=== PATIENT | female | born 1945 | race African-American/Black ===

== ENCOUNTER 2016-12-31 15:22 | Emergency (ER) | payer OTHER, MEDICAID ==
[~2016-12-31 15:22] MED LIST: 1-ME1LIQ PO; ACET325 PO; ASPI81 PO; CITRTAB7 PO; LISI-366 PO; SIMV20 PO; TOPR100T15 PO
[2016-12-31 15:24] VITALS: BP 155/72; PULSE 101; RESP 17; TEMP 98.2; O2SAT 99
--- NOTE | 2016-12-31 15:47 | PD ---
Physical Exam Date Seen by Provider: Dec 31, 2016 Time Seen by Provider: 15:45 Narrative Pt is a 71 year old female presenting to the ED for evaluation left flank and abdominal pain. Symptoms started . Pt states it hurts when she coughs. Pt reports dysuria. Pt states pain is a 10/10. Pain is worse with movement. No fevers, chills. VSS, awaiting bed placement. Data Data Last Documented VS Vital Signs Date Time Temp Pulse Resp B/P (MAP) Pulse Ox O2 Delivery O2 Flow Rate FiO2 12/31/16 15:24 98.2 101 17 155/72 (99) 99 MDM Supervised Visit with TRACEE: Mariann Harmon Dec 31, 2016 15:47
[2016-12-31 16:21] LABS: AUTOMATED NEUTROPHIL # 5.4 TH/MM3 (1.8-7.7); BASOPHIL # 0.1 TH/MM3 (0-0.2); EOSINOPHIL # 0.2 TH/MM3 (0-0.4); EOSINOPHIL % 2.2 % (0.0-4.0); HEMATOCRIT 32.1 % (35.0-46.0); HEMO FLAGS DIFF FINAL; LYMPH % 28.2 % (9.0-44.0); LYMPHOCYTE # 2.6 TH/MM3 (1.0-4.8); MEAN CELL VOLUME 91.5 FL (80.0-100.0); MEAN CORPUSCULAR HEMOGLOBIN 29.2 PG (27.0-34.0); MEAN CORPUSCULAR HGB CONC 31.9 % (32.0-36.0); MONO % 9.1 % (0.0-8.0); NEUT % 59.5 % (16.0-70.0); PLATELET COUNT 428 TH/MM3 (150-450); RED BLOOD COUNT 3.51 MIL/MM3 (4.00-5.30); RED CELL DISTRIBUTION WIDTH 18.7 % (11.6-17.2); WHITE BLOOD COUNT 9.1 TH/MM3 (4.0-11.0)
[2016-12-31 16:23] LABS: BACTERIA, URINE MANY /hpf; BLOOD, URINE NEG (NEG); COMMENT (UR) CULTURE INDICATED; CULTURE IF INDICATED CULTURE INDICATED; GLUCOSE,URINE NEG (NEG); HYALINE CAST, URINE 3 /lpf (RARE); KETONE, URINE NEG (NEG); MUCUS URINE FEW /lpf (OCC); NITRITE,URINE NEG (NEG); PH, URINE 5.5 (5.0-8.5); SQUAMOUS EPITHELIAL CELL URINE 15 /hpf (0-5); URINE COLOR YELLOW (YELLW/STRAW)
[2016-12-31 16:34] LABS: ANION GAP 8 MEQ/L (5-15); AST (GOT) 19 U/L (15-37); BICARBONATE 23.3 MEQ/L (21.0-32.0); BLOOD UREA NITROGEN 22 MG/DL (7-18); CHLORIDE 107 MEQ/L (98-107); GLOMERULAR FILTRATION RATE 30 ML/MIN (>89); POTASSIUM 3.8 MEQ/L (3.5-5.1); SODIUM (NA) 138 MEQ/L (136-145)
[2016-12-31 16:38] LABS: ALKALINE PHOSPHATASE 118 U/L (45-117); ALT (GPT) 26 U/L (10-53); TOTAL BILIRUBIN ADULT 0.4 MG/DL (0.2-1.0)
[2016-12-31] MEDS ORDERED: MORPHINE SULFATE 4 MG/ML INJ IV PUSH ONE (17:30)
[2016-12-31] MEDS ORDERED: cefTRIAXone INJ 1,000 MG in SODIUM CHLORIDE 0.9% INJ 100 ML IV ONE (17:30)
[2016-12-31] MEDS ORDERED: ONDANSETRON HCL 4 MG/2 ML VIAL IV PUSH ONE (17:30)
[2016-12-31] MEDS ORDERED: SODIUM CHLOR 0.9% 1000 ML INJ 1,000 ML IV ONE (17:30)
[2016-12-31] MEDS ORDERED: LISI40TA PO (17:39)
[2016-12-31] MEDS ORDERED: HYDR-3799 PO (17:39)
[2016-12-31] MEDS ORDERED: TRAZ50TA12 PO (17:39)
[2016-12-31] MEDS ORDERED: TOPR100T PO (17:39)
[2016-12-31] MEDS ORDERED: ATOR10TA15 PO (17:39)
[2016-12-31] MEDS ORDERED: CLOP75TA PO (17:39)
[2016-12-31] MEDS ORDERED: TOLT60TA PO (17:39)
[2016-12-31] MEDS ORDERED: ASPI1TAB91 PO (17:39)
[2016-12-31] MEDS ORDERED: ESCI10TA PO (17:39)
[2016-12-31] MEDS ORDERED: OMEP20TA PO (17:39)
[2016-12-31] MEDS ORDERED: MECL-62 PO (17:39)
[2016-12-31] MEDS ORDERED: CHLO25TA2 PO (17:39)
--- NOTE | 2016-12-31 17:39 | PD ---
HPI Chief Complaint: Flank/Kidney Pain Time Seen by Provider: 17:10 Travel History International Travel<30 days: No Contact w/Intl Traveler<30days: No Traveled to known affect area: No History of Present Illness HPI Patient is a 71-year-old female who comes in complaining of lower abdominal pain that radiates into her back. She says she has had the pain since . She says she has burning when she urinates. She denies nausea or vomiting, but says she has had no appetite. She says she is having regular bowel movements. She denies fever or chills. PFSH Past Medical History Arthritis: Yes Asthma: No Autoimmune Disease: No Blood Disorders: No Anxiety: No Depression: No Heart Rhythm Problems: No Cancer: No Cardiac Catheterization: Yes Cardiovascular Problems: Yes High Cholesterol: Yes Chemotherapy: No Chest Pain: No Congestive Heart Failure: No COPD: Yes Cerebrovascular Accident: No Coronary Artery Disease: Yes Diabetes: Yes (DIET CONTROLLED- MD TOOK HER OFF MEDS) Patient Takes Glucophage: No Diminished Hearing: Yes (MOSTLY DEAF) Endocrine: No GERD: No Glaucoma: No Genitourinary: No Headaches: Yes Hepatitis: No Hiatal Hernia: No Hypertension: Yes Immune Disorder: No Kidney Stones: No Medical other: Yes (HARD OF HEARING USED A HEARING AID,ARTHRITIS) Musculoskeletal: Yes Neurologic: Yes Psychiatric: No Reproductive: No Respiratory: Yes (SLEEP APNEA WITH C PAP) Immunizations Current: Yes Migraines: No Myocardial Infarction: No Radiation Therapy: No Renal Failure: No Seizures: No Sickle Cell Disease: No Sleep Apnea: No Thyroid Disease: No Ulcer: No PNEUMOCCOCAL Vaccine (Year): 2 Menopausal: Yes : 3 Para: 3 Past Surgical History Abdominal Surgery: Yes AICD: No Appendectomy: No Arteriovenous Shunt: No Cardiac Surgery: Yes (HEART CATH 2007) Section: Yes Cholecystectomy: No Ear Surgery: No Endocrine Surgery: No Eye Surgery: Yes (RIGHT CATARACT EXTRACTION WITH LENS) Genitourinary Surgery: No Gynecologic Surgery: Yes (C SECTION X 3) Insulin Pump: No Joint Replacement: No Oral Surgery: No Pacemaker: No Thoracic Surgery: No Other Surgery: Yes Social History Alcohol Use: Yes (3 BEERS/DAY WEEKENDS) Tobacco Use: Yes (MOSTLY WHEN DRINKING) Substance Use: No Allergies-Medications (Allergen,Severity, Reaction): Coded Allergies: No Known Allergies (Verified , 12/31/16) Reported Meds & Prescriptions Reported Meds & Active Scripts Active Reported Trazodone (Trazodone HCl) 50 Mg Tab 100 Mg PO HS PRN Lisinopril 40 Mg Tab 40 Mg PO DAILY Escitalopram (Escitalopram Oxalate) 10 Mg Tab 10 Mg PO DAILY Clopidogrel (Clopidogrel Bisulfate) 75 Mg Tab 75 Mg PO DAILY Chlorthalidone 25 Mg Tab 25 Mg PO DAILY Atorvastatin (Atorvastatin Calcium) 10 Mg Tab 10 Mg PO HS Tolterodine (Tolterodine Tartrate) 1 Mg Tab 1 Mg PO BID Hydralazine HCl 25 Mg Tablet 25 Mg PO BID Toprol XL (Metoprolol Succinate) 100 Mg Tab 100 Mg PO DAILY Omeprazole 20 Mg Tab 40 Mg PO DAILY Meclizine (Meclizine HCl) 25 Mg Tab 25 Mg PO TID PRN Aspirin Adult Low Strength (Aspirin) 81 Mg Tabdr 81 Mg PO DAILY Review of Systems Except as stated in HPI: all other systems reviewed are Neg General / Constitutional: No: Fever, Chills Eyes: No: Blurred Vision HENT: No: Headaches, Lightheadedness Cardiovascular: No: Chest Pain or Discomfort Respiratory: No: Shortness of Breath Gastrointestinal: Positive: Abdominal Pain, No: Nausea, Vomiting Genitourinary: Positive: Dysuria, Flank Pain Skin: No Rash, No Change in Pigmentation Neurologic: No: Weakness, Dizziness Physical Exam Narrative GENERAL: Awake and alert, in mild distress due to pain. SKIN: Focused skin assessment warm/dry. HEAD: Atraumatic. Normocephalic. EYES: Pupils equal and round. No scleral icterus. ENT: Mucous membranes pink and moist. NECK: Trachea midline. No JVD. CARDIOVASCULAR: Regular rate and rhythm. No murmur appreciated. RESPIRATORY: No accessory muscle use. Clear to auscultation. Breath sounds equal bilaterally. GASTROINTESTINAL: Abdomen soft, mildly distended. Tender to palpation of the suprapubic area, no rebound or guarding. MUSCULOSKELETAL: No obvious deformities. No clubbing. No cyanosis. No edema. NEUROLOGICAL: Awake and alert. No obvious cranial nerve deficits. Motor grossly within normal limits. Normal speech. PSYCHIATRIC: Appropriate mood and affect; insight and judgment normal. Data Data Last Documented VS Vital Signs Date Time Temp Pulse Resp B/P (MAP) Pulse Ox O2 Delivery O2 Flow Rate FiO2 12/31/16 18:19 86 18 199/84 (122) 95 Room Air 12/31/16 15:24 98.2 Orders Orders Urinalysis - C+S If Indicated (12/31/16 15:47) Complete Blood Count With Diff (12/31/16 15:47) Comprehensive Metabolic Panel (12/31/16 15:47) Urine Culture (12/31/16 15:57) Ct Abd/Pel W/O Iv Contrast (12/31/16 ) Ceftriaxone Inj (Rocephin Inj) (12/31/16 17:30) Morphine Inj (Morphine Inj) (12/31/16 17:30) Ondansetron Inj (Zofran Inj) (12/31/16 17:30) Sodium Chlor 0.9% 1000 Ml Inj (Ns 1000 M (12/31/16 17:30) Hydromorphone Pf Inj (Dilaudid Pf Inj) (12/31/16 19:00) Labs Laboratory Tests Test 12/31/16 15:57 12/31/16 16:04 Urine Color YELLOW Urine Turbidity CLOUDY Urine pH 5.5 Urine Specific [place] 1.021 Urine Protein 30 mg/dL Urine Glucose (UA) NEG mg/dL Urine Ketones NEG mg/dL Urine Occult Blood NEG Urine Nitrite NEG Urine Bilirubin NEG Urine Urobilinogen LESS THAN 2.0 MG/DL Urine Leukocyte Esterase LARGE Urine RBC 25 /hpf Urine WBC 58 /hpf Urine Squamous Epithelial Cells 15 /hpf Urine Amorphous Sediment RARE Urine Bacteria MANY /hpf Urine Hyaline Casts 3 /lpf Urine Mucus FEW /lpf Microscopic Urinalysis Comment CULTURE INDICATED White Blood Count 9.1 TH/MM3 Red Blood Count 3.51 MIL/MM3 Hemoglobin 10.3 GM/DL Hematocrit 32.1 % Mean Corpuscular Volume 91.5 FL Mean Corpuscular Hemoglobin 29.2 PG Mean Corpuscular Hemoglobin Concent 31.9 % Red Cell Distribution Width 18.7 % Platelet Count 428 TH/MM3 Mean Platelet Volume 7.4 FL Neutrophils (%) (Auto) 59.5 % Lymphocytes (%) (Auto) 28.2 % Monocytes (%) (Auto) 9.1 % Eosinophils (%) (Auto) 2.2 % Basophils (%) (Auto) 1.0 % Neutrophils # (Auto) 5.4 TH/MM3 Lymphocytes # (Auto) 2.6 TH/MM3 Monocytes # (Auto) 0.8 TH/MM3 Eosinophils # (Auto) 0.2 TH/MM3 Basophils # (Auto) 0.1 TH/MM3 CBC Comment DIFF FINAL Differential Comment Blood Urea Nitrogen 22 MG/DL Creatinine 1.99 MG/DL Random Glucose 107 MG/DL Total Protein 8.2 GM/DL Albumin 3.4 GM/DL Calcium Level 9.3 MG/DL Alkaline Phosphatase 118 U/L Aspartate Amino Transf (AST/SGOT) 19 U/L Alanine Aminotransferase (ALT/SGPT) 26 U/L Total Bilirubin 0.4 MG/DL Sodium Level 138 MEQ/L Potassium Level 3.8 MEQ/L Chloride Level 107 MEQ/L Carbon Dioxide Level 23.3 MEQ/L Anion Gap 8 MEQ/L Estimat Glomerular Filtration Rate 30 ML/MIN MDM Medical Decision Making Medical Screen Exam Complete: Yes Emergency Medical Condition: Yes Medical Record Reviewed: Yes Differential Diagnosis UTI versus pyelonephritis versus renal stone Narrative Course Patient is a 71-year-old female comes in complaining of pain that goes from her back into her lower abdomen. Exam shows some suprapubic tenderness. IV established, labs sent. Patient given morphine, Zofran, fluids. Labs show evidence of UTI in the urinalysis. Creatinine is elevated to 1.99, with nothing for comparison. CT of the abdomen and pelvis shows no acute abnormalities or causes for the pain. Believe the patient is having pain due to pyelonephritis. She is given a dose of Rocephin. She will be discharged with prescriptions for Lortab and Cipro. She is advised to follow-up with her doctor regarding her elevated creatinine. She is advised to return to the ED as needed for any worsening symptoms. Diagnosis Primary Impression: Pyelonephritis Patient Instructions: General Instructions, Kidney Infection (ED) Additional Instructions: Your creatinine was 1.99 today, suggesting your kidneys are not functioning as well as they should be. He need follow-up with your doctor regarding this. X- rays take all of your antibiotic. Drink plenty of fluids. Return to the ED as needed for any worsening symptoms. Scripts Hydrocodone-Acetaminophen (Lortab) 5-325 Mg Tab 1 TAB PO Q6H Y for PAIN, #10 TAB 0 Refills Prov: Adriana Krishna MD 12/31/16 Phenazopyridine (Pyridium) 100 Mg Tab 100 MG PO Q8H Y for DYSURIA for 2 Days, TAB 0 Refills Prov: Adriana Krishna MD 12/31/16 Ciprofloxacin (Cipro) 500 Mg Tab 500 MG PO BID for Infection for 7 Days, TAB 0 Refills Prov: Adriana Krishna MD 12/31/16 Disposition: 01 DISCHARGE HOME Condition: Stable Adriana Krishna MD Dec 31, 2016 17:39
[2016-12-31 18:19] VITALS: BP 199/84; PULSE 86; RESP 18; O2SAT 95
--- NOTE | 2016-12-31 18:53 | RADRPT ---
EXAM DATE/TIME: 12/31/2016 17:52 [facility] COMPARISON: No previous studies available for comparison. INDICATIONS : Patient complains of low back pain radiating to abdomen. ORAL CONTRAST: No oral contrast ingested. RADIATION DOSE: 8.53 CTDIvol (mGy) MEDICAL HISTORY : Cardiovascular disease. Hypertension. SURGICAL HISTORY : None. ENCOUNTER: Initial ACUITY: 1 day PAIN SCALE: 10/10 LOCATION: Bilateral abdomen TECHNIQUE: Volumetric scanning of the abdomen and pelvis was performed. Using automated exposure control and adjustment of the mA and/or kV according to patient size, radiation dose was kept as low as reasonably achievable to obtain optimal diagnostic quality images. DICOM format image data is av ailable electronically for review and comparison. FINDINGS: The liver, spleen, pancreas and adrenal glands are normal. There is a 4.2 cm mass seen at the medial mid inferior left kidney. It is nonspecific on this noncontrast CT examination. It d oes measure water density and statistically likely represents a cyst. There are atherosclerotic calc ifications seen throughout. There are calcifications in the renal hilar regions likely related to va scular structures. Hydronephrosis is not seen. An aneurysm is not seen. The gallbladder is unremarkable. There are scattered colonic diverticula seen throughout the colon. Significant inflammatory change is not clearly identified. What appears to be the appendix is ident ified and appears grossly normal. The pelvic structures appear grossly intact. There are numerous calcifications in the pelvis likely related to a combination of arterial calcifications and phleboliths. The abdominal wall is grossly i ntact. There is minimal atelectasis seen at the lung bases. There is degenerative change with osteo phyte formation and disc bulging in the lumbar spine. There is fusion seen at the left sacroiliac ivelisse int. The right sacroiliac joint is intact. CONCLUSION: 1. No definite acute abnormality is seen. 2. Colonic diverticula are seen throughout the colon. 3. Atherosclerotic calcifications seen throughout the arterial system. 4. Degenerative change in the lumbar spine and fusion at the left sacroiliac joint. Mando Forrest MD on December 31, 2016 at 18:37 Board Certified Radiologist. This report was verified electronically.
[2016-12-31] MEDS ORDERED: HYDROmorphone HCL PF 1 MG/ML VIAL IV PUSH ONE (19:00)
[2016-12-31] MEDS ORDERED: PHEN0.4T PO (19:33)
[2016-12-31] MEDS ORDERED: HYDR-3533 PO (19:33)
[2016-12-31] MEDS ORDERED: CIPR-9 PO (19:33)
[2016-12-31 19:45] VITALS: BP 178/81; PULSE 81; RESP 16; O2SAT 98
== END 2016-12-31 20:03 | disposition home or self-care (01) ==
LOC: NEPD 15:22
DX: N12 Tubulo-interstitial nephritis, not specified as acute or chronic (principal); B96.89 Other specified bacterial agents as the cause of diseases classified elsewhere; I10 Essential (primary) hypertension; Z72.0 Tobacco use
CPT/HCPCS: 74176; 80053; 81001; 85025; 87086; 96361; 96365; 96375; 99285; J0696; J1170; J2270; J2405; J7030

== ENCOUNTER 2017-04-03 11:46 | Observation (INO) | payer OTHER, MEDICAID ==
[2017-04-03] VITALS (8 sets, daily range): BP systolic 99–168; BP diastolic 55–88; PULSE 63–80; RESP 16–21; TEMP 97.8–98.5; O2SAT 99–100
[~2017-04-03] VITALS: Ht 152.4 cm; Wt 79.5 kg
[~2017-04-03 11:46] MED LIST changes: -1-ME1LIQ PO; -ACET325 PO; -ASPI81 PO; +ASPI81TA16 PO; +ATOR10TA15 PO; +CHLO25TA2 PO; +CIPR-9 PO; -CITRTAB7 PO; +CLOP75TA PO; +ESCI10TA PO; +HYDR-3533 PO; +HYDR-3799 PO; -LISI-366 PO; +LISI40TA PO; +MECL-62 PO; +OMEP20TA93 PO; +PHEN0.4T PO; -SIMV20 PO; +TOLT60TA PO; +TOPR100T PO; -TOPR100T15 PO; +TRAZ50TA12 PO
[2017-04-03] MEDS ORDERED: SODIUM CHLOR 0.9% 1000 ML INJ 1,000 ML IV SCH (12:18)
--- NOTE | 2017-04-03 12:24 | PD ---
HPI Chief Complaint: Altered Mental Status Time Seen by Provider: 12:10 Travel History International Travel<30 days: No Contact w/Intl Traveler<30days: No Traveled to known affect area: No History of Present Illness HPI This Is a 71-year-old female who presents with her friend for evaluation of abdominal pain and rectal bleeding. She's been expressing lower abdominal pain for 2 days. She also notes 2 episodes this morning of rectal bleeding. Denies nausea, vomiting, chest pain, shortness of breath, fevers or chills, flank pain. She was recently prescribed Macrobid for urinary tract infection. She is on Plavix. She has no other complaints at this time. PFSH Past Medical History Hx Anticoagulant Therapy: Yes Arthritis: Yes Asthma: No Autoimmune Disease: No Blood Disorders: No Anxiety: No Depression: No Heart Rhythm Problems: No Cancer: No Cardiac Catheterization: Yes Cardiovascular Problems: Yes High Cholesterol: Yes Chemotherapy: No Chest Pain: No Congestive Heart Failure: No COPD: Yes Cerebrovascular Accident: No Coronary Artery Disease: Yes Diabetes: Yes Patient Takes Glucophage: No Diminished Hearing: Yes (MOSTLY DEAF) Endocrine: No GERD: No Glaucoma: No Genitourinary: No Headaches: Yes Hepatitis: No Hiatal Hernia: No Hypertension: Yes Immune Disorder: No Kidney Stones: No Medical other: Yes (HARD OF HEARING USED A HEARING AID,ARTHRITIS) Musculoskeletal: Yes Neurologic: Yes Psychiatric: No Reproductive: No Respiratory: Yes Immunizations Current: Yes Migraines: No Myocardial Infarction: No Radiation Therapy: No Renal Failure: Yes (stage 4) Seizures: No Sickle Cell Disease: No Sleep Apnea: No Thyroid Disease: No Ulcer: No PNEUMOCCOCAL Vaccine (Year): 2 Menopausal: Yes : 3 Para: 3 Past Surgical History Abdominal Surgery: Yes AICD: No Appendectomy: No Arteriovenous Shunt: No Cardiac Surgery: Yes (HEART CATH 2007) Section: Yes Cholecystectomy: No Ear Surgery: No Endocrine Surgery: No Eye Surgery: Yes (RIGHT CATARACT EXTRACTION WITH LENS) Genitourinary Surgery: No Gynecologic Surgery: Yes (C SECTION X 3) Insulin Pump: No Joint Replacement: No Oral Surgery: No Pacemaker: No Thoracic Surgery: No Other Surgery: Yes Social History Alcohol Use: Yes (3 BEERS/DAY WEEKENDS) Tobacco Use: Yes (MOSTLY WHEN DRINKING) Substance Use: No Allergies-Medications (Allergen,Severity, Reaction): Coded Allergies: No Known Allergies (Verified Allergy, Unknown, 04/03/17) Reported Meds & Prescriptions Reported Meds & Active Scripts Active Reported Naproxen 500 Mg Tab 500 Mg PO BID 7 Days Macrodantin (Nitrofurantoin Macrocrystal) 100 Mg Cap 100 Mg PO BID 7 Days Percocet (Oxycodone-Acetaminophen) 5-325 mg Tab 1 Tab PO Q4H PRN 3 Days Tizanidine (Tizanidine HCl) 2 Mg Tab 2 Mg PO TID PRN Trazodone (Trazodone HCl) 50 Mg Tab 100 Mg PO HS PRN Lisinopril 40 Mg Tab 40 Mg PO DAILY Escitalopram (Escitalopram Oxalate) 10 Mg Tab 10 Mg PO DAILY Clopidogrel (Clopidogrel Bisulfate) 75 Mg Tab 75 Mg PO DAILY Chlorthalidone 25 Mg Tab 25 Mg PO DAILY Atorvastatin (Atorvastatin Calcium) 10 Mg Tab 10 Mg PO HS Tolterodine (Tolterodine Tartrate) 1 Mg Tab 1 Mg PO BID Hydralazine HCl 25 Mg Tablet 25 Mg PO BID Toprol XL (Metoprolol Succinate) 100 Mg Tab 100 Mg PO DAILY Omeprazole 20 Mg Tab 40 Mg PO DAILY Meclizine (Meclizine HCl) 25 Mg Tab 25 Mg PO TID PRN Aspirin Adult Low Strength (Aspirin) 81 Mg Tabdr 81 Mg PO DAILY Review of Systems Except as stated in HPI: all other systems reviewed are Neg Physical Exam Narrative GENERAL: Well-developed well-nourished female in no acute distress. SKIN: Warm and dry. HEAD: Atraumatic. Normocephalic. EYES: Pupils equal and round. No scleral icterus. No injection or drainage. ENT: No nasal bleeding or discharge. Mucous membranes pink and moist. NECK: Trachea midline. No JVD. CARDIOVASCULAR: Regular rate and rhythm. No murmur appreciated. RESPIRATORY: No accessory muscle use. Clear to auscultation. Breath sounds equal bilaterally. GASTROINTESTINAL: Abdomen soft, tender to palpation in the lower abdomen without guarding. No obvious CVA tenderness. MUSCULOSKELETAL: No obvious deformities. No clubbing. No cyanosis. No edema. NEUROLOGICAL: Awake and alert. No obvious cranial nerve deficits. Motor grossly within normal limits. Normal speech. PSYCHIATRIC: Appropriate mood and affect; insight and judgment normal. Data Data Last Documented VS Vital Signs Date Time Temp Pulse Resp B/P (MAP) Pulse Ox O2 Delivery O2 Flow Rate FiO2 04/03/17 14:07 63 18 163/70 (101) 100 Nasal Cannula 2.00 04/03/17 11:48 97.8 Orders Orders Complete Blood Count With Diff (04/03/17 12:18) Comprehensive Metabolic Panel (04/03/17 12:18) Lipase (04/03/17 12:18) Lactic Acid (04/03/17 12:18) Prothrombin Time / Inr (Pt) (04/03/17 12:18) Act Partial Throm Time (Ptt) (04/03/17 12:18) Urinalysis - C+S If Indicated (04/03/17 12:18) Iv Access Insert/Monitor (04/03/17 12:18) Ecg Monitoring (04/03/17 12:18) Oximetry (04/03/17 12:18) Morphine Inj (Morphine Inj) (04/03/17 12:30) Ondansetron Inj (Zofran Inj) (04/03/17 12:30) Sodium Chloride 0.9% Flush (Ns Flush) (04/03/17 12:30) Electrocardiogram (04/03/17 12:18) Type And Screen (04/03/17 12:18) Sodium Chlor 0.9% 1000 Ml Inj (Ns 1000 M (04/03/17 12:18) Pantoprazole Inj (Protonix Inj) (04/03/17 13:15) Ct Abd/Pel W/O Iv Contrast (04/03/17 13:14) Urine Culture (04/03/17 14:15) Ceftriaxone Inj (Rocephin Inj) (04/03/17 15:00) Admit Order (Ed Use Only) (04/03/17 14:54) Labs Laboratory Tests Test 04/03/17 12:30 04/03/17 12:35 04/03/17 14:15 White Blood Count 11.8 TH/MM3 Red Blood Count 3.00 MIL/MM3 Hemoglobin 8.6 GM/DL Hematocrit 27.1 % Mean Corpuscular Volume 90.1 FL Mean Corpuscular Hemoglobin 28.5 PG Mean Corpuscular Hemoglobin Concent 31.6 % Red Cell Distribution Width 20.2 % Platelet Count 513 TH/MM3 Mean Platelet Volume 8.1 FL Neutrophils (%) (Auto) 53.5 % Lymphocytes (%) (Auto) 36.8 % Monocytes (%) (Auto) 6.7 % Eosinophils (%) (Auto) 2.4 % Basophils (%) (Auto) 0.6 % Neutrophils # (Auto) 6.3 TH/MM3 Lymphocytes # (Auto) 4.3 TH/MM3 Monocytes # (Auto) 0.8 TH/MM3 Eosinophils # (Auto) 0.3 TH/MM3 Basophils # (Auto) 0.1 TH/MM3 CBC Comment DIFF FINAL Differential Comment Prothrombin Time 10.5 SEC Prothromb Time International Ratio 1.0 RATIO Activated Partial Thromboplast Time 25.2 SEC Blood Urea Nitrogen 39 MG/DL Creatinine 1.86 MG/DL Random Glucose 138 MG/DL Total Protein 7.8 GM/DL Albumin 3.5 GM/DL Calcium Level 9.1 MG/DL Alkaline Phosphatase 88 U/L Aspartate Amino Transf (AST/SGOT) 15 U/L Alanine Aminotransferase (ALT/SGPT) 15 U/L Total Bilirubin 0.3 MG/DL Sodium Level 140 MEQ/L Potassium Level 3.6 MEQ/L Chloride Level 109 MEQ/L Carbon Dioxide Level 21.9 MEQ/L Anion Gap 9 MEQ/L Estimat Glomerular Filtration Rate 33 ML/MIN Lipase 376 U/L Lactic Acid Level 2.2 mmol/L Urine Color YELLOW Urine Turbidity CLOUDY Urine pH 5.5 Urine Specific [place] 1.018 Urine Protein 30 mg/dL Urine Glucose (UA) NEG mg/dL Urine Ketones NEG mg/dL Urine Occult Blood MOD Urine Nitrite NEG Urine Bilirubin NEG Urine Urobilinogen LESS THAN 2.0 MG/DL Urine Leukocyte Esterase LARGE Urine RBC 10 /hpf Urine WBC 15 /hpf Urine Squamous Epithelial Cells 30 /hpf Urine Amorphous Sediment RARE Urine Bacteria FEW /hpf Urine Mucus FEW /lpf Microscopic Urinalysis Comment CULTURE INDICATED MDM Medical Decision Making Medical Screen Exam Complete: Yes Emergency Medical Condition: Yes Medical Record Reviewed: Yes Interpretation(s) CT abdomen and pelvis CONCLUSION: 1. Diverticular disease throughout the colon without diverticulitis. The appendix is normal. 2. Otherwise, no acute intraperitoneal or pelvic process to explain current clinical symptoms. 3. Stable 4 cm low-density lesion in the medial midpole of the left kidney is likely a cyst. 4. Stent in the right common iliac artery. Bony fusion of the left SI joint. Lactic acid 2.2 Hemoglobin 8.6 Differential Diagnosis GI bleed, UTI, diverticulitis, diverticular bleed, hemorrhoid, appendicitis Narrative Course Plan is for basic lab work, CT abdomen and pelvis. Hemoccult was performed which does reveal red Hemoccult-positive stool. The patient's hemoglobin is lower than her baseline. Lactic acid is 2.2. CT abdomen and pelvis reveals no acute abnormalities. Urinalysis reveals continued specimen but there are increased the PVCs and therefore the patient was given Rocephin. At this time the plan is to admit the patient. Diagnosis Primary Impression: GI bleed Qualified Codes: K92.2 - Gastrointestinal hemorrhage, unspecified Additional Impression: Abdominal pain Qualified Codes: R10.9 - Unspecified abdominal pain Admitting Information Admitting Physician Requests: Wilner Rowell Apr 03, 2017 12:24
[2017-04-03] MEDS ORDERED: MORPHINE SULFATE 4 MG/ML INJ IV PUSH ONE (12:30)
[2017-04-03] MEDS ORDERED: SODIUM CHLORIDE 0.9% FLUSH 10 ML FLUSH IV FLUSH PRN ×2 (12:30→15:00)
[2017-04-03] MEDS ORDERED: ONDANSETRON HCL 4 MG/2 ML VIAL IVP ONE (12:30)
[2017-04-03] MEDS ORDERED: MACR100C3 PO (12:40)
[2017-04-03] MEDS ORDERED: NAPR500T2 PO (12:40)
[2017-04-03] MEDS ORDERED: TIZA2TAB PO ×2 (12:40)
[2017-04-03] MEDS ORDERED: PERC5TAB12 PO ×2 (12:40)
[2017-04-03 12:44] LABS: AUTOMATED NEUTROPHIL # 6.3 TH/MM3 (1.8-7.7); BASOPHIL # 0.1 TH/MM3 (0-0.2); BASOPHIL % 0.6 % (0.0-2.0); EOSINOPHIL # 0.3 TH/MM3 (0-0.4); EOSINOPHIL % 2.4 % (0.0-4.0); HEMATOCRIT 27.1 % (35.0-46.0); HEMO FLAGS DIFF FINAL; LYMPH % 36.8 % (9.0-44.0); LYMPHOCYTE # 4.3 TH/MM3 (1.0-4.8); MEAN CELL VOLUME 90.1 FL (80.0-100.0); MEAN CORPUSCULAR HEMOGLOBIN 28.5 PG (27.0-34.0); MEAN CORPUSCULAR HGB CONC 31.6 % (32.0-36.0); MONO % 6.7 % (0.0-8.0); NEUT % 53.5 % (16.0-70.0); PLATELET COUNT 513 TH/MM3 (150-450); RED CELL DISTRIBUTION WIDTH 20.2 % (11.6-17.2); WHITE BLOOD COUNT 11.8 TH/MM3 (4.0-11.0)
[2017-04-03 12:54] LABS: APTT (PATIENT) 25.2 SEC (24.3-30.1); PROTHROMBIN TIME - PATIENT 10.5 SEC (9.8-11.6)
[2017-04-03 13:03] LABS: ANION GAP 9 MEQ/L (5-15); AST (GOT) 15 U/L (15-37); BICARBONATE 21.9 MEQ/L (21.0-32.0); BLOOD UREA NITROGEN 39 MG/DL (7-18); CHLORIDE 109 MEQ/L (98-107); GLOMERULAR FILTRATION RATE 33 ML/MIN (>89); POTASSIUM 3.6 MEQ/L (3.5-5.1); SODIUM (NA) 140 MEQ/L (136-145)
[2017-04-03 13:04] LABS: ALT (GPT) 15 U/L (10-53)
[2017-04-03 13:06] LABS: ALKALINE PHOSPHATASE 88 U/L (45-117); TOTAL BILIRUBIN ADULT 0.3 MG/DL (0.2-1.0)
[2017-04-03] MEDS ORDERED: PANTOPRAZOLE SODIUM 40 MG VIAL IVP ONE (13:15)
--- NOTE | 2017-04-03 14:09 | RADRPT ---
EXAM DATE/TIME: 04/03/2017 13:37 [facility] COMPARISON: CT ABDOMEN & PELVIS W/O CONTRAST, December 31, 2016, 17:52. INDICATIONS : Lower abdomen pain for three days. ORAL CONTRAST: No oral contrast ingested. RADIATION DOSE: 7.7 CTDIvol (mGy) MEDICAL HISTORY : Cardiovascular disease. Hypertension. Chronic obstructive pulmonary disease.Diabetes, Stage 4 renal f ailure. SURGICAL HISTORY : section. ENCOUNTER: Initial ACUITY: 3 days PAIN SCALE: 10/10 LOCATION: Bilateral lower quadrant TECHNIQUE: Volumetric scanning of the abdomen and pelvis was performed. Using automated exposure control and ad justment of the mA and/or kV according to patient size, radiation dose was kept as low as reasonably achievable to obtain optimal diagnostic quality images. DICOM format image data is available electro nically for review and comparison. FINDINGS: LOWER LUNGS: The visualized lower lungs are clear. There is some opacification of the mitral valve annulus. LIVER: Homogeneous density without lesion. There is no dilation of the biliary tree. No calcified gallston es. SPLEEN: Normal size without lesion. PANCREAS: Within normal limits. KIDNEYS: Right kidney is slightly smaller than the left which could represent some vascular compromise. Stable 4.0 x 3.3 cm low-density lesion in the posteromedial midpole of the left kidney. Hounsfield measurem ents are around one and this is most characteristic of a benign cyst. ADRENAL GLANDS: Within normal limits. VASCULAR: There is no aortic aneurysm. Stent is seen in the proximal right iliac system. BOWEL/MESENTERY: The stomach, small bowel, and colon demonstrate no acute abnormality. There is no free intraperitone al air or fluid. Diverticula is seen throughout the colon without diverticulitis. The appendix is gretchen ntified and is radiographically normal. ABDOMINAL WALL: Within normal limits. RETROPERITONEUM: There is no lymphadenopathy. BLADDER: No wall thickening or mass. REPRODUCTIVE: Within normal limits. INGUINAL: There is no lymphadenopathy or hernia. MUSCULOSKELETAL: Bony fusion of the left SI joint. Otherwise intact. CONCLUSION: 1. Diverticular disease throughout the colon without diverticulitis. The appendix is normal. 2. Otherwise, no acute intraperitoneal or pelvic process to explain current clinical symptoms. 3. Stable 4 cm low-density lesion in the medial midpole of the left kidney is likely a cyst. 4. Stent in the right common iliac artery. Bony fusion of the left SI joint. Altaf Crabtree MD on April 03, 2017 at 13:59 Board Certified Radiologist. This report was verified electronically.
[2017-04-03 14:46] LABS: BACTERIA, URINE FEW /hpf; BLOOD, URINE MOD (NEG); COMMENT (UR) CULTURE INDICATED; CULTURE IF INDICATED CULTURE INDICATED; GLUCOSE,URINE NEG (NEG); KETONE, URINE NEG (NEG); MUCUS URINE FEW /lpf (OCC); NITRITE,URINE NEG (NEG); PH, URINE 5.5 (5.0-8.5); SQUAMOUS EPITHELIAL CELL URINE 30 /hpf (0-5); URINE COLOR YELLOW (YELLW/STRAW)
[2017-04-03] MEDS ORDERED: BISACODYL 10 MG SUPP RECTAL PRN (15:00)
[2017-04-03] MEDS ORDERED: SENNOSIDES 8.6 MG TAB PO PRN (15:00)
[2017-04-03] MEDS ORDERED: cefTRIAXone INJ 1,000 MG in SODIUM CHLORIDE 0.9% INJ 100 ML IV ONE (15:00)
[2017-04-03] MEDS ORDERED: NALOXONE HCL 0.4 MG/ML AMP IV PUSH PRN ×2 (15:00→18:15)
[2017-04-03] MEDS ORDERED: LACTULOSE SYRUP 20 GM/30 ML CUP PO PRN (15:00)
[2017-04-03] MEDS ORDERED: ONDANSETRON HCL 4 MG/2 ML VIAL IVP PRN (15:00)
[2017-04-03] MEDS ORDERED: MAGNESIUM HYDROXIDE SUSP 30 ML CUP PO PRN (15:00)
[2017-04-03] MEDS: SODIUM CHLOR 0.45% 1000 ML INJ 1,000 ML IV SCH (15:08)
--- NOTE | 2017-04-03 16:42 | PD.CONS ---
HPI History of Present Illness This is a 71 year old female extremely [place] with hx diverticulosis who presented with abd pain and rectal bleeding. Communicated with pt via written questions. She started having lower abd pain yesterday and then this morning had rectal bleeding, filling toilet bowl. SHe has never had a colonoscopy. Denies diarrhea, n/v. Had plavix yesterday. CT showed diverticulosis. SHe was found to have hgb 8.6 on admission and heme pos stool. Limited historian (Jessie Cardenas) PFSH Past Medical History HTN ?DVT [place] CKD Past Surgical History iliac stent placement (Jessie Cardenas) Coded Allergies: No Known Allergies (Verified Allergy, Unknown, 04/03/17) Family History noncontributory Social History "I don't smoke or drink as much as I used to." occasional beer and cigarettes (Jessie Cardenas) Review of Systems Constitutional: DENIES: Fever Endocrine: DENIES: Polydipsia Eyes: DENIES: Blurred vision Ears, nose, mouth, throat: COMPLAINS OF: Hearing loss Respiratory: DENIES: Cough Cardiovascular: DENIES: Chest pain Gastrointestinal: COMPLAINS OF: Abdominal pain, Bloody stools, DENIES: Black stools, Constipation, Diarrhea, Nausea, Vomiting Musculoskeletal: DENIES: Joint Swelling Integumentary: DENIES: Abnormal pigmentation Hematologic/lymphatic: DENIES: Bruising Neurologic: DENIES: Abnormal gait Psychiatric: DENIES: Confusion (Jessie Cardenas) GI Exam Vitals I&O Vital Signs Date Time Temp Pulse Resp B/P (MAP) Pulse Ox O2 Delivery O2 Flow Rate FiO2 04/03/17 16:10 98.2 73 16 141/67 (91) 99 04/03/17 15:55 04/03/17 15:00 66 17 168/72 (104) 100 Nasal Cannula 2.00 04/03/17 14:07 63 18 163/70 (101) 100 Nasal Cannula 2.00 04/03/17 12:48 16 04/03/17 12:40 65 21 108/58 (75) 100 Nasal Cannula 2.00 04/03/17 12:22 75 20 143/88 (106) 100 Room Air 04/03/17 12:05 20 Room Air 04/03/17 11:48 97.8 80 20 99/55 (70) 100 Room Air I/O 04/02/17 04/02/17 04/02/17 04/03/17 04/03/17 04/03/17 07:00 15:00 23:00 07:00 15:00 23:00 Intake Total 1000 ml 100 ml Balance 1000 ml 100 ml Intake IV Total 1000 ml 100 ml Imaging Last Impressions Abdomen/Pelvis CT 04/03/17 1314 Signed Impressions: Service Date/Time: Monday, April 03, 2017 13:37 - CONCLUSION: 1. Diverticular disease throughout the colon without diverticulitis. The appendix is normal. 2. Otherwise, no acute intraperitoneal or pelvic process to explain current clinical symptoms. 3. Stable 4 cm low-density lesion in the medial midpole of the left kidney is likely a cyst. 4. Stent in the right common iliac artery. Bony fusion of the left SI joint. Altaf Crabtree MD Laboratory Test 04/03/17 12:30 04/03/17 12:35 04/03/17 14:15 White Blood Count 11.8 TH/MM3 Red Blood Count 3.00 MIL/MM3 Hemoglobin 8.6 GM/DL Hematocrit 27.1 % Mean Corpuscular Volume 90.1 FL Mean Corpuscular Hemoglobin 28.5 PG Mean Corpuscular Hemoglobin Concent 31.6 % Red Cell Distribution Width 20.2 % Platelet Count 513 TH/MM3 Mean Platelet Volume 8.1 FL Neutrophils (%) (Auto) 53.5 % Lymphocytes (%) (Auto) 36.8 % Monocytes (%) (Auto) 6.7 % Eosinophils (%) (Auto) 2.4 % Basophils (%) (Auto) 0.6 % Neutrophils # (Auto) 6.3 TH/MM3 Lymphocytes # (Auto) 4.3 TH/MM3 Monocytes # (Auto) 0.8 TH/MM3 Eosinophils # (Auto) 0.3 TH/MM3 Basophils # (Auto) 0.1 TH/MM3 CBC Comment DIFF FINAL Differential Comment Prothrombin Time 10.5 SEC Prothromb Time International Ratio 1.0 RATIO Activated Partial Thromboplast Time 25.2 SEC Blood Urea Nitrogen 39 MG/DL Creatinine 1.86 MG/DL Random Glucose 138 MG/DL Total Protein 7.8 GM/DL Albumin 3.5 GM/DL Calcium Level 9.1 MG/DL Alkaline Phosphatase 88 U/L Aspartate Amino Transf (AST/SGOT) 15 U/L Alanine Aminotransferase (ALT/SGPT) 15 U/L Total Bilirubin 0.3 MG/DL Sodium Level 140 MEQ/L Potassium Level 3.6 MEQ/L Chloride Level 109 MEQ/L Carbon Dioxide Level 21.9 MEQ/L Anion Gap 9 MEQ/L Estimat Glomerular Filtration Rate 33 ML/MIN Lipase 376 U/L Lactic Acid Level 2.2 mmol/L Urine Color YELLOW Urine Turbidity CLOUDY Urine pH 5.5 Urine Specific [place] 1.018 Urine Protein 30 mg/dL Urine Glucose (UA) NEG mg/dL Urine Ketones NEG mg/dL Urine Occult Blood MOD Urine Nitrite NEG Urine Bilirubin NEG Urine Urobilinogen LESS THAN 2.0 MG/DL Urine Leukocyte Esterase LARGE Urine RBC 10 /hpf Urine WBC 15 /hpf Urine Squamous Epithelial Cells 30 /hpf Urine Amorphous Sediment RARE Urine Bacteria FEW /hpf Urine Mucus FEW /lpf Microscopic Urinalysis Comment CULTURE INDICATED Date/Time Source Procedure Growth Status 04/03/17 14:15 Urine Random Urine Urine Culture Pending Received Physical Examination HEENT: PERRL; normocephalic; atraumatic; no jaundice. extremely [place] CHEST: coarse, wheezes CARDIAC: RRR ABDOMEN: Soft, nondistended, diffusely TTP; no hepatosplenomegaly; bowel sounds are present in all four quadrants. EXTREMITIES: No clubbing, cyanosis, or edema. SKIN: Normal; no rash; no jaundice. APRON MAN: No focal deficits; alert and oriented times three. (Jessie Cardenas) Assessment and Plan Plan ASSESSMENT - abd pain, rectal bleeding - onset pain yesterday lower quadrants, rectal bleeding filling bowl this morning. Never had before. never had colonoscopy or EGD. diverticulosis and iliac stent seen on CT. ischemic colitis vs diverticular bleed. on plavix, had yesterday. Has prescription for Aleve. - anemia - hgb 8.6 on admission, prob multifactorial - CKD, elevated lactic acid per attending PLAN - colonoscopy when off plavix for 5 days - hold plavix - cont PPI - ok to feed - monitor HH - transfuse if needed - further recs to follow This pt seen by myself and Dr Enamorado and this note is written on her behalf (Jessie Cardenas) Physician Comments seen, examined agree with above in view of recent bleed, drop in hb - we will schedule egd/colon in am may need CTA abdomen if pain worse transfuse 2 units of prbc clear liquid diet monitor hb/ht (Ana Paula Enamorado MD) Jessie Cardenas Apr 03, 2017 16:42 Ana Paula Enamorado MD Apr 03, 2017 21:18
[2017-04-03] MEDS ORDERED: DEXTROSE 50% IN WATER 50 ML VIAL(D50) IV PUSH PRN (17:30)
[2017-04-03] MEDS ORDERED: GLUCAGON 1 MG/ML VIAL OTHER PRN (17:30)
[2017-04-03] MEDS ORDERED: ACETAMINOPHEN/HYDROcodone 325 MG/5 MG TAB PO PRN (18:15)
[2017-04-03] MEDS ORDERED: MORPHINE SULFATE 4 MG/ML INJ IV PUSH PRN (18:15)
[2017-04-03] MEDS ORDERED: MORPHINE SULFATE 2 MG/ML INJ IV PUSH PRN (18:15)
--- NOTE | 2017-04-03 18:47 | HHI.HP ---
[facility] Service [place] [facility] Primary Care Physician Unknown Admission Diagnosis GI bleed, abdominal pain Diagnoses: Travel History International Travel<30 Days: No Contact w/Intl Traveler <30 Da: No Traveled to Known Affected Are: No History of Present Illness 71-year-old female who is extremely hard of hearing with history of hypertension , CAD, diabetes, who presents with a one-day history of crampy, nonradiating lower abdominal pain, with onset of right red blood per rectum this morning. She does report generalized weakness over the past day, with lightheadedness, no syncope. Denies any chest pain or shortness of breath. Review of Systems Except as stated in HPI: all other systems reviewed are Neg Past Family Social History Past Medical History CK D CAD Hypertension Diabetes mellitus. Extremely hard of hearing Arthritis Past Surgical History History of cardiac catheterization Iliac stent placement Allergies: Coded Allergies: No Known Allergies (Verified Allergy, Unknown, 04/03/17) Family History History reviewed with the patient and currently noncontributory Social History Patient reports quitting smoking and drinking 1 month ago. Denies any illicit drugs. She does have history of cocaine, as well as alcohol use in the past Physical Exam Vital Signs Vital Signs Date Time Temp Pulse Resp B/P (MAP) Pulse Ox O2 Delivery O2 Flow Rate FiO2 04/03/17 16:10 98.2 73 16 141/67 (91) 99 04/03/17 15:55 04/03/17 15:00 66 17 168/72 (104) 100 Nasal Cannula 2.00 04/03/17 14:07 63 18 163/70 (101) 100 Nasal Cannula 2.00 04/03/17 12:48 16 04/03/17 12:40 65 21 108/58 (75) 100 Nasal Cannula 2.00 04/03/17 12:22 75 20 143/88 (106) 100 Room Air 04/03/17 12:05 20 Room Air 04/03/17 11:48 97.8 80 20 99/55 (70) 100 Room Air Physical Exam GENERAL: This is a well-nourished, well-developed patient, in no apparent distress. hard of hearing. SKIN: No rashes, ecchymoses or lesions. Cool and dry. HEAD: Atraumatic. Normocephalic. No temporal or scalp tenderness. EYES: Pupils equal round and reactive. Extraocular motions intact. No scleral icterus. No injection or drainage. ENT: Nose without bleeding, purulent drainage or septal hematoma. Throat without erythema, tonsillar hypertrophy or exudate. Uvula midline. Airway patent. NECK: Trachea midline. No JVD or lymphadenopathy. Supple, nontender, no meningeal signs. CARDIOVASCULAR: Regular rate and rhythm without murmurs, gallops, or rubs. RESPIRATORY: Clear to auscultation. Breath sounds equal bilaterally. No wheezes , rales, or rhonchi. GASTROINTESTINAL: Abdomen soft, nondistended. Tenderness to palpation suprapubic region, low abdomen. No hepato-splenomegaly, or palpable masses. No guarding. MUSCULOSKELETAL: Extremities without clubbing, cyanosis, or edema. No joint tenderness, effusion, or edema noted. No calf tenderness. Negative Homans sign bilaterally. NEUROLOGICAL: Awake and alert. Cranial nerves II through XII intact. Motor and sensory grossly within normal limits. Five out of 5 muscle strength in all muscle groups. Normal speech. Laboratory Laboratory Tests Test 04/03/17 12:30 04/03/17 12:35 04/03/17 14:15 White Blood Count 11.8 Red Blood Count 3.00 Hemoglobin 8.6 Hematocrit 27.1 Mean Corpuscular Volume 90.1 Mean Corpuscular Hemoglobin 28.5 Mean Corpuscular Hemoglobin Concent 31.6 Red Cell Distribution Width 20.2 Platelet Count 513 Mean Platelet Volume 8.1 Neutrophils (%) (Auto) 53.5 Lymphocytes (%) (Auto) 36.8 Monocytes (%) (Auto) 6.7 Eosinophils (%) (Auto) 2.4 Basophils (%) (Auto) 0.6 Neutrophils # (Auto) 6.3 Lymphocytes # (Auto) 4.3 Monocytes # (Auto) 0.8 Eosinophils # (Auto) 0.3 Basophils # (Auto) 0.1 CBC Comment DIFF FINAL Differential Comment Prothrombin Time 10.5 Prothromb Time International Ratio 1.0 Activated Partial Thromboplast Time 25.2 Blood Urea Nitrogen 39 Creatinine 1.86 Random Glucose 138 Total Protein 7.8 Albumin 3.5 Calcium Level 9.1 Alkaline Phosphatase 88 Aspartate Amino Transf (AST/SGOT) 15 Alanine Aminotransferase (ALT/SGPT) 15 Total Bilirubin 0.3 Sodium Level 140 Potassium Level 3.6 Chloride Level 109 Carbon Dioxide Level 21.9 Anion Gap 9 Estimat Glomerular Filtration Rate 33 Lipase 376 Lactic Acid Level 2.2 Urine Color YELLOW Urine Turbidity CLOUDY Urine pH 5.5 Urine Specific [place] 1.018 Urine Protein 30 Urine Glucose (UA) NEG Urine Ketones NEG Urine Occult Blood MOD Urine Nitrite NEG Urine Bilirubin NEG Urine Urobilinogen LESS THAN 2.0 Urine Leukocyte Esterase LARGE Urine RBC 10 Urine WBC 15 Urine Squamous Epithelial Cells 30 Urine Amorphous Sediment RARE Urine Bacteria FEW Urine Mucus FEW Microscopic Urinalysis Comment CULTURE INDICATED Date/Time Source Procedure Growth Status 04/03/17 14:15 Urine Random Urine Urine Culture Pending Received Result Diagram: 04/03/17 1230 04/03/17 1230 Caprini VTE Risk Assessment Caprini VTE Risk Assessment: Mod/High Risk (score >= 2) VTE Pharm Contraindication: Active bleeding Caprini Risk Assessment Model Point Value = 1 Point Value = 2 Point Value = 3 Point Value = 5 Age 41-60 Minor surgery BMI > 25 kg/m2 Swollen legs Varicose veins or History of unexplained or recurrent spontaneous Oral contraceptives or hormone replacement Sepsis (< 1 month) Serious lung disease, including pneumonia (< 1 month) Abnormal pulmonary function Acute myocardial infarction Congestive heart failure (< 1 month) History of inflammatory bowel disease Medical patient at bed rest Age 61-74 Arthroscopic surgery Major open surgery (> 45 min) Laparoscopic surgery (> 45 min) Malignancy Confined to bed (> 72 hours) Immobilizing plaster cast Central venous access Age >= 75 History of VTE Family history of VTE Factor V Leiden Prothrombin [id number] Lupus anticoagulant Anticardiolipin antibodies Elevated serum homocysteine Heparin-induced thrombocytopenia Other congenital or acquired thrombophilia Stroke (< 1 month) Elective arthroplasty Hip, pelvis, or leg fracture Acute spinal cord injury (< 1 month) Prophylaxis Regimen Total Risk Factor Score Risk Level Prophylaxis Regimen 0-1 Low Early ambulation 2 Moderate Order ONE of the following: *Sequential Compression Device (SCD) *Heparin 5000 units SQ BID 3-4 Higher Order ONE of the following medications: *Heparin 5000 units SQ TID *Enoxaparin/Lovenox 40 mg SQ daily (WT < 150 kg, CrCl > 30 mL/min) *Enoxaparin/Lovenox 30 mg SQ daily (WT < 150 kg, CrCl > 10-29 mL/min) *Enoxaparin/Lovenox 30 mg SQ BID (WT < 150 kg, CrCl > 30 mL/min) AND/OR *Sequential Compression Device (SCD) 5 or more Highest Order ONE of the following medications: *Heparin 5000 units SQ TID (Preferred with Epidurals) *Enoxaparin/Lovenox 40 mg SQ daily (WT < 150 kg, CrCl > 30 mL/min) *Enoxaparin/Lovenox 30 mg SQ daily (WT < 150 kg, CrCl > 10-29 mL/min) *Enoxaparin/Lovenox 30 mg SQ BID (WT < 150 kg, CrCl > 30 mL/min) AND *Sequential Compression Device (SCD) Assessment and Plan Assessment and Plan //Abdominal pain. //Acute lower GI bleed. -CT abdomen with no acute findings. Patient does have a history of diverticulosis. Continue to hold anticoagulation as per GI. Appreciate GI assistance. Patient was on Aleve at home. We'll start on IV PPI. Continue to monitor hemoglobin every 8 hours. //Acute on chronic anemia. -Hemoglobin 8.6 on admission from 10.3 in December. //Hypertension -Systolic blood pressure does not appear to extreme. I suspect poor compliance at home leading to increased doses of her home medications. //Diabetes mellitus -Diabetic diet and insulin sliding scale. //CKD stage IV -Creatinine at recent baseline. 1.86 -Avoid nephrotoxins. Monitor fluid status. //CAD //Urinary frequency -Hold tolterodine due to risk for retention. Discussed Condition With Patient, nurse, ED physician, gastroenterology Demetri Andersen MD Apr 03, 2017 18:47
[2017-04-03] MEDS ORDERED: PILL SPLITTER OTHER PRN (19:15)
[2017-04-03] MEDS: SODIUM CHLORIDE 0.9% FLUSH 10 ML FLUSH IV FLUSH SCH (21:00)
[2017-04-03] MEDS: INSULIN ASPART SUPPLEMENTAL SCALE SQ SCH (21:00)
[2017-04-03] MEDS ORDERED: MAGNESIUM CITRATE SOLN 300 ML BTL PO ONE (21:30)
[2017-04-03] MEDS: ACETAMINOPHEN/HYDROcodone 325 MG/7.5 MG TAB PO PRN (22:07)
[2017-04-03] MEDS: ATORVASTATIN 10 MG TAB PO SCH (22:07)
[2017-04-03] MEDS: hydrALAZINE HCL 25 MG TAB PO SCH (22:07)
[2017-04-03] MEDS ORDERED: METOPROLOL TARTRATE 25 MG TAB PO PRN (22:45)
[2017-04-03] MEDS ORDERED: SODIUM CHLORID 0.9% 500 ML IV PRN (22:45)
[2017-04-03] MEDS ORDERED: CHLORHEXIDINE GLUCONATE 2 % 1 PACK (2 CLOTHS) TOPICAL PRN (22:45)
[2017-04-03] MEDS ORDERED: LACTATED RINGER'S 1000 ML IV PRN (22:45)
[2017-04-03] MEDS ORDERED: POVIDONE IODINE 5% (ANTISEPSIS KIT) 4 APPLICATIONS EACH NARE PRN (22:45)
[2017-04-04] VITALS (7 sets, daily range): BP systolic 140–168; BP diastolic 65–74; PULSE 70–84; RESP 17–20; TEMP 98.1–98.7; O2SAT 95–100
[2017-04-04] MEDS: PANTOPRAZOLE SODIUM 40 MG VIAL IV PUSH SCH ×2 (02:11→14:26)
[2017-04-04] MEDS: ACETAMINOPHEN/HYDROcodone 325 MG/7.5 MG TAB PO PRN (02:11)
[2017-04-04] MEDS: SODIUM CHLOR 0.45% 1000 ML INJ 1,000 ML IV SCH ×2 (04:15→17:48)
[2017-04-04] MEDS ORDERED: MAGNESIUM CITRATE SOLN 300 ML BTL PO ONE (06:00)
[2017-04-04] MEDS: INSULIN ASPART SUPPLEMENTAL SCALE SQ SCH ×4 (08:00→21:00)
[2017-04-04] MEDS: SODIUM CHLORIDE 0.9% FLUSH 10 ML FLUSH IV FLUSH SCH ×2 (08:17→21:00)
[2017-04-04] MEDS: ESCITALOPRAM OXALATE 10 MG TAB PO SCH (08:17)
[2017-04-04] MEDS: hydrALAZINE HCL 25 MG TAB PO SCH ×2 (08:17→21:35)
[2017-04-04] MEDS: METOPROLOL SUCCINATE 50 MG EXTENDED RELEASE TAB PO SCH (08:17)
--- NOTE | 2017-04-04 10:13 | GIPROC ---
[facility] [address] [facility]. [facility], [address] EGD PROCEDURE REPORT EXAM DATE: 04/04/2017 PATIENT NAME: Sergio York MR #: [id number] BIRTHDATE: 1945 ATTENDING: Ana Paula Enamorado MD ORDER #: [id number] [employer]: Shawn Monson and Marina Clement STATUS: inpatient INDICATIONS: The patient is a 71 yr old female here for an EGD due to abdominal pain, anemia PROCEDURE PERFORMED: EGD w/ biopsy MEDICATIONS: None and Per Anesthesia. TOPICAL ANESTHETIC: none CONSENT: The patient understands the risks and benefits of the procedure and understands that these risks include, but are not limited to: sedation, allergic reaction, infection, perforation and/or bleeding. Alternative means of evaluation and treatment include, among others: physical exam, x-rays, and/or surgical intervention. The patient elects to proceed with this endoscopic procedure. medical equipment was checked for proper function. Hand hygiene and appropriate measures for infection prevention was taken. After the risks, benefits and alternatives of the procedure were thoroughly explained, Informed consent was verified, confirmed and timeout was successfully executed by the treatment team. The patient was anesthetized with topical anesthesia and the EC-[id number] (Pedi C) endoscope was introduced through the mouth and advanced to the second portion of the duodenum. Retroflexed views revealed a hiatal hernia The gastroscope was then slowly withdrawn and removed. Gastritis antrum-biopsy hiatal hernia. ADVERSE EVENTS: There were no complications. IMPRESSIONS: 1. Gastritis antrum-biopsy hiatal hernia 2. Retroflexed views revealed a hiatal hernia RECOMMENDATIONS: 1. Await biopsy results. Biopsy results will not be ready for 7-10 days. If you don't hear from us in two weeks, call our office for biopsy results. 2. Continue PPI 3. Avoid NSAIDS PATIENT CONDITION: stable DISPOSITION: Inpatient REPEAT EXAM: Return 3 years EGD Ana Paula Enamorado MD eSigned: Ana Paula Enamorado MD 04/04/2017 10:13 AM cc: PATIENT NAME: Sergio York MR#: [id number]
--- NOTE | 2017-04-04 10:16 | GIPROC ---
[facility] [address] [facility]. [facility], [address] COLONOSCOPY PROCEDURE REPORT EXAM DATE: 04/04/2017 PATIENT NAME: Sergio York MR #: [id number] BIRTHDATE: 1945 ENDOSCOPIST: Ana Paula Enamorado MD ORDER #: [id number] [employer]YROLL AUDITOR: Shawn Monson and Marina Clement STATUS: inpatient INDICATIONS: The patient is a 71 yr old female here for a colonoscopy due to abdominal pain, gi bleeding PROCEDURE PERFORMED: Colonoscopy, diagnostic MEDICATIONS: None and Per Anesthesia. PREP QUALITY: fair PREP TYPE:Other: ESTIMATED BLOOD LOSS: None CONSENT: The patient understands the risks and benefits of the procedure and understands that these risks include, but are not limited to: sedation, allergic reaction, infection, perforation and/or bleeding. Alternative means of evaluation and treatment include, among others: physical exam, x-rays, and/or surgical intervention. The patient elects to proceed with this endoscopic procedure. medical equipment was checked for proper function. Hand hygiene and appropriate measures for infection prevention was taken. After the risks, benefits and alternatives of the procedure were thoroughly explained, Informed consent was verified, confirmed and timeout was successfully executed by the treatment team. A digital exam revealed external hemorrhoids The Pentax EC-[id number] endoscope was introduced through the anus and advanced to the cecum, which was identified by both the appendix and ileocecal valve. The instrument was then slowly withdrawn as the colon was fully examined. COLON FINDINGS: Diverticulosis sigmoid,descending internal hemorrhoids. Retroflexed views revealed internal hemorrhoids and Retroflexed views revealed medium internal hemorrhoids The scope was then completely withdrawn from the patient and the procedure terminated. PROCEDURE WITHDRAWAL TIME:6minutes ADVERSE EVENTS: There were no complications. IMPRESSIONS: 1. Diverticulosis sigmoid,descending internal hemorrhoids 2. Retroflexed views revealed internal hemorrhoids 3. Retroflexed views revealed medium internal hemorrhoids 4. Revealed external hemorrhoids RECOMMENDATIONS: 1. Await biopsy results. Biopsy results will not be ready for 7-10 days. If you don't hear from us in two weeks, call our office for results. 2. Avoid NSAIDS and Aspirin 3. Capsule endoscopy op-if negative hematology eval abd us- mesenteric vessels evalution full liquid diet trial of Bentyl 10 mg po tid RECALL: Return 5 years Colonoscopy Ana Paula Enamorado MD eSigned: Ana Paula Enamorado MD 04/04/2017 10:16 AM cc:
[2017-04-04] MEDS ORDERED: LIDOCAINE HCL 1% PF 5 ML SYRINGE OTHER ONE (12:00)
[2017-04-04] MEDS ORDERED: PROPOFOL 200 MG/20 ML AMP IV ONE (12:00)
--- NOTE | 2017-04-04 13:45 | HHI.PR ---
Subjective Remarks Follow-up on patient with abdominal pain. Patient seen and examined. Patient continues to have complaints of diffuse abdominal pain worse over the lower abdomen. She also reports dysuria. She denies any fever or chills. She denies any chest pain or shortness of breath. She is requesting to eat. Objective Vitals Vital Signs Date Time Temp Pulse Resp B/P (MAP) Pulse Ox O2 Delivery O2 Flow Rate FiO2 04/04/17 10:56 98.1 70 18 140/65 (90) 95 04/04/17 10:08 97.7 73 18 134/62 (86) 97 04/04/17 07:52 98.6 70 20 168/74 (105) 100 04/04/17 03:40 98.4 70 17 148/67 95 04/04/17 03:18 98.5 72 17 144/66 97 04/04/17 00:05 98.4 75 18 153/72 98 04/03/17 23:37 98.5 76 17 148/67 100 04/03/17 21:20 98.1 79 19 126/60 (82) 99 04/03/17 16:10 98.2 73 16 141/67 (91) 99 04/03/17 15:55 04/03/17 15:00 66 17 168/72 (104) 100 Nasal Cannula 2.00 04/03/17 14:07 63 18 163/70 (101) 100 Nasal Cannula 2.00 I/O 04/03/17 04/03/17 04/03/17 04/04/17 04/04/17 04/04/17 07:00 15:00 23:00 07:00 15:00 23:00 Intake Total 1000 ml 100 ml 800 ml 250 ml Balance 1000 ml 100 ml 800 ml 250 ml Intake IV Total 1000 ml 100 ml Packed Cells 800 ml Other 250 ml # Voids 4 # Bowel Movements 2 Result Diagram: 04/03/17 2235 04/03/17 1230 Imaging Last Impressions Abdomen/Pelvis CT 04/03/17 1314 Signed Impressions: Service Date/Time: Monday, April 03, 2017 13:37 - CONCLUSION: 1. Diverticular disease throughout the colon without diverticulitis. The appendix is normal. 2. Otherwise, no acute intraperitoneal or pelvic process to explain current clinical symptoms. 3. Stable 4 cm low-density lesion in the medial midpole of the left kidney is likely a cyst. 4. Stent in the right common iliac artery. Bony fusion of the left SI joint. Altaf Crabtree MD Objective Remarks GENERAL: This is a well-nourished, well-developed patient, in no apparent distress. Hard of hearing. Awake and alert. SKIN: Cool and dry. HEAD: Atraumatic. Normocephalic. EYES: Extraocular motions intact. No scleral icterus. No injection or drainage. ENT: Nose without bleeding or purulent drainage. Airway patent. NECK: Trachea midline. CARDIOVASCULAR: Regular rate and rhythm without murmurs, gallops, or rubs. RESPIRATORY: Clear to auscultation. Breath sounds equal bilaterally. No wheezes , rales, or rhonchi. GASTROINTESTINAL: Abdomen soft, nondistended. Tenderness to palpation suprapubic region, lower abdomen. No hepato-splenomegaly, or palpable masses. No guarding. MUSCULOSKELETAL: Extremities without clubbing, cyanosis, or edema. No joint tenderness, effusion, or edema noted. No calf tenderness. NEUROLOGICAL: Awake and alert. Able to move all extremities spontaneously. Motor and sensory grossly within normal limits. Five out of 5 muscle strength in all muscle groups. Nonfocal. Normal speech. Medications and IVs Current Medications Medications (Trade) Dose Ordered Sig/Peg Route Start Time Stop Time Status Last Admin Sodium Chloride 1,000 ml @ 75 mls/hr [id number] IV 04/03/17 15:00 04/04/17 04:15 (NS Flush) 2 ml UNSCH PRN IV FLUSH 04/03/17 15:00 (NS Flush) 2 ml BID IV FLUSH 04/03/17 21:00 04/04/17 08:17 (Zofran Inj) 4 mg Q6H PRN IVP 04/03/17 15:00 (Milk Of Magnesia Liq) 30 ml Q12H PRN PO 04/03/17 15:00 (Senokot) 17.2 mg Q12H PRN PO 04/03/17 15:00 (Dulcolax Supp) 10 mg DAILY PRN RECTAL 04/03/17 15:00 (Lactulose Liq) 30 ml DAILY PRN PO 04/03/17 15:00 (NovoLOG SUPPLEMENTAL SCALE) 1 ACHS SLIDING SCALE SQ 04/03/17 21:00 (D50w (Vial) Inj) 50 ml UNSCH PRN IV PUSH 04/03/17 17:30 (Glucagon Inj) 1 mg UNSCH PRN OTHER 04/03/17 17:30 ([place] 5-325 Mg) 1 tab Q4H PRN PO 04/03/17 18:15 ([place] 7.5-325 Mg) 1 tab Q4H PRN PO 04/03/17 18:15 04/04/17 02:11 (Morphine Inj) 2 mg Q3H PRN IV PUSH 04/03/17 18:15 (Morphine Inj) 4 mg Q3H PRN IV PUSH 04/03/17 18:15 (Narcan Inj) 0.4 mg UNSCH PRN IV PUSH 04/03/17 18:15 (Protonix Inj) 40 mg Q12H IV PUSH 04/04/17 02:00 04/04/17 02:11 (Lipitor) 10 mg HS PO 04/03/17 21:00 04/03/17 22:07 (Lexapro) 10 mg DAILY PO 04/04/17 09:00 04/04/17 08:17 (Apresoline) 25 mg BID PO 04/03/17 21:00 04/04/17 08:17 (Toprol Xl) 100 mg DAILY PO 04/04/17 09:00 04/04/17 08:17 (Zanaflex) 2 mg TID PRN PO 04/03/17 18:45 (Pill Splitter) 1 ea UNSCH PRN OTHER 04/03/17 19:15 Lactated Ringer's 1,000 ml @ 30 mls/hr Q24H PRN IV 04/03/17 22:45 04/06/17 22:44 04/04/17 08:16 Sodium Chloride 500 ml @ 30 mls/hr [id number] PRN IV 04/03/17 22:45 04/06/17 22:44 (Lopressor) 25 mg MACHINE OPERATOR FARM[employer]ER PRN PO 04/03/17 22:45 04/06/17 22:44 (Betadine 5% Antisepsis Kit) 1 applic MACHINE OPERATOR F[employer]ER PRN EACH NARE 04/03/17 22:45 04/06/17 22:44 (Chlorhexidine 2% Cloth) 3 pack MACHINE OPERATOR F[employer]ER PRN TOPICAL 04/03/17 22:45 04/06/17 22:44 A/P Assessment and Plan //Abdominal pain. //Acute lower GI bleed. -CT abdomen with no acute findings. Patient does have a history of diverticulosis. -GI following. Status post panendoscopy. EGD showing gastritis. Recommend repeat EGD in 3 years. Colonoscopy showing diverticulosis, descending internal hemorrhoids and external hemorrhoids. Avoid NSAIDs and aspirin. Recommends capsule endoscopy as outpatient. Abdominal ultrasound for evaluation of mesenteric vessels. Trial of Bentyl 10 mg by mouth 3 times a day. Full liquid diet. -Continue to hold anticoagulation as per GI. -Continue on PPI //Dysuria //Bacteruria -Patient complains of burning with urination -UA at admission with large leukocytes also noted to have 30 squamous epithelial cells. UCX positive for 50-100,000 gram-positive chris, contaminants. Repeat straight catheter UA. -Received dose of IV ceftriaxone in the ED. Will continue for now. Follow up on final urine culture results //Acute on chronic anemia. -Hemoglobin 8.6 on admission from 10.3 in December. -Hemoglobin dropped to 7.2. Status post transfusion of 2 units PRBCs. Follow- up H&H pending. //Hypertension -Systolic blood pressure does not appear to extreme. I suspect poor compliance at home leading to increased doses of her home medications. //Diabetes mellitus -Diabetic diet and insulin sliding scale. //CKD stage IV -Creatinine at recent baseline. 1.86 -Avoid nephrotoxins. Monitor fluid status. -Today's BMP pending //CAD //Urinary frequency -Hold tolterodine due to risk for retention. Nata Whelan Apr 04, 2017 13:45
[2017-04-04 13:50] LABS: AUTOMATED NEUTROPHIL # 9.4 TH/MM3 (1.8-7.7); BASOPHIL # 0.1 TH/MM3 (0-0.2); BASOPHIL % 0.4 % (0.0-2.0); EOSINOPHIL # 0.2 TH/MM3 (0-0.4); EOSINOPHIL % 1.7 % (0.0-4.0); HEMATOCRIT 32.5 % (35.0-46.0); HEMO FLAGS DIFF FINAL; LYMPH % 16.9 % (9.0-44.0); LYMPHOCYTE # 2.1 TH/MM3 (1.0-4.8); MEAN CELL VOLUME 89.6 FL (80.0-100.0); MEAN CORPUSCULAR HEMOGLOBIN 29.4 PG (27.0-34.0); MEAN CORPUSCULAR HGB CONC 32.8 % (32.0-36.0); MONO % 5.9 % (0.0-8.0); NEUT % 75.1 % (16.0-70.0); PLATELET COUNT 357 TH/MM3 (150-450); RED BLOOD COUNT 3.63 MIL/MM3 (4.00-5.30); RED CELL DISTRIBUTION WIDTH 17.5 % (11.6-17.2); WHITE BLOOD COUNT 12.5 TH/MM3 (4.0-11.0)
[2017-04-04] MEDS ORDERED: SIMETHICONE 125 MG CHEWABLE TAB PO ONE (14:00)
[2017-04-04] MEDS ORDERED: SIMETHICONE 80 MG CHEWABLE TAB CHEW PRN (14:00)
[2017-04-04 14:03] LABS: ALKALINE PHOSPHATASE 87 U/L (45-117); ALT (GPT) 13 U/L (10-53); ANION GAP 5 MEQ/L (5-15); AST (GOT) 17 U/L (15-37); BICARBONATE 24.6 MEQ/L (21.0-32.0); BLOOD UREA NITROGEN 35 MG/DL (7-18); CHLORIDE 111 MEQ/L (98-107); GLOMERULAR FILTRATION RATE 40 ML/MIN (>89); POTASSIUM 4.4 MEQ/L (3.5-5.1); SODIUM (NA) 141 MEQ/L (136-145); TOTAL BILIRUBIN ADULT 0.7 MG/DL (0.2-1.0)
--- NOTE | 2017-04-04 14:27 | RADRPT ---
EXAM DATE/TIME: 04/04/2017 11:35 [facility] COMPARISON: CT ABDOMEN & PELVIS W/O CONTRAST, April 03, 2017, 13:37. INDICATIONS : Abdominal pain. MEDICAL HISTORY : Cardiac disorders. CAD. Hypercholesterol. HTN. COPD. Diabetic. Renal failure. SURGICAL HISTORY : section. Cardiac catheterization. ENCOUNTER: Initial ACUITY: 1 day PAIN SCORE: 5/10 LOCATION: Abdomen. AORTA: SAGITTAL PROXIMAL: 77 cm/sec SAGITTAL MID: 76 cm/sec SAGITTAL DISTAL: 141 cm/sec CELIAC ARTERY: CA ORIGIN: Non visualized. CA PROXIMAL: Non visualized. CA MID: Non visualized. CA DISTAL: Non visualized. HEPATIC ARTERY: 161 cm/sec SPLENIC ARTERY: Non visualized. SUPERIOR MESENTERIC ARTERY: SMA PROXIMAL: 615 cm/sec SMA MID: 367 cm/sec SMA DISTAL: 193 cm/sec FINDINGS: There is markedly elevated flow velocity in the superior mesenteric artery, particularly at the vesse l origin which suggests likelihood of high-grade stenosis. 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 Catheter arteriogr aphy with consideration of stent placement may be appropriate if clinically indicated. Mando Anderson MD on April 04, 2017 at 14:21 Board Certified Radiologist. This report was verified electronically.
[2017-04-04 14:38] LABS: BLOOD, URINE NEG (NEG); COMMENT (UR) CATH-CULT NOT IND; CULTURE IF INDICATED CATH CULTURE NOT IND; GLUCOSE,URINE NEG (NEG); KETONE, URINE NEG (NEG); NITRITE,URINE NEG (NEG); PH, URINE 5.5 (5.0-8.5); SQUAMOUS EPITHELIAL CELL URINE <1 /hpf (0-5); URINE COLOR YELLOW (YELLW/STRAW)
[2017-04-04] MEDS ORDERED: cefTRIAXone INJ 1,000 MG in SODIUM CHLORIDE 0.9% INJ 100 ML IV SCH (15:00)
--- NOTE | 2017-04-04 16:26 | EKG ---
Date Performed: 04/03/2017 Time Performed: 12:19:38 PTAGE: 71 years EKG: Sinus rhythm LEFT VENTRICULAR HYPERTROPHY AND ST-T CHANGE ABNORMAL ECG Since PREVIOUS TRACING , no significant change noted PREVIOUS TRACIN02/06/2014 00.15 DOCTOR: Ronnie Gr Interpretating Date/Time 04/04/2017 16:25:28
[2017-04-04] MEDS: DICYCLOMINE HCL 20 MG TAB PO SCH (17:13)
[2017-04-04] MEDS: ATORVASTATIN 10 MG TAB PO SCH (21:35)
[2017-04-05] VITALS (7 sets, daily range): BP systolic 139–197; BP diastolic 65–100; PULSE 63–80; RESP 16–20; TEMP 98.2–98.7; O2SAT 95–100
[2017-04-05] MEDS ORDERED: diphenhydrAMINE HCL 50 MG CAP PO ONE (00:15)
[2017-04-05] MEDS ORDERED: BENZOCAINE-MENTHOL (SUGAR FREE) 15 MG-3.6 MG LOZENGE BUCCAL ONE (00:30)
[2017-04-05] MEDS: SODIUM CHLOR 0.45% 1000 ML INJ 1,000 ML IV SCH (05:27)
[2017-04-05] MEDS ORDERED: cloNIDine HCL 0.1 MG TAB PO ONE ×2 (05:30→06:45)
[2017-04-05 07:44] LABS: AUTOMATED NEUTROPHIL # 6.6 TH/MM3 (1.8-7.7); BASOPHIL % 0.4 % (0.0-2.0); EOSINOPHIL # 0.3 TH/MM3 (0-0.4); EOSINOPHIL % 2.9 % (0.0-4.0); HEMATOCRIT 27.5 % (35.0-46.0); HEMO FLAGS DIFF FINAL; LYMPH % 21.5 % (9.0-44.0); LYMPHOCYTE # 2.1 TH/MM3 (1.0-4.8); MEAN CELL VOLUME 87.2 FL (80.0-100.0); MEAN CORPUSCULAR HEMOGLOBIN 30.2 PG (27.0-34.0); MEAN CORPUSCULAR HGB CONC 34.6 % (32.0-36.0); MONO % 7.8 % (0.0-8.0); NEUT % 67.4 % (16.0-70.0); PLATELET COUNT 343 TH/MM3 (150-450); RED BLOOD COUNT 3.15 MIL/MM3 (4.00-5.30); RED CELL DISTRIBUTION WIDTH 17.6 % (11.6-17.2); WHITE BLOOD COUNT 9.9 TH/MM3 (4.0-11.0)
[2017-04-05] MEDS: INSULIN ASPART SUPPLEMENTAL SCALE SQ SCH ×2 (08:00→12:00)
[2017-04-05 08:08] LABS: BICARBONATE 27.7 MEQ/L (21.0-32.0); POTASSIUM 3.9 MEQ/L (3.5-5.1)
[2017-04-05] MEDS ORDERED: PANTOPRAZOLE SOD 40 MG DELAYED RELEASE TAB PO SCH (09:00)
[2017-04-05] MEDS: SODIUM CHLORIDE 0.9% FLUSH 10 ML FLUSH IV FLUSH SCH (09:00)
[2017-04-05] MEDS: METOPROLOL SUCCINATE 50 MG EXTENDED RELEASE TAB PO SCH (09:33)
[2017-04-05] MEDS: ESCITALOPRAM OXALATE 10 MG TAB PO SCH (09:34)
[2017-04-05] MEDS: DICYCLOMINE HCL 20 MG TAB PO SCH ×2 (09:34→12:58)
[2017-04-05] MEDS: hydrALAZINE HCL 25 MG TAB PO SCH (09:34)
--- NOTE | 2017-04-05 09:47 | HHI.GIFU ---
Subjective Remarks Resting in bed. No distress. Not currently having any abdominal pain. Denies bleeding. (Bernadine Ureña) Objective Vitals I&O Vital Signs Date Time Temp Pulse Resp B/P (MAP) Pulse Ox O2 Delivery O2 Flow Rate FiO2 04/05/17 07:53 98.7 64 16 151/67 (95) 96 04/05/17 06:28 69 16 193/78 (116) 100 04/05/17 06:11 67 20 197/79 (118) 95 04/05/17 05:06 190/100 (130) 04/05/17 05:00 98.2 80 20 195/87 (123) 99 04/05/17 00:00 98.2 80 20 139/65 (89) 99 04/04/17 20:00 98.7 84 20 166/74 (104) 96 04/04/17 15:09 98.3 77 18 166/74 (104) 99 04/04/17 10:56 98.1 70 18 140/65 (90) 95 04/04/17 10:08 97.7 73 18 134/62 (86) 97 I/O 04/04/17 04/04/17 04/04/17 04/05/17 04/05/17 04/05/17 07:00 15:00 23:00 07:00 15:00 23:00 Intake Total 800 ml 250 ml 100 ml 240 ml Balance 800 ml 250 ml 100 ml 240 ml Intake Oral 240 ml IV Total 100 ml Packed Cells 800 ml Other 250 ml # Voids 4 3 # Bowel Movements 2 Laboratory Laboratory Tests Test 04/04/17 12:59 04/04/17 13:54 04/04/17 14:20 04/04/17 16:30 White Blood Count 12.5 Red Blood Count 3.63 Hemoglobin 10.7 10.2 Hematocrit 32.5 Mean Corpuscular Volume 89.6 Mean Corpuscular Hemoglobin 29.4 Mean Corpuscular Hemoglobin Concent 32.8 Red Cell Distribution Width 17.5 Platelet Count 357 Mean Platelet Volume 8.0 Neutrophils (%) (Auto) 75.1 Lymphocytes (%) (Auto) 16.9 Monocytes (%) (Auto) 5.9 Eosinophils (%) (Auto) 1.7 Basophils (%) (Auto) 0.4 Neutrophils # (Auto) 9.4 Lymphocytes # (Auto) 2.1 Monocytes # (Auto) 0.7 Eosinophils # (Auto) 0.2 Basophils # (Auto) 0.1 CBC Comment DIFF FINAL Differential Comment Blood Urea Nitrogen 35 Creatinine 1.56 Random Glucose 104 Total Protein 7.6 Albumin 3.4 Calcium Level 9.0 Alkaline Phosphatase 87 Aspartate Amino Transf (AST/SGOT) 17 Alanine Aminotransferase (ALT/SGPT) 13 Total Bilirubin 0.7 Sodium Level 141 Potassium Level 4.4 Chloride Level 111 Carbon Dioxide Level 24.6 Anion Gap 5 Estimat Glomerular Filtration Rate 40 Lactic Acid Level 0.8 Troponin I LESS THAN 0.02 Urine Color YELLOW Urine Turbidity CLEAR Urine pH 5.5 Urine Specific [place] 1.016 Urine Protein NEG Urine Glucose (UA) NEG Urine Ketones NEG Urine Occult Blood NEG Urine Nitrite NEG Urine Bilirubin NEG Urine Urobilinogen LESS THAN 2.0 Urine Leukocyte Esterase TRACE Urine RBC LESS THAN 1 Urine WBC 1 Urine Squamous Epithelial Cells <1 Microscopic Urinalysis Comment CATH-CULT NOT IND Test 04/04/17 22:42 04/05/17 06:51 Hemoglobin 10.1 9.5 White Blood Count 9.9 Red Blood Count 3.15 Hematocrit 27.5 Mean Corpuscular Volume 87.2 Mean Corpuscular Hemoglobin 30.2 Mean Corpuscular Hemoglobin Concent 34.6 Red Cell Distribution Width 17.6 Platelet Count 343 Mean Platelet Volume 8.1 Neutrophils (%) (Auto) 67.4 Lymphocytes (%) (Auto) 21.5 Monocytes (%) (Auto) 7.8 Eosinophils (%) (Auto) 2.9 Basophils (%) (Auto) 0.4 Neutrophils # (Auto) 6.6 Lymphocytes # (Auto) 2.1 Monocytes # (Auto) 0.8 Eosinophils # (Auto) 0.3 Basophils # (Auto) 0.0 CBC Comment DIFF FINAL Differential Comment Blood Urea Nitrogen 19 Creatinine 1.27 Random Glucose 96 Calcium Level 8.4 Sodium Level 141 Potassium Level 3.9 Chloride Level 109 Carbon Dioxide Level 27.7 Anion Gap 4 Estimat Glomerular Filtration Rate 50 Date/Time Source Procedure Growth Status 04/03/17 14:15 Urine Random Urine Urine Culture - Final 50-100,000 CFU/ML MIXED GRAM POSITIVE... Complete Imaging Last Impressions Abdomen Ultrasound 04/04/17 0000 Signed Impressions: Service Date/Time: March 11:35 - CONCLUSION: Sonographic findings suggestive of high-grade superior mesenteric artery stenosis. Catheter arteriography with consideration of stent placement may be appropriate if clinically indicated. Mando Anderson MD Abdomen/Pelvis CT 04/03/17 1314 Signed Impressions: Service Date/Time: Monday, April 03, 2017 13:37 - CONCLUSION: 1. Diverticular disease throughout the colon without diverticulitis. The appendix is normal. 2. Otherwise, no acute intraperitoneal or pelvic process to explain current clinical symptoms. 3. Stable 4 cm low-density lesion in the medial midpole of the left kidney is likely a cyst. 4. Stent in the right common iliac artery. Bony fusion of the left SI joint. Altaf Crabtree MD Physical Exam HEENT: Normocephalic; atraumatic; no jaundice. CHEST: CTA CARDIAC: RRR ABDOMEN: Soft, rounded, nondistended, nontender; no hepatosplenomegaly; bowel sounds are present in all four quadrants. EXTREMITIES: No clubbing, cyanosis, or edema. SKIN: Normal; no rash; no jaundice. DIANETICIST: No focal deficits; alert and oriented times three. AKIAK (Bernadine Ureña [facility]) Assessment and Plan Plan ASSESSMENT: - Abdominal pain. CT scan abdomen and pelvis without IV contrast (04/03/17)---- > diverticular disease throughout the colon without diverticulitis. The appendix is normal. Otherwise no acute intraperitoneal or pelvic process to explain current clinical symptoms. Stable 4 cm low-density lesion in the medial mid pole of the left kidney is likely a cyst. Stent in the right common iliac artery. Bony fusion of the SI joint. S/P EGD/Colonoscopy (04/04/17)---> 1. Gastritis antrum-biopsy, hiatal hernia, 2. Retroflexed views revealed a hiatal hernia. 1. Diverticulosis sigmoid, descending internal hemorrhoids 2. Retroflexed views revealed internal hemorrhoids 3. Retroflexed views revealed medium internal hemorrhoids 4. Revealed external hemorrhoids. Pathology pending. Abdominal US (04/04/17)--> Sonographic findings suggestive of high-grade superior mesenteric artery stenosis. Catheter arteriographic he with consideration of stent placement may be appropriate if clinically indicated. IR consulted. - High grade SMA stenosis. IR consulted. - GIB, Lower/Rectal bleeding. No further episodes. HH Stable. - Anemia, acute blood loss. HH stable. 9.5/27.5. - CKD, HTN, DM per attending. PLAN - NPO for procedure - IR consulted for high grade stenosis of SMA - Await pathology - Cont. PPI - Monitor labs - Transfuse if needed - Further recommendations to follow based on results of above - Pt seen and examined by Dr. Enamorado and myself and this note is written on her behalf (Bernadine Ureña) Bernadine Ureña Apr 05, 2017 09:47 Ana Paula Enamorado MD Apr 05, 2017 20:08
[2017-04-05] MEDS ORDERED: DICY20TA10 PO (11:31)
--- NOTE | 2017-04-05 12:17 | HHI.PR ---
Subjective Remarks Written by Nata Whelan, acting as scribe for Dr. Crump on 04/05/17 at 12: 17. Follow-up on patient with abdominal pain, GI bleed. Patient seen and examined. Ultrasound of the abdomen revealed a high-grade superior doesn't check artery stenosis. IR consulted - spoke with Dr. Anderson who states procedure can be scheduled as outpatient as patient is tolerating full liquid diet. Patient scheduled for Apr 09 on IR schedule. She will need to be off Plavix and ASA until the procedure. Patient denies any complaints of nausea or vomiting. Patient denies any active bleeding. Patient denies any other complaints at present. Objective Vitals Vital Signs Date Time Temp Pulse Resp B/P (MAP) Pulse Ox O2 Delivery O2 Flow Rate FiO2 04/05/17 11:50 98.2 63 16 151/67 (95) 98 04/05/17 07:53 98.7 64 16 151/67 (95) 96 04/05/17 06:28 69 16 193/78 (116) 100 04/05/17 06:11 67 20 197/79 (118) 95 04/05/17 05:06 190/100 (130) 04/05/17 05:00 98.2 80 20 195/87 (123) 99 04/05/17 00:00 98.2 80 20 139/65 (89) 99 04/04/17 20:00 98.7 84 20 166/74 (104) 96 04/04/17 15:09 98.3 77 18 166/74 (104) 99 I/O 04/04/17 04/04/17 04/04/17 04/05/17 04/05/17 04/05/17 07:00 15:00 23:00 07:00 15:00 23:00 Intake Total 800 ml 250 ml 100 ml 240 ml Balance 800 ml 250 ml 100 ml 240 ml Intake Oral 240 ml IV Total 100 ml Packed Cells 800 ml Other 250 ml # Voids 4 3 # Bowel Movements 2 Result Diagram: 04/05/17 0651 04/05/17 0651 Imaging Last Impressions Abdomen Ultrasound 04/04/17 0000 Signed Impressions: Service Date/Time: March 11:35 - CONCLUSION: Sonographic findings suggestive of high-grade superior mesenteric artery stenosis. Catheter arteriography with consideration of stent placement may be appropriate if clinically indicated. Mando Anderson MD Abdomen/Pelvis CT 04/03/17 1314 Signed Impressions: Service Date/Time: Monday, April 03, 2017 13:37 - CONCLUSION: 1. Diverticular disease throughout the colon without diverticulitis. The appendix is normal. 2. Otherwise, no acute intraperitoneal or pelvic process to explain current clinical symptoms. 3. Stable 4 cm low-density lesion in the medial midpole of the left kidney is likely a cyst. 4. Stent in the right common iliac artery. Bony fusion of the left SI joint. Altaf Crabtree MD Objective Remarks GENERAL: This is a well-nourished, well-developed patient, in no apparent distress. Hard of hearing. Awake and alert. Tolerating full liquid diet. SKIN: Cool and dry. HEAD: Atraumatic. Normocephalic. EYES: Extraocular motions intact. No scleral icterus. No injection or drainage. ENT: Nose without bleeding or purulent drainage. Airway patent. NECK: Trachea midline. CARDIOVASCULAR: Regular rate and rhythm without murmurs, gallops, or rubs. RESPIRATORY: Clear to auscultation. Breath sounds equal bilaterally. No wheezes , rales, or rhonchi. GASTROINTESTINAL: Abdomen soft, nondistended. Tenderness to palpation suprapubic region, lower abdomen, improved. No hepato-splenomegaly, or palpable masses. No guarding. MUSCULOSKELETAL: Extremities without clubbing, cyanosis, or edema. No joint tenderness, effusion, or edema noted. No calf tenderness. NEUROLOGICAL: Awake and alert. Able to move all extremities spontaneously. Motor and sensory grossly within normal limits. Five out of 5 muscle strength in all muscle groups. Nonfocal. Normal speech. Medications and IVs Current Medications Medications (Trade) Dose Ordered Sig/Peg Route Start Time Stop Time Status Last Admin Sodium Chloride 1,000 ml @ 75 mls/hr [id number] IV 04/03/17 15:00 04/05/17 05:27 (NS Flush) 2 ml UNSCH PRN IV FLUSH 04/03/17 15:00 (NS Flush) 2 ml BID IV FLUSH 04/03/17 21:00 04/04/17 08:17 (Zofran Inj) 4 mg Q6H PRN IVP 04/03/17 15:00 (Milk Of Magnesia Liq) 30 ml Q12H PRN PO 04/03/17 15:00 (Senokot) 17.2 mg Q12H PRN PO 04/03/17 15:00 (Dulcolax Supp) 10 mg DAILY PRN RECTAL 04/03/17 15:00 (Lactulose Liq) 30 ml DAILY PRN PO 04/03/17 15:00 (NovoLOG SUPPLEMENTAL SCALE) 1 ACHS SLIDING SCALE SQ 04/03/17 21:00 (D50w (Vial) Inj) 50 ml UNSCH PRN IV PUSH 04/03/17 17:30 (Glucagon Inj) 1 mg UNSCH PRN OTHER 04/03/17 17:30 ([place] 5-325 Mg) 1 tab Q4H PRN PO 04/03/17 18:15 ([place] 7.5-325 Mg) 1 tab Q4H PRN PO 04/03/17 18:15 04/04/17 02:11 (Morphine Inj) 2 mg Q3H PRN IV PUSH 04/03/17 18:15 (Morphine Inj) 4 mg Q3H PRN IV PUSH 04/03/17 18:15 (Narcan Inj) 0.4 mg UNSCH PRN IV PUSH 04/03/17 18:15 (Lipitor) 10 mg HS PO 04/03/17 21:00 04/04/17 21:35 (Lexapro) 10 mg DAILY PO 04/04/17 09:00 04/05/17 09:34 (Apresoline) 25 mg BID PO 04/03/17 21:00 04/05/17 09:34 (Toprol Xl) 100 mg DAILY PO 04/04/17 09:00 04/05/17 09:33 (Zanaflex) 2 mg TID PRN PO 04/03/17 18:45 (Pill Splitter) 1 ea UNSCH PRN OTHER 04/03/17 19:15 Lactated Ringer's 1,000 ml @ 30 mls/hr Q24H PRN IV 04/03/17 22:45 04/06/17 22:44 04/04/17 08:16 Sodium Chloride 500 ml @ 30 mls/hr [id number] PRN IV 04/03/17 22:45 04/06/17 22:44 (Lopressor) 25 mg ROUGH RICE GRADER PRN PO 04/03/17 22:45 04/06/17 22:44 (Betadine 5% Antisepsis Kit) 1 applic ROUGH RICE GRADER PRN EACH NARE 04/03/17 22:45 04/06/17 22:44 (Chlorhexidine 2% Cloth) 3 pack ROUGH RICE GRADER PRN TOPICAL 04/03/17 22:45 04/06/17 22:44 (Mylicon Chew) 80 mg PCHS PRN CHEW 04/04/17 14:00 (Bentyl) 10 mg TID PO 04/04/17 18:00 04/05/17 12:58 (Protonix) 40 mg DAILY PO 04/05/17 09:00 04/05/17 09:33 A/P Problem List: (1) Mesenteric artery stenosis ICD Code: K55.1 - Chronic vascular disorders of intestine (2) GI bleed ICD Code: K92.2 - Gastrointestinal hemorrhage, unspecified Status: Acute (3) Gastritis ICD Code: K29.70 - Gastritis, unspecified, without bleeding (4) Abdominal pain ICD Code: R10.9 - Unspecified abdominal pain Status: Acute Assessment and Plan //Mesenteric artery stenosis -Abdominal ultrasound suggestive high-grade superior mesenteric artery stenosis -IR consulted for intervention, spoke with Dr. Anderson who recommends discharging patient and schedule as outpatient not emergent, patient tolerating diet. Patient placed on IR schedule for Apr 09. No Plavix or Aspirin pending procedure. -Discussed with GI, cleared for discharge from their perspective. May continue with Bentyl as needed for abdominal pain. //Abdominal pain. //Acute lower GI bleed. -secondary to above. -tolerating full liquid diet. Continue, advance slowly as tolerated. -CT abdomen with no acute findings. Patient does have a history of diverticulosis. -GI following. Status post panendoscopy. EGD showing gastritis. Recommend repeat EGD in 3 years. Colonoscopy showing diverticulosis, descending internal hemorrhoids and external hemorrhoids. Avoid NSAIDs and aspirin. -Continue to hold anticoagulation for procedure -Continue on PPI -PT eval/tx //Bacteruria -UA at admission with large leukocytes also noted to have 30 squamous epithelial cells. UCX positive for 50-100,000 gram-positive chris, contaminants. Repeat straight catheter UA unremarkable. -Received dose of IV ceftriaxone in the ED. Discontinue antibiotics. //Acute on chronic anemia. -Hemoglobin 8.6 on admission from 10.3 in December. -Hemoglobin dropped to 7.2. Status post transfusion of 2 units PRBCs with good response. Stable. //Hypertension -continue on home antihypertensives -monitor BP //Diabetes mellitus -Diabetic diet and insulin sliding scale. -BS controlled //CKD stage IV -Creatinine at recent baseline. -Avoid nephrotoxins. Monitor fluid status. //CAD //Urinary frequency -Hold tolterodine due to risk for retention. //DVT prophylaxis -Avoid chemoprophylaxis secondary to GI bleed -Bilateral SCD/TREVA arguelloe This note was transcribed by adriane Whelan . I, Dr. Mike Crump personally performed the history, physical exam, and medical decision making; and confirmed the accuracy of the information in the transcribed note. Authenticated by Dr. Mike Crump on 04/05/17 at 12:17. Discharge Planning Likely discharge later today pending PT recommendations Problem Qualifiers (1) GI bleed: Qualified Codes: K92.2 - Gastrointestinal hemorrhage, unspecified (2) Abdominal pain: Qualified Codes: R10.9 - Unspecified abdominal pain Nata Whelan Apr 05, 2017 12:17 Mike Crump MD Apr 05, 2017 12:18
--- NOTE | 2017-04-05 15:14 | HHI.DS ---
Discharge Summary Admission Date Apr 03, 2017 at 14:56 Discharge Date: Apr 05, 2017 Admitting Diagnosis GI bleed, abdominal pain (1) Mesenteric artery stenosis ICD Code: K55.1 - Chronic vascular disorders of intestine (2) GI bleed ICD Code: K92.2 - Gastrointestinal hemorrhage, unspecified Status: Acute (3) Abdominal pain ICD Code: R10.9 - Unspecified abdominal pain Status: Acute Procedures [facility] [address] [facility], [address] EGD PROCEDURE REPORT EXAM DATE: 04/04/2017 PATIENT NAME: Sergio York MR #: [id number] BIRTHDATE: 1945 ATTENDING: Ana Paula Enamorado MD ORDER #: [id number] FULL STACK ENGINEER: Shawn Monson and Marina Clement STATUS: inpatient INDICATIONS: The patient is a 71 yr old female here for an EGD due to abdominal pain, anemia PROCEDURE PERFORMED: EGD w/ biopsy MEDICATIONS: None and Per Anesthesia. TOPICAL ANESTHETIC: none CONSENT: The patient understands the risks and benefits of the procedure and understands that these risks include, but are not limited to: sedation, allergic reaction, infection, perforation and/or bleeding. Alternative means of evaluation and treatment include, among others: physical exam, x-rays, and/or surgical intervention. The patient elects to proceed with this endoscopic procedure. medical equipment was checked for proper function. Hand hygiene and appropriate measures for infection prevention was taken. After the risks, benefits and alternatives of the procedure were thoroughly explained, Informed consent was verified, confirmed and timeout was successfully executed by the treatment team. The patient was anesthetized with topical anesthesia and the EC-[id number] (Pedi C) endoscope was introduced through the mouth and advanced to the second portion of the duodenum. Retroflexed views revealed a hiatal hernia The gastroscope was then slowly withdrawn and removed. Gastritis antrum-biopsy hiatal hernia. ADVERSE EVENTS: There were no complications. IMPRESSIONS: 1. Gastritis antrum-biopsy hiatal hernia 2. Retroflexed views revealed a hiatal hernia RECOMMENDATIONS: 1. Await biopsy results. Biopsy results will not be ready for 7-10 days. If you don't hear from us in two weeks, call our office for biopsy results. 2. Continue PPI 3. Avoid NSAIDS PATIENT CONDITION: stable DISPOSITION: Inpatient REPEAT EXAM: Return 3 years EGD Ana Paula Enamorado MD eSigned: Ana Paula Enamorado MD 04/04/2017 10:13 AM [facility] [address] [facility], [address] COLONOSCOPY PROCEDURE REPORT EXAM DATE: 04/04/2017 PATIENT NAME: Sergio York MR #: [id number] BIRTHDATE: 1945 ENDOSCOPIST: Ana Paula Enamorado MD ORDER #: [id number] FULL STACK ENGINEER: Shawn Monson and Marina Clement STATUS: inpatient INDICATIONS: The patient is a 71 yr old female here for a colonoscopy due to abdominal pain, gi bleeding PROCEDURE PERFORMED: Colonoscopy, diagnostic MEDICATIONS: None and Per Anesthesia. PREP QUALITY: fair PREP TYPE:Other: ESTIMATED BLOOD LOSS: None CONSENT: The patient understands the risks and benefits of the procedure and understands that these risks include, but are not limited to: sedation, allergic reaction, infection, perforation and/or bleeding. Alternative means of evaluation and treatment include, among others: physical exam, x-rays, and/or surgical intervention. The patient elects to proceed with this endoscopic procedure. medical equipment was checked for proper function. Hand hygiene and appropriate measures for infection prevention was taken. After the risks, benefits and alternatives of the procedure were thoroughly explained, Informed consent was verified, confirmed and timeout was successfully executed by the treatment team. A digital exam revealed external hemorrhoids The Pentax EC-[id number] endoscope was introduced through the anus and advanced to the cecum, which was identified by both the appendix and ileocecal valve. The instrument was then slowly withdrawn as the colon was fully examined. COLON FINDINGS: Diverticulosis sigmoid,descending internal hemorrhoids. Retroflexed views revealed internal hemorrhoids and Retroflexed views revealed medium internal hemorrhoids The scope was then completely withdrawn from the patient and the procedure terminated. PROCEDURE WITHDRAWAL TIME:6minutes ADVERSE EVENTS: There were no complications. IMPRESSIONS: 1. Diverticulosis sigmoid,descending internal hemorrhoids 2. Retroflexed views revealed internal hemorrhoids 3. Retroflexed views revealed medium internal hemorrhoids 4. Revealed external hemorrhoids RECOMMENDATIONS: 1. Await biopsy results. Biopsy results will not be ready for 7-10 days. If you don't hear from us in two weeks, call our office for results. 2. Avoid NSAIDS and Aspirin 3. Capsule endoscopy op-if negative hematology eval abd us- mesenteric vessels evalution full liquid diet trial of Bentyl 10 mg po tid RECALL: Return 5 years Colonoscopy Ana Paula Enamorado MD eSigned: Ana Paula Enamorado MD 04/04/2017 10:16 AM Brief History - From Admission 71-year-old female who is extremely hard of hearing with history of hypertension , CAD, diabetes, who presents with a one-day history of crampy, nonradiating lower abdominal pain, with onset of right red blood per rectum this morning. She does report generalized weakness over the past day, with lightheadedness, no syncope. Denies any chest pain or shortness of breath. CBC/BMP: 04/05/17 0651 04/05/17 0651 Significant Findings Laboratory Tests Test 04/03/17 12:30 04/03/17 12:35 04/03/17 14:15 04/03/17 19:42 White Blood Count 11.8 TH/MM3 (4.0-11.0) Red Blood Count 3.00 MIL/MM3 (4.00-5.30) Hemoglobin 8.6 GM/DL (11.6-15.3) 7.2 GM/DL (11.6-15.3) Hematocrit 27.1 % (35.0-46.0) Mean Corpuscular Hemoglobin Concent 31.6 % (32.0-36.0) Red Cell Distribution Width 20.2 % (11.6-17.2) Platelet Count 513 TH/MM3 (150-450) Blood Urea Nitrogen 39 MG/DL (7-18) Creatinine 1.86 MG/DL (0.50-1.00) Random Glucose 138 MG/DL (74-106) Chloride Level 109 MEQ/L (98-107) Estimat Glomerular Filtration Rate 33 ML/MIN (>89) Lactic Acid Level 2.2 mmol/L (0.4-2.0) Urine Turbidity CLOUDY (CLEAR) Urine Protein 30 mg/dL (NEG-TRACE) Urine Occult Blood MOD (NEG) Urine Leukocyte Esterase LARGE (NEG) Urine RBC 10 /hpf (0-3) Urine WBC 15 /hpf (0-5) Urine Bacteria FEW /hpf (NONE) Urine Mucus FEW /lpf (OCC) Test 04/03/17 22:35 04/04/17 12:59 04/04/17 13:54 04/04/17 14:20 Hemoglobin 7.5 GM/DL (11.6-15.3) 10.7 GM/DL (11.6-15.3) White Blood Count 12.5 TH/MM3 (4.0-11.0) Red Blood Count 3.63 MIL/MM3 (4.00-5.30) Hematocrit 32.5 % (35.0-46.0) Red Cell Distribution Width 17.5 % (11.6-17.2) Neutrophils (%) (Auto) 75.1 % (16.0-70.0) Neutrophils # (Auto) 9.4 TH/MM3 (1.8-7.7) Blood Urea Nitrogen 35 MG/DL (7-18) Creatinine 1.56 MG/DL (0.50-1.00) Chloride Level 111 MEQ/L (98-107) Estimat Glomerular Filtration Rate 40 ML/MIN (>89) Troponin I LESS THAN 0.02 NG/ML Urine Leukocyte Esterase TRACE (NEG) Test 04/04/17 16:30 04/04/17 22:42 04/05/17 06:51 04/05/17 14:41 Hemoglobin 10.2 GM/DL (11.6-15.3) 10.1 GM/DL (11.6-15.3) 9.5 GM/DL (11.6-15.3) Red Blood Count 3.15 MIL/MM3 (4.00-5.30) Hematocrit 27.5 % (35.0-46.0) Red Cell Distribution Width 17.6 % (11.6-17.2) Blood Urea Nitrogen 19 MG/DL (7-18) Creatinine 1.27 MG/DL (0.50-1.00) Calcium Level 8.4 MG/DL (8.5-10.1) Chloride Level 109 MEQ/L (98-107) Anion Gap 4 MEQ/L (5-15) Estimat Glomerular Filtration Rate 50 ML/MIN (>89) Imaging Last Impressions Abdomen Ultrasound 04/04/17 0000 Signed Impressions: Service Date/Time: March 11:35 - CONCLUSION: Sonographic findings suggestive of high-grade superior mesenteric artery stenosis. Catheter arteriography with consideration of stent placement may be appropriate if clinically indicated. Mnado Anderson MD Abdomen/Pelvis CT 04/03/17 1314 Signed Impressions: Service Date/Time: Monday, April 03, 2017 13:37 - CONCLUSION: 1. Diverticular disease throughout the colon without diverticulitis. The appendix is normal. 2. Otherwise, no acute intraperitoneal or pelvic process to explain current clinical symptoms. 3. Stable 4 cm low-density lesion in the medial midpole of the left kidney is likely a cyst. 4. Stent in the right common iliac artery. Bony fusion of the left SI joint. Altaf Crabtree MD PE at Discharge GENERAL: This is a well-nourished, well-developed patient, in no apparent distress. Hard of hearing. Awake and alert. Tolerating full liquid diet. SKIN: Cool and dry. HEAD: Atraumatic. Normocephalic. EYES: Extraocular motions intact. No scleral icterus. No injection or drainage. ENT: Nose without bleeding or purulent drainage. Airway patent. NECK: Trachea midline. CARDIOVASCULAR: Regular rate and rhythm without murmurs, gallops, or rubs. RESPIRATORY: Clear to auscultation. Breath sounds equal bilaterally. No wheezes , rales, or rhonchi. GASTROINTESTINAL: Abdomen soft, nondistended. Tenderness to palpation suprapubic region, lower abdomen, improved. No hepato-splenomegaly, or palpable masses. No guarding. MUSCULOSKELETAL: Extremities without clubbing, cyanosis, or edema. No joint tenderness, effusion, or edema noted. No calf tenderness. NEUROLOGICAL: Awake and alert. Able to move all extremities spontaneously. Motor and sensory grossly within normal limits. Five out of 5 muscle strength in all muscle groups. Nonfocal. Normal speech. Pt update on day of discharge Follow-up on patient with abdominal pain, GI bleed. Patient seen and examined. Ultrasound of the abdomen revealed a high-grade superior doesn't check artery stenosis. IR consulted - spoke with Dr. Anderson who states procedure can be scheduled as outpatient as patient is tolerating full liquid diet. Patient scheduled for Apr 09 on IR schedule. She will need to be off Plavix and ASA until the procedure. Patient denies any complaints of nausea or vomiting. Patient denies any active bleeding. Patient denies any other complaints at present. Discussed with CHARLEY Hyman. Hospital Course Written by Nata Whelan, acting as scribe for Dr. Crump on 04/05/17 at 15: 14. Patient admitted with abdominal pain and acute lower GI bleed. Patient's hemoglobin dropped to 7.2 and she received transfusion of 2 units of packed red blood cells with good response. Hemoglobin remained stable. GI consulted and patient underwent panendoscopy with EGD showing gastritis and colonoscopy showing diverticulosis, internal hemorrhoids and external hemorrhoids. Abdominal ultrasound was obtained and revealed a high-grade stenosis of the superior mesenteric artery. Patient able to tolerate a full liquid diet. IR was consulted for the patient to be discharged to home and scheduled as an outpatient due to the fact she was tolerating a full liquid diet needed to remain off of her anticoagulation prior to the procedure. Discussed with GI history cleared patient for discharge from their standpoint. Patient was scheduled for IR procedure on April 09 and was instructed to stay off of her home dose of Plavix and aspirin as well as any other nonsteroidal agents prior to procedure. Patient was evaluated by physical therapy who recommended home health PT at time of discharge which was arranged for patient with the assistance of case management. She was instructed to continue a full liquid diet and to advance slowly as tolerated. Pt Condition on Discharge: Stable Discharge Disposition: Discharge Home Discharge Time: > 30 minutes Discharge Instructions DIET: Follow Instructions for: Heart Healthy Diet, Diabetic Diet, Full Liquid Diet Additional Diet Instructions: May advance diet slowly as tolerated Activities you can perform: See Additionl Instruction Other Activity Instructions: per PT recommendations Follow up Referrals: Appointment for Follow Up - 04/09/17 @ [facility] Gastroenterology - 2 Weeks with Ana Paula Enamorado MD PCP Follow-up - 2-3 Days New Medications: Dicyclomine (Dicyclomine) 20 Mg Tab 10 MG PO TID PRN for ABDOMINAL PAIN, #30 TAB Continued Medications: Atorvastatin (Atorvastatin) 10 Mg Tab 10 MG PO HS for Cholesterol Management, #30 TAB 0 Refills Escitalopram (Escitalopram) 10 Mg Tab 10 MG PO DAILY, #30 TAB 0 Refills Hydralazine HCl (Hydralazine HCl) 25 Mg Tablet 25 MG PO BID for Blood Pressure Management, #60 TAB 0 Refills Lisinopril (Lisinopril) 40 Mg Tab 40 MG PO DAILY for Blood Pressure Management, #30 TAB 0 Refills Meclizine (Meclizine) 25 Mg Tab 25 MG PO TID PRN for VERTIGO, TAB 0 Refills Metoprolol Succinate ER 24 HR (Toprol XL) 100 Mg Tab 100 MG PO DAILY, #30 TAB 0 Refills Omeprazole (Omeprazole) 20 Mg Tab 40 MG PO DAILY for Reflux, #30 TAB 0 Refills Oxycodone-Acetaminophen (Percocet) 5-325 mg Tab 1 TAB PO Q4H PRN for PAIN for 3 Days, #18 TAB 0 Refills Tizanidine (Tizanidine) 2 Mg Tab 2 MG PO TID PRN for Back Spasms, TAB 0 Refills Trazodone (Trazodone) 50 Mg Tab 100 MG PO HS PRN for INSOMNIA, #30 TAB 0 Refills Discontinued Medications: Chlorthalidone (Chlorthalidone) 25 Mg Tab 25 MG PO DAILY, TAB 0 Refills Naproxen (Naproxen) 500 Mg Tab 500 MG PO BID for 7 Days, #14 TAB 0 Refills Nitrofurantoin Macrocrystal (Macrodantin) 100 Mg Cap 100 MG PO BID for 7 Days, #14 CAP 0 Refills Tolterodine (Tolterodine) 1 Mg Tab 1 MG PO BID for Urinary Symptom Managemen, #60 TAB 0 Refills Nata Whelan Apr 05, 2017 15:14 Mike Crump MD Apr 05, 2017 15:17
--- NOTE | 2017-04-05 15:16 | HHI.DCPOC ---
Discharge Care Plan Diagnosis: (1) Abdominal pain (2) GI bleed (3) Mesenteric artery stenosis Goals to Promote Your Health * To prevent worsening of your condition and complications * To maintain your health at the optimal level Directions to Meet Your Goals Follow up with [facility] on Apr 09 No Plavix, Aspirin or other over the counter non steroidal anti-inflammatory medications prior to procedure on Apr 09 Continue on Full liquid diet, advance diet slowly as tolerated Take your medications as prescribed Follow your dietary instruction Follow activity as directed Keep your appointments as scheduled Take your immunizations and boosters as scheduled If your symptoms worsen call your PCP, if no PCP go to Urgent Care Center or Emergency Room Smoking is Dangerous to Your Health. Avoid second hand smoke Call the 24-hour hour crisis hotline for domestic abuse at Nata Whelan Apr 05, 2017 15:16
--- NOTE | 2017-04-05 16:14 | HHI.FF ---
Face to Face Verification Diagnosis: (1) Physical deconditioning Physical Therapy Order: Evaluate and Treat, Improve ambulation, Strength and gait training I have seen patient Sergio York on 04/05/17. My clinical findings support the need for the requested home health care services because: Deconditioned w/ increased weakness Limited ability to care for self High risk of falls I certify that my clinical findings support that this patient is homebound because: Unsteady gait/balance Unsafe to leave home unassisted Unable to use public transportation Nata Whelan Apr 05, 2017 16:14
--- NOTE | 2017-04-05 17:10 | EKG ---
Date Performed: 04/04/2017 Time Performed: 13:59:55 PTAGE: 71 years EKG: Sinus rhythm LEFT VENTRICULAR HYPERTROPHY AND ST-T CHANGE ABNORMAL ECG PREVIOUS TRACING : 04/03/2017 12.19.38 DOCTOR: Maria C Hoskins Interpretating Date/Time 04/05/2017 17:08:44
== END 2017-04-05 16:34 | disposition home or self-care (01) ==
LOC: NEPC 11:46 → NEDA 14:56 → UNDOADMOB 14:56 → NEDA 16:05 → NEPHCDU 16:05 → OBSVTOIN 04-05 10:50 → INTOOBSV 04-05 10:50 → UNDODISOB 04-05 16:34
PROVIDERS: ADMIT Hospitalist; ATTEND Hospitalist
DX: K92.2 Gastrointestinal hemorrhage, unspecified (principal); D62 Acute posthemorrhagic anemia; K29.70 Gastritis, unspecified, without bleeding; K44.9 Diaphragmatic hernia without obstruction or gangrene; K57.30 Diverticulosis of large intestine without perforation or abscess without bleeding; K64.8 Other hemorrhoids; K64.4 Residual hemorrhoidal skin tags; K55.1 Chronic vascular disorders of intestine; N39.0 Urinary tract infection, site not specified; R53.1 Weakness; R42 Dizziness and giddiness; I49.3 Ventricular premature depolarization; I51.7 Cardiomegaly; R94.31 Abnormal electrocardiogram [ECG] [EKG]; I12.9 Hypertensive chronic kidney disease with stage 1 through stage 4 chronic kidney disease, or unspecified chronic kidney disease; E11.22 Type 2 diabetes mellitus with diabetic chronic kidney disease; N18.4 Chronic kidney disease, stage 4 (severe); I25.10 Atherosclerotic heart disease of native coronary artery without angina pectoris; E78.00 Pure hypercholesterolemia, unspecified; J44.9 Chronic obstructive pulmonary disease, unspecified; H91.90 Unspecified hearing loss, unspecified ear; M19.90 Unspecified osteoarthritis, unspecified site; Z87.891 Personal history of nicotine dependence; Z79.02 Long term (current) use of antithrombotics/antiplatelets; Z79.899 Other long term (current) drug therapy; Z79.82 Long term (current) use of aspirin
CPT/HCPCS: 00740; 00810; 36430; 43239; 45378; 74176; 80048; 80053; 81001; 82948; 83605; 83690; 84484; 85018; 85025; 85610; 85730; 86850; 86900; 86901; 86920; 87086; 88305; 88312; 93005; 93975; 96361; 96365; 96366; 96375; 96376; 97162; 99285; C9113; G0378; G8987; G8988; J0696; J2270; J2405; J7030; J7120; P9016; Q0163

== ENCOUNTER 2017-04-12 06:11 | Day surgery (SDC) | payer OTHER ==
[2017-04-12] VITALS (11 sets, daily range): BP systolic 135–246; BP diastolic 66–102; PULSE 58–70; RESP 16–20; TEMP 97.8–98.3; O2SAT 91–99
[~2017-04-12] VITALS: Ht 152.4 cm; Wt 81.2 kg
[~2017-04-12 06:11] MED LIST changes: +DICY20TA10 PO; +MACR100C3 PO; +NAPR500T2 PO; +PERC5TAB12 PO; +TIZA2TAB PO
[2017-04-12] MEDS ORDERED: OMEP40CA2 PO (06:50)
[2017-04-12] MEDS ORDERED: HYDR-3799 PO (06:50)
[2017-04-12] MEDS ORDERED: NITR100C4 PO (06:50)
[2017-04-12] MEDS ORDERED: TOLT60TA PO (06:50)
[2017-04-12] MEDS ORDERED: SODIUM CHLOR 0.9% 1000 ML INJ 1,000 ML IV SCH ×2 (08:00→12:11)
[2017-04-12 08:14] LABS: BICARBONATE 24.9 MEQ/L (21.0-32.0); POTASSIUM 3.8 MEQ/L (3.5-5.1)
[2017-04-12] MEDS ORDERED: MIDAZOLAM HCL 2 MG/2 ML VIAL ONE (10:30)
--- NOTE | 2017-04-12 12:13 | PD.RAD ---
Post Procedure Progress Note Pre Procedure Diagnosis: (1) Mesenteric artery stenosis Post Procedure Diagnosis: (1) Mesenteric artery stenosis Procedure Date: Apr 12, 2017 Supervising Radiologist: Stone Foy Proceduralist/Assist: RT Renato(R)() Anesthesia: Conscious Sedation Plan of Activity Patient to Unit: ROPU Patient Condition: Good See PACS Report for procedural detail/treatment Stone Foy MD Apr 12, 2017 12:13
[2017-04-12] MEDS ORDERED: oxyCODONE/ACETAMINOPHEN 5 MG/325 MG TAB PO PRN (12:15)
[2017-04-12] MEDS ORDERED: HYDROmorphone HCL PF 1 MG/ML VIAL IV PUSH PRN (12:15)
[2017-04-12] MEDS ORDERED: IOHEXOL 350 MG/ML 100 ML BTL (for RAD DIAG) OTHER ONE (12:20)
[2017-04-12] MEDS ORDERED: PROTAMINE SULFATE 50 MG/5 ML VIAL ONE (12:43)
[2017-04-12] MEDS ORDERED: HEPARIN SODIUM - IV 10,000 UNITS/10 ML VIAL ONE (12:43)
--- NOTE | 2017-04-12 15:29 | RADRPT ---
EXAM DATE/TIME: 04/12/2017 00:00 [facility] COMPARISON: No previous studies available for comparison. INDICATIONS : History of suspected mesenteric ischemia now with significantly elevated velocities on mesenteric ult rasound exams consistent with severe SMA stenosis. Patient presents for angiography and possible inte rvention. MEDICAL HISTORY : 1.Renal failure 2.CKD 3.COPD 4.HTN 5.DM 6.Arthritis 7.[place] SURGICAL HISTORY : 1.Cardiac catherization 2.Iliac stent placement ENCOUNTER: Initial ACUITY: 1 week PAIN SCORE: 0/10 FLUORO TIME: 5.4 minutes IMAGE SERIES: 6 ACCESS SITE: Right Femoral artery SEDATION TIME: 60 minutes CONTRAST: 1.) 65 cc Omnipaque (iohexol) 350 MEDICATION(S): 1.) 4 mg midazolam (Versed) IV 2.) 200 mcg fentanyl (Sublimaze) IV DEVICE(S): 1.) Superior mesenteric artery 6mm x 20mm ambar ELECTRONIC IMAGING SYSTEM OPERATOR balloon PROCEDURE : 1. Ultrasound-guided puncture of the access site. 2. Conscious sedation with continuous EKG and Oximetry monitoring. 3. Selective catheter placement in the celiac artery with selective angiography 4. Selective catheter placement in the SMA with selective angiography 5. Pullback direct hemodynamic pressure measurements of the SMA and abdominal aorta 6. 6 mm balloon into plasty of the SMA origin. The risks, benefits and alternatives to the procedure were explained and verbal and written consent w as obtained. The site was prepped in sterile fashion. Full sterile technique was used, including ca p, mask, sterile gloves and gown and a large sterile sheet. Hand hygiene and 2% chlorhexidine and/or betadine/alcohol prep was utilized per protocol for cutaneous antisepsis. Sterile gel and sterile p robe cover were utilized for ultrasound guidance. The skin and subcutaneous tissues were infiltrated with local anesthetic solution. With ultrasound and fluoroscopic guidance the selected artery was punctured and a vascular sheath was placed. 4 [place] catheter was used to select the cystic artery and angiography was performed. This d emonstrated moderate stenosis of the celiac origin. Catheter was then repositioned into the SMA and a ngiography was performed. This demonstrated moderate stenosis of the SMA origin. Therefore, pullback pressure measurements were obtained demonstrating an approximately 11 mmHg peak systolic gradient. Th erefore, 6 mm balloon angioplasty was performed of the SMA origin. There was only a small waist noted during balloon dilatation. Post angioplasty angiography demonstrated good angiographic result. There fore wires and catheters were removed. The puncture site was closed with manual pressure and hemostasis was obtained. The patient tolerated the procedure well and there were no complications. Conscious sedation was performed with the prescribed dosages and duration as above in the presence of an independent trained radiology nurse to assist in the monitoring of the patient. EKG and oximetry remained stable throughout the procedure. CONCLUSION: 1. Moderate celiac and SMA origin stenosis with approximately 11 mmHg gradient across the origin of t he SMA. 2. Good angiographic result following 6 mm balloon to plasty the SMA origin. Plan: Will reevaluate patient in 7-14 days. Consider stent placement if patient has short-term sympto m improvement. Stone Foy MD on April 12, 2017 at 14:12 Board Certified Radiologist. This report was verified electronically.
== END 2017-04-12 18:10 | disposition home or self-care (01) ==
LOC: HROP 06:11 → HRIP 06:35 → HROP 18:10
PROVIDERS: ATTEND Internal Medicine Gastroenterology
DX: K55.1 Chronic vascular disorders of intestine (principal); N18.9 Chronic kidney disease, unspecified; I12.9 Hypertensive chronic kidney disease with stage 1 through stage 4 chronic kidney disease, or unspecified chronic kidney disease; E11.22 Type 2 diabetes mellitus with diabetic chronic kidney disease; J44.9 Chronic obstructive pulmonary disease, unspecified; I25.10 Atherosclerotic heart disease of native coronary artery without angina pectoris; G47.30 Sleep apnea, unspecified
CPT/HCPCS: 36245; 37246; 75726; 75774; 76937; 80048; 99152; 99153; C1725; C1769; C1887; C1894; J1644; J2250; J2720; J3010; J7030; Q9967

== ENCOUNTER 2017-04-19 13:28 | Day surgery (SDC) | payer OTHER ==
[~2017-04-19 13:28] MED LIST changes: -ATOR10TA15 PO; -CHLO25TA2 PO; -CIPR-9 PO; -CLOP75TA PO; -DICY20TA10 PO; -ESCI10TA PO; -HYDR-3533 PO; -MACR100C3 PO; -MECL-62 PO; -NAPR500T2 PO; +NITR100C4 PO; -OMEP20TA93 PO; +OMEP40CA2 PO; -PERC5TAB12 PO; -PHEN0.4T PO; -TRAZ50TA12 PO
[2017-04-19 14:41] VITALS: BP 104/55; PULSE 76; RESP 20; TEMP 98.3; O2SAT 99
== END 2017-04-19 15:10 | disposition home or self-care (01) ==
LOC: HROP 13:28 → HRIP 13:28 → HROP 15:10
PROVIDERS: ATTEND Internal Medicine Gastroenterology
DX: K55.1 Chronic vascular disorders of intestine (principal)

== ENCOUNTER 2017-05-13 01:54 | Emergency (ER) | payer OTHER, MEDICAID ==
[~2017-05-13] VITALS: Ht 160 cm; Wt 115.0 kg
[2017-05-13 02:01] VITALS: BP 205/91; PULSE 79; RESP 22; TEMP 98.1; O2SAT 100
--- NOTE | 2017-05-13 02:23 | PD ---
HPI Chief Complaint: Alcohol/Drug Intoxication Time Seen by Provider: 02:17 Travel History International Travel<30 days: No Contact w/Intl Traveler<30days: No Traveled to known affect area: No History of Present Illness HPI The patient is a 71 year old female who presents to the [facility] emergency department with a history of reportedly being in a block democrat prior to arrival when she fell onto her right knee. The patient is noted to have an abrasion to the right knee. The patient reports that she has been drinking alcohol this evening. The patient is vague as to whether she has been using any other drugs. The patient on arrival is extremely hard of hearing and appears to be intoxicated. The patient has difficulty providing her other medical history. The patient's electronic medical record was reviewed for her prior history. On review of systems, the patient denies hitting her head or losing consciousness. She denies having any neck pain, numbness or tingling to her extremities, or weakness of her extremities. She denies having any known recent fevers, cough, congestion, neck pain, chest pain, shortness of breath,, vomiting, diarrhea, urinary symptoms, or other neurologic symptoms. The patient reports having lower abdominal pain. She reports that she has a history of being admitted to the hospital in April related to a GI bleed and abdominal pain. She reports that she had a blood transfusion at that time. She is unsure what her diagnosis was. [facility] Past Medical History Narrative Medical The patient's past medical history is significant for hypertension, history of being hard of hearing, history of chronic renal insufficiency, history of peripheral vascular disease status post iliac stent placement, history of superior mesenteric artery stenosis status post intervention by interventional radiology during her last hospitalization. Hx Anticoagulant Therapy: Yes Arthritis: Yes Asthma: No Autoimmune Disease: No Blood Disorders: No Anxiety: No Depression: No Heart Rhythm Problems: No Cancer: No Cardiac Catheterization: Yes Cardiovascular Problems: Yes High Cholesterol: Yes Chemotherapy: No Chest Pain: No Congestive Heart Failure: No COPD: Yes Cerebrovascular Accident: No Coronary Artery Disease: Yes Diabetes: Yes Patient Takes Glucophage: No (unknown) Diminished Hearing: Yes (MOSTLY DEAF) Endocrine: No GERD: No Glaucoma: No Genitourinary: No Headaches: Yes Hepatitis: No Hiatal Hernia: No Hypertension: Yes Immune Disorder: No Kidney Stones: No Medical other: Yes (HARD OF HEARING USED A HEARING AID,ARTHRITIS) Musculoskeletal: Yes Neurologic: Yes Psychiatric: No Reproductive: No Respiratory: Yes (copd sleep apnea) Immunizations Current: Yes Migraines: No Myocardial Infarction: No Radiation Therapy: No Renal Failure: Yes (stage 4) Seizures: No Sickle Cell Disease: No Sleep Apnea: No Thyroid Disease: No Ulcer: No Tetanus Vaccination: Unknown PNEUMOCCOCAL Vaccine (Year): 2 Menopausal: Yes : 3 Para: 3 Past Surgical History Narrative Surgical The patient's past surgical history is significant for an iliac stent placement , history of cardiac catheterization. Abdominal Surgery: Yes AICD: No Appendectomy: No Arteriovenous Shunt: No Cardiac Surgery: Yes (HEART CATH 2007) Section: Yes Cholecystectomy: No Ear Surgery: No Endocrine Surgery: No Eye Surgery: Yes (RIGHT CATARACT EXTRACTION WITH LENS) Genitourinary Surgery: No Gynecologic Surgery: Yes (C SECTION X 3) Insulin Pump: No Joint Replacement: No Oral Surgery: No Pacemaker: No Thoracic Surgery: No Other Surgery: Yes (cataracts) Social History Alcohol Use: Yes (liqour and beer tonight) Tobacco Use: Yes (MOSTLY WHEN DRINKING) Substance Use: Yes (possible crack, marijaunia or meth smoked tonight) Allergies-Medications (Allergen,Severity, Reaction): Coded Allergies: No Known Allergies (Verified Allergy, Unknown, 04/03/17) Reported Meds & Prescriptions Reported Meds & Active Scripts Active Reported Tolterodine (Tolterodine Tartrate) 1 Mg Tab 1 Mg PO BID Hydralazine HCl 25 Mg Tablet 25 Mg PO BID Nitrofurantoin Monohydrate Macrocrystals (Nitrofurantoin Monoh/Nitrofur Macro) 100 Mg Cap 100 Mg PO BID Omeprazole 40 Mg Cap 40 Mg PO DAILY Tizanidine (Tizanidine HCl) 2 Mg Tab 2 Mg PO TID PRN Lisinopril 40 Mg Tab 40 Mg PO DAILY Hydralazine HCl 25 Mg Tablet 25 Mg PO BID Toprol XL (Metoprolol Succinate) 100 Mg Tab 100 Mg PO DAILY Aspirin Adult Low Strength (Aspirin) 81 Mg Tabdr 81 Mg PO DAILY Review of Systems Except as stated in HPI: all other systems reviewed are Neg General / Constitutional: No: Fever Eyes: No: Visual changes HENT: No: Headaches Cardiovascular: No: Chest Pain or Discomfort Respiratory: No: Shortness of Breath Gastrointestinal: Positive: Abdominal Pain, No: Nausea, Vomiting, Diarrhea Genitourinary: No: Dysuria Musculoskeletal: Positive: Myalgias, Arthralgias, Pain Skin: No Rash Neurologic: Positive: Change in Mentation, Slurred Speech, No: Weakness, Focal Abnormalities, Sensory Disturbance Psychiatric: No: Depression Endocrine: No: Polydipsia Hematologic/Lymphatic: No: Easy Bruising Physical Exam Narrative General: The patient is a well-developed well-nourished female in no acute distress. Head and Neck exam: Head is normocephalic atraumatic. Eyes: EOMI, pupils are equal round and reactive to light. Nose: Midline septum with pink mucous membranes Mouth: Dentition unremarkable. Moist mucus membranes. Posterior oropharynx is not erythematous. No tonsillar hypertrophy. Uvula midline. Airway patent. Neck: No palpable lymphadenopathy. No nuchal rigidity. No thyromegaly. Cardiovascular: Regular rate and rhythm without murmurs, gallops, or rubs. Lungs: Clear to auscultation bilaterally. No wheezes, rhonchi, or rales. Abdomen: Soft, with reported tenderness on palpation along the suprapubic area, no other tenderness on palpation of the other quadrants of the abdomen. No tenderness on palpation of McBurney's point. Negative Knapp's sign. Normal bowel sounds are audible. No guarding, rebound, or rigidity. Extremities: No clubbing, cyanosis, or edema. 2+ pulses in all 4 extremities. The patient on examination of the right knee is noted to have a superficial abrasion. The patient has full range of motion of both legs without any ligament laxity. No step-off or crepitus. No deformity. Back: No spinous process tenderness to palpation. No costovertebral angle tenderness to palpation. Neurologic Exam: Cranial nerves 2-12 were intact on exam. Strength is 5/5 in all 4 extremities. No sensory deficits noted. The patient is extremely hard of hearing, question septic be repeated on multiple occasions. The patient has slightly slurred speech and an odor of alcohol about her. Skin Exam: No rash noted. Skin is warm and dry. Data Data Last Documented VS Vital Signs Date Time Temp Pulse Resp B/P (MAP) Pulse Ox O2 Delivery O2 Flow Rate FiO2 05/13/17 04:35 82 20 173/97 (122) 97 Room Air 05/13/17 02:01 98.1 Orders Orders Electrocardiogram (05/13/17 02:20) Complete Blood Count With Diff (05/13/17 02:20) Comprehensive Metabolic Panel (05/13/17 02:20) Prothrombin Time / Inr (Pt) (05/13/17 02:20) Act Partial Throm Time (Ptt) (05/13/17 02:20) Lipase (05/13/17 02:20) Urinalysis - C+S If Indicated (05/13/17 02:20) Magnesium (Mg) (05/13/17 02:20) Chest, Single Ap (05/13/17 02:20) Ct Brain W/O Iv Contrast(Rout) (05/13/17 02:20) Iv Access Insert/Monitor (05/13/17 02:20) Ecg Monitoring (05/13/17 02:20) Oximetry (05/13/17 02:20) Drug Screen, Random Urine (05/13/17 02:20) Alcohol (Ethanol) (05/13/17 02:20) Ct Cerv Spine W/O Contrast (05/13/17 02:20) Hip, Uni(Ap&Lat) W Ap Pelvis (05/13/17 02:20) Knee, Complete (4vws) (05/13/17 02:20) Ice/Cold Pack (05/13/17 02:20) Acetaminophen (Tylenol) (05/13/17 04:30) Labs Laboratory Tests Test 05/13/17 02:25 05/13/17 03:25 White Blood Count 9.9 TH/MM3 Red Blood Count 3.39 MIL/MM3 Hemoglobin 10.3 GM/DL Hematocrit 31.5 % Mean Corpuscular Volume 92.9 FL Mean Corpuscular Hemoglobin 30.5 PG Mean Corpuscular Hemoglobin Concent 32.8 % Red Cell Distribution Width 20.6 % Platelet Count 306 TH/MM3 Mean Platelet Volume 7.9 FL Neutrophils (%) (Auto) 65.6 % Lymphocytes (%) (Auto) 24.1 % Monocytes (%) (Auto) 8.4 % Eosinophils (%) (Auto) 1.5 % Basophils (%) (Auto) 0.4 % Neutrophils # (Auto) 6.5 TH/MM3 Lymphocytes # (Auto) 2.4 TH/MM3 Monocytes # (Auto) 0.8 TH/MM3 Eosinophils # (Auto) 0.1 TH/MM3 Basophils # (Auto) 0.0 TH/MM3 CBC Comment DIFF FINAL Differential Comment Prothrombin Time 9.8 SEC Prothromb Time International Ratio 1.0 RATIO Activated Partial Thromboplast Time 26.5 SEC Blood Urea Nitrogen 20 MG/DL Creatinine 1.50 MG/DL Random Glucose 109 MG/DL Total Protein 8.7 GM/DL Albumin 3.9 GM/DL Calcium Level 8.7 MG/DL Magnesium Level 1.9 MG/DL Alkaline Phosphatase 103 U/L Aspartate Amino Transf (AST/SGOT) 21 U/L Alanine Aminotransferase (ALT/SGPT) 23 U/L Total Bilirubin 0.3 MG/DL Sodium Level 137 MEQ/L Potassium Level 3.7 MEQ/L Chloride Level 104 MEQ/L Carbon Dioxide Level 23.0 MEQ/L Anion Gap 10 MEQ/L Estimat Glomerular Filtration Rate 42 ML/MIN Lipase 196 U/L Ethyl Alcohol Level 283 MG/DL Urine Color LIGHT-YELLOW Urine Turbidity CLEAR Urine pH 5.0 Urine Specific [place] 1.003 Urine Protein TRACE mg/dL Urine Glucose (UA) NEG mg/dL Urine Ketones NEG mg/dL Urine Occult Blood NEG Urine Nitrite NEG Urine Bilirubin NEG Urine Urobilinogen LESS THAN 2.0 MG/DL Urine Leukocyte Esterase SMALL Urine RBC 4 /hpf Urine WBC 4 /hpf Urine Squamous Epithelial Cells 4 /hpf Urine Bacteria RARE /hpf Microscopic Urinalysis Comment CULT NOT INDICATED Urine Opiates Screen NEG Urine Barbiturates Screen NEG Urine Amphetamines Screen NEG Urine Benzodiazepines Screen NEG Urine Cocaine Screen POS Urine Cannabinoids Screen NEG MDM Medical Decision Making Medical Screen Exam Complete: Yes Emergency Medical Condition: Yes Medical Record Reviewed: Yes Interpretation(s) Last Impressions Knee X-Ray 05/13/17219 Signed Impressions: Service Date/Time: Saturday, May 13, 2017 02:36 - CONCLUSION: 1. There is no evidence of acute fracture. Judd Pineda MD Hip and Pelvis X-Ray 05/13/17219 Signed Impressions: Service Date/Time: Saturday, May 13, 2017 02:37 - CONCLUSION: 1. There is no evidence of acute fracture. Judd Pineda MD Head CT 05/13/17219 Signed Impressions: Service Date/Time: Saturday, May 13, 2017 02:54 - CONCLUSION: 1. No evidence of acute intracranial pathology. No masses are identified. Judd Pineda MD Chest X-Ray 05/13/17219 Signed Impressions: Service Date/Time: Saturday, May 13, 2017 02:40 - CONCLUSION: 1. Cardiomegaly. Atelectasis left base Judd Pineda MD Cervical Spine CT 05/13/17219 Signed Impressions: Service Date/Time: Saturday, May 13, 2017 02:54 - CONCLUSION: 1. Mild degenerative changes as described above. There is no evidence of acute fracture. Judd Pineda MD Differential Diagnosis Right knee fracture, versus contusion, versus abrasion, versus hip fracture, versus pelvis fracture, versus intracranial abnormality, versus cervical spine fracture Narrative Course During the course of the patients emergency department visit, the patients history, examination, and differential diagnosis were reviewed with the patient. The patient was placed on a monitoring specialist with oximetry and frequent blood pressure monitoring. The patient had IV access obtained and blood work sent for analysis. The patient had an ECG done on arrival. The patient's ECG reveals a sinus rhythm of 74, voltage criteria for LVH are noted, QRS duration is 81 ms, QTC [address] segment elevation. The patient was initially provided Tylenol 650 by mouth 1 for pain. The patients laboratory studies were reviewed and remarkable for a white count of 9.9, hemoglobin 10.3 which is improved compared to previously, platelets 306 with 8.4 monos, CMP is remarkable for a BUN of 20, creatinine 1.50 which is comparative to baseline for this patient with a history of renal insufficiency, glucose 109, total protein 8.7, lipase 196, PT 9.8, PTT 26.5, alcohol level [id number], urine drug screen is positive for cocaine. Urinalysis is unremarkable. Radiology studies were reviewed and remarkable for a chest x-ray that shows cardiomegaly, atelectasis at the left base, no other acute abnormality, pelvis and right hip x-ray showed no acute abnormality., Right knee x-ray shows no acute abnormality. CT scan of the brain shows no evidence of acute intracranial pathology. No masses identified. CT scan of the cervical spine shows mild degenerative changes, no other acute abnormality. The patient will be monitored in the emergency department for improvement in her mentation and ability to walk without assistance. The patient will then be discharged home when she is not acutely intoxicated. The patient is resting comfortably and feels better, is alert and in no distress. The patients results and examination findings were discussed with the patient. The repeat examination is unremarkable and benign. The history, exam, diagnostic testing, and current condition do not suggest any significant pathology to warrant further testing, continued ED treatment, admission, or surgical evaluation at this point. The vital signs have been stable. The patient does not have uncontrollable pain, intractable vomiting, or other significant symptoms. The patient's condition is stable and appropriate for discharge. The patient will pursue further outpatient evaluation with a primary care physician or other designated or consulting physician as indicated in the discharge instructions. The patient expressed understanding and was agreeable with this plan. Diagnosis Primary Impression: Polysubstance abuse Additional Impressions: Abrasion, right knee, initial encounter Fall Qualified Codes: W19.XXXA - Unspecified fall, initial encounter Referrals: Primary Care Physician 2 days Patient Instructions: Abrasion (ED), Alcohol Intoxication (ED), Cocaine Abuse ( ED), General Instructions Med/Other Pt SpecificInfo: No Change to Meds Disposition: 01 DISCHARGE HOME Condition: Stable Margy Figueroa MD May 13, 2017 02:23
--- NOTE | 2017-05-13 03:18 | RADRPT ---
EXAM DATE/TIME: 05/13/2017 02:40 [facility] COMPARISON: No previous studies available for comparison. INDICATIONS : Pain post fall MEDICAL HISTORY : Cardiovascular disease. Hypertension Chronic obstructive pulmonary disease. Diabetes, Stage 4 Vickey al failure SURGICAL HISTORY : section. ENCOUNTER: Initial ACUITY: 1 day PAIN SCORE: 8/10 LOCATION: Bilateral chest FINDINGS: The cardiac silhouette is enlarged in transverse diameter. There is subsegmental atelectasis in the l eft base. The right lung is free of acute parenchymal opacity. No pleural effusions are identified. T here is no evidence of acute fracture. CONCLUSION: 1. Cardiomegaly. Atelectasis left base Judd Pineda MD on May 13, 2017 at 3:14 Board Certified Radiologist. This report was verified electronically.
--- NOTE | 2017-05-13 03:23 | RADRPT ---
EXAM DATE/TIME: 05/13/2017 02:36 [facility] COMPARISON: No previous studies available for comparison. INDICATIONS : Pain post fall MEDICAL HISTORY : Cardiovascular disease. Diabetes mellitus type II. Hypertension. Stage 4 Renal failure, COPD SURGICAL HISTORY : section. ENCOUNTER: Initial ACUITY: 1 day PAIN SCORE: 8/10 LOCATION: Right Knee FINDINGS: Four view examination of the right knee demonstrates no evidence of fracture or dislocation. Bony mi neralization is normal. The articular surfaces are intact. The suprapatellar soft tissues have a no rmal configuration. CONCLUSION: 1. There is no evidence of acute fracture. Judd Pineda MD on May 13, 2017 at 3:21 Board Certified Radiologist. This report was verified electronically.
--- NOTE | 2017-05-13 03:24 | RADRPT ---
EXAM DATE/TIME: 05/13/2017 02:37 [facility] COMPARISON: No previous studies available for comparison. INDICATIONS : Pain post fall MEDICAL HISTORY : Cardiovascular disease. Diabetes mellitus type II. Hypertension. Stage 4 Renal failure, COPD SURGICAL HISTORY : section. ENCOUNTER: Initial ACUITY: 1 day PAIN SCORE: 8/10 LOCATION: Right Hip FINDINGS: Examination of the right hip was performed with AP Pelvis. The primary and secondary trabecular avel ronna of the femoral neck is intact. The hip joint is of normal width without significant sclerosis or bony hypertrophy. The acetabulum is grossly intact. CONCLUSION: 1. There is no evidence of acute fracture. Judd Pineda MD on May 13, 2017 at 3:22 Board Certified Radiologist. This report was verified electronically.
--- NOTE | 2017-05-13 03:25 | RADRPT ---
EXAM DATE/TIME: 05/13/2017 02:54 [facility] COMPARISON: No previous studies available for comparison. INDICATIONS : Trauma. Fall. RADIATION DOSE: 52.13 CTDIvol (mGy) MEDICAL HISTORY : Cardiovascular disease. Hypertension. Chronic obstructive pulmonary disease.Diabetes Renal failure SURGICAL HISTORY : None. ENCOUNTER: Initial ACUITY: 1 day PAIN SCALE: 8/10 LOCATION: cranial TECHNIQUE: Multiple contiguous axial images were obtained of the head. Using automated exposure control and adj ustment of the mA and/or kV according to patient size, radiation dose was kept as low as reasonably a chievable to obtain optimal diagnostic quality images. DICOM format image data is available electro nically for review and comparison. FINDINGS: CEREBRUM: The ventricles are normal for age. No evidence of midline shift, mass lesion, hemorrhage or acute in farction. No extra-axial fluid collections are seen. POSTERIOR FOSSA: The cerebellum and brainstem are intact. The 4th ventricle is midline. The cerebellopontine angle i s unremarkable. EXTRACRANIAL: The visualized portion of the orbits is intact. SKULL: The calvaria is intact. No evidence of skull fracture. CONCLUSION: 1. No evidence of acute intracranial pathology. No masses are identified. Judd Pineda MD on May 13, 2017 at 3:23 Board Certified Radiologist. This report was verified electronically.
--- NOTE | 2017-05-13 03:28 | RADRPT ---
EXAM DATE/TIME: 05/13/2017 02:54 [facility] COMPARISON: No previous studies available for comparison. INDICATIONS : Trauma. Fall. RADIATION DOSE: 25.38 CTDIvol (mGy) MEDICAL HISTORY : Cardiovascular disease. Hypertension. Chronic obstructive pulmonary disease.Diabetes Renal failure SURGICAL HISTORY : None. ENCOUNTER: Initial ACUITY: 1 day PAIN SCALE: 8/10 LOCATION: neck TECHNIQUE: Volumetric scanning of the cervical spine was performed. Multiplanar reconstructions in the sagittal, coronal and oblique axial planes were performed. Using automated exposure control and adjustment o f the mA and/or kV according to patient size, radiation dose was kept as low as reasonably achievable to obtain optimal diagnostic quality images. DICOM format image data is available electronically f or review and comparison. FINDINGS: Sagittal images demonstrate normal vertebral body alignment and curvature. The odontoid is intact. Th e occipital condyles and lateral masses of C1 are intact. Axial images were performed from C2-C3 to C7-T1. There is multilevel disc space narrowing and marginal osteophyte formation maximal at C4-C5. C2-C3: A central disc protrusion is present impinging on the thecal sac. There is no significant spinal lam l stenosis. C3-C4: No significant abnormalities identified. C4-C5: No significant abnormalities identified. C5-C6: There is no evidence of disc protrusion or spinal canal stenosis. There is mild facet arthritis bilat erally. C6-C7: There is no evidence of disc protrusion or spinal canal stenosis. There is mild facet arthritis bilat erally. C7-T1: No significant abnormalities identified. CONCLUSION: 1. Mild degenerative changes as described above. There is no evidence of acute fracture. Judd Pineda MD on May 13, 2017 at 3:24 Board Certified Radiologist. This report was verified electronically.
[2017-05-13 03:41] VITALS: BP 205/91; PULSE 76; RESP 20; O2SAT 99
[2017-05-13 03:45] LABS: AUTOMATED NEUTROPHIL # 6.5 TH/MM3 (1.8-7.7); BASOPHIL % 0.4 % (0.0-2.0); EOSINOPHIL # 0.1 TH/MM3 (0-0.4); EOSINOPHIL % 1.5 % (0.0-4.0); HEMATOCRIT 31.5 % (35.0-46.0); HEMOGLOBIN 10.3 GM/DL (11.6-15.3); LYMPH % 24.1 % (9.0-44.0); LYMPHOCYTE # 2.4 TH/MM3 (1.0-4.8); MEAN CELL VOLUME 92.9 FL (80.0-100.0); MEAN CORPUSCULAR HEMOGLOBIN 30.5 PG (27.0-34.0); MEAN CORPUSCULAR HGB CONC 32.8 % (32.0-36.0); MEAN PLATELET VOLUME 7.9 FL (7.0-11.0); MONO % 8.4 % (0.0-8.0); MONOCYTE # 0.8 TH/MM3 (0-0.9); NEUT % 65.6 % (16.0-70.0); PLATELET COUNT 306 TH/MM3 (150-450); RED BLOOD COUNT 3.39 MIL/MM3 (4.00-5.30); RED CELL DISTRIBUTION WIDTH 20.6 % (11.6-17.2); WHITE BLOOD COUNT 9.9 TH/MM3 (4.0-11.0)
[2017-05-13 03:51] LABS: BACTERIA, URINE RARE /hpf; BILIRUBIN, URINE NEG (NEG); BLOOD, URINE NEG (NEG); GLUCOSE,URINE NEG (NEG); KETONE, URINE NEG (NEG); NITRITE,URINE NEG (NEG); SQUAMOUS EPITHELIAL CELL URINE 4 /hpf (0-5); URINE COLOR LIGHT-YELLOW (YELLW/STRAW); URINE LEUKOCYTE ESTERASE SMALL (NEG)
[2017-05-13 03:54] LABS: PROTHROMBIN TIME - PATIENT 9.8 SEC (9.8-11.6)
[2017-05-13 04:16] LABS: ALBUMIN 3.9 GM/DL (3.4-5.0); ALT (GPT) 23 U/L (10-53); AST (GOT) 21 U/L (15-37); BLOOD UREA NITROGEN 20 MG/DL (7-18); CALCIUM 8.7 MG/DL (8.5-10.1); CHLORIDE 104 MEQ/L (98-107); GLOMERULAR FILTRATION RATE 42 ML/MIN (>89); GLUCOSE,RANDOM 109 MG/DL (74-106); LIPASE 196 U/L (73-393); MAGNESIUM 1.9 MG/DL (1.5-2.5); SODIUM (NA) 137 MEQ/L (136-145)
[2017-05-13 04:18] LABS: ALKALINE PHOSPHATASE 103 U/L (45-117); TOTAL BILIRUBIN ADULT 0.3 MG/DL (0.2-1.0); TOTAL PROTEIN 8.7 GM/DL (6.4-8.2)
[2017-05-13] MEDS ORDERED: ACETAMINOPHEN 325 MG TAB PO ONE (04:30)
[2017-05-13 04:35] VITALS: BP 173/97; PULSE 82; RESP 20; O2SAT 97
[2017-05-13 05:53] VITALS: BP 165/70; PULSE 66; RESP 20; O2SAT 98
[2017-05-13 06:34] VITALS: BP 125/61; PULSE 62; RESP 20; O2SAT 98
[2017-05-13 07:30] VITALS: BP 144/67; PULSE 64; RESP 17; O2SAT 97
--- NOTE | 2017-05-13 18:38 | EKG ---
Date Performed: 05/13/2017 Time Performed: 02:29:25 PTAGE: 71 years EKG: Sinus rhythm VOLTAGE CRITERIA FOR LVH MODERATE T-WAVE ABNORMALITY, CONSIDER LATERAL ISCHEMIA ABNORMAL ECG PREVIOUS TRACING 04/04/17 @ 13.59.55 Compared to prior tracing no significant change DOCTOR: Maria C Hoskins Interpretating Date/Time 05/13/2017 18:38:07
== END 2017-05-13 10:08 | disposition home or self-care (01) ==
LOC: NEPE 01:54
DX: S80.211A Abrasion, right knee, initial encounter (principal); F19.10 Other psychoactive substance abuse, uncomplicated; R10.30 Lower abdominal pain, unspecified; R94.31 Abnormal electrocardiogram [ECG] [EKG]; E11.22 Type 2 diabetes mellitus with diabetic chronic kidney disease; I12.9 Hypertensive chronic kidney disease with stage 1 through stage 4 chronic kidney disease, or unspecified chronic kidney disease; N18.9 Chronic kidney disease, unspecified; W19.XXXA Unspecified fall, initial encounter; Z79.899 Other long term (current) drug therapy
CPT/HCPCS: 70450; 71045; 72125; 73502; 73564; 80053; 80307; 81001; 83690; 83735; 85025; 85610; 85730; 93005; 99285

== ENCOUNTER 2017-07-18 14:56 | Inpatient (IN) | payer OTHER, MEDICAID, MEDICARE ==
[~2017-07-18] VITALS: Ht 154.9 cm; Wt 79.0 kg
[2017-07-18] MEDS ORDERED: IODIXANOL 320 MG/ML 10 ML VIAL (for Rad CT) IVCONTRAST ONE (14:57)
[2017-07-18 15:04] VITALS: BP 149/85; PULSE 112; RESP 20; TEMP 98.2; O2SAT 98
[2017-07-18 15:24] LABS: AUTOMATED NEUTROPHIL # 7.3 TH/MM3 (1.8-7.7); BASOPHIL % 0.3 % (0.0-2.0); EOSINOPHIL % 0.2 % (0.0-4.0); HEMATOCRIT 31.5 % (35.0-46.0); HEMOGLOBIN 10.4 GM/DL (11.6-15.3); LYMPH % 15.6 % (9.0-44.0); LYMPHOCYTE # 1.6 TH/MM3 (1.0-4.8); MEAN CELL VOLUME 93.5 FL (80.0-100.0); MEAN CORPUSCULAR HEMOGLOBIN 30.8 PG (27.0-34.0); MEAN PLATELET VOLUME 7.3 FL (7.0-11.0); MONO % 10.5 % (0.0-8.0); NEUT % 73.4 % (16.0-70.0); PLATELET COUNT 400 TH/MM3 (150-450); RED BLOOD COUNT 3.37 MIL/MM3 (4.00-5.30); RED CELL DISTRIBUTION WIDTH 16.9 % (11.6-17.2)
[2017-07-18 15:37] LABS: BICARBONATE 26.8 MEQ/L (21.0-32.0); BLOOD UREA NITROGEN 19 MG/DL (7-18); CALCIUM 9.3 MG/DL (8.5-10.1); CHLORIDE 105 MEQ/L (98-107); CREATININE 1.65 MG/DL (0.50-1.00); GLOMERULAR FILTRATION RATE 37 ML/MIN (>89); GLUCOSE,RANDOM 112 MG/DL (74-106); SODIUM (NA) 140 MEQ/L (136-145)
[2017-07-18 15:41] LABS: TROPONIN I LESS THAN 0.02 NG/ML (0.02-0.05)
--- NOTE | 2017-07-18 15:57 | RADRPT ---
EXAM DATE/TIME: 07/18/2017 15:29 [facility] COMPARISON: CHEST SINGLE AP, May 13, 2017, 2:40. INDICATIONS : Chest pain and shortness of breath. MEDICAL HISTORY : Hypertension. Hypercholesterolemia. Coronary artery disease, COPD, Stage 4 renal disease, Diabet es. SURGICAL HISTORY : Heart cath, Cardiac cath, . ENCOUNTER: Initial ACUITY: 1 day PAIN SCORE: 10/10 LOCATION: Bilateral chest FINDINGS: A single view of the chest demonstrates the lungs to be symmetrically aerated without evidence of mas s, infiltrate or effusion. The cardiomediastinal contours are unremarkable. Osseous structures are intact. CONCLUSION: 1. No acute cardiopulmonary disease. Stone Foy MD on July 18, 2017 at 15:55 Board Certified Radiologist. This report was verified electronically.
[2017-07-18 17:11] VITALS: BP 174/75; PULSE 114; RESP 19; O2SAT 100
[2017-07-18] MEDS ORDERED: GABA300C5 PO (17:16)
[2017-07-18] MEDS ORDERED: MECL-62 PO (17:16)
[2017-07-18] MEDS ORDERED: ATOR10TA15 PO (17:16)
[2017-07-18] MEDS ORDERED: CLOP75TA PO (17:16)
[2017-07-18] MEDS ORDERED: DICY20TA10 PO (17:16)
[2017-07-18 18:09] LABS: PROTHROMBIN TIME - PATIENT 10.5 SEC (9.8-11.6)
[2017-07-18 18:13] LABS: AMORPHOUS SEDIMENT, URINE RARE; BACTERIA, URINE RARE /hpf; BILIRUBIN, URINE NEG (NEG); BLOOD, URINE NEG (NEG); GLUCOSE,URINE NEG (NEG); KETONE, URINE NEG (NEG); MUCUS URINE FEW /lpf (OCC); NITRITE,URINE NEG (NEG); PH, URINE 5.5 (5.0-8.5); SQUAMOUS EPITHELIAL CELL URINE 16 /hpf (0-5); URINE COLOR YELLOW (YELLW/STRAW); URINE LEUKOCYTE ESTERASE LARGE (NEG)
[2017-07-18] MEDS ORDERED: cefTRIAXone INJ 1,000 MG in SODIUM CHLORIDE 0.9% INJ 100 ML IV ONE (18:30)
--- NOTE | 2017-07-18 18:31 | PD ---
HPI Chief Complaint: Pain: Acute or Chronic Time Seen by Provider: 17:04 Travel History International Travel<30 days: No Contact w/Intl Traveler<30days: No Traveled to known affect area: No History of Present Illness HPI Patient is a 71-year-old female presenting to the emergency department on the advice of her physician. She states that she had labs drawn at [facility] and was notified they were abnormal needed to come to the emergency department. Additionally patient reports dysuria since Saturday with suprapubic and lower abdominal pain. Patient also reports chest pain in her right anterior chest wall, shortness of breath, headache. She denies any nausea, vomiting, fever, chills. Symptom onset was gradual, symptoms severity is moderate, there are no alleviating or exacerbating factors. Patient does not know which labs were abnormal. She rates her chest pain a 7 out of 10, she states it is sharp and shooting. PFSH Past Medical History Hx Anticoagulant Therapy: Yes Arthritis: Yes Cardiac Catheterization: Yes Cardiovascular Problems: Yes High Cholesterol: Yes COPD: Yes Coronary Artery Disease: Yes Diabetes: Yes Diminished Hearing: Yes (MOSTLY DEAF) Headaches: Yes Hypertension: Yes Medical other: Yes (HARD OF HEARING ) Psychiatric: No Reproductive: No Respiratory: Yes (copd sleep apnea) Immunizations Current: Yes Migraines: No Myocardial Infarction: No Radiation Therapy: No Renal Failure: Yes (stage 4) Seizures: No Sickle Cell Disease: No Sleep Apnea: No Thyroid Disease: No Ulcer: No Tetanus Vaccination: < 5 Years PNEUMOCCOCAL Vaccine (Year): 2 Menopausal: Yes : 3 Para: 3 Past Surgical History Abdominal Surgery: Yes Cardiac Surgery: Yes (HEART CATH 2007) Section: Yes Eye Surgery: Yes (RIGHT CATARACT EXTRACTION WITH LENS) Gynecologic Surgery: Yes Other Surgery: Yes (cataracts) Social History Alcohol Use: Yes (liqour and beer tonight) Tobacco Use: Yes (MOSTLY WHEN DRINKING) Substance Use: Yes (ALL) Allergies-Medications (Allergen,Severity, Reaction): Coded Allergies: No Known Allergies (Verified Allergy, Unknown, 07/18/17) Reported Meds & Prescriptions Reported Meds & Active Scripts Active Reported Atorvastatin (Atorvastatin Calcium) 10 Mg Tab 10 Mg PO HS Meclizine (Meclizine HCl) 25 Mg Tab 25 Mg PO TID PRN Dicyclomine (Dicyclomine HCl) 20 Mg Tab 20 Mg PO TID Clopidogrel (Clopidogrel Bisulfate) 75 Mg Tab 75 Mg PO DAILY Gabapentin 300 Mg Cap 300 Mg PO TID Tolterodine (Tolterodine Tartrate) 1 Mg Tab 1 Mg PO BID Lisinopril 40 Mg Tab 40 Mg PO DAILY Hydralazine HCl 25 Mg Tablet 50 Mg PO BID Toprol XL (Metoprolol Succinate) 100 Mg Tab 100 Mg PO DAILY Review of Systems Except as stated in HPI: all other systems reviewed are Neg HENT: Positive: Headaches Cardiovascular: Positive: Chest Pain or Discomfort, Tachycardia Respiratory: Positive: Shortness of Breath, Orthopnea, Pleuritic Pain Gastrointestinal: Positive: Abdominal Pain, No: Nausea, Vomiting Genitourinary: Positive: Dysuria Physical Exam Narrative GENERAL: Well-developed, well-nourished, alert -Iranian female. Presenting in no acute distress. SKIN: Warm and dry. HEAD: Atraumatic. Normocephalic. EYES: Pupils equal and round. No scleral icterus. No injection or drainage. ENT: No nasal bleeding or discharge. Mucous membranes pink and moist. NECK: Trachea midline. No JVD. CARDIOVASCULAR: Tachycardic, 2/6 systolic murmur RESPIRATORY: No accessory muscle use. Diminished in bases bilaterally. GASTROINTESTINAL: Abdomen soft, tender to palpation in left and right lower quadrants, nondistended. Hepatic and splenic margins not palpable. Positive guarding, no rebound. MUSCULOSKELETAL: Extremities without clubbing, cyanosis, or edema. No obvious deformities. Tenderness to palpation to right anterior chest wall. NEUROLOGICAL: Awake and alert. Hard of hearing. No obvious cranial nerve deficits. Motor grossly within normal limits. Five out of 5 muscle strength in the arms and legs. Normal speech. PSYCHIATRIC: Appropriate mood and affect; insight and judgment normal. Data Data Last Documented VS Vital Signs Date Time Temp Pulse Resp B/P (MAP) Pulse Ox O2 Delivery O2 Flow Rate FiO2 07/18/17 17:11 114 19 174/75 (108) 100 Room Air 07/18/17 15:04 98.2 Orders Orders Electrocardiogram (07/18/17 15:12) Complete Blood Count With Diff (07/18/17 15:12) Basic Metabolic Panel (Bmp) (07/18/17 15:12) Ckmb (Isoenzyme) Profile (07/18/17 15:12) Troponin I (07/18/17 15:12) Chest, Single Ap (07/18/17 15:12) Iv Access Insert/Monitor (07/18/17 15:12) Urinalysis - C+S If Indicated (07/18/17 17:04) Drug Screen, Random Urine (07/18/17 17:04) Act Partial Throm Time (Ptt) (07/18/17 17:22) Prothrombin Time / Inr (Pt) (07/18/17 17:22) B-Type Natriuretic Peptide (07/18/17 17:22) Ct Pulmonary Angiogram (07/18/17 ) Ct Abd/Pel W Iv Contrast(Rout) (07/18/17 ) Urine Culture (07/18/17 17:10) Ceftriaxone Inj (Rocephin Inj) (07/18/17 18:30) Iodixanol 320 Inj (Rad Ct) (Visipaque 32 (07/18/17 14:57) Labs Laboratory Tests Test 07/18/17 15:12 07/18/17 17:10 07/18/17 17:35 White Blood Count 10.0 TH/MM3 Red Blood Count 3.37 MIL/MM3 Hemoglobin 10.4 GM/DL Hematocrit 31.5 % Mean Corpuscular Volume 93.5 FL Mean Corpuscular Hemoglobin 30.8 PG Mean Corpuscular Hemoglobin Concent 33.0 % Red Cell Distribution Width 16.9 % Platelet Count 400 TH/MM3 Mean Platelet Volume 7.3 FL Neutrophils (%) (Auto) 73.4 % Lymphocytes (%) (Auto) 15.6 % Monocytes (%) (Auto) 10.5 % Eosinophils (%) (Auto) 0.2 % Basophils (%) (Auto) 0.3 % Neutrophils # (Auto) 7.3 TH/MM3 Lymphocytes # (Auto) 1.6 TH/MM3 Monocytes # (Auto) 1.0 TH/MM3 Eosinophils # (Auto) 0.0 TH/MM3 Basophils # (Auto) 0.0 TH/MM3 CBC Comment DIFF FINAL Differential Comment Blood Urea Nitrogen 19 MG/DL Creatinine 1.65 MG/DL Random Glucose 112 MG/DL Calcium Level 9.3 MG/DL Sodium Level 140 MEQ/L Potassium Level 3.9 MEQ/L Chloride Level 105 MEQ/L Carbon Dioxide Level 26.8 MEQ/L Anion Gap 8 MEQ/L Estimat Glomerular Filtration Rate 37 ML/MIN Total Creatine Kinase 82 U/L Troponin I LESS THAN 0.02 NG/ML Urine Color YELLOW Urine Turbidity HAZY Urine pH 5.5 Urine Specific [place] 1.011 Urine Protein 30 mg/dL Urine Glucose (UA) NEG mg/dL Urine Ketones NEG mg/dL Urine Occult Blood NEG Urine Nitrite NEG Urine Bilirubin NEG Urine Urobilinogen LESS THAN 2.0 MG/DL Urine Leukocyte Esterase LARGE Urine RBC 7 /hpf Urine WBC 11 /hpf Urine Squamous Epithelial Cells 16 /hpf Urine Amorphous Sediment RARE Urine Bacteria RARE /hpf Urine Mucus FEW /lpf Microscopic Urinalysis Comment CULTURE INDICATED Urine Opiates Screen NEG Urine Barbiturates Screen NEG Urine Amphetamines Screen NEG Urine Benzodiazepines Screen NEG Urine Cocaine Screen NEG Urine Cannabinoids Screen NEG Prothrombin Time 10.5 SEC Prothromb Time International Ratio 1.0 RATIO Activated Partial Thromboplast Time 27.1 SEC B-Type Natriuretic Peptide 49 PG/ML MDM Medical Decision Making Medical Screen Exam Complete: Yes Emergency Medical Condition: Yes Medical Record Reviewed: Yes Interpretation(s) Last Impressions Chest X-Ray 07/18/17 1512 Signed Impressions: Service Date/Time: July 15:29 - CONCLUSION: 1. No acute cardiopulmonary disease. Stone Foy MD Laboratory Tests Test 07/18/17 15:12 07/18/17 17:10 07/18/17 17:35 White Blood Count 10.0 TH/MM3 Red Blood Count 3.37 MIL/MM3 Hemoglobin 10.4 GM/DL Hematocrit 31.5 % Mean Corpuscular Volume 93.5 FL Mean Corpuscular Hemoglobin 30.8 PG Mean Corpuscular Hemoglobin Concent 33.0 % Red Cell Distribution Width 16.9 % Platelet Count 400 TH/MM3 Mean Platelet Volume 7.3 FL Neutrophils (%) (Auto) 73.4 % Lymphocytes (%) (Auto) 15.6 % Monocytes (%) (Auto) 10.5 % Eosinophils (%) (Auto) 0.2 % Basophils (%) (Auto) 0.3 % Neutrophils # (Auto) 7.3 TH/MM3 Lymphocytes # (Auto) 1.6 TH/MM3 Monocytes # (Auto) 1.0 TH/MM3 Eosinophils # (Auto) 0.0 TH/MM3 Basophils # (Auto) 0.0 TH/MM3 CBC Comment DIFF FINAL Differential Comment Blood Urea Nitrogen 19 MG/DL Creatinine 1.65 MG/DL Random Glucose 112 MG/DL Calcium Level 9.3 MG/DL Sodium Level 140 MEQ/L Potassium Level 3.9 MEQ/L Chloride Level 105 MEQ/L Carbon Dioxide Level 26.8 MEQ/L Anion Gap 8 MEQ/L Estimat Glomerular Filtration Rate 37 ML/MIN Total Creatine Kinase 82 U/L Troponin I LESS THAN 0.02 NG/ML Urine Color YELLOW Urine Turbidity HAZY Urine pH 5.5 Urine Specific [place] 1.011 Urine Protein 30 mg/dL Urine Glucose (UA) NEG mg/dL Urine Ketones NEG mg/dL Urine Occult Blood NEG Urine Nitrite NEG Urine Bilirubin NEG Urine Urobilinogen LESS THAN 2.0 MG/DL Urine Leukocyte Esterase LARGE Urine RBC 7 /hpf Urine WBC 11 /hpf Urine Squamous Epithelial Cells 16 /hpf Urine Amorphous Sediment RARE Urine Bacteria RARE /hpf Urine Mucus FEW /lpf Microscopic Urinalysis Comment CULTURE INDICATED Prothrombin Time 10.5 SEC Prothromb Time International Ratio 1.0 RATIO Activated Partial Thromboplast Time 27.1 SEC Vital Signs Date Time Temp Pulse Resp B/P (MAP) Pulse Ox O2 Delivery O2 Flow Rate FiO2 07/18/17 17:11 114 19 174/75 (108) 100 Room Air 07/18/17 15:04 98.2 112 20 149/85 (106) 98 Differential Diagnosis AMI versus ACS versus [place] versus metabolic abnormality versus pulmonary embolism versus urinary tract infection versus other Narrative Course Patient is a 71-year-old female presenting for evaluation of chest and abdominal pain as well as abnormal labs. Patient is tachycardic on arrival, labs and imaging ordered and pending. CBC with a mild anemia, chemistry with no acute findings Troponin is negative 1 set Urinalysis is consistent with urinary tract infection, reflex culture pending. Rocephin 1 g IV 1 dose ordered. Chest x-ray shows no acute disease Urine drug screen is negative BNP is 49 CT the abdomen and pelvis shows diffuse diverticulosis of the colon but no acute diverticulitis demonstrated or other acute abnormality. System vascular calcifications of the kidneys are again noted. No evidence of obstructive uropathy. Aorto iliac atherosclerosis. No aneurysm. CT pulmonary angiogram is negative for PE or other acute abnormality. Coronary artery calcifications. Discussed plan of care with my attending physician. Patient will be placed and chest pain center as chest pain was her initial complaint, and no other acute abnormalities were identified. She will be treated for the urinary tract infection. Orders placed, patient is agreeable to plan. Diagnosis Primary Impression: Chest pain Qualified Codes: R07.9 - Chest pain, unspecified Additional Impression: Urinary tract infection Qualified Codes: N39.0 - Urinary tract infection, site not specified; R31.9 - Hematuria, unspecified Admitting Information Admitting Physician Requests: Observation Condition: Stable Mariann Haynes Jul 18, 2017 18:31
--- NOTE | 2017-07-18 18:45 | PD ---
Physical Exam Date Seen by Provider: Jul 18, 2017 Time Seen by Provider: 18:00 Narrative I, Dr. Vincent, have reviewed the advance practice practitioner's documentation and am in agreement, met with the patient face to face, made the diagnosis, and the medical decision making was done by me. *My assessment and Findings: Patient was seen and evaluated with PA, please see PA notes for further details. She is coming in complaining of multiple issues, chest discomfort abdominal discomfort, worse with movements as well as exertion. Patient is very hard in hearing, and history is somewhat limited. EKG shows sinus tachycardia rate of 110 bpm. No signs of acute ST elevations or depressions. She meets LVH criteria. Laboratory Tests Test 07/18/17 15:12 07/18/17 17:10 07/18/17 17:35 Red Blood Count 3.37 MIL/MM3 (4.00-5.30) Hemoglobin 10.4 GM/DL (11.6-15.3) Hematocrit 31.5 % (35.0-46.0) Neutrophils (%) (Auto) 73.4 % (16.0-70.0) Monocytes (%) (Auto) 10.5 % (0.0-8.0) Monocytes # (Auto) 1.0 TH/MM3 (0-0.9) Blood Urea Nitrogen 19 MG/DL (7-18) Creatinine 1.65 MG/DL (0.50-1.00) Random Glucose 112 MG/DL (74-106) Estimat Glomerular Filtration Rate 37 ML/MIN (>89) Troponin I LESS THAN 0.02 NG/ML Urine Turbidity HAZY (CLEAR) Urine Protein 30 mg/dL (NEG-TRACE) Urine Leukocyte Esterase LARGE (NEG) Urine RBC 7 /hpf (0-3) Urine WBC 11 /hpf (0-5) Urine Bacteria RARE /hpf (NONE) Urine Mucus FEW /lpf (OCC) Last 24 hours Impressions Chest X-Ray 07/18/17 1512 Signed Impressions: Service Date/Time: July 15:29 - CONCLUSION: 1. No acute cardiopulmonary disease. Stone Foy MD Considering her exam, fact that she looks like she is in respiratory distress and abdominal exam was tender on palpation, CAT scans were ordered for chest and abdomen for further evaluation. Disposition based on CAT scan evaluation. If negative, plan would be to admit the patient to chest pain center for further evaluation. Data Data Last Documented VS Vital Signs Date Time Temp Pulse Resp B/P (MAP) Pulse Ox O2 Delivery O2 Flow Rate FiO2 07/18/17 17:11 114 19 174/75 (108) 100 Room Air 07/18/17 15:04 98.2 Orders Orders Electrocardiogram (07/18/17 15:12) Complete Blood Count With Diff (07/18/17 15:12) Basic Metabolic Panel (Bmp) (07/18/17 15:12) Ckmb (Isoenzyme) Profile (07/18/17 15:12) Troponin I (07/18/17 15:12) Chest, Single Ap (07/18/17 15:12) Iv Access Insert/Monitor (07/18/17 15:12) Urinalysis - C+S If Indicated (07/18/17 17:04) Drug Screen, Random Urine (07/18/17 17:04) Act Partial Throm Time (Ptt) (07/18/17 17:22) Prothrombin Time / Inr (Pt) (07/18/17 17:22) B-Type Natriuretic Peptide (07/18/17 17:22) Ct Pulmonary Angiogram (07/18/17 ) Ct Abd/Pel W Iv Contrast(Rout) (07/18/17 ) Urine Culture (07/18/17 17:10) Ceftriaxone Inj (Rocephin Inj) (07/18/17 18:30) Iodixanol 320 Inj (Rad Ct) (Visipaque 32 (07/18/17 14:57) Labs Laboratory Tests Test 07/18/17 15:12 07/18/17 17:10 07/18/17 17:35 White Blood Count 10.0 TH/MM3 Red Blood Count 3.37 MIL/MM3 Hemoglobin 10.4 GM/DL Hematocrit 31.5 % Mean Corpuscular Volume 93.5 FL Mean Corpuscular Hemoglobin 30.8 PG Mean Corpuscular Hemoglobin Concent 33.0 % Red Cell Distribution Width 16.9 % Platelet Count 400 TH/MM3 Mean Platelet Volume 7.3 FL Neutrophils (%) (Auto) 73.4 % Lymphocytes (%) (Auto) 15.6 % Monocytes (%) (Auto) 10.5 % Eosinophils (%) (Auto) 0.2 % Basophils (%) (Auto) 0.3 % Neutrophils # (Auto) 7.3 TH/MM3 Lymphocytes # (Auto) 1.6 TH/MM3 Monocytes # (Auto) 1.0 TH/MM3 Eosinophils # (Auto) 0.0 TH/MM3 Basophils # (Auto) 0.0 TH/MM3 CBC Comment DIFF FINAL Differential Comment Blood Urea Nitrogen 19 MG/DL Creatinine 1.65 MG/DL Random Glucose 112 MG/DL Calcium Level 9.3 MG/DL Sodium Level 140 MEQ/L Potassium Level 3.9 MEQ/L Chloride Level 105 MEQ/L Carbon Dioxide Level 26.8 MEQ/L Anion Gap 8 MEQ/L Estimat Glomerular Filtration Rate 37 ML/MIN Total Creatine Kinase 82 U/L Troponin I LESS THAN 0.02 NG/ML Urine Color YELLOW Urine Turbidity HAZY Urine pH 5.5 Urine Specific [place] 1.011 Urine Protein 30 mg/dL Urine Glucose (UA) NEG mg/dL Urine Ketones NEG mg/dL Urine Occult Blood NEG Urine Nitrite NEG Urine Bilirubin NEG Urine Urobilinogen LESS THAN 2.0 MG/DL Urine Leukocyte Esterase LARGE Urine RBC 7 /hpf Urine WBC 11 /hpf Urine Squamous Epithelial Cells 16 /hpf Urine Amorphous Sediment RARE Urine Bacteria RARE /hpf Urine Mucus FEW /lpf Microscopic Urinalysis Comment CULTURE INDICATED Urine Opiates Screen NEG Urine Barbiturates Screen NEG Urine Amphetamines Screen NEG Urine Benzodiazepines Screen NEG Urine Cocaine Screen NEG Urine Cannabinoids Screen NEG Prothrombin Time 10.5 SEC Prothromb Time International Ratio 1.0 RATIO Activated Partial Thromboplast Time 27.1 SEC B-Type Natriuretic Peptide 49 PG/ML [facility] Medical Record Reviewed: Yes Supervised Visit with TRACEE: Yes Diagnosis Primary Impression: Chest pain Admitting Information Admitting Physician Requests: [place] Man MD Jul 18, 2017 18:45
--- NOTE | 2017-07-18 18:59 | RADRPT ---
EXAM DATE/TIME: 07/18/2017 18:29 [facility] COMPARISON: No previous studies available for comparison. INDICATIONS : Right side chest pain IV CONTRAST: 50 cc Visipaque (iodixanol) IV ; Cumulative dose for multiple exams. RADIATION DOSE: 8.83 CTDIvol (mGy) MEDICAL HISTORY : Cardiovascular disease. Hypertension. Chronic obstructive pulmonary disease.Renal failure,diabetic SURGICAL HISTORY : section. ENCOUNTER: Initial ACUITY: 4 - 6 days PAIN SCALE: 5/10 LOCATION: chest TECHNIQUE: Volumetric scanning of the chest was performed using a pulmonary embolism protocol MIP images were re constructed. Using automated exposure control and adjustment of the mA and/or kV according to patien t size, radiation dose was kept as low as reasonably achievable to obtain optimal diagnostic quality images. DICOM format image data is available electronically for review and comparison. Follow-up recommendations for detected pulmonary nodules are based at a minimum on nodule size and pa tient risk factors according to Fleischner Society Guidelines. FINDINGS: PULMONARY ARTERIES: No filling defects are seen in the pulmonary arteries through the segmental level. LUNGS: There is no consolidation or pneumothorax . No concerning pulmonary nodule is visualized. PLEURAE: There is no pleural thickening or pleural effusion. MEDIASTINUM: There is good visualization of the great vessels of the middle mediastinum. No evidence of mediastin al or hilar adenopathy/mass. Coronary artery calcification present, both right and left-sided. MUSCULOSKELETAL: Within normal limits for patient age. MISCELLANEOUS: The visualized upper abdominal organs demonstrate no acute abnormality. CONCLUSION: No pulmonary embolus or other acute abnormality demonstrated. Coronary artery calcification. Mando Mcmahon MD on July 18, 2017 at 18:56 Board Certified Radiologist. This report was verified electronically.
[2017-07-18 19:16] VITALS: BP 184/78; PULSE 107; RESP 18; O2SAT 100
--- NOTE | 2017-07-18 19:16 | RADRPT ---
EXAM DATE/TIME: 07/18/2017 18:29 [facility] COMPARISON: CT ABDOMEN & PELVIS W/O CONTRAST, April 03, 2017, 13:37. INDICATIONS : Abdomen pain IV CONTRAST: 50 cc Visipaque (iodixanol) IV ; Cumulative dose for multiple exams. ORAL CONTRAST: No oral contrast ingested. RADIATION DOSE: 18.45 CTDIvol (mGy) MEDICAL HISTORY : Cardiovascular disease. Hypertension. Chronic obstructive pulmonary disease.Renal failure,diabetes SURGICAL HISTORY : section. ENCOUNTER: Initial ACUITY: 4 - 6 days PAIN SCALE: 5/10 LOCATION: Abdomen TECHNIQUE: Volumetric scanning of the abdomen and pelvis was performed. Using automated exposure control and ad justment of the mA and/or kV according to patient size, radiation dose was kept as low as reasonably achievable to obtain optimal diagnostic quality images. DICOM format image data is available electro nically for review and comparison. FINDINGS: LOWER LUNGS: The visualized lower lungs are clear. LIVER: Homogeneous density without lesion. There is no dilation of the biliary tree. No calcified gallston es. SPLEEN: Normal size without lesion. PANCREAS: Within normal limits. KIDNEYS: Unchanged cysts and vascular calcifications. ADRENAL GLANDS: Within normal limits. VASCULAR: Atherosclerosis of the abdominal aorta and iliac arteries again seen. No aneurysm. There is a stent o f the right common iliac artery. BOWEL/MESENTERY: Severe and diffuse right and left-sided diverticulosis seen in the colon. No perceptible acute inflam matory changes. No obstruction or free air. The appendix is normal. ABDOMINAL WALL: Within normal limits. RETROPERITONEUM: There is no lymphadenopathy. BLADDER: No wall thickening or mass. REPRODUCTIVE: Within normal limits. INGUINAL: There is no lymphadenopathy or hernia. MUSCULOSKELETAL: No acute bony abnormality demonstrated. Chronic arthropathy of the sacroiliac joints again seen with ankylosis on the left. CONCLUSION: 1. [place] and diffuse diverticulosis of the colon but no acute diverticulitis demonstrated or other a cute abnormality. 2. Cysts and vascular calcifications of the kidneys are again noted. No evidence of obstructive uropa thy. 3. Aorto iliac atherosclerosis. No aneurysm. Mando Mcmahon MD on July 18, 2017 at 19:11 Board Certified Radiologist. This report was verified electronically.
[2017-07-18] MEDS ORDERED: ONDANSETRON HCL 4 MG/2 ML VIAL IV PUSH PRN (19:30)
[2017-07-18] MEDS ORDERED: ACETAMINOPHEN 500 MG CPLT PO PRN (19:30)
[2017-07-18] MEDS ORDERED: SODIUM CHLORIDE 0.9% FLUSH 10 ML FLUSH IV FLUSH PRN (19:30)
[2017-07-18] MEDS ORDERED: NITROGLYCERIN 2% OINT 1 GM PACKET TOPICAL ONE (19:45)
[2017-07-18 20:25] LABS: TROPONIN I 0.03 NG/ML (0.02-0.05)
[2017-07-18] MEDS ORDERED: hydrALAZINE HCL 20 MG/ML VIAL IV PUSH ONE (20:30)
[2017-07-18] MEDS: MORPHINE SULFATE 4 MG/ML INJ IV PUSH PRN (20:49)
[2017-07-18] MEDS: SODIUM CHLORIDE 0.9% FLUSH 10 ML FLUSH IV FLUSH SCH (21:03)
[2017-07-18 21:06] VITALS: BP 140/66; PULSE 114; RESP 18; O2SAT 100
[2017-07-18] MEDS: HEPARIN SODIUM - SQ 10,000 UNITS/ML VIAL SQ SCH (23:10)
[2017-07-18 23:12] VITALS: BP 188/79; PULSE 122; RESP 18; TEMP 100.4; O2SAT 90
[2017-07-18 23:47] LABS: TROPONIN I 0.06 NG/ML (0.02-0.05)
[2017-07-19] VITALS (13 sets, daily range): BP systolic 125–176; BP diastolic 60–72; PULSE 94–147; RESP 16–24; TEMP 97.9–101.6; O2SAT 90–98
[2017-07-19] MEDS: MORPHINE SULFATE 4 MG/ML INJ IV PUSH PRN (01:02)
[2017-07-19] MEDS: PIPERACIL-TAZO 3.375 GM PREMIX 50 ML IV SCH ×4 (05:31→23:08)
[2017-07-19 05:39] LABS: AUTOMATED NEUTROPHIL # 6.3 TH/MM3 (1.8-7.7); BASOPHIL # 0.1 TH/MM3 (0-0.2); BASOPHIL % 0.8 % (0.0-2.0); EOSINOPHIL % 0.2 % (0.0-4.0); HEMATOCRIT 28.7 % (35.0-46.0); HEMOGLOBIN 9.6 GM/DL (11.6-15.3); LYMPH % 21.5 % (9.0-44.0); LYMPHOCYTE # 2.1 TH/MM3 (1.0-4.8); MEAN CELL VOLUME 92.6 FL (80.0-100.0); MEAN CORPUSCULAR HEMOGLOBIN 31.1 PG (27.0-34.0); MEAN CORPUSCULAR HGB CONC 33.5 % (32.0-36.0); MEAN PLATELET VOLUME 7.8 FL (7.0-11.0); MONO % 12.1 % (0.0-8.0); MONOCYTE # 1.2 TH/MM3 (0-0.9); NEUT % 65.4 % (16.0-70.0); PLATELET COUNT 406 TH/MM3 (150-450); RED CELL DISTRIBUTION WIDTH 17.2 % (11.6-17.2); WHITE BLOOD COUNT 9.6 TH/MM3 (4.0-11.0)
[2017-07-19] MEDS ORDERED: DEXTROSE 50% IN WATER 50 ML VIAL(D50) IV PUSH PRN (06:00)
[2017-07-19] MEDS ORDERED: GLUCAGON 1 MG/ML VIAL OTHER PRN (06:00)
--- NOTE | 2017-07-19 06:03 | HHI.HP ---
HPI Service [facility] Primary Care Physician Unknown Admission Diagnosis CHEST PAIN, UTI Diagnoses: Travel History International Travel<30 Days: No Contact w/Intl Traveler <30 Da: No Traveled to Known Affected Are: No History of Present Illness 71-year-old female with a past medical history significant for hearing loss, hypertension, CAD, CKD and diabetes mellitus presents to the emergency department for evaluation of chest and pelvic pain. The patient states her chest pain is on the right side and is reproducible with palpation. She states her chest pain is also worse when she eats. The patient also complains of lower abdominal/pelvic pain and burning with urination. She has been persistently tachycardic since her arrival to the emergency department with a MAXIMUM TEMPERATURE of 100.4. The patient reports subjective fever/chills. She denies shortness of breath or diaphoresis. No weakness or lateralizing signs/symptoms. Patient was initially treated with Rocephin for a UTI and admitted to the chest pain center for further evaluation. Upon reviewing her records, the patient was transferred to the medicine service for treatment of urosepsis. Review of Systems Except as stated in HPI: all other systems reviewed are Neg Past Family Social History Past Medical History CKD CAD Hypertension Diabetes mellitus. Extremely hard of hearing Arthritis Past Surgical History History of cardiac catheterization Iliac stent placement Reported Medications Reported Meds & Active Scripts Active Reported Atorvastatin (Atorvastatin Calcium) 10 Mg Tab 10 Mg PO HS Meclizine (Meclizine HCl) 25 Mg Tab 25 Mg PO TID PRN Dicyclomine (Dicyclomine HCl) 20 Mg Tab 20 Mg PO TID Clopidogrel (Clopidogrel Bisulfate) 75 Mg Tab 75 Mg PO DAILY Gabapentin 300 Mg Cap 300 Mg PO TID Tolterodine (Tolterodine Tartrate) 1 Mg Tab 1 Mg PO BID Lisinopril 40 Mg Tab 40 Mg PO DAILY Hydralazine HCl 25 Mg Tablet 50 Mg PO BID Toprol XL (Metoprolol Succinate) 100 Mg Tab 100 Mg PO DAILY Allergies: Coded Allergies: No Known Allergies (Verified Allergy, Unknown, 07/18/17) Family History No family history of CAD/DM Social History Patient reports quitting smoking and drinking 1 month ago. Denies any illicit drugs. She does have history of cocaine, as well as alcohol use in the past Physical Exam Vital Signs Vital Signs Date Time Temp Pulse Resp B/P (MAP) Pulse Ox O2 Delivery O2 Flow Rate FiO2 07/19/17 05:00 Nasal Cannula 3.00 07/19/17 04:52 99.7 115 18 144/65 (91) 98 07/19/17 01:05 124 07/19/17 00:52 147 07/19/17 00:51 96 07/19/17 00:22 97.9 128 18 176/72 (106) 90 07/18/17 23:12 100.4 122 18 188/79 (115) 90 07/18/17 21:58 07/18/17 21:06 114 18 140/66 (90) 100 Room Air 07/18/17 20:55 16 07/18/17 19:16 107 18 184/78 (113) 100 Room Air 07/18/17 17:11 114 19 174/75 (108) 100 Room Air 07/18/17 15:04 98.2 112 20 149/85 (106) 98 Physical Exam GENERAL: female lying in bed, exquisitely hard of hearing SKIN: No rashes, ecchymoses or lesions. Cool and dry. HEAD: Atraumatic. Normocephalic. No temporal or scalp tenderness. EYES: Pupils equal round and reactive. Extraocular motions intact. No scleral icterus. No injection or drainage. ENT: Nose without bleeding, purulent drainage or septal hematoma. Throat without erythema, tonsillar hypertrophy or exudate. Uvula midline. Airway patent. NECK: Trachea midline. No JVD or lymphadenopathy. Supple, nontender, no meningeal signs. CARDIOVASCULAR: Tachycardic. 3/6 LAVONNE. RESPIRATORY: Clear to auscultation. Breath sounds equal bilaterally. No wheezes , rales, or rhonchi. GASTROINTESTINAL: Abdomen soft, tender to palpation in the pelvic region, nondistended. No hepato-splenomegaly, or palpable masses. No guarding. : No CVA tenderness MUSCULOSKELETAL: Extremities without clubbing, cyanosis, or edema. No joint tenderness, effusion, or edema noted. No calf tenderness. Reproducible chest pain on right upper chest. NEUROLOGICAL: Awake and alert. Cranial nerves II through XII intact. Motor and sensory grossly within normal limits. Normal speech. Laboratory Laboratory Tests Test 07/18/17 15:12 07/18/17 17:10 07/18/17 17:35 07/18/17 19:30 White Blood Count 10.0 Red Blood Count 3.37 Hemoglobin 10.4 Hematocrit 31.5 Mean Corpuscular Volume 93.5 Mean Corpuscular Hemoglobin 30.8 Mean Corpuscular Hemoglobin Concent 33.0 Red Cell Distribution Width 16.9 Platelet Count 400 Mean Platelet Volume 7.3 Neutrophils (%) (Auto) 73.4 Lymphocytes (%) (Auto) 15.6 Monocytes (%) (Auto) 10.5 Eosinophils (%) (Auto) 0.2 Basophils (%) (Auto) 0.3 Neutrophils # (Auto) 7.3 Lymphocytes # (Auto) 1.6 Monocytes # (Auto) 1.0 Eosinophils # (Auto) 0.0 Basophils # (Auto) 0.0 CBC Comment DIFF FINAL Differential Comment Blood Urea Nitrogen 19 Creatinine 1.65 Random Glucose 112 Calcium Level 9.3 Sodium Level 140 Potassium Level 3.9 Chloride Level 105 Carbon Dioxide Level 26.8 Anion Gap 8 Estimat Glomerular Filtration Rate 37 Total Creatine Kinase 82 91 Troponin I LESS THAN 0.02 0.03 Urine Color YELLOW Urine Turbidity HAZY Urine pH 5.5 Urine Specific Sledge 1.011 Urine Protein 30 Urine Glucose (UA) NEG Urine Ketones NEG Urine Occult Blood NEG Urine Nitrite NEG Urine Bilirubin NEG Urine Urobilinogen LESS THAN 2.0 Urine Leukocyte Esterase LARGE Urine RBC 7 Urine WBC 11 Urine Squamous Epithelial Cells 16 Urine Amorphous Sediment RARE Urine Bacteria RARE Urine Mucus FEW Microscopic Urinalysis Comment CULTURE INDICATED Urine Opiates Screen NEG Urine Barbiturates Screen NEG Urine Amphetamines Screen NEG Urine Benzodiazepines Screen NEG Urine Cocaine Screen NEG Urine Cannabinoids Screen NEG Prothrombin Time 10.5 Prothromb Time International Ratio 1.0 Activated Partial Thromboplast Time 27.1 B-Type Natriuretic Peptide 49 Test 07/18/17 22:42 07/19/17 05:04 07/19/17 05:12 Total Creatine Kinase 85 Troponin I 0.06 White Blood Count 9.6 Red Blood Count 3.10 Hemoglobin 9.6 Hematocrit 28.7 Mean Corpuscular Volume 92.6 Mean Corpuscular Hemoglobin 31.1 Mean Corpuscular Hemoglobin Concent 33.5 Red Cell Distribution Width 17.2 Platelet Count 406 Mean Platelet Volume 7.8 Neutrophils (%) (Auto) 65.4 Lymphocytes (%) (Auto) 21.5 Monocytes (%) (Auto) 12.1 Eosinophils (%) (Auto) 0.2 Basophils (%) (Auto) 0.8 Neutrophils # (Auto) 6.3 Lymphocytes # (Auto) 2.1 Monocytes # (Auto) 1.2 Eosinophils # (Auto) 0.0 Basophils # (Auto) 0.1 CBC Comment DIFF FINAL Differential Comment Date/Time Source Procedure Growth Status 07/19/17 05:30 Blood Peripheral Aerobic Blood Culture Pending Received 07/19/17 05:30 Blood Peripheral Anaerobic Blood Culture Pending Received 07/18/17 17:10 Urine Clean Catch Urine Culture Pending Received Result Diagram: 07/19/17 0512 07/18/17 1512 Caprini VTE Risk Assessment Caprini VTE Risk Assessment: Mod/High Risk (score >= 2) Caprini Risk Assessment Model Point Value = 1 Point Value = 2 Point Value = 3 Point Value = 5 Age 41-60 Minor surgery BMI > 25 kg/m2 Swollen legs Varicose veins or History of unexplained or recurrent spontaneous Oral contraceptives or hormone replacement Sepsis (< 1 month) Serious lung disease, including pneumonia (< 1 month) Abnormal pulmonary function Acute myocardial infarction Congestive heart failure (< 1 month) History of inflammatory bowel disease Medical patient at bed rest Age 61-74 Arthroscopic surgery Major open surgery (> 45 min) Laparoscopic surgery (> 45 min) Malignancy Confined to bed (> 72 hours) Immobilizing plaster cast Central venous access Age >= 75 History of VTE Family history of VTE Factor V Leiden Prothrombin [id number] Lupus anticoagulant Anticardiolipin antibodies Elevated serum homocysteine Heparin-induced thrombocytopenia Other congenital or acquired thrombophilia Stroke (< 1 month) Elective arthroplasty Hip, pelvis, or leg fracture Acute spinal cord injury (< 1 month) Prophylaxis Regimen Total Risk Factor Score Risk Level Prophylaxis Regimen 0-1 Low Early ambulation 2 Moderate Order ONE of the following: *Sequential Compression Device (SCD) *Heparin 5000 units SQ BID 3-4 Higher Order ONE of the following medications: *Heparin 5000 units SQ TID *Enoxaparin/Lovenox 40 mg SQ daily (WT < 150 kg, CrCl > 30 mL/min) *Enoxaparin/Lovenox 30 mg SQ daily (WT < 150 kg, CrCl > 10-29 mL/min) *Enoxaparin/Lovenox 30 mg SQ BID (WT < 150 kg, CrCl > 30 mL/min) AND/OR *Sequential Compression Device (SCD) 5 or more Highest Order ONE of the following medications: *Heparin 5000 units SQ TID (Preferred with Epidurals) *Enoxaparin/Lovenox 40 mg SQ daily (WT < 150 kg, CrCl > 30 mL/min) *Enoxaparin/Lovenox 30 mg SQ daily (WT < 150 kg, CrCl > 10-29 mL/min) *Enoxaparin/Lovenox 30 mg SQ BID (WT < 150 kg, CrCl > 30 mL/min) AND *Sequential Compression Device (SCD) Assessment and Plan Assessment and Plan Assessment/plan: 1. Urosepsis Patient tachycardic, febrile with UA consistent with urinary tract infection Status post 1 dose of Rocephin without improvement Zosyn IV fluid hydration Lactic acid pending Urine culture pending Blood cultures pending Monitor for signs of shock 2. Chest pain Reproducible and on the right side of the chest Worse with by mouth intake May be secondary to reflux versus costochondritis versus ACS Protonix EKGs significant for sinus tachycardia without ST segment elevations or depressions, personally reviewed Troponins: Less than 0.02, 0.03, 0.06. Repeat pending Patient not complaining of chest pain at this time 3. Diabetes mellitus Sliding scale insulin Monitor blood glucose 4. CKD Creatinine 1.65, baseline Monitor renal function 5. CAD/hypertension Continue home medications FEN Heart healthy diet Electrolytes: Monitor and replete when necessary Heparin Physician Certification 2 Midnight Certification Type: Admission for Inpatient Services Order for Inpatient Services The services are ordered in accordance with Medicare regulations or non- Medicare payer requirements, as applicable. In the case of services not specified as inpatient-only, they are appropriately provided as inpatient services in accordance with the 2-midnight benchmark. Estimated LOS (days): 2 2 days is the estimated time the patient will need to remain in the hospital, assuming treatment plan goals are met and no additional complications. Post-Hospital Plan: Not yet determined Noa Reyes MD Jul 19, 2017 06:03
[2017-07-19 06:04] LABS: BICARBONATE 23.1 MEQ/L (21.0-32.0); CALCIUM 8.6 MG/DL (8.5-10.1); CREATININE 1.62 MG/DL (0.50-1.00)
[2017-07-19 06:08] LABS: TROPONIN I 0.23 NG/ML (0.02-0.05)
[2017-07-19] MEDS: PANTOPRAZOLE SODIUM 40 MG VIAL IV PUSH SCH (06:36)
[2017-07-19] MEDS: SODIUM CHLOR 0.9% 1000 ML INJ 1,000 ML IV SCH ×3 (06:36→22:06)
[2017-07-19] MEDS: HEPARIN SODIUM - SQ 10,000 UNITS/ML VIAL SQ SCH ×4 (06:37→23:10)
[2017-07-19] MEDS: INSULIN ASPART SUPPLEMENTAL SCALE SQ SCH ×4 (08:00→21:00)
[2017-07-19] MEDS: CLOPIDOGREL 75 MG TAB PO SCH (09:21)
[2017-07-19] MEDS: TOLTERODINE TARTRATE 2 MG CAP LA PO SCH (09:21)
[2017-07-19] MEDS: METOPROLOL SUCCINATE 50 MG EXTENDED RELEASE TAB PO SCH (09:21)
[2017-07-19] MEDS: LISINOPRIL 20 MG TAB PO SCH (09:21)
[2017-07-19] MEDS: SODIUM CHLORIDE 0.9% FLUSH 10 ML FLUSH IV FLUSH SCH ×2 (09:21→21:00)
[2017-07-19] MEDS: GABAPENTIN 300 MG CAP PO SCH ×3 (09:22→17:22)
[2017-07-19] MEDS: hydrALAZINE HCL 25 MG TAB PO SCH ×3 (09:22→23:08)
[2017-07-19] MEDS ORDERED: BISACODYL 10 MG SUPP RECTAL PRN (10:30)
[2017-07-19] MEDS ORDERED: SENNOSIDES 8.6 MG TAB PO PRN (10:30)
[2017-07-19] MEDS ORDERED: MAGNESIUM HYDROXIDE SUSP 30 ML CUP PO PRN (10:30)
[2017-07-19] MEDS ORDERED: LACTULOSE SYRUP 20 GM/30 ML CUP PO PRN (10:30)
--- NOTE | 2017-07-19 10:57 | HHI.PR ---
Subjective Remarks Follow-up visit chest pain, dysuria, urinary tract infection. Patient seen and examined today laying in bed. Hard of hearing. States she has pain at the suprapubic area especially when she urinates. States that she has chest pain prior it was onto her right side, aggravated by eating, comes and goes but this time she states that chest discomfort and pain is not present. Denies SOB/ dyspnea. Denies palpitations, headaches, dizziness. Denies chills, n/v/d. Objective Vitals Vital Signs Date Time Temp Pulse Resp B/P (MAP) Pulse Ox O2 Delivery O2 Flow Rate FiO2 07/19/17 08:43 97 Nasal Cannula 3.00 07/19/17 07:59 100.0 107 24 136/63 (87) 96 07/19/17 05:00 Nasal Cannula 3.00 07/19/17 04:52 99.7 115 18 144/65 (91) 98 07/19/17 01:05 124 07/19/17 00:22 97.9 128 18 176/72 (106) 90 07/18/17 23:12 100.4 122 18 188/79 (115) 90 07/18/17 21:58 07/18/17 21:06 114 18 140/66 (90) 100 Room Air 07/18/17 20:55 16 07/18/17 19:16 107 18 184/78 (113) 100 Room Air 07/18/17 17:11 114 19 174/75 (108) 100 Room Air 07/18/17 15:04 98.2 112 20 149/85 (106) 98 I/O 07/18/17 07/18/17 07/18/17 07/19/17 07/19/17 07/19/17 07:00 15:00 23:00 07:00 15:00 23:00 Intake Total 100 ml 500 ml Balance 100 ml 500 ml Intake Oral 500 ml IV Total 100 ml # Voids 4 Result Diagram: 07/19/17 0512 07/19/17 0504 Imaging Last Impressions Chest X-Ray 07/18/17 1512 Signed Impressions: Service Date/Time: July 15:29 - CONCLUSION: 1. No acute cardiopulmonary disease. Stone Foy MD CT Angiography 07/18/17 0000 Signed Impressions: Service Date/Time: July 18:29 - CONCLUSION: No pulmonary embolus or other acute abnormality demonstrated. Coronary artery calcification. Mando Mcmahon MD Abdomen/Pelvis CT 07/18/17 0000 Signed Impressions: Service Date/Time: July 18:29 - CONCLUSION: 1. Florid and diffuse diverticulosis of the colon but no acute diverticulitis demonstrated or other acute abnormality. 2. Cysts and vascular calcifications of the kidneys are again noted. No evidence of obstructive uropathy. 3. Aorto iliac atherosclerosis. No aneurysm. Mando Mcmahon MD Objective Remarks GENERAL: This is an obese, well-developed patient, in no apparent distress. SKIN: Warm and dry. HEENT: Normocephalic. Pupils equal round and reactive. Nose without bleeding. Airway patent. NECK: Trachea midline. . CARDIOVASCULAR: Tachycardia without murmurs, gallops, or rubs. RESPIRATORY: Diminished breath sounds, no wheezes, rales, or rhonchi. GASTROINTESTINAL: Abdomen soft, nondistended. Bowel Sounds normoactive x4. Lower abdominal region tender to palpate MUSCULOSKELETAL: Extremities without clubbing, cyanosis, or edema. NEUROLOGICAL: Awake and alert. Hard of hearing. Oriented to place, person. No focal neuro deficit. Moves all extremities. Normal speech. A/P Problem List: (1) Chest pain ICD Code: R07.9 - Chest pain, unspecified Status: Acute (2) Urinary tract infection ICD Code: N39.0 - Urinary tract infection, site not specified Status: Acute (3) Mesenteric artery stenosis ICD Code: K55.1 - Chronic vascular disorders of intestine Assessment and Plan Patient is a 65-year-old female with past medical history of hearing loss, hypertension, CAD, CKD, DM who came into the hospital for evaluation of chest and pelvic pain. SIRS, sepsis secondary to UTI Patient tachycardic, febrile with UA consistent with urinary tract infection Status post 1 dose of Rocephin without improvement Zosyn IV fluid hydration Lactic acid 0.7 Urine culture pending, follow-up results Blood cultures pending, follow-up results Monitor for signs of shock Chest pain Rule out ACS Reproducible and on the right side of the chest Worse with by mouth intake Protonix EKGs significant for sinus tachycardia without ST segment elevations or depressions, personally reviewed Troponin -- Less than 0.02, 0.03, 0.06--> 0.23 Cardiology consult for further recommendation evaluation Patient not complaining of chest pain at this time Diabetes mellitus Sliding scale insulin Check hemoglobin A1c Monitor blood glucose CKD Creatinine 1.65, baseline IVF hydration Monitor renal function CAD/hypertension Continue home medications FEN Heart healthy diet Electrolytes: Monitor and replete when necessary DVT Heparin Discharge Planning Plan to DC home when clinically improved. Problem Qualifiers (1) Chest pain: Qualified Codes: R07.9 - Chest pain, unspecified (2) Urinary tract infection: Qualified Codes: N39.0 - Urinary tract infection, site not specified; R31.9 - Hematuria, unspecified Donnell Slade Jul 19, 2017 10:57
--- NOTE | 2017-07-19 11:15 | EKG ---
Date Performed: 07/18/2017 Time Performed: 19:34:35 PTAGE: 71 years EKG: SINUS TACHYCARDIA POSSIBLE LEFT ATRIAL ENLARGEMENT POSSIBLE LEFT VENTRICULAR HYPERTROPHY NO NSPECIFIC T-WAVE ABNORMALITY ABNORMAL ECG PREVIOUS TRACING : 07/18/2017 17.21 Since the previous tracing, no significant change noted DOCTOR: Santiago Sullivan Interpretating Date/Time 07/19/2017 11:11:30
--- NOTE | 2017-07-19 11:15 | EKG ---
Date Performed: 07/18/2017 Time Performed: 17:21:19 PTAGE: 71 years EKG: SINUS TACHYCARDIA VOLTAGE CRITERIA FOR LVH NONSPECIFIC ST & T-WAVE ABNORMALITY ABNORMAL ECG PREVIOUS TRACING : 07/18/2017 15.21 Since the previous tracing, no significant change noted DOCTOR: Santiago Sullivan Interpretating Date/Time 07/19/2017 11:11:22
[2017-07-19] MEDS: DOCUSATE SODIUM 50 MG/SENNA 8.6 MG TAB PO SCH ×3 (11:57→23:12)
--- NOTE | 2017-07-19 13:16 | MB ---
cc: Eleazar Spicer MD DATE OF CONSULT: REASON FOR CONSULTATION: Abnormal troponin level, chest pain. HISTORY OF PRESENT ILLNESS: History is difficult to elicit from the patient who is basically deaf. History is obtained by writing all questions on paper. She is a 71-year-old female with a history of hypertension, COPD, chronic renal insufficiency, minimal coronary artery disease seen on cardiac catheterization 03/17/2008, diabetes, peripheral vascular disease, who apparently presented to the hospital with chest pain and abdominal pain. The patient states that recently, she has been having some right upper chest discomfort, which eventually moved to her left upper chest, described as "sharp." The chest pain would last a few minutes and was especially severe yesterday, so she came to the emergency department for further evaluation and treatment. The chest pain was not pleuritic. She has noted some increase in baseline shortness of breath lately. She denies dizziness, palpitations, pedal edema, nausea, syncope, near syncope, dizziness. PAST MEDICAL HISTORY: 1. Hypertension. 2. COPD. 3. Chronic renal insufficiency. 4. Minimal coronary artery disease demonstrated by cardiac catheterization 03/17/2008. 5. Diverticulosis and hemorrhoids seen on colonoscopy 04/04/2017. 6. Diabetes. 7. Hyperlipidemia. 8. Peripheral vascular disease, status post percutaneous interventions on both lower extremities. From what I can tell, the last time she had intervention was 02/27/2017 with angioplasty of both the left superficial femoral artery and left popliteal artery. PAST SURGICAL HISTORY: 1. Appendectomy. 2. section. CARDIAC MEDICATIONS AT HOME: 1. Metoprolol succinate 100 mg daily. 2. Hydralazine 50 mg b.i.d. 3. Lisinopril 40 mg daily. 4. Plavix 75 mg daily. 5. Atorvastatin 10 mg at bedtime. ALLERGIES: NO KNOWN DRUG ALLERGIES. FAMILY HISTORY: Noncontributory. SOCIAL HISTORY: The patient smokes occasional cigarettes mainly when drinking alcohol. She drinks occasional alcohol. REVIEW OF SYSTEMS: As in the history of present illness, otherwise negative or noncontributory. She also denies headache, melena, bright red blood per rectum, fevers, recent flu. In the last couple of days, she has noted some lower crampy abdominal pain with dysuria. PHYSICAL EXAMINATION: Her blood pressure 140/64 with a pulse of 98, respirations 16. GENERAL: She is a well-developed, well-nourished female in no acute distress. HEENT: Jugular venous pressure is normal. Carotid pulses are 2+ bilaterally and without bruits. CHEST: Reveals clear lung dangelo. CARDIAC: She has a regular rhythm and rate without S3, S4 or murmur. ABDOMEN: She has a soft abdomen. There is mild lower abdominal tenderness without rebound or guarding. Bowel sounds are present. EXTREMITIES: Reveals no clubbing, cyanosis or edema. EKG from 07/18/2017 shows sinus tachycardia, nonspecific ST and T-wave abnormalities, voltage criteria for left ventricular hypertrophy. LABORATORY DATA: Includes WBC 9.6, hemoglobin 9.6, platelets 406. Potassium 4.0, BUN 21, creatinine 1.62. Troponin 0.23, CK 91. INR 1.0. Chest x-ray shows no acute disease. IMPRESSION: Overall atypical chest pains, minimally abnormal troponin levels in this 71-year-old female with a history of peripheral vascular disease, diabetes, minimal coronary artery disease demonstrated by cardiac catheterization 10 years ago, chronic renal insufficiency, chronic obstructive pulmonary disease, hypertension. History unfortunately is difficult to elicit from the patient due to her difficulty hearing. EKG shows nonspecific changes. CT angiogram of the chest reportedly shows no evidence for pulmonary embolism. I doubt these slightly abnormal troponin levels are due to acute coronary syndrome. She does have renal insufficiency. On the other hand, she does have a number of risk factors for coronary artery disease. RECOMMENDATIONS: 1. Check a Lexiscan nuclear stress test. 2. We will follow up as needed for any ischemia noted on nuclear stress test imaging. MD PRESTON Hernandez/URBANO , 12:56 PM , 01:15 PM TIM
--- NOTE | 2017-07-19 14:08 | EKG ---
Date Performed: 07/18/2017 Time Performed: 15:21:25 PTAGE: 71 years EKG: ATRIAL FLUTTER/TACHYCARDIA WITH RAPID VENTRICULAR RESPONSE NONSPECIFIC T-WAVE ABNORMALITY A BNORMAL RHYTHM ECG PREVIOUS TRACING : 05/13/2017 02.29 Lateral T-wave changes are more prominent. Clinical correla tion is recommended. DOCTOR: Santiago Sullivan Interpretating Date/Time 07/19/2017 14:08:30
[2017-07-19] MEDS: ATORVASTATIN 10 MG TAB PO SCH ×2 (21:00→23:08)
[2017-07-19] MEDS ORDERED: ACETAMINOPHEN 1000 MG/100 ML 100 ML IV ONE (21:30)
[2017-07-20] VITALS (11 sets, daily range): BP systolic 139–189; BP diastolic 67–86; PULSE 85–105; RESP 17–20; TEMP 99.3–100.6; O2SAT 91–100
[2017-07-20] MEDS: NITROGLYCERIN 0.4 MG SL 25 TABS/BTL SL PRN ×3 (00:33→22:38)
[2017-07-20] MEDS: PANTOPRAZOLE SODIUM 40 MG VIAL IV PUSH SCH (05:49)
[2017-07-20] MEDS: PIPERACIL-TAZO 3.375 GM PREMIX 50 ML IV SCH (05:49)
[2017-07-20] MEDS: HEPARIN SODIUM - SQ 10,000 UNITS/ML VIAL SQ SCH ×3 (06:17→22:37)
[2017-07-20] MEDS: INSULIN ASPART SUPPLEMENTAL SCALE SQ SCH ×5 (07:58→22:30)
[2017-07-20] MEDS: GABAPENTIN 300 MG CAP PO SCH ×3 (08:07→17:37)
[2017-07-20] MEDS: DOCUSATE SODIUM 50 MG/SENNA 8.6 MG TAB PO SCH ×2 (08:07→22:37)
[2017-07-20] MEDS: hydrALAZINE HCL 25 MG TAB PO SCH ×2 (08:07→22:37)
[2017-07-20] MEDS: METOPROLOL SUCCINATE 50 MG EXTENDED RELEASE TAB PO SCH (08:07)
[2017-07-20] MEDS: LISINOPRIL 20 MG TAB PO SCH (08:08)
[2017-07-20] MEDS: TOLTERODINE TARTRATE 2 MG CAP LA PO SCH (08:08)
[2017-07-20] MEDS: CLOPIDOGREL 75 MG TAB PO SCH (08:08)
[2017-07-20] MEDS: SODIUM CHLORIDE 0.9% FLUSH 10 ML FLUSH IV FLUSH SCH ×2 (08:10→22:38)
[2017-07-20] MEDS ORDERED: ACETAMINOPHEN 325 MG TAB PO PRN (08:30)
--- NOTE | 2017-07-20 08:52 | HHI.PR ---
Subjective Remarks Plan for stress test. Patient said she still has some chest pain. She is complaining of lower abdominal pain suprapubic pain. No fever or chills. No nausea vomiting no diarrhea or constipation. Objective Vitals Vital Signs Date Time Temp Pulse Resp B/P (MAP) Pulse Ox O2 Delivery O2 Flow Rate FiO2 07/20/17 04:31 104 07/20/17 03:59 99.3 85 18 139/85 (103) 96 07/19/17 23:48 99.0 95 18 125/60 (81) 91 07/19/17 20:55 94 07/19/17 20:19 101.6 100 18 141/64 (89) 90 07/19/17 20:00 94 07/19/17 15:15 99.9 104 16 145/69 (94) 93 07/19/17 11:03 100.2 98 16 140/64 (89) 95 I/O 07/19/17 07/19/17 07/19/17 07/20/17 07/20/17 07/20/17 07:00 15:00 23:00 07:00 15:00 23:00 Intake Total 500 ml 1288 ml Balance 500 ml 1288 ml Intake Oral 500 ml IV Total 1288 ml # Voids 4 3 # Bowel Movements 1 Result Diagram: 07/19/17 0512 07/19/17 0504 Imaging Last Impressions Chest X-Ray 07/18/17 1512 Signed Impressions: Service Date/Time: July 15:29 - CONCLUSION: 1. No acute cardiopulmonary disease. Stone Foy MD CT Angiography 07/18/17 0000 Signed Impressions: Service Date/Time: July 18:29 - CONCLUSION: No pulmonary embolus or other acute abnormality demonstrated. Coronary artery calcification. Mando Mcmahon MD Abdomen/Pelvis CT 07/18/17 0000 Signed Impressions: Service Date/Time: July 18:29 - CONCLUSION: 1. [place] and diffuse diverticulosis of the colon but no acute diverticulitis demonstrated or other acute abnormality. 2. Cysts and vascular calcifications of the kidneys are again noted. No evidence of obstructive uropathy. 3. Aorto iliac atherosclerosis. No aneurysm. Mando Mcmahon MD Objective Remarks GENERAL: This is an obese, well-developed patient, in no apparent distress. SKIN: Warm and dry. HEENT: Normocephalic. Pupils equal round and reactive. Nose without bleeding. Airway patent. NECK: Trachea midline. . CARDIOVASCULAR: Tachycardia without murmurs, gallops, or rubs. RESPIRATORY: Diminished breath sounds, no wheezes, rales, or rhonchi. GASTROINTESTINAL: Abdomen soft, nondistended. Bowel Sounds normoactive x4. Lower abdominal region tender to palpate MUSCULOSKELETAL: Extremities without clubbing, cyanosis, or edema. NEUROLOGICAL: Awake and alert. Hard of hearing. Oriented to place, person. No focal neuro deficit. Moves all extremities. Normal speech. A/P Problem List: (1) Chest pain ICD Code: R07.9 - Chest pain, unspecified Status: Acute (2) Urinary tract infection ICD Code: N39.0 - Urinary tract infection, site not specified Status: Acute (3) Mesenteric artery stenosis ICD Code: K55.1 - Chronic vascular disorders of intestine Assessment and Plan Patient is a 65-year-old female with past medical history of hearing loss, hypertension, CAD, CKD, DM who came into the hospital for evaluation of chest and pelvic pain. SIRS, sepsis secondary to UTI Patient tachycardic, febrile with UA consistent with urinary tract infection Status post 1 dose of Rocephin without improvement Zosyn change to rocephin as patient with persistent fevers, and persistent sepsis. Consult ID for evaluation as with persistent sepsis IV fluid hydration Lactic acid 0.7 Urine culture pending, follow-up results. Urine culture reincubated Blood cultures pending, follow-up results Monitor for signs of shock Chest pain Rule out ACS Reproducible and on the right side of the chest Worse with by mouth intake Protonix EKGs significant for sinus tachycardia without ST segment elevations or depressions, personally reviewed Troponin -- Less than 0.02, 0.03, 0.06--> 0.23 Cardiology consult for further recommendation evaluation Patient not complaining of chest pain at this time. Plan for stress test Diabetes mellitus Sliding scale insulin Check hemoglobin A1c Monitor blood glucose CKD Creatinine 1.65, baseline IVF hydration Monitor renal function CAD/hypertension Continue home medications FEN Heart healthy diet Electrolytes: Monitor and replete when necessary DVT Heparin Discharge Planning Plan to DC home when clinically improved. Plan for stress test also noted Temp 101 overnight , change abx consult ID Problem Qualifiers (1) Chest pain: Qualified Codes: R07.9 - Chest pain, unspecified (2) Urinary tract infection: Qualified Codes: N39.0 - Urinary tract infection, site not specified; R31.9 - Hematuria, unspecified Linda Marin MD Jul 20, 2017 08:52
[2017-07-20] MEDS ORDERED: REGADENOSON INJ 0.4 MG/5 ML SYR ONE (09:14)
[2017-07-20] MEDS ORDERED: AMINOPHYLLINE INJ 500 MG/20 ML VIAL ONE (10:04)
--- NOTE | 2017-07-20 10:57 | RADRPT ---
EXAM DATE/TIME: 07/19/2017 14:39 [facility] COMPARISON: No previous studies available for comparison. INDICATIONS : Right chest pain with dyspnea and headache. Angina. Abnormal EKG. DOSE: 31.1 mCi Tc99m Myoview at stress. 30 mCi Tc99m Myoview at rest. 0.4 mg Lexiscan STRESS SYMPTOMS: Dyspnea and chest pain. MEDICATIONS: 1.) 100 mg Aminophylline IV EJECTION FRACTION: 69% MEDICAL HISTORY : Hypercholesterolemia. Diabetes mellitus type 2. Chronic obstructive pulmonary disease. Hypertension. SURGICAL HISTORY : section. ENCOUNTER: Initial ACUITY: 1 day PAIN SCALE: 7/10 LOCATION: Right chest TECHNIQUE: The patient underwent pharmacologic stress with infusion of prescribed dose. Continuous ECG tracing was monitored during stress. Gated SPECT imaging was performed after stress and conventional SPECT i maging was performed at rest. The examination was performed on a SPECT/CT scanner, both attenuation and non-corrected datasets were reviewed. FINDINGS: DISTRIBUTION: The maximum perfused segment at stress is in the septal wall. PERFUSION STUDY: The perfusion pattern suggests reversible perfusion defect involving the lateral wall GATED STUDY: There is mild hypokinesis of the lateral wall. CONCLUSION: Given the area of reversible perfusion involving the lateral wall and mild hypokinesis of the lateral wall this area is concerning for reversible ischemia despite the normal ejection fraction.. RISK CATEGORY: Intermediate risk due to stress induced moderate perfusion defect without left ventricular dilation. Intermediate risk plates with a 1-3% annual mortality rate. Millie Shah MD on July 20, 2017 at 10:48 Board Certified Radiologist. This report was verified electronically.
[2017-07-20] MEDS: cefTRIAXone INJ 2,000 MG in SODIUM CHLORIDE 0.9% INJ 100 ML IV SCH (11:12)
[2017-07-20 11:15] LABS: BACTERIA, URINE OCC /hpf; BILIRUBIN, URINE NEG (NEG); BLOOD, URINE NEG (NEG); GLUCOSE,URINE NEG (NEG); KETONE, URINE NEG (NEG); NITRITE,URINE NEG (NEG); PH, URINE 5.5 (5.0-8.5); SQUAMOUS EPITHELIAL CELL URINE 11 /hpf (0-5); TRICHOMONAS, URINE OCC; URINE COLOR YELLOW (YELLW/STRAW); URINE LEUKOCYTE ESTERASE LARGE (NEG)
[2017-07-20 11:38] LABS: HEMATOCRIT 29.5 % (35.0-46.0); HEMOGLOBIN 9.8 GM/DL (11.6-15.3); MEAN CELL VOLUME 94.6 FL (80.0-100.0); MEAN CORPUSCULAR HEMOGLOBIN 31.3 PG (27.0-34.0); MEAN CORPUSCULAR HGB CONC 33.1 % (32.0-36.0); MEAN PLATELET VOLUME 7.4 FL (7.0-11.0); PLATELET COUNT 370 TH/MM3 (150-450); RED BLOOD COUNT 3.12 MIL/MM3 (4.00-5.30); RED CELL DISTRIBUTION WIDTH 17.3 % (11.6-17.2); WHITE BLOOD COUNT 10.9 TH/MM3 (4.0-11.0)
[2017-07-20 11:57] LABS: BICARBONATE 23.5 MEQ/L (21.0-32.0); CALCIUM 8.9 MG/DL (8.5-10.1); CREATININE 1.7 MG/DL (0.50-1.00)
--- NOTE | 2017-07-20 12:54 | PD.CARD.PN ---
Subjective Subjective Remarks Brief "very mild" chest discomfort earlier this morning. No dyspnea, dizziness , palpitations. Objective Medications Item Value Date Time Atorvastatin 10 mg 07/19/172099 Calcium HS/PO 07/19/172307 (Lipitor) Clopidogrel 75 mg 07/19/17 0900 Bisulfate DAILY/PO 07/20/17 08 (Plavix) Hydralazine HCl 50 mg 07/19/17 09 (Apresoline) BID/PO 07/20/17 08 Metoprolol 100 mg 07/19/17 0900 Succinate DAILY/PO 07/20/17 08 (Toprol Xl) Lisinopril 40 mg 07/19/17 09 (Prinivil) DAILY/PO 07/20/17 08 Current Medications Medications (Trade) Dose Ordered Sig/Peg Route Start Time Stop Time Status Last Admin (NS Flush) 2 ml UNSCH PRN IV FLUSH 07/18/17 19:30 07/18/17 20:50 (NS Flush) 2 ml BID IV FLUSH 07/18/17 21:00 07/19/17 09:21 (Morphine Inj) 2 mg Q4H PRN IV PUSH 07/18/17 19:30 07/19/17 01:02 (Zofran Inj) 4 mg Q6H PRN IV PUSH 07/18/17 19:30 07/18/17 20:55 (Nitrostat Sl) 0.4 mg Q5M PRN SL 07/18/17 19:30 07/20/17 00:33 (Lipitor) 10 mg HS PO 07/19/17 21:00 07/19/17 23:08 (Plavix) 75 mg DAILY PO 07/19/17 09:00 07/20/17 08:08 (Neurontin) 300 mg TID PO 07/19/17 09:00 07/20/17 08:07 (Apresoline) 50 mg BID PO 07/19/17 09:00 07/20/17 08:07 (Toprol Xl) 100 mg DAILY PO 07/19/17 09:00 07/20/17 08:07 (Prinivil) 40 mg DAILY PO 07/19/17 09:00 07/20/17 08:08 (Detrol La) 2 mg DAILY PO 07/19/17 09:00 07/20/17 08:08 Sodium Chloride 1,000 ml @ 100 mls/hr Q10H IV 07/19/17 06:00 07/19/17 22:06 (Protonix Inj) 40 mg Q24H IV PUSH 07/19/17 06:00 07/20/17 05:49 (D50w (Vial) Inj) 50 ml UNSCH PRN IV PUSH 07/19/17 06:00 (Glucagon Inj) 1 mg UNSCH PRN OTHER 07/19/17 06:00 (NovoLOG SUPPLEMENTAL SCALE) 1 ACHS SLIDING SCALE SQ 07/19/17 08:00 (Heparin Inj) 5,000 units Q8HR SQ 07/19/17 06:00 07/20/17 06:17 (Lilo-Colace) 1 tab BID PO 07/19/17 11:30 07/20/17 08:07 (Milk Of Magnesia Liq) 30 ml Q12H PRN PO 07/19/17 10:30 (Senokot) 17.2 mg Q12H PRN PO 07/19/17 10:30 (Dulcolax Supp) 10 mg DAILY PRN RECTAL 07/19/17 10:30 (Lactulose Liq) 30 ml DAILY PRN PO 07/19/17 10:30 (Tylenol) 650 mg Q4H PRN PO 07/20/17 08:30 Ceftriaxone Sodium 2000 mg/ Sodium Chloride 100 ml @ 200 mls/hr Q24H IV 07/20/17 10:00 07/20/17 11:12 Vital Signs / I&O Vital Signs Date Time Temp Pulse Resp B/P (MAP) Pulse Ox O2 Delivery O2 Flow Rate FiO2 07/20/17 08:00 100.6 104 19 189/86 (120) 100 07/20/17 07:10 105 07/20/17 04:31 104 07/20/17 03:59 99.3 85 18 139/85 (103) 96 07/19/17 23:48 99.0 95 18 125/60 (81) 91 07/19/17 20:55 94 07/19/17 20:19 101.6 100 18 141/64 (89) 90 07/19/17 20:00 94 07/19/17 15:15 99.9 104 16 145/69 (94) 93 I/O 3/16/18 3/07/19/17 07/20/17 07/20/17 07/20/17 06:59 14:59 22:59 06:59 14:59 22:59 Intake Total 500 ml 1288 ml Balance 500 ml 1288 ml Intake Oral 500 ml IV Total 1288 ml # Voids 4 3 # Bowel Movements 1 Physical Exam GENERAL: Well developed, well nourished. No acute distress. HEENT: Jugular venous pressure is normal. CHEST: Lungs clear to auscultation anteriorly. CARDIAC: Regular rate and rhythm without S3, S4, or murmur. ABDOMEN: Soft, nontender, no hepatosplenomegaly. Bowel sounds present. EXTREMITIES: No clubbing, cyanosis, or edema. Laboratory Laboratory Tests Test 07/20/17 10:44 07/20/17 10:55 Urine Color YELLOW Urine Turbidity HAZY Urine pH 5.5 Urine Specific [place] 1.018 Urine Protein TRACE mg/dL Urine Glucose (UA) NEG mg/dL Urine Ketones NEG mg/dL Urine Occult Blood NEG Urine Nitrite NEG Urine Bilirubin NEG Urine Urobilinogen LESS THAN 2.0 MG/DL Urine Leukocyte Esterase LARGE Urine RBC 6 /hpf Urine WBC 15 /hpf Urine Squamous Epithelial Cells 11 /hpf Urine Bacteria OCC /hpf Urine Trichomonas OCC Microscopic Urinalysis Comment CULTURE INDICATED White Blood Count 10.9 TH/MM3 Red Blood Count 3.12 MIL/MM3 Hemoglobin 9.8 GM/DL Hematocrit 29.5 % Mean Corpuscular Volume 94.6 FL Mean Corpuscular Hemoglobin 31.3 PG Mean Corpuscular Hemoglobin Concent 33.1 % Red Cell Distribution Width 17.3 % Platelet Count 370 TH/MM3 Mean Platelet Volume 7.4 FL Blood Urea Nitrogen 18 MG/DL Creatinine 1.70 MG/DL Random Glucose 105 MG/DL Calcium Level 8.9 MG/DL Sodium Level 140 MEQ/L Potassium Level 4.0 MEQ/L Chloride Level 107 MEQ/L Carbon Dioxide Level 23.5 MEQ/L Anion Gap 10 MEQ/L Estimat Glomerular Filtration Rate 36 ML/MIN Assessment and Plan Problem List: (1) CAD (coronary artery disease) ICD Codes: I25.10 - Atherosclerotic heart disease of [place] coronary artery without angina pectoris Status: Chronic Plan: Brief recurrent CP this morning. Nuclear stress test reports lateral ischemia (I suspect there may be mid to distal anterior ischemia as well). Discussed cath versus medical therapy with patient. There would be increased risk of dye-induced nephropathy with contrast administration. She strongly wants to be treated medically at this time. REC add daily baby aspirin to the Plavix continue metoprolol, and add Imdur, amlodipine can discharge late today if ambulating without CP (2) Hypertension ICD Codes: I10 - Hypertension Status: Chronic Plan: Overall suboptimal BP control. To add amlodipine and Imdur as above. Code Status full code Discussed Condition With patient and family Problem Qualifiers (1) CAD (coronary artery disease): Qualified Codes: I25.119 - Atherosclerotic heart disease of [place] coronary artery with unspecified angina pectoris (2) Hypertension: Qualified Codes: I10 - Essential (primary) hypertension Eleazar Spicer MD Jul 20, 2017 12:54
[2017-07-20] MEDS: SODIUM CHLOR 0.9% 1000 ML INJ 1,000 ML IV SCH ×2 (12:57→22:38)
[2017-07-20] MEDS ORDERED: amLODIPine BESYLATE 5 MG TAB PO SCH (13:00)
[2017-07-20 13:15] LABS: ALBUMIN 3.1 GM/DL (3.4-5.0); DIRECT BILIRUBIN ADULT 0.2 MG/DL (0.0-0.2)
[2017-07-20 13:16] LABS: INDIRECT BILIRUBIN 0.4 MG/DL (0.0-0.8); TOTAL BILIRUBIN ADULT 0.6 MG/DL (0.2-1.0)
[2017-07-20] MEDS: ASPIRIN EC 81 MG TABEC PO SCH (13:32)
[2017-07-20] MEDS: ISOSORBIDE MONONITRATE 60 MG CR TAB (IMDUR) PO SCH (13:32)
--- NOTE | 2017-07-20 16:43 | EKG ---
Date Performed: 07/18/2017 Time Performed: 23:19:51 PTAGE: 71 years EKG: SINUS TACHYCARDIA LEFT VENTRICULAR HYPERTROPHY AND ST-T CHANGE ABNORMAL ECG Since PREVIOUS TRACING , no significant change noted PREVIOUS TRACIN07/18/2017 19.34 DOCTOR: Beau Garcia Interpretating Date/Time 07/20/2017 16:41:40
[2017-07-20] MEDS ORDERED: ALUMINUM/MAGNESIUM/SIMETH 30 ML CUP PO PRN (18:45)
--- NOTE | 2017-07-20 19:32 | MB ---
cc: Mario Piedra MD DATE OF CONSULT: 07/20/2017 REASON FOR VISIT: Fever. HISTORY OF PRESENT ILLNESS: This is a 71-year-old black female who presented to the emergency department with chest pain. The patient was noted to have abnormal lab and was sent to the emergency department for evaluation. She reported chest pain and underwent evaluation of the pain and she is found to have lateral cardiac ischemia. She was afebrile on admission. She had acute kidney disease with estimated GFR of 37. The patient had a temperature of 100.4 degrees in the evening of 07/18/2017 and the following day temperature remained low grade elevated with a T max of 101.6 degrees yesterday evening. Blood cultures and urine culture was taken. Urine culture shows mixed bacteria. Blood culture has no growth in 1 day. The patient's temperature climbed again today and repeated blood cultures were obtained. A urinalysis was again sent and it showed 15 white cells and occasional bacteria. The urine culture is pending. Her white count remains normal. CT scan of the abdomen and pelvis was performed and it shows severe and diffuse right and left-sided diverticulosis. No perceptible acute inflammatory changes were noted. Aortoiliac atherosclerosis is also noted. The patient notes that her abdomen hurts at the lower aspect whenever she uses the bathroom for both bowel and urine. She denies chills. She is very hard of hearing. PAST MEDICAL HISTORY: Hypertension, diabetes mellitus, arthritis, coronary artery disease, chronic kidney disease, hearing impairment, history of iliac stent placement, and history of cardiac catheterization. ALLERGIES: NO KNOWN DRUG ALLERGIES. MEDICATIONS: 1. Imdur. 2. Norvasc 3. Ecotrin. 4. Ceftriaxone. 5. Lipitor. 6. Lilo-Colace. 7. Plavix. 8. Neurontin. 9. Hydralazine. 10. Toprol-XL. 11. Prinivil. 12. Detrol-LA, 13. Insulin. 14. Subcutaneous heparin. 15. Morphine sulfate p.r.n. SOCIAL HISTORY: Positive tobacco, positive alcohol, reportedly uses crack cocaine and marijuana. FAMILY HISTORY: Noncontributory. REVIEW OF SYSTEMS: Positive for chest pain, dysuria, and abdominal pain. Denies fever, chills, nausea and vomiting. The remainder of the review of systems is negative. PHYSICAL EXAMINATION: GENERAL: This is a well-developed female who is in no acute distress. VITAL SIGNS: Temperature 99.8, blood pressure 147/67, respirations 19, heart rate 96. HEENT: Head is atraumatic. Extraocular movements grossly intact. Pupils reactive to light. No icterus. Oropharynx moist mucosa. No lesions. NECK: Supple. No adenopathy. No swelling. LUNGS: Basilar rhonchi bilaterally. CARDIOVASCULAR: Regular S1 and S2. No murmurs audible. ABDOMEN: Bowel sounds present, soft, severe tenderness on palpation of the right lower quadrant and left lower quadrant. No rebound tenderness. RECTAL: Not performed. EXTREMITIES: No clubbing, cyanosis or edema. SKIN: No rash. NEUROLOGIC: Alert and oriented. No gross focal findings. LABORATORY DATA: WBC 10.9, platelet 370, hemoglobin 9.8. Creatinine 1.65, BUN 19, sodium 140. IMPRESSION: 1. Fever. 2. Probable urinary tract infection. 3. Abdominal pain and tenderness. Probable due to diverticulitis, although the CAT scan, though it shows severe diverticulosis, does not indicate acute diverticulitis. 4. Chronic kidney disease. 5. Polysubstance abuse. RECOMMENDATIONS: 1. Continue ceftriaxone. 2. Follow the urine culture. 3. Monitor temperature and white blood cell count. 4. Monitor abdominal pain. 5. If the abdominal pain persists, consider adding Flagyl. Thank you for this consultation. I will follow the patient's progress with you and will make further recommendations and followup if necessary. MD MIRELA Gonzáles/MIHIR , 06:12 PM , 07:31 PM
[2017-07-20] MEDS: ATORVASTATIN 10 MG TAB PO SCH (22:37)
[2017-07-21] VITALS (8 sets, daily range): BP systolic 134–202; BP diastolic 64–87; PULSE 80–103; RESP 14–18; TEMP 98–99.7; O2SAT 93–96
[2017-07-21] MEDS: SODIUM CHLOR 0.9% 1000 ML INJ 1,000 ML IV SCH ×2 (06:37→18:00)
[2017-07-21] MEDS: SODIUM CHLORIDE 0.9% FLUSH 10 ML FLUSH IV FLUSH SCH ×2 (06:37→21:00)
[2017-07-21] MEDS: HEPARIN SODIUM - SQ 10,000 UNITS/ML VIAL SQ SCH (06:37)
[2017-07-21] MEDS: PANTOPRAZOLE SODIUM 40 MG VIAL IV PUSH SCH (06:37)
[2017-07-21] MEDS: LISINOPRIL 20 MG TAB PO SCH (08:20)
[2017-07-21] MEDS: DOCUSATE SODIUM 50 MG/SENNA 8.6 MG TAB PO SCH ×2 (08:20→23:46)
[2017-07-21] MEDS: hydrALAZINE HCL 25 MG TAB PO SCH ×2 (08:20→23:46)
[2017-07-21] MEDS: METOPROLOL SUCCINATE 50 MG EXTENDED RELEASE TAB PO SCH (08:21)
[2017-07-21] MEDS: GABAPENTIN 300 MG CAP PO SCH ×3 (08:21→17:48)
[2017-07-21] MEDS: CLOPIDOGREL 75 MG TAB PO SCH (08:21)
[2017-07-21] MEDS: ASPIRIN EC 81 MG TABEC PO SCH (08:22)
[2017-07-21] MEDS: ISOSORBIDE MONONITRATE 60 MG CR TAB (IMDUR) PO SCH (08:22)
[2017-07-21] MEDS: INSULIN ASPART SUPPLEMENTAL SCALE SQ SCH ×3 (08:28→17:47)
[2017-07-21 08:47] LABS: HEMATOCRIT 27.8 % (35.0-46.0); MEAN CELL VOLUME 93.7 FL (80.0-100.0); MEAN CORPUSCULAR HEMOGLOBIN 30.4 PG (27.0-34.0); MEAN CORPUSCULAR HGB CONC 32.5 % (32.0-36.0); MEAN PLATELET VOLUME 7.4 FL (7.0-11.0); PLATELET COUNT 332 TH/MM3 (150-450); RED BLOOD COUNT 2.97 MIL/MM3 (4.00-5.30); RED CELL DISTRIBUTION WIDTH 16.8 % (11.6-17.2); WHITE BLOOD COUNT 7.6 TH/MM3 (4.0-11.0)
[2017-07-21 09:01] LABS: CREATININE 1.12 MG/DL (0.50-1.00)
[2017-07-21 09:03] LABS: BICARBONATE 21.9 MEQ/L (21.0-32.0); CALCIUM 8.6 MG/DL (8.5-10.1)
[2017-07-21] MEDS: NITROGLYCERIN 0.4 MG SL 25 TABS/BTL SL PRN (09:15)
--- NOTE | 2017-07-21 10:44 | PD.CARD.PN ---
Subjective Subjective Remarks No dyspnea, chest pain, palpitations. Mild brief dizziness upon standing. Feels well. Slept poorly. Objective Medications Item Value Date Time Amlodipine 10 mg 07/21/17 0900 Besylate DAILY/PO 07/21/17 0822 (Norvasc) Hydralazine HCl 75 mg 07/21/17 0900 (Apresoline) BID/PO 07/21/17 0820 Isosorbide 60 mg 07/20/17 1300 Mononitrate DAILY/PO 07/21/17 0822 (Imdur) Aspirin 81 mg 07/20/17 1300 (Ecotrin Ec) DAILY/PO 07/21/17 0822 Atorvastatin 10 mg 07/19/17 2100 Calcium HS/PO 07/20/17 223 (Lipitor) Clopidogrel 75 mg 07/19/17 0900 Bisulfate DAILY/PO 07/21/17 08 (Plavix) Metoprolol 100 mg 07/19/17 0900 Succinate DAILY/PO 07/21/17 0821 (Toprol Xl) Lisinopril 40 mg 07/19/17 0900 (Prinivil) DAILY/PO 07/21/17 0820 Heparin Sodium 5,000 units 07/19/17 0600 (Porcine) Q8HR/SQ 07/21/17 0637 (Heparin Inj) Nitroglycerin 0.4 mg 07/18/17 1930 (Nitrostat Sl) Q5M PRN/SL 07/21/17 0915 Current Medications Medications (Trade) Dose Ordered Sig/Peg Route Start Time Stop Time Status Last Admin (NS Flush) 2 ml UNSCH PRN IV FLUSH 07/18/17 19:30 07/18/17 20:50 (NS Flush) 2 ml BID IV FLUSH 07/18/17 21:00 07/21/17 06:37 (Morphine Inj) 2 mg Q4H PRN IV PUSH 07/18/17 19:30 07/19/17 01:02 (Zofran Inj) 4 mg Q6H PRN IV PUSH 07/18/17 19:30 07/18/17 20:55 (Nitrostat Sl) 0.4 mg Q5M PRN SL 07/18/17 19:30 07/21/17 09:15 (Lipitor) 10 mg HS PO 07/19/17 21:00 07/20/17 22:37 (Plavix) 75 mg DAILY PO 07/19/17 09:00 07/21/17 08:21 (Neurontin) 300 mg TID PO 07/19/17 09:00 07/21/17 08:21 (Toprol Xl) 100 mg DAILY PO 07/19/17 09:00 07/21/17 08:21 (Prinivil) 40 mg DAILY PO 07/19/17 09:00 07/21/17 08:20 (Detrol La) 2 mg DAILY PO 07/19/17 09:00 07/20/17 08:08 Sodium Chloride 1,000 ml @ 100 mls/hr Q10H IV 07/19/17 06:00 07/21/17 06:37 (Protonix Inj) 40 mg Q24H IV PUSH 07/19/17 06:00 07/21/17 06:37 (D50w (Vial) Inj) 50 ml UNSCH PRN IV PUSH 07/19/17 06:00 (Glucagon Inj) 1 mg UNSCH PRN OTHER 07/19/17 06:00 (NovoLOG SUPPLEMENTAL SCALE) 1 ACHS SLIDING SCALE SQ 07/19/17 08:00 (Heparin Inj) 5,000 units Q8HR SQ 07/19/17 06:00 07/21/17 06:37 (Lilo-Colace) 1 tab BID PO 07/19/17 11:30 07/21/17 08:20 (Milk Of Magnesia Liq) 30 ml Q12H PRN PO 07/19/17 10:30 (Senokot) 17.2 mg Q12H PRN PO 07/19/17 10:30 (Dulcolax Supp) 10 mg DAILY PRN RECTAL 07/19/17 10:30 (Lactulose Liq) 30 ml DAILY PRN PO 07/19/17 10:30 (Tylenol) 650 mg Q4H PRN PO 07/20/17 08:30 Ceftriaxone Sodium 2000 mg/ Sodium Chloride 100 ml @ 200 mls/hr Q24H IV 07/20/17 10:00 07/20/17 11:12 (Imdur) 60 mg DAILY PO 07/20/17 13:00 07/21/17 08:22 (Ecotrin Ec) 81 mg DAILY PO 07/20/17 13:00 07/21/17 08:22 (Mag-Al Plus Susp Liq) 30 ml Q6H PRN PO 07/20/17 18:45 (Norvasc) 10 mg DAILY PO 07/21/17 09:00 07/21/17 08:22 (Apresoline) 75 mg BID PO 07/21/17 09:00 07/21/17 08:20 Vital Signs / I&O Vital Signs Date Time Temp Pulse Resp B/P (MAP) Pulse Ox O2 Delivery O2 Flow Rate FiO2 07/21/17 07:35 98.0 96 14 202/87 (125) 94 07/21/17 03:59 98.7 103 17 134/64 (87) 93 07/20/17 23:15 99.6 100 17 170/73 (105) 93 07/20/17 23:12 18 07/20/17 21:36 92 07/20/17 20:26 99.3 94 17 166/73 (104) 95 07/20/17 16:00 99.8 96 19 147/67 (93) 91 07/20/17 15:00 96 07/20/17 12:15 100 07/20/17 12:00 99.5 101 20 143/77 (99) 96 I/O 07/20/17 07/20/17 07/20/17 07/21/17 07/21/17 07/21/17 07:00 15:00 23:00 07:00 15:00 23:00 Intake Total 690 ml 450 ml Balance 690 ml 450 ml Intake Oral 690 ml 450 ml # Voids 7 5 # Bowel Movements 1 4 2 Physical Exam GENERAL: Well developed, well nourished. No acute distress. HEENT: Jugular venous pressure is normal. CHEST: Lungs clear to auscultation anteriorly. CARDIAC: Regular rate and rhythm without S3, S4, or murmur. ABDOMEN: Soft, nontender, no hepatosplenomegaly. Bowel sounds present. EXTREMITIES: No clubbing, cyanosis, or edema. Laboratory Laboratory Tests Test 07/20/17 10:44 07/20/17 10:55 07/21/17 08:27 07/21/17 08:37 Urine Color YELLOW Urine Turbidity HAZY Urine pH 5.5 Urine Specific [place] 1.018 Urine Protein TRACE mg/dL Urine Glucose (UA) NEG mg/dL Urine Ketones NEG mg/dL Urine Occult Blood NEG Urine Nitrite NEG Urine Bilirubin NEG Urine Urobilinogen LESS THAN 2.0 MG/DL Urine Leukocyte Esterase LARGE Urine RBC 6 /hpf Urine WBC 15 /hpf Urine Squamous Epithelial Cells 11 /hpf Urine Bacteria OCC /hpf Urine Trichomonas OCC Microscopic Urinalysis Comment CULTURE INDICATED White Blood Count 10.9 TH/MM3 7.6 TH/MM3 Red Blood Count 3.12 MIL/MM3 2.97 MIL/MM3 Hemoglobin 9.8 GM/DL 9.0 GM/DL Hematocrit 29.5 % 27.8 % Mean Corpuscular Volume 94.6 FL 93.7 FL Mean Corpuscular Hemoglobin 31.3 PG 30.4 PG Mean Corpuscular Hemoglobin Concent 33.1 % 32.5 % Red Cell Distribution Width 17.3 % 16.8 % Platelet Count 370 TH/MM3 332 TH/MM3 Mean Platelet Volume 7.4 FL 7.4 FL Blood Urea Nitrogen 18 MG/DL 12 MG/DL Creatinine 1.70 MG/DL 1.12 MG/DL Random Glucose 105 MG/DL 107 MG/DL Calcium Level 8.9 MG/DL 8.6 MG/DL Sodium Level 140 MEQ/L 143 MEQ/L Potassium Level 4.0 MEQ/L 3.8 MEQ/L Chloride Level 107 MEQ/L 113 MEQ/L Carbon Dioxide Level 23.5 MEQ/L 21.9 MEQ/L Anion Gap 10 MEQ/L 8 MEQ/L Estimat Glomerular Filtration Rate 36 ML/MIN 58 ML/MIN Total Bilirubin 0.6 MG/DL Direct Bilirubin 0.2 MG/DL Indirect Bilirubin 0.4 MG/DL Aspartate Amino Transf (AST/SGOT) 34 U/L Alanine Aminotransferase (ALT/SGPT) 55 U/L Alkaline Phosphatase 101 U/L Total Protein 8.0 GM/DL Albumin 3.1 GM/DL CBC Comment AUTO DIFF Assessment and Plan Problem List: (1) CAD (coronary artery disease) ICD Codes: I25.10 - Atherosclerotic heart disease of [place] coronary artery without angina pectoris Status: Chronic Plan: Stable overnight. Nuclear stress test reports lateral ischemia (I suspect there may be mid to distal anterior ischemia as well). Discussed cath versus medical therapy with patient. She strongly wants to be treated medically at this time. REC OK to discharge today on current medications except increase metoprolol dosing to 100 mg bid have asked patient to return to hospital with any CP's not responsive to 3 SLNTG (2) Hypertension ICD Codes: I10 - Hypertension Status: Chronic Plan: Overall suboptimal BP control. Increase metoprolol to 200 mg qd, f/u closely with her PCP. Code Status full code Discussed Condition With patient and family Problem Qualifiers (1) CAD (coronary artery disease): Qualified Codes: I25.119 - Atherosclerotic heart disease of [place] coronary artery with unspecified angina pectoris (2) Hypertension: Qualified Codes: I10 - Essential (primary) hypertension Eleazar Spicer MD Jul 21, 2017 10:44
[2017-07-21 10:56] LABS: LYMPHOCYTES 27 % (9-44); MONOCYTES 12 % (0-8); NEUTROPHIL # MANUAL DIFF 4.4 TH/MM3 (1.8-7.7); POLYS (SEG NEUTROPHILS) 58 % (16-70)
--- NOTE | 2017-07-21 11:38 | HHI.PR ---
Subjective Remarks Patient is in bed. Says abdominal pain is improving. No nausea vomiting no diarrhea or constipation. She had no fever or chills overnight. Family at bedside. Patient appears sleepy and tired. Says she feels with generalized weakness however she is improved since yesterday. Objective Vitals Vital Signs Date Time Temp Pulse Resp B/P (MAP) Pulse Ox O2 Delivery O2 Flow Rate FiO2 07/21/17 07:35 98.0 96 14 202/87 (125) 94 07/21/17 03:59 98.7 103 17 134/64 (87) 93 07/20/17 23:15 99.6 100 17 170/73 (105) 93 07/20/17 23:12 18 07/20/17 21:36 92 07/20/17 20:26 99.3 94 17 166/73 (104) 95 07/20/17 16:00 99.8 96 19 147/67 (93) 91 07/20/17 15:00 96 07/20/17 12:15 100 07/20/17 12:00 99.5 101 20 143/77 (99) 96 I/O 07/20/17 07/20/17 07/20/17 07/21/17 07/21/17 07/21/17 07:00 15:00 23:00 07:00 15:00 23:00 Intake Total 690 ml 450 ml Balance 690 ml 450 ml Intake Oral 690 ml 450 ml # Voids 7 5 # Bowel Movements 1 4 2 Result Diagram: 07/21/17 0827 07/21/17 0837 Imaging Last Impressions Myocardial Perfusion Scan Nuc Med 07/19/17 0000 Signed Impressions: Service Date/Time: Wednesday, July 19, 2017 14:39 - CONCLUSION: Given the area of reversible perfusion involving the lateral wall and mild hypokinesis of the lateral wall this area is concerning for reversible ischemia despite the normal ejection fraction.. RISK CATEGORY: Intermediate risk due to stress induced moderate perfusion defect without left ventricular dilation. Intermediate risk plates with a 1-3%% annual mortality rate. Millie Shah MD Chest X-Ray 07/18/17 1512 Signed Impressions: Service Date/Time: July 15:29 - CONCLUSION: 1. No acute cardiopulmonary disease. Stone Foy MD CT Angiography 07/18/17 0000 Signed Impressions: Service Date/Time: July 18:29 - CONCLUSION: No pulmonary embolus or other acute abnormality demonstrated. Coronary artery calcification. Mando Mcmahon MD Abdomen/Pelvis CT 07/18/17 0000 Signed Impressions: Service Date/Time: July 18:29 - CONCLUSION: 1. Florid and diffuse diverticulosis of the colon but no acute diverticulitis demonstrated or other acute abnormality. 2. Cysts and vascular calcifications of the kidneys are again noted. No evidence of obstructive uropathy. 3. Aorto iliac atherosclerosis. No aneurysm. Mando Mcmahon MD Objective Remarks GENERAL: This is an obese, well-developed patient, in no apparent distress. SKIN: Warm and dry. HEENT: Normocephalic. Pupils equal round and reactive. Nose without bleeding. Airway patent. NECK: Trachea midline. . CARDIOVASCULAR: Tachycardia without murmurs, gallops, or rubs. RESPIRATORY: Diminished breath sounds, no wheezes, rales, or rhonchi. GASTROINTESTINAL: Abdomen soft, nondistended. Bowel Sounds normoactive x4. Lower abdominal region tender to palpate MUSCULOSKELETAL: Extremities without clubbing, cyanosis, or edema. NEUROLOGICAL: Awake and alert. Hard of hearing. Oriented to place, person. No focal neuro deficit. Moves all extremities. Normal speech. A/P Problem List: (1) Chest pain ICD Code: R07.9 - Chest pain, unspecified Status: Acute (2) Urinary tract infection ICD Code: N39.0 - Urinary tract infection, site not specified Status: Acute (3) Mesenteric artery stenosis ICD Code: K55.1 - Chronic vascular disorders of intestine Assessment and Plan Patient is a 65-year-old female with past medical history of hearing loss, hypertension, CAD, CKD, DM who came into the hospital for evaluation of chest and pelvic pain. SIRS, sepsis secondary to UTI Patient tachycardic, febrile with UA consistent with urinary tract infection Status post 1 dose of Rocephin without improvement Zosyn change to rocephin as patient with persistent fevers, and persistent sepsis. Consult ID for evaluation as with persistent sepsis. Add Flagyl p.o. IV fluid hydration Lactic acid 0.7 Urine culture pending, follow-up results. Urine culture reincubated Blood cultures pending, follow-up results Monitor for signs of shock Chest pain Rule out ACS Reproducible and on the right side of the chest Worse with by mouth intake Protonix EKGs significant for sinus tachycardia without ST segment elevations or depressions, personally reviewed Troponin -- Less than 0.02, 0.03, 0.06--> 0.23 Cardiology consult for further recommendation evaluation Patient not complaining of chest pain at this time. Plan for stress test Diabetes mellitus Sliding scale insulin Check hemoglobin A1c Monitor blood glucose CKD Creatinine 1.65, baseline IVF hydration Monitor renal function CAD/hypertension Continue home medications FEN Heart healthy diet Electrolytes: Monitor and replete when necessary DVT Heparin Discharge Planning Plan to DC home when clinically improved. Possible discharge tomorrow Problem Qualifiers (1) Chest pain: Qualified Codes: R07.9 - Chest pain, unspecified (2) Urinary tract infection: Qualified Codes: N39.0 - Urinary tract infection, site not specified; R31.9 - Hematuria, unspecified Linda Marin MD Jul 21, 2017 11:38
[2017-07-21] MEDS: ACETAMINOPHEN/HYDROcodone 325 MG/5 MG TAB PO PRN (12:25)
[2017-07-21] MEDS: cefTRIAXone INJ 2,000 MG in SODIUM CHLORIDE 0.9% INJ 100 ML IV SCH (12:26)
[2017-07-21] MEDS: TOLTERODINE TARTRATE 2 MG CAP LA PO SCH (12:27)
--- NOTE | 2017-07-21 12:40 | EKG ---
Date Performed: 07/20/2017 Time Performed: 18:56:01 PTAGE: 71 years EKG: Left atrial enlargement LVH with secondary ST-T change Compared to previous tracing, heart rate is slower, otherwise no significant change. ABNORMAL ECG PREVIOUS TRACING : 07/18/2017 23.19 DOCTOR: Beau Garcia Interpretating Date/Time 07/21/2017 12:38:31
[2017-07-21] MEDS ORDERED: METOPROLOL TARTRATE 50 MG TAB PO ONE (13:30)
[2017-07-21] MEDS: ENOXAPARIN SODIUM 30 MG/0.3 ML SYRINGE SQ SCH (15:46)
--- NOTE | 2017-07-21 19:23 | HHI.IDPN ---
Note Infectious Disease Note Patient continues to have abdominal pain. She notes that she has pain whenever she uses the bathroom. She is having loose stools. She denies chest pain. She is afebrile. White blood cell count is normal. Presented to the emergency department with chest pain. She reported chest pain and underwent evaluation of the pain and was found to have lateral cardiac ischemia. She was afebrile on admission. She had acute kidney disease with estimated GFR of 37. The patient had a temperature of 100.4 degrees in the evening of 07/18/2017 and the following day temperature remained low grade elevated with a T max of 101.6 degrees. PAST MEDICAL HISTORY: Hypertension, diabetes mellitus, arthritis, coronary artery disease, chronic kidney disease, hearing impairment, history of iliac stent placement, and history of cardiac catheterization. ALLERGIES: NO KNOWN DRUG ALLERGIES. MEDICATIONS: Current Medications Medications (Trade) Dose Ordered Sig/Peg Route PRN Reason Start Time Stop Time Status Last Admin Dose Admin Sodium Chloride (NS Flush) 2 ml UNSCH PRN IV FLUSH FLUSH AFTER USING IV ACCESS 07/18/17 19:30 07/18/17 20:50 Sodium Chloride (NS Flush) 2 ml BID IV FLUSH 07/18/17 21:00 07/21/17 06:37 Morphine Sulfate (Morphine Inj) 2 mg Q4H PRN IV PUSH BREAKTHROUGH PAIN 07/18/17 19:30 07/19/17 01:02 Ondansetron HCl (Zofran Inj) 4 mg Q6H PRN IV PUSH NAUSEA 07/18/17 19:30 07/18/17 20:55 Nitroglycerin (Nitrostat Sl) 0.4 mg Q5M PRN SL CHEST PAIN 07/18/17 19:30 07/21/17 09:15 Atorvastatin Calcium (Lipitor) 10 mg HS PO 07/19/17 21:00 07/20/17 22:37 Clopidogrel Bisulfate (Plavix) 75 mg DAILY PO 07/19/17 09:00 07/21/17 08:21 Gabapentin (Neurontin) 300 mg TID PO 07/19/17 09:00 07/21/17 17:48 Lisinopril (Prinivil) 40 mg DAILY PO 07/19/17 09:00 07/21/17 08:20 Tolterodine Tartrate (Detrol La) 2 mg DAILY PO 07/19/17 09:00 07/21/17 12:27 Sodium Chloride 1,000 ml @ 100 mls/hr Q10H IV 07/19/17 06:00 07/21/17 06:37 Pantoprazole Sodium (Protonix Inj) 40 mg Q24H IV PUSH 07/19/17 06:00 07/21/17 06:37 Dextrose (D50w (Vial) Inj) 50 ml UNSCH PRN IV PUSH HYPOGLYCEMIA-SEE COMMENTS 07/19/17 06:00 Glucagon (Glucagon Inj) 1 mg UNSCH PRN OTHER HYPOGLYCEMIA-SEE COMMENTS 07/19/17 06:00 Insulin Aspart (NovoLOG SUPPLEMENTAL SCALE) 1 ACHS SLIDING SCALE SQ 07/19/17 08:00 Senna/Docusate Sodium (Lilo-Colace) 1 tab BID PO 07/19/17 11:30 07/21/17 08:20 Magnesium Hydroxide (Milk Of Magnesia Liq) 30 ml Q12H PRN PO Mild constipation 07/19/17 10:30 Sennosides (Senokot) 17.2 mg Q12H PRN PO Moderate constipation 07/19/17 10:30 Bisacodyl (Dulcolax Supp) 10 mg DAILY PRN RECTAL SEVERE CONSITIPATION 07/19/17 10:30 Lactulose (Lactulose Liq) 30 ml DAILY PRN PO SEVERE CONSITIPATION 07/19/17 10:30 Acetaminophen (Tylenol) 650 mg Q4H PRN PO Temp 100.4, BUSTAMANTE, Pain 1-3 07/20/17 08:30 Ceftriaxone Sodium 2000 mg/ Sodium Chloride 100 ml @ 200 mls/hr Q24H IV 07/20/17 10:00 07/21/17 12:26 Isosorbide Mononitrate (Imdur) 60 mg DAILY PO 07/20/17 13:00 07/21/17 08:22 Aspirin (Ecotrin Ec) 81 mg DAILY PO 07/20/17 13:00 07/21/17 08:22 Al Hydrox/Mg Hydrox/Simethicone (Mag-Al Plus Susp Liq) 30 ml Q6H PRN PO Dyspepsia 07/20/17 18:45 Amlodipine Besylate (Norvasc) 10 mg DAILY PO 07/21/17 09:00 07/21/17 08:22 Hydralazine HCl (Apresoline) 75 mg BID PO 07/21/17 09:00 07/21/17 08:20 Acetaminophen/ Hydrocodone Bitart ([place] 5-325 Mg) 1 tab Q4H PRN PO Pain 4-10 07/21/17 12:00 07/21/17 12:25 Enoxaparin Sodium (Lovenox Inj) 30 mg Q24H SQ 07/21/17 12:00 07/21/17 15:46 Metronidazole (Flagyl) 500 mg Q8HR PO 07/21/17 22:00 Metoprolol Succinate (Toprol Xl) 200 mg DAILY PO 07/22/17 09:00 OBJECTIVE: Vital Signs Date Time Temp Pulse Resp B/P (MAP) Pulse Ox O2 Delivery O2 Flow Rate FiO2 07/21/17 16:30 98.1 80 14 176/84 (114) 96 07/21/17 16:22 82 07/21/17 12:31 98.1 92 18 189/79 (115) 95 170/78 (108) 07/21/17 12:31 Room Air 07/21/17 12:15 90 07/21/17 07:35 98.0 96 14 202/87 (125) 94 07/21/17 07:00 97 07/21/17 03:59 98.7 103 17 134/64 (87) 93 07/20/17 23:15 99.6 100 17 170/73 (105) 93 07/20/17 23:12 18 07/20/17 21:36 92 07/20/17 20:26 99.3 94 17 166/73 (104) 95 Laboratory Tests Test 07/20/17 10:55 07/21/17 08:27 White Blood Count 10.9 TH/MM3 7.6 TH/MM3 Red Blood Count 3.12 MIL/MM3 2.97 MIL/MM3 Hemoglobin 9.8 GM/DL 9.0 GM/DL Hematocrit 29.5 % 27.8 % Mean Corpuscular Volume 94.6 FL 93.7 FL Mean Corpuscular Hemoglobin 31.3 PG 30.4 PG Mean Corpuscular Hemoglobin Concent 33.1 % 32.5 % Red Cell Distribution Width 17.3 % 16.8 % Platelet Count 370 TH/MM3 332 TH/MM3 Mean Platelet Volume 7.4 FL 7.4 FL CBC Comment AUTO DIFF Differential Total Cells Counted 100 Neutrophils % (Manual) 58 % Lymphocytes % 27 % Monocytes % 12 % Eosinophils % 3 % Neutrophils # (Manual) 4.4 TH/MM3 Differential Comment FINAL DIFF MANUAL Platelet Estimate NORMAL Platelet Morphology Comment NORMAL Red Cell Morphology Comment NORMAL Laboratory Tests Test 07/20/17 10:55 07/21/17 08:37 Blood Urea Nitrogen 18 MG/DL 12 MG/DL Creatinine 1.70 MG/DL 1.12 MG/DL Random Glucose 105 MG/DL 107 MG/DL Calcium Level 8.9 MG/DL 8.6 MG/DL Sodium Level 140 MEQ/L 143 MEQ/L Potassium Level 4.0 MEQ/L 3.8 MEQ/L Chloride Level 107 MEQ/L 113 MEQ/L Carbon Dioxide Level 23.5 MEQ/L 21.9 MEQ/L Anion Gap 10 MEQ/L 8 MEQ/L Estimat Glomerular Filtration Rate 36 ML/MIN 58 ML/MIN Total Bilirubin 0.6 MG/DL Direct Bilirubin 0.2 MG/DL Indirect Bilirubin 0.4 MG/DL Aspartate Amino Transf (AST/SGOT) 34 U/L Alanine Aminotransferase (ALT/SGPT) 55 U/L Alkaline Phosphatase 101 U/L Total Protein 8.0 GM/DL Albumin 3.1 GM/DL Microbiology Date/Time Source Procedure Growth Status 07/20/17 15:30 Blood Peripheral Aerobic Blood Culture - Preliminary NO GROWTH IN 1 DAY Resulted 07/20/17 15:30 Blood Peripheral Anaerobic Blood Culture - Preliminary NO GROWTH IN 1 DAY Resulted 07/20/17 10:57 Blood Peripheral Aerobic Blood Culture - Preliminary NO GROWTH IN 1 DAY Resulted 07/20/17 10:57 Blood Peripheral Anaerobic Blood Culture - Preliminary NO GROWTH IN 1 DAY Resulted 07/19/17 05:30 Blood Peripheral Aerobic Blood Culture - Preliminary NO GROWTH IN 2 DAYS Resulted 07/19/17 05:30 Blood Peripheral Anaerobic Blood Culture - Preliminary NO GROWTH IN 2 DAYS Resulted 07/19/17 05:04 Blood Peripheral Aerobic Blood Culture - Preliminary NO GROWTH IN 2 DAYS Resulted 07/19/17 05:04 Blood Peripheral Anaerobic Blood Culture - Preliminary NO GROWTH IN 2 DAYS Resulted 07/20/17 10:44 Urine Clean Catch Urine Culture - Preliminary NO GROWTH IN 24 HOURS. Resulted IMAGING: Myocardial Perfusion Scan Nuc Med 07/19/17 0000 Signed Impressions: Service Date/Time: Wednesday, July 19, 2017 14:39 - CONCLUSION: Given the area of reversible perfusion involving the lateral wall and mild hypokinesis of the lateral wall this area is concerning for reversible ischemia despite the normal ejection fraction.. RISK CATEGORY: Intermediate risk due to stress induced moderate perfusion defect without left ventricular dilation. Intermediate risk plates with a 1-3%% annual mortality rate. Millie Shah MD Chest X-Ray 07/18/17 1512 Signed Impressions: Service Date/Time: July 15:29 - CONCLUSION: 1. No acute cardiopulmonary disease. Stone Foy MD CT Angiography 07/18/17 0000 Signed Impressions: Service Date/Time: July 18:29 - CONCLUSION: No pulmonary embolus or other acute abnormality demonstrated. Coronary artery calcification. Mando Mcmahon MD Abdomen/Pelvis CT 07/18/17 0000 Signed Impressions: Service Date/Time: July 18:29 - CONCLUSION: 1. Florid and diffuse diverticulosis of the colon but no acute diverticulitis demonstrated or other acute abnormality. 2. Cysts and vascular calcifications of the kidneys are again noted. No evidence of obstructive uropathy. 3. Aorto iliac atherosclerosis. No aneurysm. Mando Mcmahon MD PHYSICAL EXAMINATION: GENERAL: No acute distress. Looks chronically ill. HEENT: Head is atraumatic. Extraocular movements grossly intact. Pupils reactive to light. No icterus. Oropharynx moist mucosa. No lesions. NECK: Supple. No adenopathy. No swelling. LUNGS: Basilar rhonchi. Breath sounds are diminished. CARDIOVASCULAR: Regular S1 and S2. No murmurs audible. ABDOMEN: Bowel sounds present, soft, severe tenderness on palpation of the right lower quadrant and left lower quadrant. No rebound tenderness. EXTREMITIES: No clubbing, cyanosis or edema. SKIN: No rash. NEUROLOGIC: Alert and oriented. No gross focal findings. PSYCH: Calm and cooperative. IMPRESSION: 1. Fever. Culture is lower. Questionable source. 2. Abdominal pain and tenderness. Probable due to diverticulitis. however the CAT scan shows severe diverticulosis but does not indicate acute diverticulitis. 3. Diarrhea in addition to abdominal pain. Rule out C. difficile. 4. Chronic kidney disease. 5. Polysubstance abuse. RECOMMENDATIONS: 1. Continue ceftriaxone. 2. Monitor blood cultures. 3. Monitor temperature and white blood cell count. 4. Obtain C. difficile test 5. Add Flagyl empiric. 6. Monitor clinical status. Mario Piedra MD Jul 21, 2017 19:23
[2017-07-21] MEDS: ATORVASTATIN 10 MG TAB PO SCH (23:45)
[2017-07-21] MEDS: metroNIDAZOLE 500 MG TAB PO SCH (23:45)
[2017-07-22] MEDS: SODIUM CHLOR 0.9% 1000 ML INJ 1,000 ML IV SCH ×3 (04:00→22:52)
[2017-07-22] MEDS: metroNIDAZOLE 500 MG TAB PO SCH ×3 (04:57→22:50)
[2017-07-22] MEDS: PANTOPRAZOLE SODIUM 40 MG VIAL IV PUSH SCH (04:57)
[2017-07-22 07:56] VITALS: BP 178/82; PULSE 93; RESP 16; TEMP 99.3; O2SAT 95
[2017-07-22] MEDS: INSULIN ASPART SUPPLEMENTAL SCALE SQ SCH ×4 (08:00→21:00)
[2017-07-22] MEDS ORDERED: DOCUSATE SODIUM 50 MG/SENNA 8.6 MG TAB PO PRN (08:00)
[2017-07-22] MEDS: SODIUM CHLORIDE 0.9% FLUSH 10 ML FLUSH IV FLUSH SCH ×2 (09:00→21:00)
[2017-07-22] MEDS ORDERED: METOPROLOL SUCCINATE 50 MG EXTENDED RELEASE TAB PO SCH (09:00)
[2017-07-22] MEDS: CLOPIDOGREL 75 MG TAB PO SCH (11:09)
[2017-07-22] MEDS: ASPIRIN EC 81 MG TABEC PO SCH (11:09)
[2017-07-22] MEDS: GABAPENTIN 300 MG CAP PO SCH ×3 (11:11→18:00)
[2017-07-22] MEDS: ISOSORBIDE MONONITRATE 60 MG CR TAB (IMDUR) PO SCH (11:11)
[2017-07-22] MEDS: hydrALAZINE HCL 25 MG TAB PO SCH ×2 (11:11→22:50)
[2017-07-22] MEDS: METOPROLOL SUCCINATE 50 MG EXTENDED RELEASE TAB PO SCH (11:12)
[2017-07-22] MEDS: LISINOPRIL 20 MG TAB PO SCH (11:12)
[2017-07-22] MEDS: TOLTERODINE TARTRATE 2 MG CAP LA PO SCH (11:13)
[2017-07-22] MEDS ORDERED: DIATRIZOATE MEGLUM/DIATRIZOATE SOD 9 ML CUP PO ONE (11:15)
[2017-07-22 11:24] VITALS: BP 195/87; PULSE 91; RESP 20; TEMP 98.2; O2SAT 95
[2017-07-22 11:47] LABS: AUTOMATED NEUTROPHIL # 5.3 TH/MM3 (1.8-7.7); BASOPHIL % 0.5 % (0.0-2.0); EOSINOPHIL # 0.1 TH/MM3 (0-0.4); EOSINOPHIL % 1.3 % (0.0-4.0); HEMATOCRIT 30.4 % (35.0-46.0); HEMOGLOBIN 9.9 GM/DL (11.6-15.3); LYMPH % 20.2 % (9.0-44.0); LYMPHOCYTE # 1.6 TH/MM3 (1.0-4.8); MEAN CELL VOLUME 92.5 FL (80.0-100.0); MEAN CORPUSCULAR HEMOGLOBIN 30.2 PG (27.0-34.0); MEAN CORPUSCULAR HGB CONC 32.6 % (32.0-36.0); MEAN PLATELET VOLUME 7.7 FL (7.0-11.0); MONO % 12.3 % (0.0-8.0); NEUT % 65.7 % (16.0-70.0); PLATELET COUNT 388 TH/MM3 (150-450); RED BLOOD COUNT 3.28 MIL/MM3 (4.00-5.30); RED CELL DISTRIBUTION WIDTH 17.1 % (11.6-17.2)
[2017-07-22 12:04] LABS: BICARBONATE 25.2 MEQ/L (21.0-32.0); CALCIUM 8.9 MG/DL (8.5-10.1); CREATININE 1.05 MG/DL (0.50-1.00)
[2017-07-22] MEDS: cefTRIAXone INJ 2,000 MG in SODIUM CHLORIDE 0.9% INJ 100 ML IV SCH (12:17)
[2017-07-22] MEDS: ENOXAPARIN SODIUM 30 MG/0.3 ML SYRINGE SQ SCH (14:33)
[2017-07-22 15:32] VITALS: BP 156/66; PULSE 82; RESP 20; TEMP 98.7; O2SAT 91
--- NOTE | 2017-07-22 16:16 | HHI.PR ---
Subjective Remarks The patient is in bed. She was febrile overnight and chills. Still with abdominal pain right lower quadrant nonradiating. No nausea vomiting diarrhea or constipation. Denies chest pain or shortness of breath at this time. Objective Vitals Vital Signs Date Time Temp Pulse Resp B/P (MAP) Pulse Ox O2 Delivery O2 Flow Rate FiO2 07/22/17 15:32 98.7 82 20 156/66 (96) 91 07/22/17 11:24 98.2 91 20 195/87 (123) 95 07/22/17 07:56 99.3 93 16 178/82 (114) 95 07/21/17 21:21 99.7 91 18 163/67 (99) 93 07/21/17 21:11 Room Air 07/21/17 20:24 21 07/21/17 16:30 98.1 80 14 176/84 (114) 96 07/21/17 16:22 82 I/O 07/21/17 07/21/17 07/21/17 07/22/17 07/22/17 07/22/17 07:00 15:00 23:00 07:00 15:00 23:00 Intake Total 450 ml 300 ml 1100 ml Balance 450 ml 300 ml 1100 ml Intake Oral 450 ml 300 ml IV Total 1100 ml # Voids 5 # Bowel Movements 2 Result Diagram: 07/22/17 1102 07/22/17 1102 Imaging Last Impressions Myocardial Perfusion Scan Nuc Med 07/19/17 0000 Signed Impressions: Service Date/Time: Wednesday, July 19, 2017 14:39 - CONCLUSION: Given the area of reversible perfusion involving the lateral wall and mild hypokinesis of the lateral wall this area is concerning for reversible ischemia despite the normal ejection fraction.. RISK CATEGORY: Intermediate risk due to stress induced moderate perfusion defect without left ventricular dilation. Intermediate risk plates with a 1-3%% annual mortality rate. Millie Shah MD Chest X-Ray 07/18/17 1512 Signed Impressions: Service Date/Time: July 15:29 - CONCLUSION: 1. No acute cardiopulmonary disease. Stone Foy MD CT Angiography 07/18/17 0000 Signed Impressions: Service Date/Time: July 18:29 - CONCLUSION: No pulmonary embolus or other acute abnormality demonstrated. Coronary artery calcification. Mando Mcmahon MD Abdomen/Pelvis CT 07/18/17 0000 Signed Impressions: Service Date/Time: July 18:29 - CONCLUSION: 1. Florid and diffuse diverticulosis of the colon but no acute diverticulitis demonstrated or other acute abnormality. 2. Cysts and vascular calcifications of the kidneys are again noted. No evidence of obstructive uropathy. 3. Aorto iliac atherosclerosis. No aneurysm. Mando Mcmahon MD Objective Remarks GENERAL: This is an obese, well-developed patient, in no apparent distress. SKIN: Warm and dry. HEENT: Normocephalic. Pupils equal round and reactive. Nose without bleeding. Airway patent. NECK: Trachea midline. . CARDIOVASCULAR: Tachycardia without murmurs, gallops, or rubs. RESPIRATORY: Diminished breath sounds, no wheezes, rales, or rhonchi. GASTROINTESTINAL: Abdomen soft, nondistended. Bowel Sounds normoactive x4. Lower abdominal region tender to palpate MUSCULOSKELETAL: Extremities without clubbing, cyanosis, or edema. NEUROLOGICAL: Awake and alert. Hard of hearing. Oriented to place, person. No focal neuro deficit. Moves all extremities. Normal speech. A/P Problem List: (1) Chest pain ICD Code: R07.9 - Chest pain, unspecified Status: Acute (2) Urinary tract infection ICD Code: N39.0 - Urinary tract infection, site not specified Status: Acute (3) Mesenteric artery stenosis ICD Code: K55.1 - Chronic vascular disorders of intestine Assessment and Plan Patient is a 65-year-old female with past medical history of hearing loss, hypertension, CAD, CKD, DM who came into the hospital for evaluation of chest and pelvic pain. SIRS, sepsis secondary to UTI Patient tachycardic, febrile with UA consistent with urinary tract infection Status post 1 dose of Rocephin without improvement Zosyn change to rocephin as patient with persistent fevers, and persistent sepsis. Consult ID for evaluation as with persistent sepsis. Added Flagyl p.o. IV fluid hydration Lactic acid 0.7 Urine culture pending, follow-up results. Urine culture reincubated Blood cultures pending, follow-up results Monitor for signs of shock Spikes of fevers overnight 07/22. Patient with abd pain plan to repeat CT abd/ pelvis. Discussed with Dr Piedra Chest pain Rule out ACS Reproducible and on the right side of the chest Worse with by mouth intake Protonix EKGs significant for sinus tachycardia without ST segment elevations or depressions, personally reviewed Troponin -- Less than 0.02, 0.03, 0.06--> 0.23 Cardiology consult for further recommendation evaluation Patient not complaining of chest pain at this time. Plan for stress test Diabetes mellitus Sliding scale insulin Check hemoglobin A1c Monitor blood glucose CKD Creatinine 1.65, baseline IVF hydration Monitor renal function CAD/hypertension Continue home medications FEN Heart healthy diet Electrolytes: Monitor and replete when necessary DVT Heparin Discharge Planning Plan to DC home when clinically improved. Still with fevers, still with abd pain not ready for DC Plan repeat CT A/P. ID ff Problem Qualifiers (1) Chest pain: Qualified Codes: R07.9 - Chest pain, unspecified (2) Urinary tract infection: Qualified Codes: N39.0 - Urinary tract infection, site not specified; R31.9 - Hematuria, unspecified Linda Marin MD Jul 22, 2017 16:15
--- NOTE | 2017-07-22 18:01 | HHI.IDPN ---
Note Infectious Disease Note Patient continues to have abdominal pain. Still has pain whenever she uses the bathroom. Continues to have loose stools. She denies chest pain. She has low-grade fever. Stool C. difficile is pending. Results of repeat CT scan pending. Presented to the emergency department with chest pain. She reported chest pain and underwent evaluation of the pain and was found to have lateral cardiac ischemia. She was afebrile on admission. She had acute kidney disease with estimated GFR of 37. The patient had a temperature of 100.4 degrees in the evening of 07/18/2017 and the following day temperature remained low grade elevated with a T max of 101.6 degrees. PAST MEDICAL HISTORY: Hypertension, diabetes mellitus, arthritis, coronary artery disease, chronic kidney disease, hearing impairment, history of iliac stent placement, and history of cardiac catheterization. ALLERGIES: NO KNOWN DRUG ALLERGIES. MEDICATIONS: Current Medications Medications (Trade) Dose Ordered Sig/Peg Route PRN Reason Start Time Stop Time Status Last Admin Dose Admin Sodium Chloride (NS Flush) 2 ml UNSCH PRN IV FLUSH FLUSH AFTER USING IV ACCESS 07/18/17 19:30 07/18/17 20:50 Sodium Chloride (NS Flush) 2 ml BID IV FLUSH 07/18/17 21:00 07/22/17 09:00 Morphine Sulfate (Morphine Inj) 2 mg Q4H PRN IV PUSH BREAKTHROUGH PAIN 07/18/17 19:30 07/19/17 01:02 Ondansetron HCl (Zofran Inj) 4 mg Q6H PRN IV PUSH NAUSEA 07/18/17 19:30 07/18/17 20:55 Nitroglycerin (Nitrostat Sl) 0.4 mg Q5M PRN SL CHEST PAIN 07/18/17 19:30 07/21/17 09:15 Atorvastatin Calcium (Lipitor) 10 mg HS PO 07/19/17 21:00 07/21/17 23:45 Clopidogrel Bisulfate (Plavix) 75 mg DAILY PO 07/19/17 09:00 07/22/17 11:09 Gabapentin (Neurontin) 300 mg TID PO 07/19/17 09:00 07/22/17 14:31 Lisinopril (Prinivil) 40 mg DAILY PO 07/19/17 09:00 07/22/17 11:12 Tolterodine Tartrate (Detrol La) 2 mg DAILY PO 07/19/17 09:00 07/22/17 11:13 Sodium Chloride 1,000 ml @ 100 mls/hr Q10H IV 07/19/17 06:00 07/21/17 06:37 Pantoprazole Sodium (Protonix Inj) 40 mg Q24H IV PUSH 07/19/17 06:00 07/22/17 04:57 Dextrose (D50w (Vial) Inj) 50 ml UNSCH PRN IV PUSH HYPOGLYCEMIA-SEE COMMENTS 07/19/17 06:00 Glucagon (Glucagon Inj) 1 mg UNSCH PRN OTHER HYPOGLYCEMIA-SEE COMMENTS 07/19/17 06:00 Insulin Aspart (NovoLOG SUPPLEMENTAL SCALE) 1 ACHS SLIDING SCALE SQ 07/19/17 08:00 Magnesium Hydroxide (Milk Of Magnesia Liq) 30 ml Q12H PRN PO Mild constipation 07/19/17 10:30 Sennosides (Senokot) 17.2 mg Q12H PRN PO Moderate constipation 07/19/17 10:30 Bisacodyl (Dulcolax Supp) 10 mg DAILY PRN RECTAL SEVERE CONSITIPATION 07/19/17 10:30 Lactulose (Lactulose Liq) 30 ml DAILY PRN PO SEVERE CONSITIPATION 07/19/17 10:30 Acetaminophen (Tylenol) 650 mg Q4H PRN PO Temp 100.4, BUSTAMANTE, Pain 1-3 07/20/17 08:30 Ceftriaxone Sodium 2000 mg/ Sodium Chloride 100 ml @ 200 mls/hr Q24H IV 07/20/17 10:00 07/22/17 12:17 Isosorbide Mononitrate (Imdur) 60 mg DAILY PO 07/20/17 13:00 07/22/17 11:11 Aspirin (Ecotrin Ec) 81 mg DAILY PO 07/20/17 13:00 07/22/17 11:09 Al Hydrox/Mg Hydrox/Simethicone (Mag-Al Plus Susp Liq) 30 ml Q6H PRN PO Dyspepsia 07/20/17 18:45 Amlodipine Besylate (Norvasc) 10 mg DAILY PO 07/21/17 09:00 07/22/17 11:11 Hydralazine HCl (Apresoline) 75 mg BID PO 07/21/17 09:00 07/22/17 11:11 Acetaminophen/ Hydrocodone Bitart ([place] 5-325 Mg) 1 tab Q4H PRN PO Pain 4-10 07/21/17 12:00 07/21/17 12:25 Enoxaparin Sodium (Lovenox Inj) 30 mg Q24H SQ 07/21/17 12:00 07/22/17 14:33 Metronidazole (Flagyl) 500 mg Q8HR PO 07/21/17 22:00 07/22/17 14:31 Metoprolol Succinate (Toprol Xl) 200 mg DAILY PO 07/22/17 09:00 07/22/17 11:12 Senna/Docusate Sodium (Lilo-Colace) 1 tab BID PRN PO Mild constipation 07/22/17 08:00 OBJECTIVE: Vital Signs Date Time Temp Pulse Resp B/P (MAP) Pulse Ox O2 Delivery O2 Flow Rate FiO2 07/22/17 15:32 98.7 82 20 156/66 (96) 91 07/22/17 11:24 98.2 91 20 195/87 (123) 95 07/22/17 07:56 99.3 93 16 178/82 (114) 95 07/21/17 21:21 99.7 91 18 163/67 (99) 93 07/21/17 21:11 Room Air 07/21/17 20:24 21 Laboratory Tests Test 07/21/17 08:27 07/22/17 11:02 White Blood Count 7.6 TH/MM3 8.0 TH/MM3 Red Blood Count 2.97 MIL/MM3 3.28 MIL/MM3 Hemoglobin 9.0 GM/DL 9.9 GM/DL Hematocrit 27.8 % 30.4 % Mean Corpuscular Volume 93.7 FL 92.5 FL Mean Corpuscular Hemoglobin 30.4 PG 30.2 PG Mean Corpuscular Hemoglobin Concent 32.5 % 32.6 % Red Cell Distribution Width 16.8 % 17.1 % Platelet Count 332 TH/MM3 388 TH/MM3 Mean Platelet Volume 7.4 FL 7.7 FL CBC Comment AUTO DIFF DIFF FINAL Differential Total Cells Counted 100 Neutrophils % (Manual) 58 % Lymphocytes % 27 % Monocytes % 12 % Eosinophils % 3 % Neutrophils # (Manual) 4.4 TH/MM3 Differential Comment FINAL DIFF MANUAL Platelet Estimate NORMAL Platelet Morphology Comment NORMAL Red Cell Morphology Comment NORMAL Neutrophils (%) (Auto) 65.7 % Lymphocytes (%) (Auto) 20.2 % Monocytes (%) (Auto) 12.3 % Eosinophils (%) (Auto) 1.3 % Basophils (%) (Auto) 0.5 % Neutrophils # (Auto) 5.3 TH/MM3 Lymphocytes # (Auto) 1.6 TH/MM3 Monocytes # (Auto) 1.0 TH/MM3 Eosinophils # (Auto) 0.1 TH/MM3 Basophils # (Auto) 0.0 TH/MM3 Laboratory Tests Test 07/21/17 08:37 07/22/17 11:02 Blood Urea Nitrogen 12 MG/DL 12 MG/DL Creatinine 1.12 MG/DL 1.05 MG/DL Random Glucose 107 MG/DL 97 MG/DL Calcium Level 8.6 MG/DL 8.9 MG/DL Sodium Level 143 MEQ/L 140 MEQ/L Potassium Level 3.8 MEQ/L 3.5 MEQ/L Chloride Level 113 MEQ/L 107 MEQ/L Carbon Dioxide Level 21.9 MEQ/L 25.2 MEQ/L Anion Gap 8 MEQ/L 8 MEQ/L Estimat Glomerular Filtration Rate 58 ML/MIN 63 ML/MIN Microbiology Date/Time Source Procedure Growth Status 07/20/17 15:30 Blood Peripheral Aerobic Blood Culture - Preliminary NO GROWTH IN 2 DAYS Resulted 07/20/17 15:30 Blood Peripheral Anaerobic Blood Culture - Preliminary NO GROWTH IN 2 DAYS Resulted 07/20/17 10:57 Blood Peripheral Aerobic Blood Culture - Preliminary NO GROWTH IN 2 DAYS Resulted 07/20/17 10:57 Blood Peripheral Anaerobic Blood Culture - Preliminary NO GROWTH IN 2 DAYS Resulted 07/20/17 10:44 Urine Clean Catch Urine Culture - Final NO GROWTH IN 48 HOURS. Complete IMAGING: Myocardial Perfusion Scan Nuc Med 07/19/17 0000 Signed Impressions: Service Date/Time: Wednesday, July 19, 2017 14:39 - CONCLUSION: Given the area of reversible perfusion involving the lateral wall and mild hypokinesis of the lateral wall this area is concerning for reversible ischemia despite the normal ejection fraction.. RISK CATEGORY: Intermediate risk due to stress induced moderate perfusion defect without left ventricular dilation. Intermediate risk plates with a 1-3%% annual mortality rate. Millie Shah MD Chest X-Ray 07/18/17 1512 Signed Impressions: Service Date/Time: July 15:29 - CONCLUSION: 1. No acute cardiopulmonary disease. Stone Foy MD CT Angiography 07/18/17 0000 Signed Impressions: Service Date/Time: July 18:29 - CONCLUSION: No pulmonary embolus or other acute abnormality demonstrated. Coronary artery calcification. Mando Mcmahon MD Abdomen/Pelvis CT 07/18/17 0000 Signed Impressions: Service Date/Time: July 18:29 - CONCLUSION: 1. [place] and diffuse diverticulosis of the colon but no acute diverticulitis demonstrated or other acute abnormality. 2. Cysts and vascular calcifications of the kidneys are again noted. No evidence of obstructive uropathy. 3. Aorto iliac atherosclerosis. No aneurysm. Mando Mcmahon MD PHYSICAL EXAMINATION: GENERAL: No acute distress. Looks chronically ill. HEENT: Head is atraumatic. Extraocular movements grossly intact. Pupils reactive to light. No icterus. Oropharynx moist mucosa. No lesions. NECK: Supple. No adenopathy. No swelling. LUNGS: Decreased breath sounds. CARDIOVASCULAR: Regular S1 and S2. No murmurs audible. ABDOMEN: Bowel sounds present, soft, moderate tenderness on palpation of the right lower quadrant and left lower quadrant. No rebound tenderness. EXTREMITIES: No clubbing, cyanosis or edema. SKIN: No rash. NEUROLOGIC: Alert and oriented. No gross focal findings. PSYCH: Calm and cooperative. IMPRESSION: 1. Fever. Culture is lower. Questionable source. 2. Abdominal pain and tenderness. Probable due to diverticulitis. however the CAT scan shows severe diverticulosis but does not indicate acute diverticulitis. 3. Diarrhea in addition to abdominal pain. Rule out C. difficile. 4. Chronic kidney disease. 5. Polysubstance abuse. RECOMMENDATIONS: 1. Ceftriaxone to ciprofloxacin IV. 2. Monitor blood cultures. 3. Monitor temperature and white blood cell count. 4. Obtain C. difficile test 5. Continue Flagyl empiric. 6. Monitor clinical status. 7. Follow CT scan. Mario Piedra MD Jul 22, 2017 18:01
[2017-07-22] MEDS ORDERED: IOHEXOL 350 MG/ML 10 ML VIAL (for RAD DIAG) IVCONTRAST ONE (18:14)
--- NOTE | 2017-07-22 18:34 | RADRPT ---
EXAM DATE/TIME: 07/22/2017 18:12 [facility] COMPARISON: No previous studies available for comparison. INDICATIONS : Right lower quadrant pain. IV CONTRAST: 100 cc Omnipaque 350 (iohexol) IV ORAL CONTRAST: Partial prescribed oral contrast ingested. RADIATION DOSE: 7.24 CTDIvol (mGy) MEDICAL HISTORY : Cardiovascular disease. Hypertension. Renal failure. SURGICAL HISTORY : section. ENCOUNTER: Subsequent ACUITY: 4 - 6 days PAIN SCALE: 8/10 LOCATION: Right lower quadrant TECHNIQUE: Volumetric scanning of the abdomen and pelvis was performed. Using automated exposure control and ad justment of the mA and/or kV according to patient size, radiation dose was kept as low as reasonably achievable to obtain optimal diagnostic quality images. DICOM format image data is available electro nically for review and comparison. FINDINGS: Lung bases are clear. No acute findings in the liver, spleen, adrenals or pancreas. Right kidney unre markable. 3.7 cm cyst left kidney. There is colonic diverticulosis without evidence for diverticulitis. Appendix appears normal. CONCLUSION: 1. No acute findings. Colonic diverticulosis without evidence for diverticulitis. Left renal cyst. Wayne Parra MD on July 22, 2017 at 18:28 Board Certified Radiologist. This report was verified electronically.
[2017-07-22 20:03] VITALS: BP 135/69; PULSE 81; RESP 18; TEMP 99.4; O2SAT 94
[2017-07-22] MEDS: ACETAMINOPHEN/HYDROcodone 325 MG/5 MG TAB PO PRN (22:50)
[2017-07-22] MEDS: ATORVASTATIN 10 MG TAB PO SCH (22:50)
[2017-07-23] MEDS: MORPHINE SULFATE 4 MG/ML INJ IV PUSH PRN (00:59)
[2017-07-23 04:00] VITALS: PULSE 78
[2017-07-23 04:59] VITALS: BP 161/74; PULSE 80; RESP 18; TEMP 98.3; O2SAT 98
[2017-07-23] MEDS: SODIUM CHLOR 0.9% 1000 ML INJ 1,000 ML IV SCH ×2 (05:50→17:18)
[2017-07-23] MEDS: PANTOPRAZOLE SODIUM 40 MG VIAL IV PUSH SCH (05:51)
[2017-07-23] MEDS: metroNIDAZOLE 500 MG TAB PO SCH ×2 (05:51→17:17)
[2017-07-23 07:43] LABS: AUTOMATED NEUTROPHIL # 4.2 TH/MM3 (1.8-7.7); BASOPHIL % 0.5 % (0.0-2.0); EOSINOPHIL # 0.2 TH/MM3 (0-0.4); EOSINOPHIL % 2.5 % (0.0-4.0); HEMATOCRIT 28.9 % (35.0-46.0); HEMOGLOBIN 9.6 GM/DL (11.6-15.3); LYMPH % 16.7 % (9.0-44.0); LYMPHOCYTE # 1.1 TH/MM3 (1.0-4.8); MEAN CELL VOLUME 92.9 FL (80.0-100.0); MEAN CORPUSCULAR HEMOGLOBIN 30.9 PG (27.0-34.0); MEAN CORPUSCULAR HGB CONC 33.3 % (32.0-36.0); MEAN PLATELET VOLUME 7.8 FL (7.0-11.0); MONO % 12.8 % (0.0-8.0); MONOCYTE # 0.8 TH/MM3 (0-0.9); NEUT % 67.5 % (16.0-70.0); PLATELET COUNT 369 TH/MM3 (150-450); RED BLOOD COUNT 3.11 MIL/MM3 (4.00-5.30); RED CELL DISTRIBUTION WIDTH 16.8 % (11.6-17.2); WHITE BLOOD COUNT 6.3 TH/MM3 (4.0-11.0)
[2017-07-23] MEDS: INSULIN ASPART SUPPLEMENTAL SCALE SQ SCH ×3 (08:00→17:00)
[2017-07-23 08:03] LABS: BICARBONATE 24.2 MEQ/L (21.0-32.0); CALCIUM 8.9 MG/DL (8.5-10.1); CREATININE 1.08 MG/DL (0.50-1.00)
[2017-07-23 08:48] VITALS: BP 195/83; PULSE 82; RESP 16; TEMP 98; O2SAT 97
[2017-07-23] MEDS: SODIUM CHLORIDE 0.9% FLUSH 10 ML FLUSH IV FLUSH SCH (09:00)
[2017-07-23] MEDS: cefTRIAXone INJ 2,000 MG in SODIUM CHLORIDE 0.9% INJ 100 ML IV SCH (09:48)
[2017-07-23] MEDS: GABAPENTIN 300 MG CAP PO SCH ×3 (09:53→17:17)
[2017-07-23] MEDS: ASPIRIN EC 81 MG TABEC PO SCH (09:53)
[2017-07-23] MEDS: hydrALAZINE HCL 25 MG TAB PO SCH (09:56)
[2017-07-23] MEDS: CLOPIDOGREL 75 MG TAB PO SCH (09:56)
[2017-07-23] MEDS: TOLTERODINE TARTRATE 2 MG CAP LA PO SCH (09:56)
--- NOTE | 2017-07-23 10:57 | HHI.DS ---
Discharge Summary Admission Date Jul 19, 2017 at 05:29 Discharge Date: Jul 23, 2017 Admitting Diagnosis CHEST PAIN, UTI (1) Chest pain ICD Code: R07.9 - Chest pain, unspecified Status: Acute (2) Urinary tract infection ICD Code: N39.0 - Urinary tract infection, site not specified Status: Acute (3) Mesenteric artery stenosis ICD Code: K55.1 - Chronic vascular disorders of intestine Procedures none Brief History - From Admission 71-year-old female with a past medical history significant for hearing loss, hypertension, CAD, CKD and diabetes mellitus presents to the emergency department for evaluation of chest and pelvic pain. The patient states her chest pain is on the right side and is reproducible with palpation. She states her chest pain is also worse when she eats. The patient also complains of lower abdominal/pelvic pain and burning with urination. She has been persistently tachycardic since her arrival to the emergency department with a MAXIMUM TEMPERATURE of 100.4. The patient reports subjective fever/chills. She denies shortness of breath or diaphoresis. No weakness or lateralizing signs/symptoms. Patient was initially treated with Rocephin for a UTI and admitted to the chest pain center for further evaluation. Upon reviewing her records, the patient was transferred to the medicine service for treatment of urosepsis. CBC/BMP: 07/23/17 0632 07/23/17 0632 Significant Findings Laboratory Tests Test 07/21/17 08:27 07/21/17 08:37 07/22/17 11:02 07/22/17 17:12 Red Blood Count 2.97 MIL/MM3 (4.00-5.30) 3.28 MIL/MM3 (4.00-5.30) Hemoglobin 9.0 GM/DL (11.6-15.3) 9.9 GM/DL (11.6-15.3) Hematocrit 27.8 % (35.0-46.0) 30.4 % (35.0-46.0) Monocytes % 12 % (0-8) Creatinine 1.12 MG/DL (0.50-1.00) 1.05 MG/DL (0.50-1.00) Random Glucose 107 MG/DL (74-106) Chloride Level 113 MEQ/L (98-107) Estimat Glomerular Filtration Rate 58 ML/MIN (>89) 63 ML/MIN (>89) Monocytes (%) (Auto) 12.3 % (0.0-8.0) Monocytes # (Auto) 1.0 TH/MM3 (0-0.9) Test 07/23/17 06:32 Red Blood Count 3.11 MIL/MM3 (4.00-5.30) Hemoglobin 9.6 GM/DL (11.6-15.3) Hematocrit 28.9 % (35.0-46.0) Monocytes (%) (Auto) 12.8 % (0.0-8.0) Creatinine 1.08 MG/DL (0.50-1.00) Random Glucose 119 MG/DL (74-106) Chloride Level 109 MEQ/L (98-107) Estimat Glomerular Filtration Rate 61 ML/MIN (>89) Imaging Last Impressions Abdomen/Pelvis CT 07/22/17 0000 Signed Impressions: Service Date/Time: Saturday, July 22, 2017 18:12 - CONCLUSION: 1. No acute findings. Colonic diverticulosis without evidence for diverticulitis. Left renal cyst. Wayne Parra MD Myocardial Perfusion Scan Nuc Med 07/19/17 0000 Signed Impressions: Service Date/Time: Wednesday, July 19, 2017 14:39 - CONCLUSION: Given the area of reversible perfusion involving the lateral wall and mild hypokinesis of the lateral wall this area is concerning for reversible ischemia despite the normal ejection fraction.. RISK CATEGORY: Intermediate risk due to stress induced moderate perfusion defect without left ventricular dilation. Intermediate risk plates with a 1-3%% annual mortality rate. Millie Shah MD Chest X-Ray 07/18/17 1512 Signed Impressions: Service Date/Time: July 15:29 - CONCLUSION: 1. No acute cardiopulmonary disease. Stone Foy MD CT Angiography 07/18/17 0000 Signed Impressions: Service Date/Time: July 18:29 - CONCLUSION: No pulmonary embolus or other acute abnormality demonstrated. Coronary artery calcification. Mando Mcmahon MD PE at Discharge GENERAL: This is an obese, well-developed patient, in no apparent distress. SKIN: Warm and dry. HEENT: Normocephalic. Pupils equal round and reactive. Nose without bleeding. Airway patent. NECK: Trachea midline. . CARDIOVASCULAR: Tachycardia without murmurs, gallops, or rubs. RESPIRATORY: Diminished breath sounds, no wheezes, rales, or rhonchi. GASTROINTESTINAL: Abdomen soft, nondistended. Bowel Sounds normoactive x4. Lower abdominal region tender to palpate MUSCULOSKELETAL: Extremities without clubbing, cyanosis, or edema. NEUROLOGICAL: Awake and alert. Hard of hearing. Oriented to place, person. No focal neuro deficit. Moves all extremities. Normal speech. Hospital Course Urine culture pending, follow-up results. Urine culture reincubated, Negative Blood cultures NTD, follow-up results Monitor for signs of shock Spikes of fevers overnight 07/22. Patient with abd pain plan to repeat CT abd/ pelvis. CT repeat no changes. Discussed with Dr Piedra . DC on flagyl po . p.o. Flagyl 500 mg 3 times daily for 5 days per ID Chest pain Rule out ACS Reproducible and on the right side of the chest Worse with by mouth intake Protonix EKGs significant for sinus tachycardia without ST segment elevations or depressions, personally reviewed Troponin -- Less than 0.02, 0.03, 0.06--> 0.23 Cardiology consult for further recommendation evaluation Patient not complaining of chest pain at this time. Plan for stress test Diabetes mellitus Sliding scale insulin Check hemoglobin A1c Monitor blood glucose CKD Creatinine 1.65, baseline IVF hydration Monitor renal function CAD/hypertension Continue home medications FEN Heart healthy diet Electrolytes: Monitor and replete when necessary DVT Heparin Discharge Planning Plan to [place] home. Clinically improving. Cleared by infectious disease for discharge. Pt Condition on Discharge: Stable Discharge Disposition: Disch w/ Home Health Serv Discharge Time: > 30 minutes Discharge Instructions DIET: Follow Instructions for: Heart Healthy Diet Activities you can perform: Regular-No Restrictions Follow up Referrals: Cardiology - 2 Weeks PCP Follow-up - 2-3 Days New Medications: Amlodipine (Amlodipine) 10 Mg Tab 10 MG PO DAILY for Blood Pressure Management, #30 TAB 0 Refills Aspirin (Aspirin) 81 Mg Chew 81 MG CHEW ONCE for Blood Clot Prevention, #30 TAB 0 Refills Isosorbide Mononitrate ER (Isosorbide Mononitrate ER) 60 Mg Tab 60 MG PO DAILY for Prevent Chest Pain, #30 TAB 0 Refills Nitroglycerin SL (Nitroglycerin SL) 0.4 Mg Subl 0.4 MG SL DIRECTED PRN for CHEST PAIN, #100 TAB.SL 0 Refills ONE TABLET UNDER THE TONGUE NEEDED FOR CHEST PAIN, MAY REPEAT EVERY FIVE MINUTES FOR A TOTAL OF 3 DOSES OR CALL 911 IF NO RELIEF Metronidazole (Flagyl) 500 Mg Tab 500 MG PO Q8HR for Infection for 5 Days, #15 TAB Changed Medications: Hydralazine HCl (Hydralazine HCl) 25 Mg Tablet 75 MG PO BID for Blood Pressure Management, #60 TAB 0 Refills (Changed from: 50 MG) Metoprolol Succinate ER 24 HR (Toprol XL) 100 Mg Tab 200 MG PO DAILY for Blood Pressure Management, #30 TAB 0 Refills (Changed from: 100 MG) Continued Medications: Atorvastatin (Atorvastatin) 10 Mg Tab 10 MG PO HS for Cholesterol Management, #30 TAB 0 Refills Clopidogrel (Clopidogrel) 75 Mg Tab 75 MG PO DAILY for Blood Clot Prevention, #30 TAB 0 Refills Dicyclomine (Dicyclomine) 20 Mg Tab 20 MG PO TID for Bowel Management, #90 TAB 0 Refills Gabapentin (Gabapentin) 300 Mg Cap 300 MG PO TID, #90 CAP 0 Refills Lisinopril (Lisinopril) 40 Mg Tab 40 MG PO DAILY for Blood Pressure Management, #30 TAB 0 Refills Meclizine (Meclizine) 25 Mg Tab 25 MG PO TID PRN for VERTIGO, TAB 0 Refills Tolterodine (Tolterodine) 1 Mg Tab 1 MG PO BID for Urinary Symptom Managemen, #60 TAB 0 Refills Linda Marin MD Jul 23, 2017 10:57
[2017-07-23] MEDS ORDERED: hydrALAZINE HCL 10 MG TAB PO PRN (11:00)
[2017-07-23] MEDS: ISOSORBIDE MONONITRATE 60 MG CR TAB (IMDUR) PO SCH (11:39)
[2017-07-23] MEDS: LISINOPRIL 20 MG TAB PO SCH (11:40)
[2017-07-23] MEDS: METOPROLOL SUCCINATE 50 MG EXTENDED RELEASE TAB PO SCH (11:40)
[2017-07-23] MEDS: ENOXAPARIN SODIUM 30 MG/0.3 ML SYRINGE SQ SCH (11:47)
[2017-07-23] MEDS ORDERED: METR-1 PO (15:23)
--- NOTE | 2017-07-23 15:34 | HHI.IDPN ---
Note Infectious Disease Note Patient has less abdominal pain. Continues to have loose stools. Stool C. difficile negative. She denies chest pain. Temperature improved. CT scan without evidence of diverticulitis. Presented to the emergency department with chest pain. She reported chest pain and underwent evaluation of the pain and was found to have lateral cardiac ischemia. She was afebrile on admission. She had acute kidney disease with estimated GFR of 37. The patient had a temperature of 100.4 degrees in the evening of 07/18/2017 and the following day temperature remained low grade elevated with a T max of 101.6 degrees. PAST MEDICAL HISTORY: Hypertension, diabetes mellitus, arthritis, coronary artery disease, chronic kidney disease, hearing impairment, history of iliac stent placement, and history of cardiac catheterization. ALLERGIES: NO KNOWN DRUG ALLERGIES. MEDICATIONS: Current Medications Medications (Trade) Dose Ordered Sig/Peg Route PRN Reason Start Time Stop Time Status Last Admin Dose Admin Sodium Chloride (NS Flush) 2 ml UNSCH PRN IV FLUSH FLUSH AFTER USING IV ACCESS 07/18/17 19:30 07/18/17 20:50 Sodium Chloride (NS Flush) 2 ml BID IV FLUSH 07/18/17 21:00 07/23/17 09:00 Morphine Sulfate (Morphine Inj) 2 mg Q4H PRN IV PUSH BREAKTHROUGH PAIN 07/18/17 19:30 07/23/17 00:59 Ondansetron HCl (Zofran Inj) 4 mg Q6H PRN IV PUSH NAUSEA 07/18/17 19:30 07/18/17 20:55 Nitroglycerin (Nitrostat Sl) 0.4 mg Q5M PRN SL CHEST PAIN 07/18/17 19:30 07/21/17 09:15 Atorvastatin Calcium (Lipitor) 10 mg HS PO 07/19/17 21:00 07/22/17 22:50 Clopidogrel Bisulfate (Plavix) 75 mg DAILY PO 07/19/17 09:00 07/23/17 09:56 Gabapentin (Neurontin) 300 mg TID PO 07/19/17 09:00 07/23/17 09:53 Lisinopril (Prinivil) 40 mg DAILY PO 07/19/17 09:00 07/23/17 11:40 Tolterodine Tartrate (Detrol La) 2 mg DAILY PO 07/19/17 09:00 07/23/17 09:56 Sodium Chloride 1,000 ml @ 100 mls/hr Q10H IV 07/19/17 06:00 07/23/17 05:50 Pantoprazole Sodium (Protonix Inj) 40 mg Q24H IV PUSH 07/19/17 06:00 07/23/17 05:51 Dextrose (D50w (Vial) Inj) 50 ml UNSCH PRN IV PUSH HYPOGLYCEMIA-SEE COMMENTS 07/19/17 06:00 Glucagon (Glucagon Inj) 1 mg UNSCH PRN OTHER HYPOGLYCEMIA-SEE COMMENTS 07/19/17 06:00 Insulin Aspart (NovoLOG SUPPLEMENTAL SCALE) 1 ACHS SLIDING SCALE SQ 07/19/17 08:00 07/23/17 08:00 Magnesium Hydroxide (Milk Of Magnesia Liq) 30 ml Q12H PRN PO Mild constipation 07/19/17 10:30 Sennosides (Senokot) 17.2 mg Q12H PRN PO Moderate constipation 07/19/17 10:30 Bisacodyl (Dulcolax Supp) 10 mg DAILY PRN RECTAL SEVERE CONSITIPATION 07/19/17 10:30 Lactulose (Lactulose Liq) 30 ml DAILY PRN PO SEVERE CONSITIPATION 07/19/17 10:30 Acetaminophen (Tylenol) 650 mg Q4H PRN PO Temp 100.4, BUSTAMANTE, Pain 1-3 07/20/17 08:30 Ceftriaxone Sodium 2000 mg/ Sodium Chloride 100 ml @ 200 mls/hr Q24H IV 07/20/17 10:00 07/23/17 09:48 Isosorbide Mononitrate (Imdur) 60 mg DAILY PO 07/20/17 13:00 07/23/17 11:39 Aspirin (Ecotrin Ec) 81 mg DAILY PO 07/20/17 13:00 07/23/17 09:53 Al Hydrox/Mg Hydrox/Simethicone (Mag-Al Plus Susp Liq) 30 ml Q6H PRN PO Dyspepsia 07/20/17 18:45 Amlodipine Besylate (Norvasc) 10 mg DAILY PO 07/21/17 09:00 07/23/17 09:56 Hydralazine HCl (Apresoline) 75 mg BID PO 07/21/17 09:00 07/23/17 09:56 Acetaminophen/ Hydrocodone Bitart (Berne 5-325 Mg) 1 tab Q4H PRN PO Pain 4-10 07/21/17 12:00 07/22/17 22:50 Enoxaparin Sodium (Lovenox Inj) 30 mg Q24H SQ 07/21/17 12:00 07/23/17 11:47 Metronidazole (Flagyl) 500 mg Q8HR PO 07/21/17 22:00 07/23/17 05:51 Metoprolol Succinate (Toprol Xl) 200 mg DAILY PO 07/22/17 09:00 07/23/17 11:40 Senna/Docusate Sodium (Lilo-Colace) 1 tab BID PRN PO Mild constipation 07/22/17 08:00 Hydralazine HCl (Apresoline) 10 mg Q6H PRN PO SBP>160, DBP>90 07/23/17 11:00 OBJECTIVE: Vital Signs Date Time Temp Pulse Resp B/P (MAP) Pulse Ox O2 Delivery O2 Flow Rate FiO2 07/23/17 08:48 98.0 82 16 195/83 (120) 97 07/23/17 04:59 98.3 80 18 161/74 (103) 98 07/23/17 04:00 78 07/22/17 21:50 Room Air 07/22/17 20:03 99.4 81 18 135/69 (91) 94 07/22/17 15:32 98.7 82 20 156/66 (96) 91 Laboratory Tests Test 07/22/17 11:02 07/23/17 06:32 White Blood Count 8.0 TH/MM3 6.3 TH/MM3 Red Blood Count 3.28 MIL/MM3 3.11 MIL/MM3 Hemoglobin 9.9 GM/DL 9.6 GM/DL Hematocrit 30.4 % 28.9 % Mean Corpuscular Volume 92.5 FL 92.9 FL Mean Corpuscular Hemoglobin 30.2 PG 30.9 PG Mean Corpuscular Hemoglobin Concent 32.6 % 33.3 % Red Cell Distribution Width 17.1 % 16.8 % Platelet Count 388 TH/MM3 369 TH/MM3 Mean Platelet Volume 7.7 FL 7.8 FL Neutrophils (%) (Auto) 65.7 % 67.5 % Lymphocytes (%) (Auto) 20.2 % 16.7 % Monocytes (%) (Auto) 12.3 % 12.8 % Eosinophils (%) (Auto) 1.3 % 2.5 % Basophils (%) (Auto) 0.5 % 0.5 % Neutrophils # (Auto) 5.3 TH/MM3 4.2 TH/MM3 Lymphocytes # (Auto) 1.6 TH/MM3 1.1 TH/MM3 Monocytes # (Auto) 1.0 TH/MM3 0.8 TH/MM3 Eosinophils # (Auto) 0.1 TH/MM3 0.2 TH/MM3 Basophils # (Auto) 0.0 TH/MM3 0.0 TH/MM3 CBC Comment DIFF FINAL DIFF FINAL Differential Comment Laboratory Tests Test 07/22/17 11:02 07/23/17 06:32 Blood Urea Nitrogen 12 MG/DL 13 MG/DL Creatinine 1.05 MG/DL 1.08 MG/DL Random Glucose 97 MG/DL 119 MG/DL Calcium Level 8.9 MG/DL 8.9 MG/DL Sodium Level 140 MEQ/L 142 MEQ/L Potassium Level 3.5 MEQ/L 3.6 MEQ/L Chloride Level 107 MEQ/L 109 MEQ/L Carbon Dioxide Level 25.2 MEQ/L 24.2 MEQ/L Anion Gap 8 MEQ/L 9 MEQ/L Estimat Glomerular Filtration Rate 63 ML/MIN 61 ML/MIN Microbiology Date/Time Source Procedure Growth Status 07/20/17 15:30 Blood Peripheral Aerobic Blood Culture - Preliminary NO GROWTH IN 3 DAYS Resulted 07/20/17 15:30 Blood Peripheral Anaerobic Blood Culture - Preliminary NO GROWTH IN 3 DAYS Resulted IMAGING: Abdomen/Pelvis CT 07/22/17 0000 Signed Impressions: Service Date/Time: Saturday, July 22, 2017 18:12 - CONCLUSION: 1. No acute findings. Colonic diverticulosis without evidence for diverticulitis. Left renal cyst. Wayne Parra MD Myocardial Perfusion Scan Nuc Med 07/19/17 0000 Signed Impressions: Service Date/Time: Wednesday, July 19, 2017 14:39 - CONCLUSION: Given the area of reversible perfusion involving the lateral wall and mild hypokinesis of the lateral wall this area is concerning for reversible ischemia despite the normal ejection fraction.. RISK CATEGORY: Intermediate risk due to stress induced moderate perfusion defect without left ventricular dilation. Intermediate risk plates with a 1-3%% annual mortality rate. Millie Shah MD Chest X-Ray 07/18/17 1512 Signed Impressions: Service Date/Time: July 15:29 - CONCLUSION: 1. No acute cardiopulmonary disease. Stone Foy MD CT Angiography 07/18/17 0000 Signed Impressions: Service Date/Time: July 18:29 - CONCLUSION: No pulmonary embolus or other acute abnormality demonstrated. Coronary artery calcification. Mando Mcmahon MD Abdomen/Pelvis CT 07/18/17 0000 Signed Impressions: Service Date/Time: July 18:29 - CONCLUSION: 1. Florid and diffuse diverticulosis of the colon but no acute diverticulitis demonstrated or other acute abnormality. 2. Cysts and vascular calcifications of the kidneys are again noted. No evidence of obstructive uropathy. 3. Aorto iliac atherosclerosis. No aneurysm. Mando Mcmahon MD PHYSICAL EXAMINATION: GENERAL: No acute distress. Looks chronically ill. HEENT: No icterus. Oropharynx moist mucosa. No lesions. NECK: Supple. No adenopathy. No swelling. LUNGS: Sounds decreased. CARDIOVASCULAR: Regular S1 and S2. No murmurs audible. ABDOMEN: Bowel sounds present, soft, mild tenderness on palpation of the right lower quadrant and left lower quadrant. No rebound tenderness. EXTREMITIES: No clubbing, cyanosis or edema. SKIN: No rash. NEUROLOGIC: Alert and oriented. No gross focal findings. PSYCH: Calm and cooperative. IMPRESSION: 1. Fever. Temperature resolved. Questionable source. 2. Abdominal pain and tenderness. CT scan did not show evidence of diverticulitis. 3. Chronic kidney disease. 4. Polysubstance abuse. Clinically stable. RECOMMENDATIONS: Okay to discharge patient on p.o. Flagyl 500 mg 3 times daily for 5 days. Follow-up with her primary physician. Mario Piedra MD Jul 23, 2017 15:34
--- NOTE | 2017-07-23 15:37 | HHI.FF ---
Face to Face Verification Diagnosis: (1) Carpal tunnel syndrome (2) HYPERTENSION NOS (3) ROUTINE MEDICAL EXAM (4) Well woman exam with routine gynecological exam (5) GERD (6) Hyperglycemia (7) COPD (8) Nutrition, metabolism, and development symptoms (9) Substance abuse (10) Alcohol abuse (11) Closed fracture of left distal fibula (12) Vitamin D deficiency (13) Cold intolerance (14) Osteoporosis (15) Arthritis Physical Therapy Order: Evaluate and Treat Home Health Nursing Order: Medical education Signs/symptoms of disease process CHF education Medication education-adverse effect Nursing assessment with vital signs I have seen patient Sergio York on 07/23/17. My clinical findings support the need for the requested home health care services because: Ltd mobility - disease progression Patient has SOB Deconditioned w/ increased weakness I certify that my clinical findings support that this patient is homebound because: Post-op weakness Linda Marin MD Jul 23, 2017 15:37
--- NOTE | 2017-07-23 18:38 | HHI.PR ---
Subjective Remarks Patient appears not acute distress. A bowel movement. No nausea vomiting no diarrhea or constipation. Still with some abdominal pain but not significant. No fever or chills overnight. No chest pain. Objective Vitals Vital Signs Date Time Temp Pulse Resp B/P (MAP) Pulse Ox O2 Delivery O2 Flow Rate FiO2 07/23/17 08:48 98.0 82 16 195/83 (120) 97 07/23/17 08:00 95 Room Air 07/23/17 04:59 98.3 80 18 161/74 (103) 98 07/23/17 04:00 78 07/22/17 21:50 Room Air 07/22/17 20:03 99.4 81 18 135/69 (91) 94 I/O 07/22/17 07/22/17 07/22/17 07/23/17 07/23/17 07/23/17 07:00 15:00 23:00 07:00 15:00 23:00 Intake Total 1100 ml 720 ml Balance 1100 ml 720 ml Intake Oral 720 ml IV Total 1100 ml # Voids 3 1 # Bowel Movements 1 Result Diagram: 07/23/17 0632 07/23/17 0632 Imaging Last Impressions Abdomen/Pelvis CT 07/22/17 0000 Signed Impressions: Service Date/Time: Saturday, July 22, 2017 18:12 - CONCLUSION: 1. No acute findings. Colonic diverticulosis without evidence for diverticulitis. Left renal cyst. Wayne Parra MD Myocardial Perfusion Scan Nuc Med 07/19/17 0000 Signed Impressions: Service Date/Time: Wednesday, July 19, 2017 14:39 - CONCLUSION: Given the area of reversible perfusion involving the lateral wall and mild hypokinesis of the lateral wall this area is concerning for reversible ischemia despite the normal ejection fraction.. RISK CATEGORY: Intermediate risk due to stress induced moderate perfusion defect without left ventricular dilation. Intermediate risk plates with a 1-3%% annual mortality rate. Millie Shah MD Chest X-Ray 07/18/17 1512 Signed Impressions: Service Date/Time: July 15:29 - CONCLUSION: 1. No acute cardiopulmonary disease. Stone Foy MD CT Angiography 07/18/17 0000 Signed Impressions: Service Date/Time: July 18:29 - CONCLUSION: No pulmonary embolus or other acute abnormality demonstrated. Coronary artery calcification. Mando Mcmahon MD Objective Remarks GENERAL: This is an obese, well-developed patient, in no apparent distress. SKIN: Warm and dry. HEENT: Normocephalic. Pupils equal round and reactive. Nose without bleeding. Airway patent. NECK: Trachea midline. . CARDIOVASCULAR: Tachycardia without murmurs, gallops, or rubs. RESPIRATORY: Diminished breath sounds, no wheezes, rales, or rhonchi. GASTROINTESTINAL: Abdomen soft, nondistended. Bowel Sounds normoactive x4. Lower abdominal region tender to palpate MUSCULOSKELETAL: Extremities without clubbing, cyanosis, or edema. NEUROLOGICAL: Awake and alert. Hard of hearing. Oriented to place, person. No focal neuro deficit. Moves all extremities. Normal speech. A/P Problem List: (1) Chest pain ICD Code: R07.9 - Chest pain, unspecified Status: Acute (2) Urinary tract infection ICD Code: N39.0 - Urinary tract infection, site not specified Status: Acute (3) Mesenteric artery stenosis ICD Code: K55.1 - Chronic vascular disorders of intestine Assessment and Plan Urine culture pending, follow-up results. Urine culture reincubated, Negative Blood cultures NTD, follow-up results Monitor for signs of shock Spikes of fevers overnight 07/22. Patient with abd pain plan to repeat CT abd/ pelvis. CT repeat no changes. Discussed with Dr Piedra . DC on flagyl po . p.o. Flagyl 500 mg 3 times daily for 5 days per ID Chest pain Rule out ACS Reproducible and on the right side of the chest Worse with by mouth intake Protonix EKGs significant for sinus tachycardia without ST segment elevations or depressions, personally reviewed Troponin -- Less than 0.02, 0.03, 0.06--> 0.23 Cardiology consult for further recommendation evaluation Patient not complaining of chest pain at this time. Plan for stress test Diabetes mellitus Sliding scale insulin Check hemoglobin A1c Monitor blood glucose CKD Creatinine 1.65, baseline IVF hydration Monitor renal function CAD/hypertension Continue home medications FEN Heart healthy diet Electrolytes: Monitor and replete when necessary DVT Heparin Discharge Planning Plan to [place] home. Clinically improving. Cleared by infectious disease for discharge. Problem Qualifiers (1) Chest pain: Qualified Codes: R07.9 - Chest pain, unspecified (2) Urinary tract infection: Qualified Codes: N39.0 - Urinary tract infection, site not specified; R31.9 - Hematuria, unspecified Linda Marin MD Jul 23, 2017 18:38
[2017-07-23] MEDS ORDERED: AMLO10TA2 PO (18:42)
[2017-07-23] MEDS ORDERED: ASPI-516 CHEW (18:42)
[2017-07-23] MEDS ORDERED: HYDR-3799 PO (18:42)
[2017-07-23] MEDS ORDERED: NITR1SUB3 SL (18:46)
[2017-07-23] MEDS ORDERED: ISOS60TA PO (18:46)
[2017-07-23] MEDS ORDERED: TOPR100T PO (18:46)
== END 2017-07-23 21:04 | disposition home health service (06) | DRG 872 ==
LOC: NEDAMB 14:56 → NEDA 19:27 → NEPGCP 21:33 → OBSVTOIN 07-19 05:29
PROVIDERS: ADMIT Hospitalist; ATTEND Hospitalist
DX: A41.9 Sepsis, unspecified organism (principal); K55.1 Chronic vascular disorders of intestine; N18.4 Chronic kidney disease, stage 4 (severe); E11.22 Type 2 diabetes mellitus with diabetic chronic kidney disease; N39.0 Urinary tract infection, site not specified; I12.9 Hypertensive chronic kidney disease with stage 1 through stage 4 chronic kidney disease, or unspecified chronic kidney disease; R07.9 Chest pain, unspecified; I25.10 Atherosclerotic heart disease of native coronary artery without angina pectoris; H91.90 Unspecified hearing loss, unspecified ear; R00.0 Tachycardia, unspecified; I73.9 Peripheral vascular disease, unspecified; E78.5 Hyperlipidemia, unspecified; Z72.0 Tobacco use; I70.0 Atherosclerosis of aorta; M19.90 Unspecified osteoarthritis, unspecified site; E66.9 Obesity, unspecified; Z68.32 Body mass index [BMI] 32.0-32.9, adult
CPT/HCPCS: 71045; 71275; 74177; 78452; 80048; 80076; 80307; 81001; 82550; 82948; 83605; 83880; 84484; 85007; 85025; 85027; 85610; 85730; 87040; 87086; 87493; 93005; 93017; 96365; 96375; 96376; A9502; C9113; G0378; J0131; J0280; J0360; J0696; J1644; J1650; J1815; J2270; J2405; J2543; J2785; J7030; Q9963; Q9967

== ENCOUNTER 2017-09-18 08:30 | Inpatient (IN) | payer OTHER, MEDICAID, MEDICARE ==
[~2017-09-18] VITALS: Ht 152.4 cm; Wt 82.0 kg
[2017-09-18] VITALS (14 sets, daily range): BP systolic 97–206; BP diastolic 51–89; PULSE 66–114; RESP 17–38; TEMP 97.3–98.8; O2SAT 93–99
[~2017-09-18 08:30] MED LIST changes: +AMLO10TA2 PO; +ASPI-516 CHEW; -ASPI81TA16 PO; +ATOR10TA15 PO; +CLOP75TA PO; +DICY20TA10 PO; +GABA300C5 PO; +ISOS60TA PO; +MECL-62 PO; +METR-1 PO; -NITR100C4 PO; +NITR1SUB3 SL; -OMEP40CA2 PO; -TIZA2TAB PO
[2017-09-18] MEDS: RESP: ALBUTEROL 2.5 MG/IPRATROPIUM 0.5 MG NEB (SCH) INH ×5 (08:55→21:15)
[2017-09-18] MEDS ORDERED: TIZA2CAP3 PO (08:57)
[2017-09-18] MEDS ORDERED: OMEP20TA93 PO (08:57)
[2017-09-18] MEDS ORDERED: SODIUM CHLORIDE 0.9% FLUSH 10 ML FLUSH IVF PRN (09:00)
[2017-09-18] MEDS ORDERED: methylPREDNISolone SOD SUCC 125 MG/2 ML VIAL IV PUSH ONE (09:00)
[2017-09-18] MEDS ORDERED: ASPIRIN 81 MG CHEW TAB PO ONE (09:00)
[2017-09-18 09:13] LABS: AUTOMATED NEUTROPHIL # 4.3 TH/MM3 (1.8-7.7); BASOPHIL # 0.1 TH/MM3 (0-0.2); BASOPHIL % 0.7 % (0.0-2.0); EOSINOPHIL # 0.2 TH/MM3 (0-0.4); HEMATOCRIT 38.7 % (35.0-46.0); LYMPH % 34.2 % (9.0-44.0); LYMPHOCYTE # 2.7 TH/MM3 (1.0-4.8); MEAN CORPUSCULAR HEMOGLOBIN 30.8 PG (27.0-34.0); MEAN CORPUSCULAR HGB CONC 33.5 % (32.0-36.0); MEAN PLATELET VOLUME 8.1 FL (7.0-11.0); MONO % 8.2 % (0.0-8.0); MONOCYTE # 0.6 TH/MM3 (0-0.9); NEUT % 54.9 % (16.0-70.0); PLATELET COUNT 285 TH/MM3 (150-450); RED BLOOD COUNT 4.21 MIL/MM3 (4.00-5.30); RED CELL DISTRIBUTION WIDTH 19.2 % (11.6-17.2); WHITE BLOOD COUNT 7.8 TH/MM3 (4.0-11.0)
--- NOTE | 2017-09-18 09:25 | RADRPT ---
EXAM DATE/TIME: 09/18/2017 09:02 [facility] COMPARISON: CHEST SINGLE AP, July 18, 2017, 15:29. INDICATIONS : Chest pain and shortness of breath. MEDICAL HISTORY : Cardiovascular disease. Hypertension. Renal failure. SURGICAL HISTORY : section. ENCOUNTER: Initial ACUITY: 1 day PAIN SCORE: 8/10 LOCATION: Bilateral chest FINDINGS: A single view of the chest demonstrates the lungs to be symmetrically aerated without evidence of mas s, infiltrate or effusion. The cardiomediastinal contours are unremarkable. Osseous structures are intact. CONCLUSION: 1. No acute cardiopulmonary disease. Stone Foy MD on September 18, 2017 at 9:22 Board Certified Radiologist. This report was verified electronically.
[2017-09-18 09:26] LABS: PROTHROMBIN TIME - PATIENT 9.8 SEC (9.8-11.6)
[2017-09-18 09:34] LABS: ALBUMIN 3.4 GM/DL (3.4-5.0); AST (GOT) 21 U/L (15-37); BLOOD UREA NITROGEN 20 MG/DL (7-18); CALCIUM 9.4 MG/DL (8.5-10.1); CHLORIDE 106 MEQ/L (98-107); CREATININE 1.55 MG/DL (0.50-1.00); GLOMERULAR FILTRATION RATE 40 ML/MIN (>89); GLUCOSE,RANDOM 122 MG/DL (74-106); SODIUM (NA) 142 MEQ/L (136-145)
[2017-09-18 09:35] LABS: ALT (GPT) 26 U/L (10-53)
[2017-09-18 09:39] LABS: ALKALINE PHOSPHATASE 124 U/L (45-117); TOTAL BILIRUBIN ADULT 0.4 MG/DL (0.2-1.0); TOTAL PROTEIN 9.8 GM/DL (6.4-8.2); TROPONIN I LESS THAN 0.02 NG/ML (0.02-0.05)
[2017-09-18] MEDS ORDERED: MORPHINE SULFATE 4 MG/ML INJ IV PUSH ONE (11:15)
[2017-09-18] MEDS ORDERED: NITROGLYCERIN 2% OINT 1 GM PACKET TOPICAL ONE (11:15)
--- NOTE | 2017-09-18 11:18 | PD ---
HPI Chief Complaint: Respiratory Distress Time Seen by Provider: 08:38 Travel History International Travel<30 days: No Contact w/Intl Traveler<30days: No Traveled to known affect area: No History of Present Illness HPI This is a 72-year-old female who has a history of COPD and coronary artery disease who presents to the emergency department reporting right-sided chest pain that has been going on since yesterday, constant, moderate severity associated with shortness of breath. She says she has had a cough as well. She is a poor historian and history is somewhat limited as the patient is hearing impaired. My history was obtained partly via texting on her phone. She was recently hospitalized in the setting of similar symptoms. She saw Dr. Pollard at the time and had an abnormal nuclear stress test. She was offered catheterization versus medical management and elected for medical management. PFSH Past Medical History Hx Anticoagulant Therapy: Yes (PLAVIX ) Arthritis: Yes Heart Rhythm Problems: No Cardiac Catheterization: Yes Cardiovascular Problems: Yes (CAD, HTN ) High Cholesterol: Yes Congestive Heart Failure: No COPD: Yes Coronary Artery Disease: Yes Diabetes: Yes Patient Takes Glucophage: No Diminished Hearing: Yes (MOSTLY DEAF) Gastrointestinal Disorders: No Genitourinary: No Headaches: Yes Hypertension: Yes Medical other: Yes (HARD OF HEARING USED A HEARING AID) Musculoskeletal: Yes Neurologic: Yes Psychiatric: No Reproductive: No Respiratory: Yes Immunizations Current: Yes Migraines: No Myocardial Infarction: No Radiation Therapy: No Renal Failure: Yes (stage 4) Seizures: No Sickle Cell Disease: No Sleep Apnea: Yes Thyroid Disease: No Ulcer: No Tetanus Vaccination: Unknown Influenza Vaccination: No PNEUMOCCOCAL Vaccine (Year): 2 ?: Not Menopausal: Yes : 3 Para: 3 Past Surgical History Abdominal Surgery: Yes Cardiac Surgery: Yes (HEART CATH 2007) Section: Yes Ear Surgery: No Endocrine Surgery: No Eye Surgery: Yes (RIGHT CATARACT EXTRACTION WITH LENS) Genitourinary Surgery: No Gynecologic Surgery: Yes Neurologic Surgery: No Oral Surgery: No Thoracic Surgery: No Other Surgery: Yes (cataracts) Social History Alcohol Use: Yes (liqour and beer tonight) Tobacco Use: Yes (MOSTLY WHEN DRINKING) Substance Use: Yes (ALL) Allergies-Medications (Allergen,Severity, Reaction): Coded Allergies: No Known Allergies (Verified Allergy, Unknown, 5/16/18) Reported Meds & Prescriptions Reported Meds & Active Scripts Active Nitroglycerin SL (Nitroglycerin) 0.4 Mg Subl 0.4 Mg SL DIRECTED PRN ONE TABLET UNDER THE TONGUE NEEDED FOR CHEST PAIN, MAY REPEAT EVERY FIVE MINUTES FOR A TOTAL OF 3 DOSES OR CALL 911 IF NO RELIEF Isosorbide Mononitrate ER (Isosorbide Mononitrate) 60 Mg Tab 60 Mg PO DAILY Toprol XL (Metoprolol Succinate) 100 Mg Tab 200 Mg PO DAILY Amlodipine (Amlodipine Besylate) 10 Mg Tab 10 Mg PO DAILY Hydralazine HCl 25 Mg Tablet 75 Mg PO BID Reported Omeprazole 20 Mg Tab 20 Mg PO DAILY Tizanidine (Tizanidine HCl) 2 Mg Cap 2 Mg PO TID Atorvastatin (Atorvastatin Calcium) 10 Mg Tab 10 Mg PO HS Meclizine (Meclizine HCl) 25 Mg Tab 25 Mg PO TID PRN Dicyclomine (Dicyclomine HCl) 20 Mg Tab 20 Mg PO TID Clopidogrel (Clopidogrel Bisulfate) 75 Mg Tab 75 Mg PO DAILY Gabapentin 300 Mg Cap 300 Mg PO TID Tolterodine (Tolterodine Tartrate) 1 Mg Tab 1 Mg PO BID Lisinopril 40 Mg Tab 40 Mg PO DAILY Review of Systems Except as stated in HPI: all other systems reviewed are Neg Physical Exam Narrative GENERAL:Well appearing, no acute distress SKIN: Focused skin assessment warm and dry. HEAD: Atraumatic. Normocephalic. EYES: Pupils equal and round. No injection or drainage. ENT: Moist mucous membranes NECK: Trachea midline. CARDIOVASCULAR: Tachycardic no murmur appreciated. RESPIRATORY: diffuse wheezing worse on the right than the left with tachypnea GASTROINTESTINAL: Abdomen soft, non-tender, nondistended. MUSCULOSKELETAL: No obvious deformities. NEUROLOGICAL: Awake and alert. No obvious cranial nerve deficits. Moving all extremities. PSYCHIATRIC: Appropriate mood and affect; insight and judgment normal. Data Data Last Documented VS Vital Signs Date Time Temp Pulse Resp B/P (MAP) Pulse Ox O2 Delivery O2 Flow Rate FiO2 09/18/17 09:14 97 Nasal Cannula 2.00 09/18/17 08:59 104 27 196/83 (120) 100 09/18/17 08:37 98.8 Orders Orders Electrocardiogram (09/18/17 08:48) B-Type Natriuretic Peptide (09/18/17 08:48) Complete Blood Count With Diff (09/18/17 08:48) Comprehensive Metabolic Panel (09/18/17 08:48) Prothrombin Time / Inr (Pt) (09/18/17 08:48) Act Partial Throm Time (Ptt) (09/18/17 08:48) Troponin I (09/18/17 08:48) Chest, Single Ap (09/18/17 08:48) Ecg Monitoring (09/18/17 08:48) Bilateral Bp Monitoring (09/18/17 08:48) Iv Access Insert/Monitor (09/18/17 08:48) Oximetry (09/18/17 08:48) Oxygen Administration (09/18/17 08:48) Aspirin Chew (Aspirin Chew) (09/18/17 09:00) Sodium Chloride 0.9% Flush (Ns Flush) (09/18/17 09:00) Methylprednisolone So Succ Inj (Solumedr (09/18/17 09:00) Albuterol-Ipratropium Neb (Duoneb Neb) (09/18/17 09:00) Morphine Inj (Morphine Inj) (09/18/17 11:15) Nitroglycerin 2% Oint (Nitroglycerin 2% (09/18/17 11:15) Labs Laboratory Tests Test 09/18/17 07:40 White Blood Count 7.8 TH/MM3 Red Blood Count 4.21 MIL/MM3 Hemoglobin 13.0 GM/DL Hematocrit 38.7 % Mean Corpuscular Volume 92.0 FL Mean Corpuscular Hemoglobin 30.8 PG Mean Corpuscular Hemoglobin Concent 33.5 % Red Cell Distribution Width 19.2 % Platelet Count 285 TH/MM3 Mean Platelet Volume 8.1 FL Neutrophils (%) (Auto) 54.9 % Lymphocytes (%) (Auto) 34.2 % Monocytes (%) (Auto) 8.2 % Eosinophils (%) (Auto) 2.0 % Basophils (%) (Auto) 0.7 % Neutrophils # (Auto) 4.3 TH/MM3 Lymphocytes # (Auto) 2.7 TH/MM3 Monocytes # (Auto) 0.6 TH/MM3 Eosinophils # (Auto) 0.2 TH/MM3 Basophils # (Auto) 0.1 TH/MM3 CBC Comment DIFF FINAL Differential Comment Prothrombin Time 9.8 SEC Prothromb Time International Ratio 1.0 RATIO Activated Partial Thromboplast Time 23.9 SEC Blood Urea Nitrogen 20 MG/DL Creatinine 1.55 MG/DL Random Glucose 122 MG/DL Total Protein 9.8 GM/DL Albumin 3.4 GM/DL Calcium Level 9.4 MG/DL Alkaline Phosphatase 124 U/L Aspartate Amino Transf (AST/SGOT) 21 U/L Alanine Aminotransferase (ALT/SGPT) 26 U/L Total Bilirubin 0.4 MG/DL Sodium Level 142 MEQ/L Potassium Level 3.5 MEQ/L Chloride Level 106 MEQ/L Carbon Dioxide Level 24.0 MEQ/L Anion Gap 12 MEQ/L Estimat Glomerular Filtration Rate 40 ML/MIN Troponin I LESS THAN 0.02 NG/ML B-Type Natriuretic Peptide 100 PG/ML MDM Medical Decision Making Medical Screen Exam Complete: Yes Emergency Medical Condition: Yes Interpretation(s) EKG:sinus tachycardia, t wave inversions in avL, mild st depression in the lateral leads, LVH No leukocytosis Renal insufficiency Troponin is normal BNP is 100 Differential Diagnosis Pneumonia, COPD exacerbation, angina, myocardial infarction Narrative Course This is a 72-year-old female who presents to the emergency department with chest pain and shortness of breath. She was wheezing on arrival. She was placed on a monitor and an IV was established. She was given steroids and bronchodilator treatments. Her symptoms improved some but she still complained of chest pain. She was given aspirin, morphine and nitroglycerin. She was markedly hypertensive which may be contributing to the pain. Labs are reassuring with a normal troponin. There is no evidence of STEMI on her EKG. Patient has a known history of abnormal stress test. Patient requires admission for continued treatment for COPD exacerbation as well as revisiting of coronary artery disease as the patient continues to be symptomatic with chest pain. Diagnosis Primary Impression: COPD exacerbation Additional Impression: Chest pain Qualified Codes: R07.9 - Chest pain, unspecified Admitting Information Admitting Physician Requests: Radha Leblanc MD September 18, 2017 11:18
[2017-09-18] MEDS ORDERED: IOHEXOL 350 MG/ML 100 ML BTL (for Cath Lab) OTHER ONE (11:37)
[2017-09-18] MEDS ORDERED: NALOXONE HCL 0.4 MG/ML AMP IV PUSH PRN (11:45)
[2017-09-18] MEDS ORDERED: LACTULOSE SYRUP 20 GM/30 ML CUP PO PRN (11:45)
[2017-09-18] MEDS ORDERED: ACETAMINOPHEN 325 MG TAB PO PRN (11:45)
[2017-09-18] MEDS ORDERED: METOCLOPRAMIDE HCL 10 MG/2 ML VIAL IV PUSH PRN (11:45)
[2017-09-18] MEDS ORDERED: oxyCODONE/ACETAMINOPHEN 5 MG/325 MG TAB PO PRN (11:45)
[2017-09-18] MEDS ORDERED: RESP: ALBUTEROL 2.5 MG/3 ML NEB (PRN) INH (11:45)
[2017-09-18] MEDS ORDERED: SODIUM CHLORIDE 0.9% FLUSH 10 ML FLUSH IV FLUSH PRN (11:45)
[2017-09-18] MEDS ORDERED: DEXTROSE 50% IN WATER 50 ML VIAL(D50) IV PUSH PRN (11:45)
[2017-09-18] MEDS ORDERED: BISACODYL 10 MG SUPP RECTAL PRN (11:45)
[2017-09-18] MEDS ORDERED: MECLIZINE HCL 25 MG TAB PO PRN (11:45)
[2017-09-18] MEDS ORDERED: SENNOSIDES 8.6 MG TAB PO PRN (11:45)
[2017-09-18] MEDS ORDERED: GLUCAGON 1 MG/ML VIAL OTHER PRN (11:45)
[2017-09-18] MEDS ORDERED: MAGNESIUM HYDROXIDE SUSP 30 ML CUP PO PRN (11:45)
[2017-09-18] MEDS: INSULIN ASPART SUPPLEMENTAL SCALE SQ SCH ×3 (12:00→22:04)
[2017-09-18] MEDS ORDERED: MORPHINE SULFATE 4 MG/ML INJ IV PUSH PRN ×2 (12:30→12:45)
[2017-09-18] MEDS ORDERED: ONDANSETRON ODT 4 MG TAB PO PRN (12:45)
[2017-09-18] MEDS: GABAPENTIN 300 MG CAP PO SCH ×2 (12:59→18:36)
[2017-09-18] MEDS: LISINOPRIL 20 MG TAB PO SCH (13:00)
[2017-09-18] MEDS: cloNIDine HCL 0.1 MG TAB PO PRN (13:03)
[2017-09-18] MEDS: METOPROLOL SUCCINATE 50 MG EXTENDED RELEASE TAB PO SCH (13:04)
[2017-09-18] MEDS: hydrALAZINE HCL 25 MG TAB PO SCH ×2 (13:33→18:00)
[2017-09-18] MEDS: DICYCLOMINE HCL 20 MG TAB PO SCH ×2 (13:34→18:35)
[2017-09-18] MEDS: ISOSORBIDE MONONITRATE 60 MG CR TAB (IMDUR) PO SCH (13:35)
[2017-09-18] MEDS: guaiFENesin E.R. 600 MG TAB PO SCH ×2 (13:38→22:04)
[2017-09-18] MEDS ORDERED: ENOXAPARIN SODIUM 40 MG/0.4 ML SYRINGE SQ SCH (14:00)
[2017-09-18 14:37] LABS: TROPONIN I LESS THAN 0.02 NG/ML (0.02-0.05)
--- NOTE | 2017-09-18 15:48 | MB ---
cc: Marek Parekh DO DATE: 09/18/2017 REASON FOR CONSULTATION: Chest pain. HISTORY OF PRESENT ILLNESS: Sergio York is a 72-year-old female who sees my partner, Dr. Figueroa, in the office and presented due to right-sided chest pain starting yesterday. Apparently, she was on the way to her primary care physician and started noticing right-sided chest pain, which was somewhat sharp and stabbing in nature and moderate in severity. It has been mostly constant since that time. She has been short of breath with it. She has also noticed that it causes more pain when she takes a deep breath. The chest pain seemed to come on out of nowhere. She previously was here with chest pain and underwent stress testing which showed lateral ischemia. She was offered cardiac catheterization at that time and elected for medical management. PAST MEDICAL HISTORY: 1. Chronic kidney disease. 2. Coronary artery disease. 3. Hypertension. 4. Diabetes mellitus. 5. Hard of hearing. 6. Arthritis. PAST SURGICAL HISTORY: 1. History of cardiac catheterization (03/17/2008). Minor coronary irregularities throughout. 2. ORIF of right distal fibula (02/06/2014). 3. Iliac stent placement per history. ALLERGIES: NO KNOWN DRUG ALLERGIES. MEDICATIONS: 1. Dicyclomine 20 mg t.i.d. 2. Tizanidine 2 mg t.i.d. 3. Plavix 75 mg daily. 4. Lipitor 10 mg every night. 5. Hydralazine 75 mg b.i.d. 6. Imdur 60 mg daily. 7. Nitro sublingual as needed. 8. Toprol-XL 200 mg daily. 9. Norvasc 10 mg daily. 10. Lisinopril 40 mg daily. 11. Gabapentin 300 mg t.i.d. 13. Meclizine 25 mg t.i.d. 14. Omeprazole 20 mg daily. 15. Tolterodine 1 mg b.i.d. FAMILY HISTORY: Denies premature coronary artery disease or sudden cardiac within the family. SOCIAL HISTORY: The patient previously smoked and drank, but quit 3 months ago. Denies drug abuse. She does have a history of cocaine as well as alcohol abuse in the past. REVIEW OF SYSTEMS: Fourteen systems were reviewed including osteopathic. Pertinent positives and negatives as above, otherwise negative. PHYSICAL EXAMINATION: VITAL SIGNS: Temperature 98.8, heart rate 114, blood pressure 161/79, respirations 24, pulse oximetry 99% on 2 liters. GENERAL: The patient appears in mild distress, alert, awake and oriented x3. HEENT: Extraocular muscles intact. Mucous membranes moist. NECK: Supple. No JVD at 45 degrees. No carotid bruits heard bilaterally. Carotid upstroke is brisk in nature. HEART: Tachycardic. Positive first and second heart sounds with no noted murmurs, gallops or rubs. LUNGS: Decreased breath sounds at bilateral bases, but no overt wheezes, rales or rhonchi. ABDOMEN: Soft, nontender, nondistended, no organomegaly noted. EXTREMITIES: Show no clubbing, cyanosis or edema. Femoral and distal pulses intact bilaterally. NEUROLOGIC: No focal deficits. SKIN: Warm, dry and intact. OSTEOPATHIC: No kyphoscoliosis, lordosis or paraspinal tender points. LABORATORY DATA: Hemoglobin 13.0, hematocrit 38.7, platelets 285. Potassium 3.5, BUN 20, creatinine 1.55. Troponin negative x2. BMP 100. Electrocardiogram (09/18/2017 at 08:39) Sinus tachycardia, LVH with nonspecific ST-T wave changes. IMPRESSIONS: 1. Chest pain, atypical for coronary insufficiency. 2. Tachycardia of unknown cause. 3. Previous stress test showing possible lateral wall ischemia. 4. Hypertension. 5. Diabetes mellitus. RECOMMENDATIONS: 1. Ms. York presented with chest pain and somewhat atypical for coronary insufficiency. As it hurts more with deep breaths, as well as her tachycardia and shortness of breath, I feel that a pulmonary embolus should be ruled out. As her creatinine is elevated, we will plan for a V/Q scan for possible pulmonary embolus. 2. If V/Q scan does not show pulmonary embolus, then consideration will be made for further ischemic evaluation with cardiac catheterization as she does have an abnormal stress test showing lateral ischemia previously. 3. Overall, I believe that she should undergo the V/Q scan now and we will further decide on cardiac catheterization afterwards. 4. We will plan to check a 2-D echo to look at her overall left ventricular function, cardiac structure and possible valvulopathies. 5. We will restart her on her medications and evaluate her overall hypertension. Thank you for allowing me to see Sergio York. If there are any questions, please do not hesitate to call. DO CORRY Dyer/YUDITH , 03:15 PM , 03:47 PM
--- NOTE | 2017-09-18 16:16 | RADRPT ---
EXAM DATE/TIME: 09/18/2017 15:04 [place] COMPARISON: No previous studies available for comparison. INDICATIONS : Dyspnea. DOSE: 8.6 mCi Tc99m MAA IV 0.8 mCi Tc99m DTPA aerosol MEDICAL HISTORY : Chronic obstructive pulmonary disease. Hypertension. CAD SURGICAL HISTORY : None. ENCOUNTER: Initial ACUITY: 1 day PAIN SCALE: 0/10 LOCATION: chest TECHNIQUE: Following five minutes of tidal breathing of DTPA aerosol, planar images of the lungs were performed in eight projections. The patient was then injected with MAA, and eight-view perfusion scan was perf ormed. FINDINGS: Ventilation is worse than the perfusion. There is a in homogeneous pattern of aerosol delivery to th e periphery of both lungs. No focal ventilatory defects are seen. Perfusion is much better than ventilation. There no perfusion defects. CONCLUSION: Low probability for pulmonary embolism. Pradeep Amador MD FACR on September 18, 2017 at 16:12 Board Certified Radiologist. This report was verified electronically.
[2017-09-18] MEDS: LEVOFLOXACIN 750 MG PREMIX INJ 150 ML IV SCH (16:27)
[2017-09-18] MEDS: methylPREDNISolone SOD SUCC 125 MG/2 ML VIAL IV PUSH SCH ×2 (16:28→22:03)
[2017-09-18] MEDS: oxyCODONE/ACETAMINOPHEN 10 MG/325 MG TAB PO PRN (16:44)
[2017-09-18] MEDS: TOLTERODINE TARTRATE 2 MG CAP LA PO SCH (16:44)
--- NOTE | 2017-09-18 18:00 | HHI.HP ---
[facility] Unknown Admission Diagnosis copd exacerbation Diagnoses: Chief Complaint: chest pain and shortness of breath Travel History International Travel<30 Days: No Contact w/Intl Traveler <30 Da: No Traveled to Known Affected Are: No History of Present Illness PATIENT IS A 72 YEAR OLD VERY HARD OF HEARING AND VERY POOR HISTORIAN WHO PRESENTED WITH SOB AND CHEST PAIN PATIENT WAS NOTED TO HIS RIGHT SIDE OF HER CHEST ON HER WALKER CAUSING PAIN HAD V/Q SCAN WHICH IS NEGATIVE FOR PE SEEN BY CARDIOLOGY BEING TREATED FOR COPD AND POORLY CONTROLLED HYPERTENSION AND CHEST PAIN Review of Systems ROS Limitations: Hearing Impaired, Poor Historian Constitutional: DENIES: Diaphoretic episodes, Fatigue, Fever, Weight gain, Weight loss, Chills, Dizziness, Change in appetite, Night Sweats Endocrine: DENIES: Abnorml menstrual pattern, Heat/cold intolerance, Polydipsia , Polyuria, Polyphagia Eyes: DENIES: Blurred vision, Diplopia, Eye inflammation, Eye pain, Vision loss , Photosensitivity, Double Vision Ears, nose, mouth, throat: COMPLAINS OF: Hearing loss, DENIES: Tinnitus, Vertigo, Nasal discharge, Oral lesions, Throat pain, Hoarseness, Ear Pain, Running Nose, Epistaxis, Sinus Pain, Toothache, Odynophagia Respiratory: COMPLAINS OF: Cough, DENIES: Apneas, Snoring, Wheezing, Hemoptysis , Sputum production, Shortness of breath Cardiovascular: COMPLAINS OF: Chest pain, DENIES: Palpitations, Syncope, Dyspnea on Exertion, PND, Lower Extremity Edema, Orthopnea, Claudication Gastrointestinal: DENIES: Abdominal pain, Black stools, Bloody stools, Constipation, Diarrhea, Nausea, Vomiting, Difficulty Swallowing, Anorexia Genitourinary: DENIES: Abnormal vaginal bleeding, Dysmenorrhea, Dyspareunia, Sexual dysfunction, Urinary frequency, Urinary incontinence Musculoskeletal: DENIES: Joint pain, Muscle aches, Stiffness, Joint Swelling, Back pain, Neck pain Integumentary: DENIES: Abnormal pigmentation, Pruritus, Rash, Nail changes, Breast masses, Breast skin changes, Nipple discharge Hematologic/lymphatic: DENIES: Bruising, Lymphadenopathy Immunologic/allergic: DENIES: Eczema, Urticaria Neurologic: DENIES: Abnormal gait, Headache, Localized weakness, Paresthesias, Seizures, Speech Problems, Tremor, Poor Balance Psychiatric: DENIES: Anxiety, Confusion, Mood changes, Depression, Hallucinations, Agitation, Suicidal Ideation, Homicidal Ideation, Delusions Except as stated in HPI: all other systems reviewed are Neg Past Family Social History Past Medical History Severe hearing loss Headaches Coronary artery disease and hypertension Chronic anticoagulation with Plavix Hypertension Hypercholesterolemia COPD Sleep apnea History of renal failure stage IV and chronic kidney disease Osteoarthritis diabetes Back pain and osteoarthritis Alcohol use History of cocaine abuse Tobacco abuse Noncompliance with medications Past Surgical History Right cataract History of cardiac catheterization ORIF of right distal fibula Iliac stent placement Reported Medications Reported Meds & Active Scripts Active Nitroglycerin SL (Nitroglycerin) 0.4 Mg Subl 0.4 Mg SL DIRECTED PRN ONE TABLET UNDER THE TONGUE NEEDED FOR CHEST PAIN, MAY REPEAT EVERY FIVE MINUTES FOR A TOTAL OF 3 DOSES OR CALL 911 IF NO RELIEF Isosorbide Mononitrate ER (Isosorbide Mononitrate) 60 Mg Tab 60 Mg PO DAILY Toprol XL (Metoprolol Succinate) 100 Mg Tab 200 Mg PO DAILY Amlodipine (Amlodipine Besylate) 10 Mg Tab 10 Mg PO DAILY Hydralazine HCl 25 Mg Tablet 75 Mg PO BID Reported Omeprazole 20 Mg Tab 20 Mg PO DAILY Tizanidine (Tizanidine HCl) 2 Mg Cap 2 Mg PO TID Atorvastatin (Atorvastatin Calcium) 10 Mg Tab 10 Mg PO HS Meclizine (Meclizine HCl) 25 Mg Tab 25 Mg PO TID PRN Dicyclomine (Dicyclomine HCl) 20 Mg Tab 20 Mg PO TID Clopidogrel (Clopidogrel Bisulfate) 75 Mg Tab 75 Mg PO DAILY Gabapentin 300 Mg Cap 300 Mg PO TID Tolterodine (Tolterodine Tartrate) 1 Mg Tab 1 Mg PO BID Lisinopril 40 Mg Tab 40 Mg PO DAILY Allergies: Coded Allergies: No Known Allergies (Verified Allergy, Unknown, 09/18/17) Active Ordered Medications Current Medications Aspirin (Aspirin Chew) 162 mg ONCE ONCE PO Last administered on 09/18/17at 09: 13; Start 09/18/17 at 09:00; Stop 09/18/17 at 09:01; Status DC Sodium Chloride (NS Flush) 2 ml UNSCH PRN IVF FLUSH AFTER USING IV ACCESS Last administered on 09/18/17at 09:13; Start 09/18/17 at 09:00; Stop 09/18/17 at 12:36 ; Status DC Methylprednisolone Sodium Succinate (SoluMEDROL INJ) 125 mg ONCE ONCE IV PUSH Last administered on 09/18/17at 09:12; Start 09/18/17 at 09:00; Stop 09/18/17 at 09:01; Status DC Albuterol/ Ipratropium (Duoneb Neb) 1 ampule Q15M INH Last administered on 09/18at 09:01; Start 09/18/17 at 09:00; Stop 09/18/17 at 09:31; Status DC Morphine Sulfate (Morphine Inj) 4 mg ONCE ONCE IV PUSH Last administered on at 11:59; Start 09/18/17 at 11:15; Stop 09/18/17 at 11:16; Status DC Nitroglycerin (Nitroglycerin 2% Oint) 2 inch ONCE ONCE TOPICAL Last administered on 09/18/17at 11:59; Start 09/18/17 at 11:15; Stop 09/18/17 at 11:16 ; Status DC Dextrose (D50w (Vial) Inj) 50 ml UNSCH PRN IV PUSH HYPOGLYCEMIA-SEE COMMENTS; Start 09/18/17 at 11:45 Glucagon (Glucagon Inj) 1 mg UNSCH PRN OTHER HYPOGLYCEMIA-SEE COMMENTS; Start 09/18/17 at 11:45 Insulin Aspart (NovoLOG SUPPLEMENTAL SCALE) 1 ACHS SLIDING SCALE SQ ; Start at 12:00 Amlodipine Besylate (Norvasc) 10 mg DAILY PO Last administered on 09/18/17at 13: 00; Start 09/18/17 at 13:00 Atorvastatin Calcium (Lipitor) 10 mg HS PO ; Start 09/18/17 at 21:00 Clopidogrel Bisulfate (Plavix) 75 mg DAILY PO ; Start 09/19/17 at 09:00 Dicyclomine HCl (Bentyl) 20 mg TID PO Last administered on 09/18/17at 13:34; Start 09/18/17 at 13:00 Gabapentin (Neurontin) 300 mg TID PO Last administered on 09/18/17at 12:59; Start 09/18/17 at 13:00 Hydralazine HCl (Apresoline) 75 mg BID PO ; Start 09/18/17 at 21:00; Stop at 21:00; Status DC Isosorbide Mononitrate (Imdur) 60 mg DAILY PO Last administered on 09/18/17at 13 :35; Start 09/18/17 at 13:00 Meclizine HCl (Antivert) 25 mg TID PRN PO VERTIGO; Start 09/18/17 at 11:45 Metoprolol Succinate (Toprol Xl) 200 mg DAILY PO ; Start 09/19/17 at 09:00; Stop 09/19/17 at 09:00; Status DC Tizanidine HCl (Zanaflex) 2 mg TID PO Last administered on 09/18/17at 13:34; Start 09/18/17 at 13:00 Lisinopril (Prinivil) 40 mg DAILY PO ; Start 09/19/17 at 09:00; Stop 09/19/17 at 09:00; Status DC Pantoprazole Sodium (Protonix) 20 mg DAILY PO ; Start 09/19/17 at 09:00 Tolterodine Tartrate (Detrol La) 2 mg DAILY PO Last administered on 09/18/17at 16:44; Start 09/18/17 at 14:00 Sodium Chloride (NS Flush) 2 ml BID IV FLUSH ; Start 09/18/17 at 21:00 Sodium Chloride (NS Flush) 2 ml UNSCH PRN IV FLUSH FLUSH AFTER USING IV ACCESS ; Start 09/18/17 at 11:45 Albuterol/ Ipratropium (Duoneb Neb) 1 ampule Q2HR NEB PRN NEB SHORTNESS OF BREATH; Start 09/18/17 at 13:15 Albuterol/ Ipratropium (Duoneb Neb) 1 ampule Q6HR NEB INH Last administered on 09/18/17at 16:49; Start 09/18/17 at 16:00 Albuterol Sulfate (Albuterol Neb) 2.5 mg Q2HR NEB PRN INH SHORTNESS OF BREATH; Start 09/18/17 at 11:45; Status UNV Budesonide/ Formoterol Fumarate (Symbicort 160-4.5 Mcg Inh) 2 puff Q12HR INH ; Start 09/18/17 at 21:00 Methylprednisolone Sodium Succinate (SoluMEDROL INJ) 60 mg Q6H IV PUSH Last administered on 09/18/17at 16:28; Start 09/18/17 at 15:00 Levofloxacin/ Dextrose 150 ml @ 100 mls/hr Q48H IV Last administered on at 16:27; Start 09/18/17 at 14:00 Enoxaparin Sodium (Lovenox Inj) 40 mg Q24H SQ Last administered on 09/18/17at 12 :59; Start 09/18/17 at 14:00 Acetaminophen (Tylenol) 650 mg Q4H PRN PO TEMP > 100.4; Start 09/18/17 at 11:45 Ondansetron HCl (Zofran Odt) 4 mg Q6H PRN PO NAUSEA OR VOMITING; Start at 12:45 Metoclopramide HCl (Reglan Inj) 5 mg Q6H PRN IV PUSH NAUSEA OR VOMITING; Start 09/18/17 at 11:45 Acetaminophen (Tylenol) 650 mg Q6H PRN PO PAIN SCALE 1 TO 2; Start 09/18/17 at 11:45 Oxycodone/ Acetaminophen (Percocet 5-325 Mg) 1 tab Q6H PRN PO PAIN SCALE 3 TO 5; Start 09/18/17 at 11:45 Oxycodone/ Acetaminophen (Percocet 10-325 Mg) 1 tab Q6H PRN PO PAIN SCALE 6 TO 10 Last administered on 09/18/17at 16:44; Start 09/18/17 at 11:45 Morphine Sulfate (Morphine Inj) 2 mg Q3H PRN IV PUSH Pain 3-5; if unable to take PO; Start 09/18/17 at 12:30 Morphine Sulfate (Morphine Inj) 4 mg Q3H PRN IV PUSH Pain 6-10;if unable to take PO; Start 09/18/17 at 12:45 Naloxone HCl (Narcan Inj) 0.4 mg UNSCH PRN IV PUSH SEE LABEL COMMENTS; Start at 11:45 Senna/Docusate Sodium (Lilo-Colace) 1 tab BID PO ; Start 09/18/17 at 21:00 Magnesium Hydroxide (Milk Of Magnesia Liq) 30 ml Q12H PRN PO Mild constipation ; Start 09/18/17 at 11:45 Sennosides (Senokot) 17.2 mg Q12H PRN PO Moderate constipation; Start 09/18/17 at 11:45 Bisacodyl (Dulcolax Supp) 10 mg DAILY PRN RECTAL SEVERE CONSITIPATION; Start at 11:45 Lactulose (Lactulose Liq) 30 ml DAILY PRN PO SEVERE CONSITIPATION; Start at 11:45 Guaifenesin (Mucinex Er) 600 mg BID PO Last administered on 09/18/17at 13:38; Start 09/18/17 at 12:00 Clonidine (Catapres) 0.1 mg Q4H PRN PO SBP>160, DBP>90 Last administered on at 13:03; Start 09/18/17 at 12:45 Hydralazine HCl (Apresoline) 75 mg TID PO Last administered on 09/18/17at 13:33 ; Start 09/18/17 at 13:00 Lisinopril (Prinivil) 40 mg DAILY PO Last administered on 09/18/17at 13:00; Start 09/18/17 at 13:00 Metoprolol Succinate (Toprol Xl) 200 mg DAILY PO Last administered on at 13:04; Start 09/18/17 at 13:00 Family History Tobacco abuse Social History History of cocaine abuse History of tobacco abuse History of alcohol abuse Physical Exam Vital Signs Vital Signs Date Time Temp Pulse Resp B/P (MAP) Pulse Ox O2 Delivery O2 Flow Rate FiO2 09/18/17 16:05 97.3 72 18 106/55 (72) 97 09/18/17 14:23 Nasal Cannula 2.00 09/18/17 14:12 86 18 110/55 (73) 98 Nasal Cannula 2.00 09/18/17 13:30 102 185/83 (117) 09/18/17 13:00 114 24 161/79 (106) 99 Nasal Cannula 2.00 09/18/17 12:00 111 20 206/89 (128) 97 Nasal Cannula 2.00 09/18/17 11:00 112 18 184/81 (115) 99 Nasal Cannula 2.00 09/18/17 10:00 106 18 176/76 (109) 99 Nasal Cannula 2.00 09/18/17 09:14 97 Nasal Cannula 2.00 09/18/17 08:59 104 27 196/83 (120) 97 Aerosol Mask 100 09/18/17 08:59 104 27 196/83 (120) 97 Aerosol Mask 100 09/18/17 08:37 98.8 113 19 151/89 (109) 99 09/18/17 08:37 98.8 105 38 151/89 (109) 97 Room Air Physical Exam GENERAL: This is a well-nourished, well-developed patient, in no apparent distress. SKIN: No rashes, ecchymoses or lesions. Cool and dry. HEAD: Atraumatic. Normocephalic. No temporal or scalp tenderness. EYES: Pupils equal round and reactive. Extraocular motions intact. No scleral icterus. No injection or drainage. ENT: Nose without bleeding, purulent drainage or septal hematoma. Throat without erythema, tonsillar hypertrophy or exudate. Uvula midline. Airway patent. NECK: Trachea midline. No JVD or lymphadenopathy. Supple, nontender, no meningeal signs. CARDIOVASCULAR: Regular rate and rhythm without murmurs, gallops, or rubs. RESPIRATORY: Clear to auscultation. Breath sounds equal bilaterally. No wheezes , rales, or rhonchi. GASTROINTESTINAL: Abdomen soft, non-tender, nondistended. No hepato-splenomegaly , or palpable masses. No guarding. MUSCULOSKELETAL: Extremities without clubbing, cyanosis, or edema. No joint tenderness, effusion, or edema noted. No calf tenderness. Negative Homans sign bilaterally. NEUROLOGICAL: Awake and alert. Cranial nerves II through XII intact. Motor and sensory grossly within normal limits. Five out of 5 muscle strength in all muscle groups. Normal speech. Laboratory Laboratory Tests Test 09/18/17 07:40 09/18/17 13:44 White Blood Count 7.8 Red Blood Count 4.21 Hemoglobin 13.0 Hematocrit 38.7 Mean Corpuscular Volume 92.0 Mean Corpuscular Hemoglobin 30.8 Mean Corpuscular Hemoglobin Concent 33.5 Red Cell Distribution Width 19.2 Platelet Count 285 Mean Platelet Volume 8.1 Neutrophils (%) (Auto) 54.9 Lymphocytes (%) (Auto) 34.2 Monocytes (%) (Auto) 8.2 Eosinophils (%) (Auto) 2.0 Basophils (%) (Auto) 0.7 Neutrophils # (Auto) 4.3 Lymphocytes # (Auto) 2.7 Monocytes # (Auto) 0.6 Eosinophils # (Auto) 0.2 Basophils # (Auto) 0.1 CBC Comment DIFF FINAL Differential Comment Prothrombin Time 9.8 Prothromb Time International Ratio 1.0 Activated Partial Thromboplast Time 23.9 Blood Urea Nitrogen 20 Creatinine 1.55 Random Glucose 122 Total Protein 9.8 Albumin 3.4 Calcium Level 9.4 Alkaline Phosphatase 124 Aspartate Amino Transf (AST/SGOT) 21 Alanine Aminotransferase (ALT/SGPT) 26 Total Bilirubin 0.4 Sodium Level 142 Potassium Level 3.5 Chloride Level 106 Carbon Dioxide Level 24.0 Anion Gap 12 Estimat Glomerular Filtration Rate 40 Troponin I LESS THAN 0.02 LESS THAN 0.02 B-Type Natriuretic Peptide 100 Total Creatine Kinase 73 Result Diagram: 09/18/17 0740 09/18/17 0740 Imaging Last Impressions Chest X-Ray 09/18/17 0848 Signed Impressions: Service Date/Time: Monday, September 18, 2017 09:02 - CONCLUSION: 1. No acute cardiopulmonary disease. Stone Foy MD Lung Scan-V Nuclear Medicine 09/18/17 0000 Signed Impressions: Service Date/Time: Monday, September 18, 2017 15:04 - CONCLUSION: Low probability for pulmonary embolism. Pradeep Amador MD FACR Caprini VTE Risk Assessment Caprini VTE Risk Assessment: Mod/High Risk (score >= 2) Caprini Risk Assessment Model Point Value = 1 Point Value = 2 Point Value = 3 Point Value = 5 Age 41-60 Minor surgery BMI > 25 kg/m2 Swollen legs Varicose veins or History of unexplained or recurrent spontaneous Oral contraceptives or hormone replacement Sepsis (< 1 month) Serious lung disease, including pneumonia (< 1 month) Abnormal pulmonary function Acute myocardial infarction Congestive heart failure (< 1 month) History of inflammatory bowel disease Medical patient at bed rest Age 61-74 Arthroscopic surgery Major open surgery (> 45 min) Laparoscopic surgery (> 45 min) Malignancy Confined to bed (> 72 hours) Immobilizing plaster cast Central venous access Age >= 75 History of VTE Family history of VTE Factor V Leiden Prothrombin [id number] Lupus anticoagulant Anticardiolipin antibodies Elevated serum homocysteine Heparin-induced thrombocytopenia Other congenital or acquired thrombophilia Stroke (< 1 month) Elective arthroplasty Hip, pelvis, or leg fracture Acute spinal cord injury (< 1 month) Prophylaxis Regimen Total Risk Factor Score Risk Level Prophylaxis Regimen 0-1 Low Early ambulation 2 Moderate Order ONE of the following: *Sequential Compression Device (SCD) *Heparin 5000 units SQ BID 3-4 Higher Order ONE of the following medications: *Heparin 5000 units SQ TID *Enoxaparin/Lovenox 40 mg SQ daily (WT < 150 kg, CrCl > 30 mL/min) *Enoxaparin/Lovenox 30 mg SQ daily (WT < 150 kg, CrCl > 10-29 mL/min) *Enoxaparin/Lovenox 30 mg SQ BID (WT < 150 kg, CrCl > 30 mL/min) AND/OR *Sequential Compression Device (SCD) 5 or more Highest Order ONE of the following medications: *Heparin 5000 units SQ TID (Preferred with Epidurals) *Enoxaparin/Lovenox 40 mg SQ daily (WT < 150 kg, CrCl > 30 mL/min) *Enoxaparin/Lovenox 30 mg SQ daily (WT < 150 kg, CrCl > 10-29 mL/min) *Enoxaparin/Lovenox 30 mg SQ BID (WT < 150 kg, CrCl > 30 mL/min) AND *Sequential Compression Device (SCD) Assessment and Plan Assessment and Plan COPD exacerbation continue on steroids continue on Mucinex continue on duo nebs continue on antibiotics HOPEFULLY SWITCH TO PO MEDS TOMORROW Chest pain on right side atypical VQ scan was negative for pulmonary embolism Cardiology was consulted-history of lateral wall ischemia on stress test Chronic kidney disease stage II-III Monitor renal functions Hypertension Poor compliance with medications restart her home medications and have as needed medications for breakthrough Diabetes mellitus Accu-Cheks before meals and at bedtime Diabetic diet Sliding scale coverage Severely hard of hearing recommend she use her hearing aids Osteoarthritis continue current pain control Continue normal DVT and GI prophylaxis HOPEFULLY DC IN NEXT 24 TO 48 HOURS ON PO MEDS Code Status FULL CODE Discussed Condition With RN AND PT AND CARDIO AND ER PHYSICIAN Pradeep Mcmanus DO September 18, 2017 18:00
[2017-09-18] MEDS ORDERED: hydrALAZINE HCL 25 MG TAB PO SCH (21:00)
[2017-09-18] MEDS: SODIUM CHLORIDE 0.9% FLUSH 10 ML FLUSH IV FLUSH SCH (22:02)
[2017-09-18] MEDS: DOCUSATE SODIUM 50 MG/SENNA 8.6 MG TAB PO SCH (22:04)
[2017-09-18] MEDS: ATORVASTATIN 10 MG TAB PO SCH (22:05)
--- NOTE | 2017-09-18 22:13 | EKG ---
Date Performed: 09/18/2017 Time Performed: 08:39:50 PTAGE: 72 years EKG: SINUS TACHYCARDIA MODERATE VOLTAGE CRITERIA FOR LVH, CONSIDER NORMAL VARIANT NONSPECIFIC ST & T-WAVE ABNORMALITY ABNORMAL RHYTHM ECG PREVIOUS TRACING : 07/20/2017 18.56 Since the previous tracing, no significant change noted DOCTOR: Juan Daniel Alvarez Interpretating Date/Time 09/18/2017 22:12:20
[2017-09-18] MEDS: BUDESONIDE-FORMOTEROL 160/4.5 MCG INHALER INH SCH (23:26)
[2017-09-19] VITALS (14 sets, daily range): BP systolic 121–141; BP diastolic 55–73; PULSE 68–84; RESP 17–20; TEMP 97.6–98; O2SAT 94–97
[2017-09-19] MEDS: RESP: ALBUTEROL 2.5 MG/IPRATROPIUM 0.5 MG NEB (SCH) INH ×3 (04:06→19:19)
[2017-09-19] MEDS: methylPREDNISolone SOD SUCC 125 MG/2 ML VIAL IV PUSH SCH ×4 (06:18→21:32)
[2017-09-19] MEDS: INSULIN ASPART SUPPLEMENTAL SCALE SQ SCH ×4 (07:57→21:38)
[2017-09-19] MEDS: CLOPIDOGREL 75 MG TAB PO SCH (08:09)
[2017-09-19] MEDS ORDERED: NITROGLYCERIN INJ 5 ML ONE (08:35)
[2017-09-19] MEDS ORDERED: HEPARIN-NS/PF FLUSH BAG 2,000 ML IV FLUSH ONE (08:35)
[2017-09-19] MEDS ORDERED: VERAPAMIL HCL 5 MG/2 ML VIAL ONE (08:35)
[2017-09-19] MEDS ORDERED: HEPARIN SODIUM - IV 10,000 UNITS/10 ML VIAL ONE (08:35)
[2017-09-19] MEDS ORDERED: MIDAZOLAM HCL 2 MG/2 ML VIAL ONE (08:35)
[2017-09-19] MEDS: hydrALAZINE HCL 25 MG TAB PO SCH ×3 (09:00→18:00)
[2017-09-19] MEDS: GABAPENTIN 300 MG CAP PO SCH ×3 (09:00→19:49)
[2017-09-19] MEDS: DICYCLOMINE HCL 20 MG TAB PO SCH ×3 (09:00→19:58)
[2017-09-19] MEDS: DOCUSATE SODIUM 50 MG/SENNA 8.6 MG TAB PO SCH ×2 (09:00→21:32)
[2017-09-19] MEDS ORDERED: LISINOPRIL 20 MG TAB PO SCH (09:00)
[2017-09-19] MEDS ORDERED: METOPROLOL SUCCINATE 50 MG EXTENDED RELEASE TAB PO SCH (09:00)
[2017-09-19] MEDS: SODIUM CHLORIDE 0.9% FLUSH 10 ML FLUSH IV FLUSH SCH ×2 (09:00→21:32)
[2017-09-19] MEDS: BUDESONIDE-FORMOTEROL 160/4.5 MCG INHALER INH SCH ×2 (09:00→21:38)
[2017-09-19] MEDS: TOLTERODINE TARTRATE 2 MG CAP LA PO SCH (09:00)
[2017-09-19] MEDS: guaiFENesin E.R. 600 MG TAB PO SCH ×2 (09:00→21:32)
[2017-09-19] MEDS ORDERED: MISC INFORMATION XX ONE (10:00)
--- NOTE | 2017-09-19 10:32 | MA ---
cc: Marek Parekh DO DATE: 09/19/2017 PROCEDURE: Left heart catheterization, coronary angiogram, IVUS of the left main, moderate sedation, 38 minutes. PREPROCEDURE DIAGNOSIS: Chest pain, atypical for coronary insufficiency, history of abnormal stress test. 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 MEDICATIONS USED: Versed 0.5 mg, fentanyl 25 mcg, nitroglycerin 200 mcg, verapamil 2.5 mg, heparin 5900 units. CONTRAST USED: 60 mL. FLUOROSCOPY: 5.8 minutes. MODERATE SEDATION: 38 minutes. FRAILTY SCORE: 4. ESTIMATED BLOOD LOSS: 10 mL. PROCEDURAL SUMMARY: Sergio York is a pleasant 72-year-old female who previously saw my partner, Dr. Figueroa, in the office and presented to [facility] Emergency Room due to chest pain. She previously had chest pain and was recommended stress testing and was found to have lateral ischemia, but did not want cardiac catheterization at that time and preferred medical management. At this time, she felt like she wanted to pursue cardiac catheterization as she continued to have chest pain on medical management. Risks, benefits and alternatives were explained to her and she consented as such. She was brought to the lab and prepped in the usual sterile fashion. The right radial artery was accessed using a modified Seldinger technique and placement of a 5/6 [place] slender sheath. This was easily aspirated and flushed. A JR4 was advanced over a J-wire to the ascending aorta and across the aortic valve for measurement of left ventricular pressure. This was pulled back across the aortic valve showing no significant gradient of aortic stenosis. A JR4 was used for selective angiography of the right coronary artery system. This was exchanged out for a JL3.5, which was used for selective angiography of the left coronary artery system. Due to dampening of the JL 3.5, upon entering the left main and her stress test showing lateral possible anterior ischemia, I felt that it was reasonable to evaluate the left main further. The patient was given additional heparin as an anticoagulant. An EBU 3.5 guide was engaged in the left main. A BMW wire was advanced down the LAD. IVUS catheter was advanced into the mid portion of the LAD and recordings were taken upon pullback throughout the system with the guide disengaged from the left main. Review of the images shows that there is disease throughout the left main, but the smallest area is 7.5 mm2 by IVUS which is nonsignificant for severe stenosis. The wire and IVUS catheter were removed. The guide was removed. A radial band was placed over the arteriotomy site for hemostasis. The patient left the catheter builder cardiovascularly stable. FINDINGS: LEFT MAIN: Normal-sized vessel with mild to moderate ostial disease (7.5 mm2 by IVUS showing nonsignificant stenosis). It trifurcates into an LAD, ramus and circumflex. LAD: Normal-sized vessel with 10-20% disease at the ostium. The mid to distal portion of the LAD has no significant disease. It gives off 1 major diagonal with no significant disease. RAMUS: The ramus is a large vessel with mild luminal irregularity throughout the proximal portion. It ends up supplying a large area with multiple branches. LEFT CIRCUMFLEX: Normal-sized vessel with 20% ostial stenosis. The mid portion has a 20-30% lesion. It gives off 3 obtuse marginals, which are overall small, but no significant disease. RCA: Normal-sized vessel with mild tortuosity. It has no disease noted throughout the system. LVEDP 5. IMPRESSIONS: 1. Atypical chest pain. 2. Abnormal stress test. 3. 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 RECOMMENDATIONS: 1. Ms. York underwent stress testing which showed lateral ischemia, but during her cardiac catheterization had no significant disease. She will be recommended continued medical therapy. 2. We will check a 2-D echo to look at her overall left ventricular function, cardiac structure and possible valvulopathies. 3. From a cardiovascular standpoint, if no problems with her echo, she can be discharged home later today. Thank you for allowing me to see Sergio York. If there are any questions, please do not hesitate to call. Marek Parekh, VGP/DL , 09:59 AM , 10:31 AM
--- NOTE | 2017-09-19 12:35 | PD.CARD.PN ---
Subjective Subjective Remarks No events overnight s/p cath, doing well Objective Medications Current Medications Medications (Trade) Dose Ordered Sig/Peg Route Start Time Stop Time Status Last Admin (D50w (Vial) Inj) 50 ml UNSCH PRN IV PUSH 09/18/17 11:45 (Glucagon Inj) 1 mg UNSCH PRN OTHER 09/18/17 11:45 (NovoLOG SUPPLEMENTAL SCALE) 1 ACHS SLIDING SCALE SQ 09/18/17 12:00 09/18/17 22:04 (Norvasc) 10 mg DAILY PO 09/18/17 13:00 09/18/17 13:00 (Lipitor) 10 mg HS PO 09/18/17 21:00 09/18/17 22:05 (Plavix) 75 mg DAILY PO 09/19/17 09:00 09/19/17 08:09 (Bentyl) 20 mg TID PO 09/18/17 13:00 09/18/17 18:35 (Neurontin) 300 mg TID PO 09/18/17 13:00 09/18/17 18:36 (Imdur) 60 mg DAILY PO 09/18/17 13:00 09/18/17 13:35 (Antivert) 25 mg TID PRN PO 09/18/17 11:45 (Zanaflex) 2 mg TID PO 09/18/17 13:00 09/18/17 18:35 (Protonix) 20 mg DAILY PO 09/19/17 09:00 (Detrol La) 2 mg DAILY PO 09/18/17 14:00 09/18/17 16:44 (NS Flush) 2 ml BID IV FLUSH 09/18/17 21:00 09/18/17 22:02 (NS Flush) 2 ml UNSCH PRN IV FLUSH 09/18/17 11:45 (Duoneb Neb) 1 ampule Q2HR NEB PRN NEB 09/18/17 13:15 (Duoneb Neb) 1 ampule Q6HR NEB INH 09/18/17 16:00 09/19/17 04:06 (Symbicort 160-4.5 Mcg Inh) 2 puff Q12HR INH 09/18/17 21:00 09/18/17 23:26 (SoluMEDROL INJ) 60 mg Q6H IV PUSH 09/18/17 15:00 09/19/17 06:18 Levofloxacin/ Dextrose 150 ml @ 100 mls/hr Q48H IV 09/18/17 14:00 09/18/17 16:27 (Tylenol) 650 mg Q4H PRN PO 09/18/17 11:45 (Zofran Odt) 4 mg Q6H PRN PO 09/18/17 12:45 (Reglan Inj) 5 mg Q6H PRN IV PUSH 09/18/17 11:45 (Tylenol) 650 mg Q6H PRN PO 09/18/17 11:45 (Percocet 5-325 Mg) 1 tab Q6H PRN PO 09/18/17 11:45 (Percocet 10-325 Mg) 1 tab Q6H PRN PO 09/18/17 11:45 09/18/17 16:44 (Morphine Inj) 2 mg Q3H PRN IV PUSH 09/18/17 12:30 (Morphine Inj) 4 mg Q3H PRN IV PUSH 09/18/17 12:45 (Narcan Inj) 0.4 mg UNSCH PRN IV PUSH 09/18/17 11:45 (Lilo-Colace) 1 tab BID PO 09/18/17 21:00 09/18/17 22:04 (Milk Of Magnesia Liq) 30 ml Q12H PRN PO 09/18/17 11:45 (Senokot) 17.2 mg Q12H PRN PO 09/18/17 11:45 (Dulcolax Supp) 10 mg DAILY PRN RECTAL 09/18/17 11:45 (Lactulose Liq) 30 ml DAILY PRN PO 09/18/17 11:45 (Mucinex Er) 600 mg BID PO 09/18/17 12:00 09/18/17 22:04 (Catapres) 0.1 mg Q4H PRN PO 09/18/17 12:45 09/18/17 13:03 (Apresoline) 75 mg TID PO 09/18/17 13:00 09/18/17 13:33 (Prinivil) 40 mg DAILY PO 09/18/17 13:00 09/18/17 13:00 (Toprol Xl) 200 mg DAILY PO 09/18/17 13:00 09/18/17 13:04 (Aspirin Chew) 81 mg DAILY CHEW 09/20/17 09:00 Vital Signs / I&O Vital Signs Date Time Temp Pulse Resp B/P (MAP) Pulse Ox O2 Delivery O2 Flow Rate FiO2 09/19/17 09:57 94 Room Air 09/19/17 07:57 Nasal Cannula 2.00 09/19/17 03:18 97.8 69 17 121/57 (78) 94 09/18/17 23:22 98.1 66 17 120/59 (79) 93 09/18/17 20:30 94 2.00 09/18/17 20:05 98.0 66 17 97/51 (66) 95 09/18/17 17:53 68 109/53 (71) 09/18/17 17:53 68 09/18/17 16:05 97.3 72 18 106/55 (72) 97 09/18/17 14:23 Nasal Cannula 2.00 09/18/17 14:12 86 18 110/55 (73) 98 Nasal Cannula 2.00 09/18/17 13:30 102 185/83 (117) 09/18/17 13:00 114 24 161/79 (106) 99 Nasal Cannula 2.00 I/O 09/18/17 09/18/17 09/18/17 09/19/17 09/19/17 09/19/17 06:59 14:59 22:59 06:59 14:59 22:59 Intake Total 150 ml Balance 150 ml Intake IV Total 150 ml Physical Exam GENERAL: NAD, AAOx3 SKIN: Warm and dry. HEAD: Atraumatic. Normocephalic. EYES: Pupils equal and round. No scleral icterus. No injection or drainage. ENT: No nasal bleeding or discharge. Mucous membranes pink and moist. NECK: Trachea midline. No JVD. CARDIOVASCULAR: Regular rate and rhythm. RESPIRATORY: No accessory muscle use. Clear to auscultation. Breath sounds equal bilaterally. GASTROINTESTINAL: Abdomen soft, non-tender, nondistended. Hepatic and splenic margins not palpable. MUSCULOSKELETAL: Extremities without clubbing, cyanosis, or edema. No obvious deformities. NEUROLOGICAL: Awake and alert. No obvious cranial nerve deficits. Motor grossly within normal limits. Five out of 5 muscle strength in the arms and legs. Normal speech. PSYCHIATRIC: Appropriate mood and affect; insight and judgment normal. Laboratory Laboratory Tests Test 09/18/17 13:44 Total Creatine Kinase 73 U/L Troponin I LESS THAN 0.02 NG/ML Assessment and Plan Problem List: (1) Chest pain ICD Codes: R07.9 - Chest pain, unspecified Status: Acute (2) COPD Status: Chronic (3) Diabetes mellitus type 2 in obese ICD Codes: E11.69 - Diabetes mellitus type 2 in obese; E66.9 - Obesity, unspecified Status: Chronic (4) Physical deconditioning ICD Codes: R53.81 - Other malaise (5) Hypertension ICD Codes: I10 - Hypertension Status: Chronic (6) Hypercholesterolemia ICD Codes: E78.00 - Hypercholesterolemia Status: Chronic (7) CAD (coronary artery disease) ICD Codes: I25.10 - Atherosclerotic heart disease of [place] coronary artery without angina pectoris Status: Chronic Assessment and Plan 1) Cath showing no significant CAD Con't medical management 2) PE ruled out 3) Check 2D echo If no problems, then no further cardiovascular work up, and may be discharged home Problem Qualifiers (1) Chest pain: Qualified Codes: R07.9 - Chest pain, unspecified Marek Parekh DO September 19, 2017 12:35
[2017-09-19] MEDS: ISOSORBIDE MONONITRATE 60 MG CR TAB (IMDUR) PO SCH (13:31)
[2017-09-19] MEDS: LISINOPRIL 20 MG TAB PO SCH (13:31)
[2017-09-19] MEDS: PANTOPRAZOLE SOD 20 MG DELAYED RELEASE TAB PO SCH (13:31)
[2017-09-19] MEDS: METOPROLOL SUCCINATE 50 MG EXTENDED RELEASE TAB PO SCH (13:32)
--- NOTE | 2017-09-19 13:48 | HHI.PR ---
Subjective Remarks Hypertension is improved. Patient had a heart cath today and shows no evidence of ischemic pathology. Her breathing is not yet to baseline. She is also complaining of chest pain which is worsened when eating and has parasternal tenderness. Objective Vital Signs Date Time Temp Pulse Resp B/P (MAP) Pulse Ox O2 Delivery O2 Flow Rate FiO2 09/19/17 09:57 94 Room Air 09/19/17 07:57 Nasal Cannula 2.00 09/19/17 03:18 97.8 69 17 121/57 (78) 94 09/18/17 23:22 98.1 66 17 120/59 (79) 93 09/18/17 20:30 94 Nasal Cannula 2.00 09/18/17 20:30 94 2.00 09/18/17 20:05 98.0 66 17 97/51 (66) 95 09/18/17 17:53 68 109/53 (71) 09/18/17 17:53 68 09/18/17 16:05 97.3 72 18 106/55 (72) 97 09/18/17 14:23 Nasal Cannula 2.00 09/18/17 14:23 98 2.00 09/18/17 14:12 86 18 110/55 (73) 98 Nasal Cannula 2.00 I/O 09/18/17 09/18/17 09/18/17 09/19/17 09/19/17 09/19/17 07:00 15:00 23:00 07:00 15:00 23:00 Intake Total 150 ml Balance 150 ml Intake IV Total 150 ml Result Diagram: 09/18/17 0740 09/18/17 0740 Objective Remarks GENERAL: NAD, A&Ox3 HEAD: Normocephalic. NECK: Supple, trachea midline. No lymphadenopathy. EYES: No scleral icterus. No injection or drainage. CARDIOVASCULAR: Regular rate and rhythm without murmurs, gallops, or rubs. RESPIRATORY: Breath sounds equal bilaterally. No accessory muscle use. Wheezing. GASTROINTESTINAL: Abdomen soft, non-tender, nondistended. MUSCULOSKELETAL: No cyanosis, or edema. Parasternal tenderness with palpation SKIN: Warm and dry. NEURO: No focal neurological deficitis. A/P Problem List: (1) COPD exacerbation ICD Code: J44.1 - Chronic obstructive pulmonary disease with (acute) exacerbation (2) Costochondritis ICD Code: M94.0 - Chondrocostal junction syndrome [[place]] (3) COPD Status: Chronic Assessment and Plan 72-year-old female admitted secondary to chest pain, COPD exacerbation, and hypertensive urgency. Chest pain Negative cardiac workup including heart cath. Etiology may be related to esophagus Start PPI Etiology could be related to costal chondritis Start steroids COPD exacerbation Continue systemic steroids Continue Mucinex Continue breathing treatments as needed Continue oxygen as needed Continue antibiotics Chronic kidney disease stage II-III Monitor renal functions Hypertension Continue baseline treatment Follow blood pressures Adjust treatments as needed Diabetes mellitus type 2 Follow blood sugars Insulin sliding scale Diabetic diet Presbycusis Supportive care Osteoarthritis As needed pain treatments Vladimir Coleman MD September 19, 2017 13:48
[2017-09-19] MEDS ORDERED: ALUMINUM/MAGNESIUM/SIMETH 30 ML CUP PO PRN (14:00)
[2017-09-19] MEDS ORDERED: ALUMINUM/MAGNESIUM/SIMETH 30 ML CUP PO ONE (14:00)
[2017-09-19] MEDS ORDERED: PANTOPRAZOLE SOD 40 MG DELAYED RELEASE TAB PO ONE (14:00)
--- NOTE | 2017-09-19 14:10 | ECHRPT ---
Indication: Chest pain, unspecified CONCLUSIONS The left ventricular systolic function is normal with an estimated ejection fraction in the range of 55-60%. No definite wall motion abnormalities. Wall thickness is measured at the upper limits of normal. Normal left ventricular size. Trace mitral valve regurgitation. Mild to moderate mitral annular calcification. There is trace tricuspid valve regurgitation. The estimated pulmonary arterial pressure is 28 mmHg. BP: 121 / 57 HR: 69 Rhythm: Sinus MEASUREMENTS (Male / Female) Normal Values Technical Quality:Fair 2D ECHO LV Diastolic Diameter PLAX 3.3 cm 4.2 - 5.9 / 3.9 - 5.3 cm LV Systolic Diameter PLAX 2.4 cm IVS Diastolic Thickness 1.1 cm 0.6 - 1.0 / 0.6 - 0.9 cm LVPW Diastolic Thickness 1.1 cm 0.6 - 1.0 / 0.6 - 0.9 cm LV Relative Wall Thickness 0.7 LVOT Diameter 1.9 cm M-MODE Aortic Root Diameter MM 3.1 cm LA Systolic Diameter MM 4.0 cm LA Ao Ratio MM 1.3 AV Cusp Separation MM 2.0 cm DOPPLER LVOT Peak Velocity 187.0 cm/s LVOT Peak Gradient 14.0 mmHg MR Peak Velocity 346.0 cm/s MR Peak Gradient 47.9 mmHg Mitral E Point Velocity 88.8 cm/s Mitral A Point Velocity 117.0 cm/s Mitral E to A Ratio 0.8 LV E' Lateral Velocity 3.4 cm/s Mitral E to LV E' Lateral Ratio 26.0 TR Peak Velocity 217.0 cm/s TR Peak Gradient 18.8 mmHg Right Atrial Pressure 10.0 mmHg Pulmonary Artery Systolic Pressu 28.8 mmHg Right Ventricular Systolic Press 28.8 mmHg PV Peak Velocity 107.0 cm/s PV Peak Gradient 4.6 mmHg FINDINGS LEFT VENTRICLE The left ventricular systolic function is normal with an estimated ejection fraction in the range of 55-60%. No definite wall motion abnormalities. Wall thickness is measured at the upper limits of normal. Normal left ventricular size. RIGHT VENTRICLE Normal right ventricular size and systolic function. LEFT ATRIUM The left atrial size is normal. RIGHT ATRIUM The right atrial size is normal. ATRIAL SEPTUM Normal atrial septal thickness without atrial level shunting by limited color doppler interrogation. AORTA The aortic root and proximal ascending aorta are normal in size on limited imaging. MITRAL VALVE Trace mitral valve regurgitation. Mild to moderate mitral annular calcification. AORTIC VALVE Trileaflet aortic valve. No aortic valve stenosis or regurgitation. TRICUSPID VALVE There is trace tricuspid valve regurgitation. The estimated pulmonary arterial pressure is 28 mmHg. PULMONARY VALVE Mild pulmonary valve regurgitation. VESSELS The inferior vena cava is normal in size. PERICARDIUM No pericardial effusion. Eleazar Spicer MD (Electronically Signed) Final Date:19 Sep 2017 14:09
[2017-09-19 20:20] LABS: AUTOMATED NEUTROPHIL # 20.9 TH/MM3 (1.8-7.7); BASOPHIL % 0.1 % (0.0-2.0); HEMOGLOBIN 9.5 GM/DL (11.6-15.3); LYMPH % 2.9 % (9.0-44.0); LYMPHOCYTE # 0.6 TH/MM3 (1.0-4.8); MEAN CELL VOLUME 92.7 FL (80.0-100.0); MEAN CORPUSCULAR HEMOGLOBIN 30.5 PG (27.0-34.0); MEAN CORPUSCULAR HGB CONC 32.9 % (32.0-36.0); MEAN PLATELET VOLUME 8.4 FL (7.0-11.0); MONO % 2.6 % (0.0-8.0); MONOCYTE # 0.6 TH/MM3 (0-0.9); NEUT % 94.4 % (16.0-70.0); PLATELET COUNT 314 TH/MM3 (150-450); RED BLOOD COUNT 3.13 MIL/MM3 (4.00-5.30); RED CELL DISTRIBUTION WIDTH 20.7 % (11.6-17.2); WHITE BLOOD COUNT 22.1 TH/MM3 (4.0-11.0)
[2017-09-19 20:53] LABS: ALKALINE PHOSPHATASE 93 U/L (45-117); ALT (GPT) 23 U/L (10-53); AST (GOT) 17 U/L (15-37); BICARBONATE 22.3 MEQ/L (21.0-32.0); BLOOD UREA NITROGEN 55 MG/DL (7-18); CALCIUM 8.6 MG/DL (8.5-10.1); CHLORIDE 98 MEQ/L (98-107); CREATININE 3.31 MG/DL (0.50-1.00); FREE T4 0.91 NG/DL (0.76-1.46); GLOMERULAR FILTRATION RATE 17 ML/MIN (>89); GLUCOSE,RANDOM 235 MG/DL (74-106); MAGNESIUM 2.1 MG/DL (1.5-2.5); SODIUM (NA) 133 MEQ/L (136-145); TOTAL BILIRUBIN ADULT 0.3 MG/DL (0.2-1.0); TOTAL PROTEIN 7.4 GM/DL (6.4-8.2); TROPONIN I 0.03 NG/ML (0.02-0.05)
[2017-09-19] MEDS: ATORVASTATIN 10 MG TAB PO SCH (21:32)
[2017-09-20] VITALS (26 sets, daily range): BP systolic 111–126; BP diastolic 53–71; PULSE 64–82; RESP 16–22; TEMP 97.4–98.4; O2SAT 92–97
[2017-09-20] MEDS: methylPREDNISolone SOD SUCC 125 MG/2 ML VIAL IV PUSH SCH ×4 (02:46→20:19)
[2017-09-20] MEDS: oxyCODONE/ACETAMINOPHEN 10 MG/325 MG TAB PO PRN ×2 (02:46→08:21)
[2017-09-20] MEDS: RESP: ALBUTEROL 2.5 MG/IPRATROPIUM 0.5 MG NEB (SCH) INH ×4 (04:04→20:57)
[2017-09-20 07:17] LABS: AUTOMATED NEUTROPHIL # 20.5 TH/MM3 (1.8-7.7); BASOPHIL % 0.1 % (0.0-2.0); HEMATOCRIT 29.5 % (35.0-46.0); HEMOGLOBIN 9.7 GM/DL (11.6-15.3); LYMPH % 2.8 % (9.0-44.0); LYMPHOCYTE # 0.6 TH/MM3 (1.0-4.8); MEAN CELL VOLUME 92.9 FL (80.0-100.0); MEAN CORPUSCULAR HEMOGLOBIN 30.6 PG (27.0-34.0); MEAN PLATELET VOLUME 8.4 FL (7.0-11.0); MONO % 1.8 % (0.0-8.0); MONOCYTE # 0.4 TH/MM3 (0-0.9); NEUT % 95.3 % (16.0-70.0); PLATELET COUNT 307 TH/MM3 (150-450); RED BLOOD COUNT 3.18 MIL/MM3 (4.00-5.30); RED CELL DISTRIBUTION WIDTH 20.2 % (11.6-17.2); WHITE BLOOD COUNT 21.5 TH/MM3 (4.0-11.0)
[2017-09-20 08:01] LABS: ALBUMIN 3.2 GM/DL (3.4-5.0); ALKALINE PHOSPHATASE 92 U/L (45-117); ALT (GPT) 24 U/L (10-53); AST (GOT) 20 U/L (15-37); BICARBONATE 20.5 MEQ/L (21.0-32.0); CALCIUM 8.7 MG/DL (8.5-10.1); CHLORIDE 99 MEQ/L (98-107); CREATININE 3.62 MG/DL (0.50-1.00); GLOMERULAR FILTRATION RATE 15 ML/MIN (>89); GLUCOSE,RANDOM 175 MG/DL (74-106); SODIUM (NA) 133 MEQ/L (136-145); TOTAL BILIRUBIN ADULT 0.3 MG/DL (0.2-1.0); TOTAL PROTEIN 7.5 GM/DL (6.4-8.2)
[2017-09-20 08:02] LABS: BLOOD UREA NITROGEN 67 MG/DL (7-18)
[2017-09-20] MEDS: INSULIN ASPART SUPPLEMENTAL SCALE SQ SCH ×4 (08:19→20:23)
[2017-09-20] MEDS: METOPROLOL SUCCINATE 50 MG EXTENDED RELEASE TAB PO SCH (08:19)
[2017-09-20] MEDS: LISINOPRIL 20 MG TAB PO SCH (08:19)
[2017-09-20] MEDS: hydrALAZINE HCL 25 MG TAB PO SCH ×3 (08:20→16:38)
[2017-09-20] MEDS: ASPIRIN 81 MG CHEW TAB CHEW SCH (08:20)
[2017-09-20] MEDS: guaiFENesin E.R. 600 MG TAB PO SCH ×2 (08:20→20:19)
[2017-09-20] MEDS: TOLTERODINE TARTRATE 2 MG CAP LA PO SCH (08:20)
[2017-09-20] MEDS: PANTOPRAZOLE SOD 20 MG DELAYED RELEASE TAB PO SCH (08:20)
[2017-09-20] MEDS: CLOPIDOGREL 75 MG TAB PO SCH (08:20)
[2017-09-20] MEDS: PANTOPRAZOLE SOD 40 MG DELAYED RELEASE TAB PO SCH (08:20)
[2017-09-20] MEDS: DOCUSATE SODIUM 50 MG/SENNA 8.6 MG TAB PO SCH ×2 (08:20→20:19)
[2017-09-20] MEDS: ISOSORBIDE MONONITRATE 60 MG CR TAB (IMDUR) PO SCH (08:20)
[2017-09-20] MEDS: DICYCLOMINE HCL 20 MG TAB PO SCH ×3 (08:20→16:38)
[2017-09-20] MEDS: GABAPENTIN 300 MG CAP PO SCH ×2 (08:20→11:42)
[2017-09-20] MEDS: BUDESONIDE-FORMOTEROL 160/4.5 MCG INHALER INH SCH ×2 (08:21→20:20)
[2017-09-20] MEDS: SODIUM CHLORIDE 0.9% FLUSH 10 ML FLUSH IV FLUSH SCH ×2 (08:21→20:19)
--- NOTE | 2017-09-20 12:01 | EKG ---
Date Performed: 09/18/2017 Time Performed: 18:00:43 PTAGE: 72 years EKG: Sinus rhythm POSSIBLE LEFT ATRIAL ENLARGEMENT BORDERLINE LEFT AXIS DEVIATION LEFT VENTRICULAR HYPERTROPHY AND ST- T CHANGE ABNORMAL ECG PREVIOUS TRACING : 09/18/2017 14.01 DOCTOR: Lisa Barger Interpretating Date/Time 09/20/2017 11:53:11
--- NOTE | 2017-09-20 12:07 | EKG ---
Date Performed: 09/18/2017 Time Performed: 14:01:06 PTAGE: 72 years EKG: Sinus rhythm POSSIBLE LEFT ATRIAL ENLARGEMENT POSSIBLE LEFT VENTRICULAR HYPERTROPHY PROLONGED QT INTERVAL ABNORMA L ECG PREVIOUS TRACING : 09/18/2017 08.39 DOCTOR: Lisa Barger Interpretating Date/Time 09/20/2017 11:56:53
[2017-09-20 13:24] LABS: HEMOGLOBIN A1C 6.7 % (4.3-6.0)
[2017-09-20] MEDS: LEVOFLOXACIN 750 MG PREMIX INJ 150 ML IV SCH (13:53)
--- NOTE | 2017-09-20 18:50 | PD.CARD.PN ---
Subjective Subjective Remarks Patient was seen earlier today, late entry No events overnight Objective Medications Current Medications Medications (Trade) Dose Ordered Sig/Peg Route Start Time Stop Time Status Last Admin (D50w (Vial) Inj) 50 ml UNSCH PRN IV PUSH 09/18/17 11:45 (Glucagon Inj) 1 mg UNSCH PRN OTHER 09/18/17 11:45 (NovoLOG SUPPLEMENTAL SCALE) 1 ACHS SLIDING SCALE SQ 09/18/17 12:00 09/20/17 16:38 (Norvasc) 10 mg DAILY PO 09/18/17 13:00 09/20/17 08:20 (Lipitor) 10 mg HS PO 09/18/17 21:00 09/19/17 21:32 (Plavix) 75 mg DAILY PO 09/19/17 09:00 09/20/17 08:20 (Bentyl) 20 mg TID PO 09/18/17 13:00 09/20/17 16:38 (Imdur) 60 mg DAILY PO 09/18/17 13:00 09/20/17 08:20 (Antivert) 25 mg TID PRN PO 09/18/17 11:45 (Zanaflex) 2 mg TID PO 09/18/17 13:00 09/20/17 16:38 (Protonix) 20 mg DAILY PO 09/19/17 09:00 09/20/17 08:20 (Detrol La) 2 mg DAILY PO 09/18/17 14:00 09/20/17 08:20 (NS Flush) 2 ml BID IV FLUSH 09/18/17 21:00 09/20/17 08:21 (NS Flush) 2 ml UNSCH PRN IV FLUSH 09/18/17 11:45 (Duoneb Neb) 1 ampule Q2HR NEB PRN NEB 09/18/17 13:15 (Duoneb Neb) 1 ampule Q6HR NEB INH 09/18/17 16:00 09/20/17 15:06 (Symbicort 160-4.5 Mcg Inh) 2 puff Q12HR INH 09/18/17 21:00 09/20/17 08:21 (SoluMEDROL INJ) 60 mg Q6H IV PUSH 09/18/17 15:00 09/20/17 13:53 Levofloxacin/ Dextrose 150 ml @ 100 mls/hr Q48H IV 09/18/17 14:00 09/20/17 13:53 (Tylenol) 650 mg Q4H PRN PO 09/18/17 11:45 (Zofran Odt) 4 mg Q6H PRN PO 09/18/17 12:45 (Reglan Inj) 5 mg Q6H PRN IV PUSH 09/18/17 11:45 (Tylenol) 650 mg Q6H PRN PO 09/18/17 11:45 (Percocet 5-325 Mg) 1 tab Q6H PRN PO 09/18/17 11:45 (Percocet 10-325 Mg) 1 tab Q6H PRN PO 09/18/17 11:45 09/20/17 08:21 (Morphine Inj) 2 mg Q3H PRN IV PUSH 09/18/17 12:30 (Morphine Inj) 4 mg Q3H PRN IV PUSH 09/18/17 12:45 (Narcan Inj) 0.4 mg UNSCH PRN IV PUSH 09/18/17 11:45 (Lilo-Colace) 1 tab BID PO 09/18/17 21:00 09/20/17 08:20 (Milk Of Magnesia Liq) 30 ml Q12H PRN PO 09/18/17 11:45 (Senokot) 17.2 mg Q12H PRN PO 09/18/17 11:45 (Dulcolax Supp) 10 mg DAILY PRN RECTAL 09/18/17 11:45 (Lactulose Liq) 30 ml DAILY PRN PO 09/18/17 11:45 (Mucinex Er) 600 mg BID PO 09/18/17 12:00 09/20/17 08:20 (Catapres) 0.1 mg Q4H PRN PO 09/18/17 12:45 09/18/17 13:03 (Apresoline) 75 mg TID PO 09/18/17 13:00 09/20/17 16:38 (Prinivil) 40 mg DAILY PO 09/18/17 13:00 09/20/17 08:19 (Toprol Xl) 200 mg DAILY PO 09/18/17 13:00 09/20/17 08:19 (Aspirin Chew) 81 mg DAILY CHEW 09/20/17 09:00 09/20/17 08:20 (Protonix) 40 mg DAILY PO 09/20/17 09:00 09/20/17 08:20 (Mag-Al Plus Susp Liq) 30 ml Q6H PRN PO 09/19/17 14:00 (Neurontin) 300 mg Q24H PO 09/21/17 12:00 Vital Signs / I&O Vital Signs Date Time Temp Pulse Resp B/P (MAP) Pulse Ox O2 Delivery O2 Flow Rate FiO2 09/20/17 18:00 66 09/20/17 17:00 72 09/20/17 16:00 70 09/20/17 16:00 98.4 72 22 113/58 (76) 95 09/20/17 15:06 93 21 09/20/17 15:00 66 09/20/17 14:00 64 09/20/17 13:00 66 09/20/17 12:00 98.1 69 20 111/53 (72) 93 09/20/17 12:00 68 09/20/17 11:00 66 09/20/17 10:00 68 09/20/17 09:26 20 09/20/17 09:00 72 09/20/17 08:44 96 Nasal Cannula 2.00 09/20/17 08:00 69 09/20/17 08:00 98.2 71 16 113/62 (79) 97 09/20/17 08:00 Nasal Cannula 2.00 09/20/17 07:00 68 09/20/17 06:00 70 09/20/17 05:00 82 09/20/17 04:00 71 09/20/17 04:00 64 09/20/17 04:00 75 20 126/71 (89) 92 09/20/17 03:00 68 09/20/17 02:00 68 09/20/17 01:00 66 09/20/17 00:00 66 09/20/17 00:00 66 09/19/17 23:00 68 09/19/17 22:00 74 09/19/17 21:00 76 09/19/17 20:30 84 09/19/17 20:30 Nasal Cannula 2.00 09/19/17 20:30 97.6 80 20 128/65 (86) 96 09/19/17 20:00 84 09/19/17 19:20 95 Nasal Cannula 2.00 09/19/17 19:15 130/55 (80) 09/19/17 19:00 80 I/O 09/19/17 09/19/17 09/19/17 09/20/17 09/20/17 09/20/17 07:00 15:00 23:00 07:00 15:00 23:00 Intake Total 600 ml 240 ml 770 ml Output Total 500 ml 600 ml 650 ml Balance 100 ml -360 ml 120 ml Intake Oral 600 ml 240 ml 620 ml IV Total 150 ml Output Urine Total 500 ml 600 ml 650 ml # Bowel Movements 0 Physical Exam GENERAL: NAD, AAOx3 SKIN: Warm and dry. HEAD: Atraumatic. Normocephalic. EYES: Pupils equal and round. No scleral icterus. No injection or drainage. ENT: No nasal bleeding or discharge. Mucous membranes pink and moist. NECK: Trachea midline. No JVD. CARDIOVASCULAR: Regular rate and rhythm. RESPIRATORY: No accessory muscle use. Clear to auscultation. Breath sounds equal bilaterally. GASTROINTESTINAL: Abdomen soft, non-tender, nondistended. Hepatic and splenic margins not palpable. MUSCULOSKELETAL: Extremities without clubbing, cyanosis, or edema. No obvious deformities. NEUROLOGICAL: Awake and alert. No obvious cranial nerve deficits. Motor grossly within normal limits. Five out of 5 muscle strength in the arms and legs. Normal speech. PSYCHIATRIC: Appropriate mood and affect; insight and judgment normal. Laboratory Laboratory Tests Test 09/19/17 19:36 09/20/17 06:03 White Blood Count 22.1 TH/MM3 21.5 TH/MM3 Red Blood Count 3.13 MIL/MM3 3.18 MIL/MM3 Hemoglobin 9.5 GM/DL 9.7 GM/DL Hematocrit 29.0 % 29.5 % Mean Corpuscular Volume 92.7 FL 92.9 FL Mean Corpuscular Hemoglobin 30.5 PG 30.6 PG Mean Corpuscular Hemoglobin Concent 32.9 % 33.0 % Red Cell Distribution Width 20.7 % 20.2 % Platelet Count 314 TH/MM3 307 TH/MM3 Mean Platelet Volume 8.4 FL 8.4 FL Neutrophils (%) (Auto) 94.4 % 95.3 % Lymphocytes (%) (Auto) 2.9 % 2.8 % Monocytes (%) (Auto) 2.6 % 1.8 % Eosinophils (%) (Auto) 0.0 % 0.0 % Basophils (%) (Auto) 0.1 % 0.1 % Neutrophils # (Auto) 20.9 TH/MM3 20.5 TH/MM3 Lymphocytes # (Auto) 0.6 TH/MM3 0.6 TH/MM3 Monocytes # (Auto) 0.6 TH/MM3 0.4 TH/MM3 Eosinophils # (Auto) 0.0 TH/MM3 0.0 TH/MM3 Basophils # (Auto) 0.0 TH/MM3 0.0 TH/MM3 CBC Comment DIFF FINAL DIFF FINAL Differential Comment Blood Urea Nitrogen 55 MG/DL 67 MG/DL Creatinine 3.31 MG/DL 3.62 MG/DL Random Glucose 235 MG/DL 175 MG/DL Total Protein 7.4 GM/DL 7.5 GM/DL Albumin 3.0 GM/DL 3.2 GM/DL Calcium Level 8.6 MG/DL 8.7 MG/DL Phosphorus Level 5.0 MG/DL Magnesium Level 2.1 MG/DL Alkaline Phosphatase 93 U/L 92 U/L Aspartate Amino Transf (AST/SGOT) 17 U/L 20 U/L Alanine Aminotransferase (ALT/SGPT) 23 U/L 24 U/L Total Bilirubin 0.3 MG/DL 0.3 MG/DL Sodium Level 133 MEQ/L 133 MEQ/L Potassium Level 4.3 MEQ/L 5.2 MEQ/L Chloride Level 98 MEQ/L 99 MEQ/L Carbon Dioxide Level 22.3 MEQ/L 20.5 MEQ/L Anion Gap 13 MEQ/L 14 MEQ/L Estimat Glomerular Filtration Rate 17 ML/MIN 15 ML/MIN Hemoglobin A1c 6.7 % Total Creatine Kinase 80 U/L Troponin I 0.03 NG/ML Free Thyroxine 0.91 NG/DL Thyroid Stimulating Hormone 3rd Gen 0.415 uIU/ML Assessment and Plan Problem List: (1) Chest pain ICD Codes: R07.9 - Chest pain, unspecified Status: Acute (2) COPD Status: Chronic (3) Diabetes mellitus type 2 in obese ICD Codes: E11.69 - Diabetes mellitus type 2 in obese; E66.9 - Obesity, unspecified Status: Chronic (4) Physical deconditioning ICD Codes: R53.81 - Other malaise (5) Hypertension ICD Codes: I10 - Hypertension Status: Chronic (6) Hypercholesterolemia ICD Codes: E78.00 - Hypercholesterolemia Status: Chronic (7) CAD (coronary artery disease) ICD Codes: I25.10 - Atherosclerotic heart disease of [place] coronary artery without angina pectoris Status: Chronic Assessment and Plan 1) Cath showing no significant CAD Con't medical management 2) PE ruled out 3) Check 2D echo If no problems, then no further cardiovascular work up 4) IVAN on CKD Unsure if creatinine was on the rise before cardiac catheterization? Only received 60cc of contrast during the case Possibility of renal atheroemboli, but no other signs noted, and no eosinophilia Consult nephrology IVF Stop nephrotoxins Problem Qualifiers (1) Chest pain: Qualified Codes: R07.9 - Chest pain, unspecified Marek Parekh DO September 20, 2017 18:50
--- NOTE | 2017-09-20 19:09 | HHI.PR ---
Subjective Remarks Patient hard of hearing, she reported being a smoker, no chest pain no fever Objective Vitals Vital Signs Date Time Temp Pulse Resp B/P (MAP) Pulse Ox O2 Delivery O2 Flow Rate FiO2 09/20/17 18:00 66 09/20/17 17:00 72 09/20/17 16:00 70 09/20/17 16:00 98.4 72 22 113/58 (76) 95 09/20/17 15:06 93 21 09/20/17 15:00 66 09/20/17 14:00 64 09/20/17 13:00 66 09/20/17 12:00 98.1 69 20 111/53 (72) 93 09/20/17 12:00 68 09/20/17 11:00 66 09/20/17 10:00 68 09/20/17 09:26 20 09/20/17 09:00 72 09/20/17 08:44 96 Nasal Cannula 2.00 09/20/17 08:00 69 09/20/17 08:00 98.2 71 16 113/62 (79) 97 09/20/17 08:00 Nasal Cannula 2.00 09/20/17 07:00 68 09/20/17 06:00 70 09/20/17 05:00 82 09/20/17 04:00 71 09/20/17 04:00 64 09/20/17 04:00 75 20 126/71 (89) 92 09/20/17 03:00 68 09/20/17 02:00 68 09/20/17 01:00 66 09/20/17 00:00 66 09/20/17 00:00 66 09/19/17 23:00 68 09/19/17 22:00 74 09/19/17 21:00 76 09/19/17 20:30 84 09/19/17 20:30 Nasal Cannula 2.00 09/19/17 20:30 97.6 80 20 128/65 (86) 96 09/19/17 20:00 84 09/19/17 19:20 95 Nasal Cannula 2.00 09/19/17 19:15 130/55 (80) I/O 09/19/17 09/19/17 09/19/17 09/20/17 09/20/17 09/20/17 07:00 15:00 23:00 07:00 15:00 23:00 Intake Total 600 ml 240 ml 770 ml Output Total 500 ml 600 ml 650 ml Balance 100 ml -360 ml 120 ml Intake Oral 600 ml 240 ml 620 ml IV Total 150 ml Output Urine Total 500 ml 600 ml 650 ml # Bowel Movements 0 Result Diagram: 09/20/1760209/20/17602 Objective Remarks GENERAL: This is a well-nourished, well-developed patient, in no apparent distress. CARDIOVASCULAR: Regular rate and rhythm without murmurs, gallops, or rubs. RESPIRATORY: Positive bilateral expiratory wheezes, limited breath sounds bilaterally. GASTROINTESTINAL: Abdomen soft, non-tender,nondistended. Normal active bowel sounds MUSCULOSKELETAL: Extremities without clubbing, cyanosis, or edema. NEURO: Alert & Oriented x4 to person, place, time, situation. Moves all ext x4 A/P Assessment and Plan 72-year-old female admitted secondary to chest pain, COPD exacerbation, and hypertensive urgency. 09/20: WBC 21.5 with 93% shift, 2D echo showed 55-60% with negative stress test however still wheezing, I ordered DuoNeb, continue Solu-Medrol, monitor clinical improvement, repeat CBC in a.m. A/P: Chest pain Negative cardiac workup including heart cath. Etiology may be related to esophagus Start PPI Etiology could be related to costal chondritis Start steroids COPD exacerbation Continue systemic steroids Continue Mucinex Continue breathing treatments as needed Continue oxygen as needed Continue antibiotics IVAN vs Chronic kidney disease stage II-III Monitor renal functions consider nephro consult Hypertension Continue baseline treatment Follow blood pressures Adjust treatments as needed Diabetes mellitus type 2 Follow blood sugars Insulin sliding scale Diabetic diet Presbycusis Supportive care Osteoarthritis As needed pain treatments Ara Ford MD September 20, 2017 19:09
[2017-09-20] MEDS: ATORVASTATIN 10 MG TAB PO SCH (20:19)
[2017-09-20] MEDS: SODIUM CHLOR 0.9% 1000 ML INJ 1,000 ML IV SCH (20:20)
[2017-09-21] VITALS (29 sets, daily range): BP systolic 94–146; BP diastolic 63–74; PULSE 66–76; RESP 16–18; TEMP 97.5–98.4; O2SAT 93–99
[2017-09-21] MEDS: oxyCODONE/ACETAMINOPHEN 10 MG/325 MG TAB PO PRN (01:15)
[2017-09-21] MEDS: methylPREDNISolone SOD SUCC 125 MG/2 ML VIAL IV PUSH SCH ×4 (01:16→19:43)
[2017-09-21] MEDS: RESP: ALBUTEROL 2.5 MG/IPRATROPIUM 0.5 MG NEB (SCH) INH ×4 (04:41→22:00)
[2017-09-21] MEDS: SODIUM CHLOR 0.9% 1000 ML INJ 1,000 ML IV SCH ×2 (05:00→15:00)
[2017-09-21] MEDS: INSULIN ASPART SUPPLEMENTAL SCALE SQ SCH ×4 (08:00→19:52)
[2017-09-21 08:19] LABS: AUTOMATED NEUTROPHIL # 18.7 TH/MM3 (1.8-7.7); BASOPHIL % 0.1 % (0.0-2.0); HEMATOCRIT 31.1 % (35.0-46.0); HEMOGLOBIN 10.7 GM/DL (11.6-15.3); LYMPH % 2.5 % (9.0-44.0); LYMPHOCYTE # 0.5 TH/MM3 (1.0-4.8); MEAN CELL VOLUME 93.3 FL (80.0-100.0); MEAN CORPUSCULAR HGB CONC 34.3 % (32.0-36.0); MONO % 1.9 % (0.0-8.0); MONOCYTE # 0.4 TH/MM3 (0-0.9); NEUT % 95.5 % (16.0-70.0); PLATELET COUNT 319 TH/MM3 (150-450); RED BLOOD COUNT 3.33 MIL/MM3 (4.00-5.30); RED CELL DISTRIBUTION WIDTH 21.8 % (11.6-17.2); WHITE BLOOD COUNT 19.5 TH/MM3 (4.0-11.0)
[2017-09-21 08:37] LABS: BICARBONATE 14.6 MEQ/L (21.0-32.0); CALCIUM 8.3 MG/DL (8.5-10.1); CREATININE 3.98 MG/DL (0.50-1.00); MAGNESIUM 2.3 MG/DL (1.5-2.5); PHOSPHORUS 5.9 MG/DL (2.5-4.9)
[2017-09-21] MEDS: SODIUM CHLORIDE 0.9% FLUSH 10 ML FLUSH IV FLUSH SCH ×2 (09:00→19:43)
[2017-09-21] MEDS: TOLTERODINE TARTRATE 2 MG CAP LA PO SCH (09:32)
[2017-09-21] MEDS: DOCUSATE SODIUM 50 MG/SENNA 8.6 MG TAB PO SCH ×2 (09:32→19:44)
[2017-09-21] MEDS: ISOSORBIDE MONONITRATE 60 MG CR TAB (IMDUR) PO SCH (09:32)
[2017-09-21] MEDS: DICYCLOMINE HCL 20 MG TAB PO SCH ×3 (09:32→18:01)
[2017-09-21] MEDS: guaiFENesin E.R. 600 MG TAB PO SCH ×2 (09:32→19:44)
[2017-09-21] MEDS: PANTOPRAZOLE SOD 40 MG DELAYED RELEASE TAB PO SCH (09:32)
[2017-09-21] MEDS: hydrALAZINE HCL 25 MG TAB PO SCH ×3 (09:33→18:01)
[2017-09-21] MEDS: METOPROLOL SUCCINATE 50 MG EXTENDED RELEASE TAB PO SCH (09:33)
[2017-09-21] MEDS: PANTOPRAZOLE SOD 20 MG DELAYED RELEASE TAB PO SCH (09:33)
[2017-09-21] MEDS: ASPIRIN 81 MG CHEW TAB CHEW SCH (09:33)
[2017-09-21] MEDS: CLOPIDOGREL 75 MG TAB PO SCH (09:33)
--- NOTE | 2017-09-21 11:31 | PD.CARD.PN ---
Subjective Subjective Remarks No events overnight Chest pain comes and goes, reproducible on palpation of anterior chest wall Objective Medications Current Medications Medications (Trade) Dose Ordered Sig/Peg Route Start Time Stop Time Status Last Admin (D50w (Vial) Inj) 50 ml UNSCH PRN IV PUSH 09/18/17 11:45 (Glucagon Inj) 1 mg UNSCH PRN OTHER 09/18/17 11:45 (NovoLOG SUPPLEMENTAL SCALE) 1 ACHS SLIDING SCALE SQ 09/18/17 12:00 09/21/17 08:00 (Norvasc) 10 mg DAILY PO 09/18/17 13:00 09/21/17 09:33 (Lipitor) 10 mg HS PO 09/18/17 21:00 09/20/17 20:19 (Plavix) 75 mg DAILY PO 09/19/17 09:00 09/21/17 09:33 (Bentyl) 20 mg TID PO 09/18/17 13:00 09/21/17 09:32 (Imdur) 60 mg DAILY PO 09/18/17 13:00 09/21/17 09:32 (Antivert) 25 mg TID PRN PO 09/18/17 11:45 (Zanaflex) 2 mg TID PO 09/18/17 13:00 09/21/17 09:32 (Protonix) 20 mg DAILY PO 09/19/17 09:00 09/21/17 09:33 (Detrol La) 2 mg DAILY PO 09/18/17 14:00 09/21/17 09:32 (NS Flush) 2 ml BID IV FLUSH 09/18/17 21:00 09/21/17 09:00 (NS Flush) 2 ml UNSCH PRN IV FLUSH 09/18/17 11:45 (Duoneb Neb) 1 ampule Q2HR NEB PRN NEB 09/18/17 13:15 (Duoneb Neb) 1 ampule Q6HR NEB INH 09/18/17 16:00 09/21/17 09:10 (Symbicort 160-4.5 Mcg Inh) 2 puff Q12HR INH 09/18/17 21:00 09/20/17 20:20 (SoluMEDROL INJ) 60 mg Q6H IV PUSH 09/18/17 15:00 09/21/17 09:31 Levofloxacin/ Dextrose 150 ml @ 100 mls/hr Q48H IV 09/18/17 14:00 09/20/17 13:53 (Tylenol) 650 mg Q4H PRN PO 09/18/17 11:45 (Zofran Odt) 4 mg Q6H PRN PO 09/18/17 12:45 (Reglan Inj) 5 mg Q6H PRN IV PUSH 09/18/17 11:45 (Tylenol) 650 mg Q6H PRN PO 09/18/17 11:45 (Percocet 5-325 Mg) 1 tab Q6H PRN PO 09/18/17 11:45 (Percocet 10-325 Mg) 1 tab Q6H PRN PO 09/18/17 11:45 09/21/17 01:15 (Morphine Inj) 2 mg Q3H PRN IV PUSH 09/18/17 12:30 (Morphine Inj) 4 mg Q3H PRN IV PUSH 09/18/17 12:45 (Narcan Inj) 0.4 mg UNSCH PRN IV PUSH 09/18/17 11:45 (Lilo-Colace) 1 tab BID PO 09/18/17 21:00 09/21/17 09:32 (Milk Of Magnesia Liq) 30 ml Q12H PRN PO 09/18/17 11:45 (Senokot) 17.2 mg Q12H PRN PO 09/18/17 11:45 (Dulcolax Supp) 10 mg DAILY PRN RECTAL 09/18/17 11:45 (Lactulose Liq) 30 ml DAILY PRN PO 09/18/17 11:45 (Mucinex Er) 600 mg BID PO 09/18/17 12:00 09/21/17 09:32 (Catapres) 0.1 mg Q4H PRN PO 09/18/17 12:45 09/18/17 13:03 (Apresoline) 75 mg TID PO 09/18/17 13:00 09/21/17 09:33 (Toprol Xl) 200 mg DAILY PO 09/18/17 13:00 09/21/17 09:33 (Aspirin Chew) 81 mg DAILY CHEW 09/20/17 09:00 09/21/17 09:33 (Protonix) 40 mg DAILY PO 09/20/17 09:00 5/19/18 09:32 (Mag-Al Plus Susp Liq) 30 ml Q6H PRN PO 09/19/17 14:00 (Neurontin) 300 mg Q24H PO 09/21/17 12:00 Sodium Chloride 1,000 ml @ 100 mls/hr Q10H IV 09/20/17 19:00 09/21/17 05:00 Vital Signs / I&O Vital Signs Date Time Temp Pulse Resp B/P (MAP) Pulse Ox O2 Delivery O2 Flow Rate FiO2 09/21/17 08:05 94 2.00 09/21/17 07:47 98.4 74 18 146/74 (98) 94 09/21/17 07:36 70 09/21/17 07:35 68 09/21/17 07:00 72 09/21/17 06:00 76 09/21/17 05:00 72 09/21/17 04:33 73 16 131/70 (90) 97 09/21/17 04:25 73 09/21/17 04:00 72 09/21/17 02:29 16 09/21/17 02:00 68 09/21/17 01:00 68 09/21/17 00:00 66 09/21/17 00:00 66 09/21/17 00:00 69 16 131/71 (91) 93 09/20/17 23:00 64 09/20/17 22:00 64 09/20/17 21:00 68 09/20/17 20:32 Room Air 21 09/20/17 20:00 97.4 72 16 117/57 (77) 94 09/20/17 20:00 69 09/20/17 20:00 68 09/20/17 19:00 70 09/20/17 18:00 66 09/20/17 17:00 72 09/20/17 16:00 70 09/20/17 16:00 98.4 72 22 113/58 (76) 95 09/20/17 15:06 93 21 09/20/17 15:00 66 09/20/17 14:00 64 09/20/17 13:00 66 09/20/17 12:00 98.1 69 20 111/53 (72) 93 09/20/17 12:00 68 I/O 09/20/17 09/20/17 09/20/17 09/21/17 09/21/1709/21/18 07:00 15:00 23:00 07:00 15:00 23:00 Intake Total 240 ml 770 ml 240 ml Output Total 600 ml 650 ml 700 ml Balance -360 ml 120 ml -460 ml Intake Oral 240 ml 620 ml 240 ml IV Total 150 ml Output Urine Total 600 ml 650 ml 700 ml # Bowel Movements 0 Physical Exam GENERAL: NAD, AAOx3 SKIN: Warm and dry. HEAD: Atraumatic. Normocephalic. EYES: Pupils equal and round. No scleral icterus. No injection or drainage. ENT: No nasal bleeding or discharge. Mucous membranes pink and moist. NECK: Trachea midline. No JVD. CARDIOVASCULAR: Regular rate and rhythm. RESPIRATORY: No accessory muscle use. Clear to auscultation. Breath sounds equal bilaterally. GASTROINTESTINAL: Abdomen soft, non-tender, nondistended. Hepatic and splenic margins not palpable. MUSCULOSKELETAL: Extremities without clubbing, cyanosis, or edema. No obvious deformities. NEUROLOGICAL: Awake and alert. No obvious cranial nerve deficits. Motor grossly within normal limits. Five out of 5 muscle strength in the arms and legs. Normal speech. PSYCHIATRIC: Appropriate mood and affect; insight and judgment normal. Laboratory Laboratory Tests Test 09/21/17 07:50 White Blood Count 19.5 TH/MM3 Red Blood Count 3.33 MIL/MM3 Hemoglobin 10.7 GM/DL Hematocrit 31.1 % Mean Corpuscular Volume 93.3 FL Mean Corpuscular Hemoglobin 32.0 PG Mean Corpuscular Hemoglobin Concent 34.3 % Red Cell Distribution Width 21.8 % Platelet Count 319 TH/MM3 Mean Platelet Volume 8.0 FL Neutrophils (%) (Auto) 95.5 % Lymphocytes (%) (Auto) 2.5 % Monocytes (%) (Auto) 1.9 % Eosinophils (%) (Auto) 0.0 % Basophils (%) (Auto) 0.1 % Neutrophils # (Auto) 18.7 TH/MM3 Lymphocytes # (Auto) 0.5 TH/MM3 Monocytes # (Auto) 0.4 TH/MM3 Eosinophils # (Auto) 0.0 TH/MM3 Basophils # (Auto) 0.0 TH/MM3 CBC Comment DIFF FINAL Differential Comment Hematology Comments Blood Urea Nitrogen 85 MG/DL Creatinine 3.98 MG/DL Random Glucose 170 MG/DL Calcium Level 8.3 MG/DL Phosphorus Level 5.9 MG/DL Magnesium Level 2.3 MG/DL Sodium Level 129 MEQ/L Potassium Level 4.8 MEQ/L Chloride Level 103 MEQ/L Carbon Dioxide Level 14.6 MEQ/L Anion Gap 11 MEQ/L Estimat Glomerular Filtration Rate 13 ML/MIN Assessment and Plan Problem List: (1) Chest pain ICD Codes: R07.9 - Chest pain, unspecified Status: Acute (2) COPD Status: Chronic (3) Diabetes mellitus type 2 in obese ICD Codes: E11.69 - Diabetes mellitus type 2 in obese; E66.9 - Obesity, unspecified Status: Chronic (4) Physical deconditioning ICD Codes: R53.81 - Other malaise (5) Hypertension ICD Codes: I10 - Hypertension Status: Chronic (6) Hypercholesterolemia ICD Codes: E78.00 - Hypercholesterolemia Status: Chronic (7) CAD (coronary artery disease) ICD Codes: I25.10 - Atherosclerotic heart disease of [place] coronary artery without angina pectoris Status: Chronic Assessment and Plan 1) Cath showing no significant CAD Con't medical management 2) PE ruled out 3) EF 55-60% 4) IVAN on CKD Unsure if creatinine was on the rise before cardiac catheterization? JAN usually 48 hours after cath Only received 60cc of contrast during the case Possibility of renal atheroemboli, but no other signs noted, and no eosinophilia Consult nephrology Discussed with nephrology, will see later today IVF Stop nephrotoxins 5) Con't chest pain Reproducible with palpation of anterior chest wall consistent with musculoskeletal pain Problem Qualifiers (1) Chest pain: Qualified Codes: R07.9 - Chest pain, unspecified Marek Parekh DO September 21, 2017 11:31
[2017-09-21] MEDS: BUDESONIDE-FORMOTEROL 160/4.5 MCG INHALER INH SCH ×2 (12:02→19:49)
[2017-09-21] MEDS: GABAPENTIN 300 MG CAP PO SCH (12:02)
--- NOTE | 2017-09-21 15:56 | HHI.PR ---
Subjective Remarks Patient is hard hearing difficult to communicate with speech is not very understandable Complaint of burning with urination and abdominal pain, discussed with the nurse patient did not have bowel movement in 3 days D/W Dr. Villasenor nephrology Objective Vitals Vital Signs Date Time Temp Pulse Resp B/P (MAP) Pulse Ox O2 Delivery O2 Flow Rate FiO2 09/21/17 15:05 98.0 74 18 124/66 (85) 94 09/21/17 13:00 68 09/21/17 12:05 97.8 74 16 128/72 (90) 98 09/21/17 12:00 70 09/21/17 11:00 73 09/21/17 10:00 74 09/21/17 09:00 70 09/21/17 08:05 94 2.00 09/21/17 08:00 70 09/21/17 07:47 98.4 74 18 146/74 (98) 94 09/21/17 07:36 70 09/21/17 07:35 68 09/21/17 07:00 72 09/21/17 06:00 76 09/21/17 05:00 72 09/21/17 04:33 73 16 131/70 (90) 97 09/21/17 04:25 73 09/21/17 04:00 72 09/21/17 02:29 16 09/21/17 02:00 68 09/21/17 01:00 68 09/21/17 00:00 66 09/21/17 00:00 66 09/21/17 00:00 69 16 131/71 (91) 93 09/20/17 23:00 64 09/20/17 22:00 64 09/20/17 21:00 68 09/20/17 20:32 Room Air 21 09/20/17 20:00 97.4 72 16 117/57 (77) 94 09/20/17 20:00 69 09/20/17 20:00 68 09/20/17 19:00 70 09/20/17 18:00 66 09/20/17 17:00 72 09/20/17 16:00 70 09/20/17 16:00 98.4 72 22 113/58 (76) 95 I/O 09/20/17 09/20/17 09/20/17 09/21/17 09/21/17 09/21/17 07:00 15:00 23:00 07:00 15:00 23:00 Intake Total 240 ml 770 ml 240 ml Output Total 600 ml 650 ml 700 ml Balance -360 ml 120 ml -460 ml Intake Oral 240 ml 620 ml 240 ml IV Total 150 ml Output Urine Total 600 ml 650 ml 700 ml # Bowel Movements 0 Result Diagram: 09/21/17 0750 09/21/17 0750 Objective Remarks GENERAL: This is a well-nourished, well-developed patient, in no apparent distress. CARDIOVASCULAR: Regular rate and rhythm without murmurs, gallops, or rubs. RESPIRATORY: Positive bilateral expiratory wheezes, limited breath sounds bilaterally. GASTROINTESTINAL: Abdomen soft, non-tender,nondistended. Normal active bowel sounds MUSCULOSKELETAL: Extremities without clubbing, cyanosis, or edema. NEURO: Alert & Oriented x4 to person, place, time, situation. Moves all ext x4 A/P Assessment and Plan 72-year-old female admitted secondary to chest pain, COPD exacerbation, and hypertensive urgency. 09/20: WBC 21.5 with 93% shift, 2D echo showed 55-60% with negative stress test however still wheezing, I ordered DuoNeb, continue Solu-Medrol, monitor clinical improvement, repeat CBC in a.m. 09/21: WBC dropped to 19 K, discussed with Dr. Villasenor nephrology, continue monitoring BMP,, DYSURIA: Check UA, ABDOMINAL pain check KUB A/P: Chest pain Negative cardiac workup including heart cath. Etiology may be related to esophagus Start PPI Etiology could be related to costal chondritis Start steroids COPD exacerbation Continue systemic steroids Continue Mucinex Continue breathing treatments as needed Continue oxygen as needed Continue antibiotics IVAN vs Chronic kidney disease stage II-III Monitor renal functions consider nephro consult Hypertension Continue baseline treatment Follow blood pressures Adjust treatments as needed Diabetes mellitus type 2 Follow blood sugars Insulin sliding scale Diabetic diet Presbycusis Supportive care Osteoarthritis As needed pain treatments Ara Ford MD September 21, 2017 15:56
[2017-09-21 16:02] LABS: BILIRUBIN, URINE NEG (NEG); BLOOD, URINE NEG (NEG); GLUCOSE,URINE NEG (NEG); KETONE, URINE NEG (NEG); NITRITE,URINE NEG (NEG); URINE COLOR YELLOW (YELLW/STRAW); URINE LEUKOCYTE ESTERASE NEG (NEG)
[2017-09-21 16:08] LABS: CREATININE, RANDOM URINE 102.6 MG/DL
[2017-09-21 16:32] LABS: BACTERIA, URINE MOD /hpf; SQUAMOUS EPITHELIAL CELL URINE > 8 /hpf (0-5)
--- NOTE | 2017-09-21 16:32 | MB ---
cc: Vladimir Villasenor MD DATE: 09/21/2017 REASON FOR CONSULTATION: Acute renal failure. HISTORY OF PRESENT ILLNESS: This is a 72-year-old female with a history of CKD. The patient is believes she has followed up with Dr. Martin in the office in the past for CKD. The patient also has a history of severe hearing loss. She also has a history of CAD and hypertension as well as CKD stage III-IV as well as a history of diabetes. The patient presented to the hospital for admission on 09/18/2017 with complaints of right-sided chest pain. She was seen here and evaluated. A V/Q scan was negative for any findings of pulmonary embolism. She was seen and had a cardiac catheterization done on the . which showed some mild LAD disease; however, not significant and no intervention was necessary. She has been monitored post-catheterization. Her underlying COPD and diabetes have otherwise been stable. The patient, however, did have an increase in her creatinine level. Her creatinine was 1.5 upon presentation and increased to a level of 3.6, then to a level of 3.9 today. Given the elevation in creatinine, Nephrology was consulted for further evaluation. The patient was also started on IV fluids of normal saline at 100 mL per hour and this was started yesterday evening. At this time, the patient is resting in bed comfortably. She does have some hardness of hearing; however, is able to comprehend some with lip reading. She was surrounded by the family who assisted with the history. REVIEW OF SYSTEMS: The patient has some ongoing pain in the abdomen area towards the chest area; however, reports her symptoms have improved. No shortness of breath, no nausea, no vomiting, no dyspnea. Otherwise, review of systems is negative. PAST MEDICAL HISTORY: Includes severe hearing loss, headaches, CAD with hypertension, chronic anticoagulation with Plavix, hypertension, dyslipidemia, COPD, sleep apnea, CKD followed up apparently with Dr. Martin; however, the patient is unsure of this. She reports her last appointment was several weeks ago and everything was stable then. Also history of osteoarthritis, diabetes, back pain, alcohol use, cocaine use, tobacco use and noncompliance with medications in the past. PAST SURGICAL HISTORY: Included right cataract, cardiac catheterization, ORIF of the right distal fibula and iliac stent placement. MEDICATIONS AT HOME: Included nitroglycerin, Imdur, Toprol-XL, amlodipine, hydralazine, omeprazole, tizanidine, atorvastatin, meclizine, dicyclomine, clopidogrel, gabapentin, tolterodine and lisinopril 40 mg daily. ALLERGIES: NO KNOWN DRUG ALLERGIES. FAMILY HISTORY: Tobacco use. SOCIAL HISTORY: History of previous cocaine, tobacco and alcohol use. PHYSICAL EXAMINATION: VITAL SIGNS: At time of evaluation, temperature 97.8, pulse 74, respiratory rate 16, blood pressure 128/72 with pulse oximetry 98%. GENERAL: Awake, alert, oriented, in no apparent distress. NECK: Soft, supple. HEART: Regular rate and rhythm. PULMONARY: Lungs clear to auscultation. Decreased breath sounds at the bases. ABDOMEN: Soft, nontender, nondistended. EXTREMITIES: No edema. LABORATORY FINDINGS: Sodium 129, potassium 4.8, chloride 103, bicarbonate 14.6, BUN 85, creatinine 3.98, glucose level of 170, calcium 8.3, phosphorus 5.9, magnesium 2.3, AST 20, ALT 24, alkaline phosphatase 92, albumin level 3.2. White count 19.5, hemoglobin 10.7, hematocrit 31.1 with platelet count of 319. ASSESSMENT AND PLAN: 1. Acute kidney injury on chronic kidney disease. It is unclear what the patient's baseline creatinine was; however, she had a creatinine of 1.5 at the time of admission. Of note, the patient has reported following up with a school vocational educator and she believes she has seen Dr. Martin in the past. At this time, she has acute on chronic renal failure upon presentation here. It is unclear what the exact etiology for this is. It is a possibility that she may have had some contrast exposure contributing to renal failure. However, the timing of this is somewhat acute for contrast exposure. There is also a possibility of volume depletion. To further assess this, I will go ahead and order a urinalysis as well as a renal ultrasound and a fractional excretion of sodium. At this point, she is making urine and has had approximately 1.3 liters of urine output over the last 24 hours. She has been getting IV fluids with normal saline at 100 mL per hour and it is possible that some mild volume depletion could be contributing to some of her symptoms. At this point, agree with IV fluids. Her respiratory status is stable. Continue to closely monitor. No acute need for any hemodialysis at this point. Of note, she does have an elevated BUN with the setting of steroids as well. 2. Acidosis. The patient has a serum bicarbonate level of 14.6. This is a non-anion gap acidosis, could possibly be due to her renal failure. At this point, I would adjust her IV fluids and add bicarbonate. Continue to monitor. 3. Chest pains. The patient had a negative cardiac catheterization, negative V/Q scans and echo showed a 55-60% ejection fraction. It is possible that these chest pains may be secondary to costochondritis. Her pain has somewhat moved to her abdomen area; however, has remained otherwise stable. There was a possibility of possible acid reflux causing some symptoms, and she has been started on a proton pump inhibitor as well. Continue to closely monitor with cardiology as well as primary team. 4. Chronic obstructive pulmonary disease. Symptoms are stable. She is on steroids as well at this time, which also can contribute to elevated BUN. Continue to monitor. 5. Diabetes. Blood glucose has been stable with glucose of 170. Continue to monitor with setting of steroids. MD SHELL GibbonsP/MIHIR , 03:29 PM , 04:31 PM MTDD
[2017-09-21] MEDS: SODIUM BICARBONATE 8.4% INJ 150 MEQ in DEXTROSE 5% IN WATE 1000ML INJ 1,000 ML IV SCH ×2 (17:00)
--- NOTE | 2017-09-21 17:09 | RADRPT ---
EXAM DATE/TIME: 09/21/2017 16:27 [facility] COMPARISON: CHEST SINGLE AP, September 18, 2017, 9:02. INDICATIONS : Shortness of breath. MEDICAL HISTORY : Chronic obstructive pulmonary disease. Hypertension.Cardiovascular disease. Renal failure. SURGICAL HISTORY : section. ENCOUNTER: Subsequent ACUITY: 4 - 6 days PAIN SCORE: 0/10 LOCATION: Bilateral chest FINDINGS: PA and lateral views of the chest demonstrate patchy densities left lower lobe and right upper lobe. Heart enlarged. Slight elevation right hemidiaphragm.. Osseous structures are intact. CONCLUSION: Bilateral patchy densities. Mike Burgos MD on September 21, 2017 at 17:07 Board Certified Radiologist. This report was verified electronically.
--- NOTE | 2017-09-21 17:16 | RADRPT ---
EXAM DATE/TIME: 09/21/2017 16:35 [facility] COMPARISON: No previous studies available for comparison. INDICATIONS : Abdominal pain past three days. MEDICAL HISTORY : Chronic obstructive pulmonary disease. Hypertension.Cardiovascular disease. Renal failure. SURGICAL HISTORY : section. ENCOUNTER: Initial ACUITY: 3 days PAIN SCORE: 10/10 LOCATION: Abdomen. FINDINGS: Supine view of the abdomen was performed. The abdominal bowel gas pattern is normal. No abnormal ma sses or organomegaly is seen. Punctate calcification left upper abdomen. Multiple presumed phlebolith s. Vascular calcifications. The osseous structures are unremarkable. CONCLUSION: No acute abnormalities. Possible punctate left renal calculus. Mike Burgos MD on September 21, 2017 at 17:10 Board Certified Radiologist. This report was verified electronically.
[2017-09-21] MEDS: ATORVASTATIN 10 MG TAB PO SCH (19:44)
--- NOTE | 2017-09-21 21:53 | RADRPT ---
EXAM DATE/TIME: 09/21/2017 20:57 [facility] COMPARISON: No previous studies available for comparison. INDICATIONS : Increased BUN and Creatinine. MEDICAL HISTORY : Hypertension. Hypercholesterolemia. Chronic obstructive pulmonary disease. Coronary artery disease. R enal failure - Stage IV. Diabetes. Osteoarthritis. Substance abuse. Severe hearing loss. SURGICAL HISTORY : Cardiac Catheterization. Iliac stent placement. ORIF of right distal Fibula. ENCOUNTER: Initial ACUITY: 2 days PAIN SCORE: 0/10 LOCATION: Bilateral flank MEASUREMENTS: RIGHT KIDNEY: 8.5 x 4.1 x 4.2 cm LEFT KIDNEY: 10.2 x 6.4 x 6.9 cm FINDINGS: There is thinning of the cortex and increased echogenicity within the kidney. Simple cyst right kidne y lower pole measures 12 x 8 x 8 mm. No mass or hydronephrosis. Mildly complex cyst lower pole left k idney measures 39 x 36 x 37 mm. Urinary bladder is unremarkable. CONCLUSION: 1. Echogenic kidneys consistent with medical renal disease. 2. Bilateral renal cysts. Mike Burgos MD on September 21, 2017 at 21:50 Board Certified Radiologist. This report was verified electronically.
[2017-09-22] VITALS (30 sets, daily range): BP systolic 122–155; BP diastolic 51–81; PULSE 64–78; RESP 16–21; TEMP 97.8–98.6; O2SAT 95–98
[2017-09-22] MEDS: RESP: ALBUTEROL 2.5 MG/IPRATROPIUM 0.5 MG NEB (SCH) INH ×2 (02:40→09:26)
[2017-09-22] MEDS: methylPREDNISolone SOD SUCC 125 MG/2 ML VIAL IV PUSH SCH ×4 (03:31→21:12)
[2017-09-22] MEDS: INSULIN ASPART SUPPLEMENTAL SCALE SQ SCH ×4 (08:00→21:15)
[2017-09-22 08:11] LABS: BASOPHIL % 0.1 % (0.0-2.0); HEMATOCRIT 30.4 % (35.0-46.0); HEMOGLOBIN 10.1 GM/DL (11.6-15.3); LYMPH % 2.7 % (9.0-44.0); LYMPHOCYTE # 0.4 TH/MM3 (1.0-4.8); MEAN CELL VOLUME 92.4 FL (80.0-100.0); MEAN CORPUSCULAR HEMOGLOBIN 30.6 PG (27.0-34.0); MEAN CORPUSCULAR HGB CONC 33.1 % (32.0-36.0); MEAN PLATELET VOLUME 8.4 FL (7.0-11.0); MONO % 3.3 % (0.0-8.0); MONOCYTE # 0.4 TH/MM3 (0-0.9); NEUT % 93.9 % (16.0-70.0); PLATELET COUNT 353 TH/MM3 (150-450); RED BLOOD COUNT 3.29 MIL/MM3 (4.00-5.30); RED CELL DISTRIBUTION WIDTH 20.8 % (11.6-17.2); WHITE BLOOD COUNT 13.8 TH/MM3 (4.0-11.0)
[2017-09-22 08:27] LABS: ALKALINE PHOSPHATASE 80 U/L (45-117); TOTAL BILIRUBIN ADULT 0.4 MG/DL (0.2-1.0); TOTAL PROTEIN 7.3 GM/DL (6.4-8.2)
[2017-09-22 08:38] LABS: ALT (GPT) 28 U/L (10-53); AST (GOT) 28 U/L (15-37); BICARBONATE 25.3 MEQ/L (21.0-32.0); BLOOD UREA NITROGEN 76 MG/DL (7-18); CALCIUM 8.1 MG/DL (8.5-10.1); CHLORIDE 101 MEQ/L (98-107); CREATININE 3.05 MG/DL (0.50-1.00); GLOMERULAR FILTRATION RATE 18 ML/MIN (>89); GLUCOSE,RANDOM 191 MG/DL (74-106); SODIUM (NA) 136 MEQ/L (136-145)
[2017-09-22] MEDS: ISOSORBIDE MONONITRATE 60 MG CR TAB (IMDUR) PO SCH (09:07)
[2017-09-22] MEDS: METOPROLOL SUCCINATE 50 MG EXTENDED RELEASE TAB PO SCH (09:07)
[2017-09-22] MEDS: ASPIRIN 81 MG CHEW TAB CHEW SCH (09:08)
[2017-09-22] MEDS: hydrALAZINE HCL 25 MG TAB PO SCH ×3 (09:08→17:52)
[2017-09-22] MEDS: PANTOPRAZOLE SOD 40 MG DELAYED RELEASE TAB PO SCH (09:08)
[2017-09-22] MEDS: PANTOPRAZOLE SOD 20 MG DELAYED RELEASE TAB PO SCH (09:09)
[2017-09-22] MEDS: guaiFENesin E.R. 600 MG TAB PO SCH ×2 (09:09→21:14)
[2017-09-22] MEDS: TOLTERODINE TARTRATE 2 MG CAP LA PO SCH (09:09)
[2017-09-22] MEDS: DOCUSATE SODIUM 50 MG/SENNA 8.6 MG TAB PO SCH ×2 (09:09→21:14)
[2017-09-22] MEDS: CLOPIDOGREL 75 MG TAB PO SCH (09:09)
[2017-09-22] MEDS: SODIUM CHLORIDE 0.9% FLUSH 10 ML FLUSH IV FLUSH SCH ×2 (09:09→21:10)
[2017-09-22] MEDS: SODIUM BICARBONATE 8.4% INJ 150 MEQ in DEXTROSE 5% IN WATE 1000ML INJ 1,000 ML IV SCH ×2 (09:10)
[2017-09-22] MEDS: DICYCLOMINE HCL 20 MG TAB PO SCH ×3 (09:10→17:52)
[2017-09-22] MEDS: BUDESONIDE-FORMOTEROL 160/4.5 MCG INHALER INH SCH ×2 (09:11→21:11)
--- NOTE | 2017-09-22 11:58 | PD.CARD.PN ---
Subjective Subjective Remarks No events overnight No further chest pain Objective Medications Current Medications Medications (Trade) Dose Ordered Sig/Peg Route Start Time Stop Time Status Last Admin (D50w (Vial) Inj) 50 ml UNSCH PRN IV PUSH 09/18/17 11:45 (Glucagon Inj) 1 mg UNSCH PRN OTHER 09/18/17 11:45 (NovoLOG SUPPLEMENTAL SCALE) 1 ACHS SLIDING SCALE SQ 09/18/17 12:00 09/22/17 08:00 (Norvasc) 10 mg DAILY PO 09/18/17 13:00 09/22/17 09:09 (Lipitor) 10 mg HS PO 09/18/17 21:00 09/21/17 19:44 (Plavix) 75 mg DAILY PO 09/19/17 09:00 09/22/17 09:09 (Bentyl) 20 mg TID PO 09/18/17 13:00 09/22/17 09:10 (Imdur) 60 mg DAILY PO 09/18/17 13:00 09/22/17 09:07 (Antivert) 25 mg TID PRN PO 09/18/17 11:45 (Zanaflex) 2 mg TID PO 09/18/17 13:00 09/22/17 09:07 (Protonix) 20 mg DAILY PO 09/19/17 09:00 09/22/17 09:09 (Detrol La) 2 mg DAILY PO 09/18/17 14:00 09/22/17 09:09 (NS Flush) 2 ml BID IV FLUSH 09/18/17 21:00 09/22/17 09:09 (NS Flush) 2 ml UNSCH PRN IV FLUSH 09/18/17 11:45 (Duoneb Neb) 1 ampule Q2HR NEB PRN NEB 09/18/17 13:15 (Duoneb Neb) 1 ampule Q6HR NEB INH 09/18/17 16:00 09/22/17 09:26 (Symbicort 160-4.5 Mcg Inh) 2 puff Q12HR INH 09/18/17 21:00 09/22/17 09:11 (SoluMEDROL INJ) 60 mg Q6H IV PUSH 09/18/17 15:00 09/22/17 09:09 Levofloxacin/ Dextrose 150 ml @ 100 mls/hr Q48H IV 09/18/17 14:00 09/20/17 13:53 (Tylenol) 650 mg Q4H PRN PO 09/18/17 11:45 (Zofran Odt) 4 mg Q6H PRN PO 09/18/17 12:45 (Reglan Inj) 5 mg Q6H PRN IV PUSH 09/18/17 11:45 09/22/17 09:06 (Tylenol) 650 mg Q6H PRN PO 09/18/17 11:45 (Percocet 5-325 Mg) 1 tab Q6H PRN PO 09/18/17 11:45 09/22/17 01:10 (Percocet 10-325 Mg) 1 tab Q6H PRN PO 09/18/17 11:45 09/21/17 01:15 (Morphine Inj) 2 mg Q3H PRN IV PUSH 09/18/17 12:30 (Morphine Inj) 4 mg Q3H PRN IV PUSH 09/18/17 12:45 (Narcan Inj) 0.4 mg UNSCH PRN IV PUSH 09/18/17 11:45 (Lilo-Colace) 1 tab BID PO 09/18/17 21:00 09/22/17 09:09 (Milk Of Magnesia Liq) 30 ml Q12H PRN PO 09/18/17 11:45 09/21/17 15:03 (Senokot) 17.2 mg Q12H PRN PO 09/18/17 11:45 (Dulcolax Supp) 10 mg DAILY PRN RECTAL 09/18/17 11:45 (Lactulose Liq) 30 ml DAILY PRN PO 09/18/17 11:45 (Mucinex Er) 600 mg BID PO 09/18/17 12:00 09/22/17 09:09 (Catapres) 0.1 mg Q4H PRN PO 09/18/17 12:45 09/18/17 13:03 (Apresoline) 75 mg TID PO 09/18/17 13:00 09/22/17 09:08 (Toprol Xl) 200 mg DAILY PO 09/18/17 13:00 09/22/17 09:07 (Aspirin Chew) 81 mg DAILY CHEW 09/20/17 09:00 09/22/17 09:08 (Protonix) 40 mg DAILY PO 09/20/17 09:00 09/22/17 09:08 (Mag-Al Plus Susp Liq) 30 ml Q6H PRN PO 09/19/17 14:00 (Neurontin) 300 mg Q24H PO 09/21/17 12:00 09/21/17 12:02 Sodium Bicarbonate 150 meq/Dextrose 1,150 ml @ 75 mls/hr [id number] IV 09/21/17 17:00 09/22/17 09:10 Vital Signs / I&O Vital Signs Date Time Temp Pulse Resp B/P (MAP) Pulse Ox O2 Delivery O2 Flow Rate FiO2 09/22/17 11:15 98.0 64 16 129/66 (87) 98 09/22/17 08:05 98 Nasal Cannula 1.00 09/22/17 07:20 98.0 72 18 155/81 (105) 98 09/22/17 07:00 73 09/22/17 06:00 74 09/22/17 05:00 76 09/22/17 04:00 72 09/22/17 03:27 97.9 76 16 131/51 (77) 96 09/22/17 03:00 74 09/22/17 03:00 76 09/22/17 02:40 21 09/22/17 02:00 70 09/22/17 01:00 68 09/22/17 00:00 70 09/21/17 23:00 71 09/21/17 23:00 98.0 72 16 94/67 (76) 98 09/21/17 23:00 70 09/21/17 22:00 68 09/21/17 21:57 99 Nasal Cannula 2.00 09/21/17 21:00 68 09/21/17 20:00 97.5 75 17 130/63 (85) 99 09/21/17 20:00 72 09/21/17 19:00 73 09/21/17 18:00 74 09/21/17 17:00 74 09/21/17 16:00 72 09/21/17 15:05 98.0 74 18 124/66 (85) 94 09/21/17 15:00 69 09/21/17 13:00 68 09/21/17 12:05 97.8 74 16 128/72 (90) 98 09/21/17 12:00 70 I/O 09/21/17 09/21/17 09/21/17 09/22/17 09/22/17 09/22/17 07:00 15:00 23:00 07:00 15:00 23:00 Intake Total 240 ml 700 ml 1140 ml Output Total 700 ml 1200 ml 1000 ml Balance -460 ml -500 ml 140 ml Intake Oral 240 ml 700 ml 240 ml IV Total 900 ml Output Urine Total 700 ml 1200 ml 1000 ml # Bowel Movements 1 Physical Exam GENERAL: NAD, AAOx3 SKIN: Warm and dry. HEAD: Atraumatic. Normocephalic. EYES: Pupils equal and round. No scleral icterus. No injection or drainage. ENT: No nasal bleeding or discharge. Mucous membranes pink and moist. NECK: Trachea midline. No JVD. CARDIOVASCULAR: Regular rate and rhythm. RESPIRATORY: No accessory muscle use. Clear to auscultation. Breath sounds equal bilaterally. GASTROINTESTINAL: Abdomen soft, non-tender, nondistended. Hepatic and splenic margins not palpable. MUSCULOSKELETAL: Extremities without clubbing, cyanosis, or edema. No obvious deformities. NEUROLOGICAL: Awake and alert. No obvious cranial nerve deficits. Motor grossly within normal limits. Five out of 5 muscle strength in the arms and legs. Normal speech. PSYCHIATRIC: Appropriate mood and affect; insight and judgment normal. Laboratory Laboratory Tests Test 09/21/17 15:29 09/22/17 07:07 Urine Color YELLOW Urine Turbidity HAZY Urine pH 5.0 Urine Specific [place] 1.014 Urine Protein NEG mg/dL Urine Glucose (UA) NEG mg/dL Urine Ketones NEG mg/dL Urine Occult Blood NEG Urine Nitrite NEG Urine Bilirubin NEG Urine Urobilinogen LESS THAN 2.0 MG/DL Urine Leukocyte Esterase NEG Urine WBC 2 /hpf Urine Squamous Epithelial Cells > 8 /hpf Urine Bacteria MOD /hpf Microscopic Urinalysis Comment CULTURE INDICATED Urine Random Creatinine 102.6 MG/DL Urine Random Sodium 10 MEQ/L White Blood Count 13.8 TH/MM3 Red Blood Count 3.29 MIL/MM3 Hemoglobin 10.1 GM/DL Hematocrit 30.4 % Mean Corpuscular Volume 92.4 FL Mean Corpuscular Hemoglobin 30.6 PG Mean Corpuscular Hemoglobin Concent 33.1 % Red Cell Distribution Width 20.8 % Platelet Count 353 TH/MM3 Mean Platelet Volume 8.4 FL Neutrophils (%) (Auto) 93.9 % Lymphocytes (%) (Auto) 2.7 % Monocytes (%) (Auto) 3.3 % Eosinophils (%) (Auto) 0.0 % Basophils (%) (Auto) 0.1 % Neutrophils # (Auto) 13.0 TH/MM3 Lymphocytes # (Auto) 0.4 TH/MM3 Monocytes # (Auto) 0.4 TH/MM3 Eosinophils # (Auto) 0.0 TH/MM3 Basophils # (Auto) 0.0 TH/MM3 CBC Comment DIFF FINAL Differential Comment Blood Urea Nitrogen 76 MG/DL Creatinine 3.05 MG/DL Random Glucose 191 MG/DL Total Protein 7.3 GM/DL Albumin 3.0 GM/DL Calcium Level 8.1 MG/DL Alkaline Phosphatase 80 U/L Aspartate Amino Transf (AST/SGOT) 28 U/L Alanine Aminotransferase (ALT/SGPT) 28 U/L Total Bilirubin 0.4 MG/DL Sodium Level 136 MEQ/L Potassium Level 5.1 MEQ/L Chloride Level 101 MEQ/L Carbon Dioxide Level 25.3 MEQ/L Anion Gap 10 MEQ/L Estimat Glomerular Filtration Rate 18 ML/MIN Assessment and Plan Problem List: (1) Chest pain ICD Codes: R07.9 - Chest pain, unspecified Status: Acute (2) COPD Status: Chronic (3) Diabetes mellitus type 2 in obese ICD Codes: E11.69 - Diabetes mellitus type 2 in obese; E66.9 - Obesity, unspecified Status: Chronic (4) Physical deconditioning ICD Codes: R53.81 - Other malaise (5) Hypertension ICD Codes: I10 - Hypertension Status: Chronic (6) Hypercholesterolemia ICD Codes: E78.00 - Hypercholesterolemia Status: Chronic (7) CAD (coronary artery disease) ICD Codes: I25.10 - Atherosclerotic heart disease of [place] coronary artery without angina pectoris Status: Chronic Assessment and Plan 1) Cath showing no significant CAD Con't medical management 2) PE ruled out 3) EF 55-60% 4) IVAN on CKD, somewhat better today Unsure if creatinine was on the rise before cardiac catheterization? JAN usually 48 hours after cath Only received 60cc of contrast during the case Possibility of renal atheroemboli, but no other signs noted, and no eosinophilia Consult nephrology Discussed with nephrology, will see later today IVF Stop nephrotoxins 5) Previous chest pain Reproducible with palpation of anterior chest wall consistent with musculoskeletal pain Problem Qualifiers (1) Chest pain: Qualified Codes: R07.9 - Chest pain, unspecified Marek Parekh DO September 22, 2017 11:58
[2017-09-22] MEDS ORDERED: DIATRIZOATE MEGLUM/DIATRIZOATE SOD 9 ML CUP PO ONE (13:00)
--- NOTE | 2017-09-22 13:02 | HHI.NPPN ---
Subjective Additional Remarks Ongoing abdominal pains, tolerating PO diet Objective Data Data Vital Signs Date Time Temp Pulse Resp B/P (MAP) Pulse Ox O2 Delivery O2 Flow Rate FiO2 09/22/17 11:15 98.0 64 16 129/66 (87) 98 09/22/17 08:05 98 Nasal Cannula 1.00 09/22/17 07:20 98.0 72 18 155/81 (105) 98 09/22/17 07:00 73 09/22/17 06:00 74 09/22/17 05:00 76 09/22/17 04:00 72 09/22/17 03:27 97.9 76 16 131/51 (77) 96 09/22/17 03:00 74 09/22/17 03:00 76 09/22/17 02:40 21 09/22/17 02:00 70 09/22/17 01:00 68 09/22/17 00:00 70 09/21/17 23:00 71 09/21/17 23:00 98.0 72 16 94/67 (76) 98 09/21/17 23:00 70 09/21/17 22:00 68 09/21/17 21:57 99 Nasal Cannula 2.00 09/21/17 21:00 68 09/21/17 20:00 97.5 75 17 130/63 (85) 99 09/21/17 20:00 72 09/21/17 19:00 73 09/21/17 18:00 74 09/21/17 17:00 74 09/21/17 16:00 72 09/21/17 15:05 98.0 74 18 124/66 (85) 94 09/21/17 15:00 69 09/21/17 13:00 68 -: 09/22/17 0707 09/22/17 0707 Microbiology 09/21/17 Urine Culture, Received Pending Physical Exam General Appearance: Well Developed, Well Nourished, No Acute Distress Throat Throat Exam: Oral Mucosa Tab & Moist Neck Neck Exam: Neck Supple Pulmonary Resp Exam: Decreased Bases Cardiology CV Exam: Regular, Normal Sinus Rhythm Gastrointestinal/Abdomen GI Exam: Soft, Bowel Sounds Present Musculoskeletal MS Exam: Joints Intact Integumentary Skin Exam: Warm, Dry, Intact Extremeties Extremities Exam: No Edema Neurologic Neuro Exam: Alert, Awake, Oriented Assessment/Plan Problem List: (1) IVAN (acute kidney injury) ICD Codes: N17.9 - Acute kidney failure, unspecified Plan: It is unclear what the patient's baseline creatinine was; however, she had a creatinine of 1.5 at the time of admission. Echogenic kidneys on ultrasound, suggestive of CKD. Somewhat acute presentation for contrast induced IVAN s/p cardiac cath Possible element of initial volume depletion as well. YANIRA-I on hold. Responding to IVFs: creatinine 3.9 -> 3.0 now. FeNa of 0.2% suggestive of pre-renal component. Initial acidosis improved. Continue NS at 100cc/hour. Tolerating PO intake. If creatinine stable in AM, can stop IVFs. Of note, she does have an elevated BUN with the setting of steroids for COPD as well. (2) Hypertension ICD Codes: I10 - Hypertension Status: Chronic Plan: continue meds, BP stable. (3) Chest pain ICD Codes: R07.9 - Chest pain, unspecified Status: Acute Plan: Negative cardiac cath. symptoms more abdominal now - continue to follow with primary team (4) Diabetes mellitus type 2 in obese ICD Codes: E11.69 - Diabetes mellitus type 2 in obese; E66.9 - Obesity, unspecified Status: Chronic Plan: continue to monitor Problem Qualifiers (1) Chest pain: Qualified Codes: R07.9 - Chest pain, unspecified Vladimir Villasenor MD September 22, 2017 13:02
[2017-09-22] MEDS: GABAPENTIN 300 MG CAP PO SCH (13:23)
[2017-09-22] MEDS: LEVOFLOXACIN 750 MG PREMIX INJ 150 ML IV SCH (13:24)
[2017-09-22] MEDS: SODIUM CHLOR 0.9% 1000 ML INJ 1,000 ML IV SCH (13:37)
[2017-09-22] MEDS: RESP: ALBUTEROL 2.5 MG/IPRATROPIUM 0.5 MG NEB (PRN) NEB ×2 (16:33→20:34)
--- NOTE | 2017-09-22 17:51 | HHI.PR ---
Subjective Remarks Patient still complaining of lower abdominal pain, very difficult to obtain history from her When I entered the room she was sleeping, no fever overnight, KUB yesterday were not remarkable Objective Vitals Vital Signs Date Time Temp Pulse Resp B/P (MAP) Pulse Ox O2 Delivery O2 Flow Rate FiO2 09/22/17 16:00 69 09/22/17 15:24 98.6 64 16 122/76 (91) 98 09/22/17 15:00 72 09/22/17 14:00 72 09/22/17 13:00 68 09/22/17 12:00 68 09/22/17 11:15 98.0 64 16 129/66 (87) 98 09/22/17 11:00 70 09/22/17 10:00 78 09/22/17 09:00 76 09/22/17 08:05 98 Nasal Cannula 1.00 09/22/17 08:00 74 09/22/17 07:20 98.0 72 18 155/81 (105) 98 09/22/17 07:00 73 09/22/17 06:00 74 09/22/17 05:00 76 09/22/17 04:00 72 09/22/17 03:27 97.9 76 16 131/51 (77) 96 09/22/17 03:00 74 09/22/17 03:00 76 09/22/17 02:40 21 09/22/17 02:00 70 09/22/17 01:00 68 09/22/17 00:00 70 09/21/17 23:00 71 09/21/17 23:00 98.0 72 16 94/67 (76) 98 09/21/17 23:00 70 09/21/17 22:00 68 09/21/17 21:57 99 Nasal Cannula 2.00 09/21/17 21:00 68 09/21/17 20:00 97.5 75 17 130/63 (85) 99 09/21/17 20:00 72 09/21/17 19:00 73 09/21/17 18:00 74 I/O 09/21/17 09/21/17 09/21/17 09/22/17 09/22/17 09/22/17 07:00 15:00 23:00 07:00 15:00 23:00 Intake Total 240 ml 700 ml 1140 ml Output Total 700 ml 1200 ml 1000 ml Balance -460 ml -500 ml 140 ml Intake Oral 240 ml 700 ml 240 ml IV Total 900 ml Output Urine Total 700 ml 1200 ml 1000 ml # Bowel Movements 1 Result Diagram: 09/22/1770609/22/17706 Objective Remarks GENERAL: This is a well-nourished, well-developed patient, in no apparent distress. CARDIOVASCULAR: Regular rate and rhythm without murmurs, gallops, or rubs. RESPIRATORY: Positive bilateral expiratory wheezes, limited breath sounds bilaterally. GASTROINTESTINAL: Abdomen soft, nondistended, positive tenderness to deep palpation. Normal active bowel sounds MUSCULOSKELETAL: Extremities without clubbing, cyanosis, or edema. NEURO: Alert & Oriented x4 to person, place, time, situation. Moves all ext x4 A/P Assessment and Plan 72-year-old female admitted secondary to chest pain, COPD exacerbation, and hypertensive urgency. 09/20: WBC 21.5 with 93% shift, 2D echo showed 55-60% with negative stress test however still wheezing, I ordered DuoNeb, continue Solu-Medrol, monitor clinical improvement, repeat CBC in a.m. 09/21: WBC dropped to 19 K, discussed with Dr. Villasenor nephrology, continue monitoring BMP,, DYSURIA: Check UA, ABDOMINAL pain check KUB 09/22: WBC dropped to 13.8 with 93 left shift, creatinine dropped to 3.05, KUB yesterday was negative except for possible left renal calculus,Patient still complaining of lower abdominal pain, very difficult to obtain history from her When I entered the room she was sleeping, no fever overnight, KUB yesterday were not remarkable>> will check CAT scan of the abdomen and pelvis without contrast due to IVAN A/P: Chest pain Negative cardiac workup including heart cath. Etiology may be related to esophagus Start PPI Etiology could be related to costal chondritis Start steroids COPD exacerbation Continue systemic steroids Continue Mucinex Continue breathing treatments as needed Continue oxygen as needed Continue antibiotics IVAN vs Chronic kidney disease stage II-III Monitor renal functions consider nephro consult Hypertension Continue baseline treatment Follow blood pressures Adjust treatments as needed Diabetes mellitus type 2 Follow blood sugars Insulin sliding scale Diabetic diet Presbycusis Supportive care Osteoarthritis As needed pain treatments Ara Ford MD September 22, 2017 17:50
[2017-09-22] MEDS: ACETAMINOPHEN 325 MG TAB PO PRN (18:44)
--- NOTE | 2017-09-22 20:51 | RADRPT ---
EXAM DATE/TIME: 09/22/2017 20:18 [facility] COMPARISON: CT ABDOMEN & PELVIS W/O CONTRAST, April 03, 2017, 13:37. INDICATIONS : Lower abdomen pain today. ORAL CONTRAST: Prescribed oral contrast ingested. RADIATION DOSE: 15.80 CTDIvol (mGy) MEDICAL HISTORY : Hypertension. renal failure, diabetes SURGICAL HISTORY : None. ENCOUNTER: Initial ACUITY: 1 day PAIN SCALE: 7/10 LOCATION: Bilateral lower quadrant TECHNIQUE: Volumetric scanning of the abdomen and pelvis was performed. Using automated exposure control and ad justment of the mA and/or kV according to patient size, radiation dose was kept as low as reasonably achievable to obtain optimal diagnostic quality images. DICOM format image data is available electro nically for review and comparison. FINDINGS: LOWER LUNGS: Minimal right lung base consolidation. LIVER: Homogeneous density without lesion. There is no dilation of the biliary tree. No calcified [place] es. SPLEEN: Normal size without lesion. PANCREAS: Within normal limits. KIDNEYS: For similar cyst in the posterior mid left kidney. Kidneys are slightly asymmetric in size with small er right kidney. No radiopaque renal calculi or hydronephrosis. ADRENAL GLANDS: Within normal limits. VASCULAR: There is no aortic aneurysm. Right common iliac artery stent in place. BOWEL/MESENTERY: Moderate sigmoid and moderate to severe distal colonic diverticulosis without definitive inflammatory change to suggest diverticulitis. Additional scattered colonic diverticula throughout. The appendix is normal. Small bowel loops are normal in caliber. No free air or free fluid. ABDOMINAL WALL: Within normal limits. RETROPERITONEUM: There is no lymphadenopathy. BLADDER: No wall thickening or mass. REPRODUCTIVE: Within normal limits. INGUINAL: There is no lymphadenopathy or hernia. MUSCULOSKELETAL: Degenerative spondylosis of the lumbar spine. CONCLUSION: 1. Redemonstration of prominence colonic diverticulosis without significant inflammatory change to le ggest diverticulitis at this time. 2. Normal appendix. 3. Minimal right lung base consolidation, likely atelectasis. 4. Stable ancillary findings, as above. Stone Foy MD on September 22, 2017 at 20:45 Board Certified Radiologist. This report was verified electronically.
[2017-09-22] MEDS: ATORVASTATIN 10 MG TAB PO SCH (21:14)
[2017-09-23] VITALS (18 sets, daily range): BP systolic 147–170; BP diastolic 74–95; PULSE 68–84; RESP 18–20; TEMP 97.6–98; O2SAT 96–98
[2017-09-23] MEDS: SODIUM CHLOR 0.9% 1000 ML INJ 1,000 ML IV SCH ×2 (00:21→10:00)
[2017-09-23] MEDS: methylPREDNISolone SOD SUCC 125 MG/2 ML VIAL IV PUSH SCH ×2 (03:27→09:00)
[2017-09-23] MEDS: ACETAMINOPHEN 325 MG TAB PO PRN (03:30)
[2017-09-23] MEDS: cloNIDine HCL 0.1 MG TAB PO PRN (03:53)
[2017-09-23 07:07] LABS: BICARBONATE 23.4 MEQ/L (21.0-32.0); CALCIUM 8.1 MG/DL (8.5-10.1); CREATININE 2.34 MG/DL (0.50-1.00); MAGNESIUM 2.7 MG/DL (1.5-2.5)
[2017-09-23] MEDS: INSULIN ASPART SUPPLEMENTAL SCALE SQ SCH ×4 (08:00→12:55)
[2017-09-23] MEDS: DICYCLOMINE HCL 20 MG TAB PO SCH ×2 (08:57→12:52)
[2017-09-23] MEDS: ASPIRIN 81 MG CHEW TAB CHEW SCH (08:58)
[2017-09-23] MEDS: TOLTERODINE TARTRATE 2 MG CAP LA PO SCH (08:59)
[2017-09-23] MEDS: guaiFENesin E.R. 600 MG TAB PO SCH (08:59)
[2017-09-23] MEDS: hydrALAZINE HCL 25 MG TAB PO SCH ×2 (08:59→12:52)
[2017-09-23] MEDS: DOCUSATE SODIUM 50 MG/SENNA 8.6 MG TAB PO SCH (08:59)
[2017-09-23] MEDS: PANTOPRAZOLE SOD 40 MG DELAYED RELEASE TAB PO SCH (08:59)
[2017-09-23] MEDS: METOPROLOL SUCCINATE 50 MG EXTENDED RELEASE TAB PO SCH (08:59)
[2017-09-23] MEDS: CLOPIDOGREL 75 MG TAB PO SCH (09:00)
[2017-09-23] MEDS: ISOSORBIDE MONONITRATE 60 MG CR TAB (IMDUR) PO SCH (09:00)
[2017-09-23] MEDS: SODIUM CHLORIDE 0.9% FLUSH 10 ML FLUSH IV FLUSH SCH (09:08)
[2017-09-23] MEDS: BUDESONIDE-FORMOTEROL 160/4.5 MCG INHALER INH SCH (09:08)
--- NOTE | 2017-09-23 10:40 | HHI.NPPN ---
Subjective Renal Failure: Chronic, Acute, Stage III Interval History She is extremely hard of hearing. Renal function is better. (Bambi Tam) Objective Data Data Vital Signs Date Time Temp Pulse Resp B/P (MAP) Pulse Ox O2 Delivery O2 Flow Rate FiO2 09/23/17 10:00 78 09/23/17 09:00 76 09/23/17 08:00 68 09/23/17 07:56 96 21 09/23/17 07:26 Room Air 09/23/17 07:26 98.0 77 96 09/23/17 07:00 78 09/23/17 06:05 77 09/23/17 05:00 76 09/23/17 04:30 20 09/23/17 04:00 80 09/23/17 03:24 98.0 84 20 170/87 (114) 96 09/23/17 03:00 78 09/23/17 02:00 80 09/23/17 01:00 78 09/23/17 00:15 76 09/22/17 23:26 97.8 78 20 139/66 (90) 95 09/22/17 23:00 67 09/22/17 22:00 76 09/22/17 21:00 76 09/22/17 20:00 72 09/22/17 19:19 98.4 73 21 151/80 (103) 96 09/22/17 19:19 Room Air 09/22/17 19:00 72 09/22/17 18:00 72 09/22/17 17:00 70 09/22/17 16:00 69 09/22/17 15:24 98.6 64 16 122/76 (91) 98 09/22/17 15:00 72 09/22/17 14:00 72 09/22/17 13:00 68 09/22/17 12:00 68 09/22/17 11:15 98.0 64 16 129/66 (87) 98 09/22/17 11:00 72 (Bambi Tam) -: 09/22/17 0707 09/23/17 0512 Imaging Last Impressions Abdomen/Pelvis CT 09/22/17 0000 Signed Impressions: Service Date/Time: Friday, September 22, 2017 20:18 - CONCLUSION: 1. Redemonstration of prominence colonic diverticulosis without significant inflammatory change to suggest diverticulitis at this time. 2. Normal appendix. 3. Minimal right lung base consolidation, likely atelectasis. 4. Stable ancillary findings, as above. Stone Foy MD Renal Ultrasound 09/21/17 0000 Signed Impressions: Service Date/Time: Thursday, September 21, 2017 20:57 - CONCLUSION: 1. Echogenic kidneys consistent with medical renal disease. 2. Bilateral renal cysts. Mike Burgos MD Chest X-Ray 09/21/17 0000 Signed Impressions: Service Date/Time: Thursday, September 21, 2017 16:27 - CONCLUSION: Bilateral patchy densities. Mike Burgos MD Abdomen X-Ray 09/21/17 0000 Signed Impressions: Service Date/Time: Thursday, September 21, 2017 16:35 - CONCLUSION: No acute abnormalities. Possible punctate left renal calculus. Mike Burgos MD Lung Scan-V Nuclear Medicine 09/18/17 0000 Signed Impressions: Service Date/Time: Monday, September 18, 2017 15:04 - CONCLUSION: Low probability for pulmonary embolism. Pradeep Amador MD FACR (Bambi Tam) Physical Exam General Appearance: Well Developed, Well Nourished, No Acute Distress, Comfortable (Bambi Tam B. COMPUTER SPECIALIST) Ears & Nose Ears & Nose Remarks hard of hearing/near deaf (Bambi Tam B. COMPUTER SPECIALIST) Throat Throat Exam: Oral Mucosa [place] & Moist (Bambi Tam B. COMPUTER SPECIALIST) Neck Neck Exam: Neck Supple (Bambi Tam B. COMPUTER SPECIALIST) Pulmonary Resp Exam: Clear Bilaterally, Breath Sounds Equal, Decreased Bases (Bambi Tam B. COMPUTER SPECIALIST) Cardiology CV Exam: Regular, Normal Sinus Rhythm (Bambi Tam B. COMPUTER SPECIALIST) Gastrointestinal/Abdomen GI Exam: Soft, Bowel Sounds Present GI Remarks slightly tender lower quadrant (Bambi Tam B. COMPUTER SPECIALIST) Musculoskeletal MS Exam: Joints Intact, Normal Tone (Bambi Tam B. COMPUTER SPECIALIST) Integumentary Skin Exam: Clear, Warm, Dry, Intact (Bambi Tam B. COMPUTER SPECIALIST) Extremeties Extremities Exam: No Edema, Pedal Pulses Palpable (Bambi Tam) Neurologic Neuro Exam: Alert, Awake, Oriented, Speech Clear, Moving All Extremities (Bambi Tam) Assessment/Plan Discussed Condition With: Patient Assessment Summary: IVAN/Acute Renal Failure, Dehydration, Hypertension, Diabetes Mellitus, CKD Stage III Problem List: (1) IVAN (acute kidney injury) ICD Codes: N17.9 - Acute kidney failure, unspecified Plan: IVAN on CKD 3, underlying nephrosclerosis, baseline creatinine 1.37, GFR 45 IVAN most likely due to prerenal azotemia She had a cardiac cath on 09/19, received 60 ml of contrast On IVF, reduce rate to 75 cc/hr Acidosis improved. Repeat labs, avoid nephrotoxic agents UA unremarkable (2) Hypertension ICD Codes: I10 - Hypertension Status: Chronic Plan: BP elevated. ON amlodipine, hydralazine, Toprol. Increase Imdur to 90 mg daily. (3) Chest pain ICD Codes: R07.9 - Chest pain, unspecified Status: Acute Plan: Negative cardiac cath. symptoms more abdominal now - continue to follow with primary team (4) Diabetes mellitus type 2 in obese ICD Codes: E11.69 - Diabetes mellitus type 2 in obese; E66.9 - Obesity, unspecified Status: Chronic Plan: Maintain glucose 140-180 mg/dL while hospitalized. (Bambi Tam) Plan patient was seen and examined. Renal function is improving. Taper off fluids. (Rudy Martin MD) Problem Qualifiers (1) Chest pain: Qualified Codes: R07.9 - Chest pain, unspecified Bambi Tam September 23, 2017 10:40 Rudy Martin MD September 23, 2017 11:20
[2017-09-23] MEDS ORDERED: ISOS30TA3 PO (12:21)
[2017-09-23] MEDS ORDERED: ASPI81 CHEW (12:21)
--- NOTE | 2017-09-23 12:29 | HHI.DS ---
Discharge Summary Admission Date September 18, 2017 at 16:45 Discharge Date: September 23, 2017 Admitting Diagnosis copd exacerbation (1) Diverticulosis ICD Code: K57.90 - Diverticulosis of intestine, part unspecified, without perforation or abscess without bleeding (2) IVAN (acute kidney injury) ICD Code: N17.9 - Acute kidney failure, unspecified (3) COPD exacerbation ICD Code: J44.1 - Chronic obstructive pulmonary disease with (acute) exacerbation (4) Diabetes mellitus type 2 in obese ICD Code: E11.69 - Diabetes mellitus type 2 in obese; E66.9 - Obesity, unspecified Status: Chronic (5) Hypertension ICD Code: I10 - Hypertension Status: Chronic (6) CAD (coronary artery disease) ICD Code: I25.10 - Atherosclerotic heart disease of [place] coronary artery without angina pectoris Status: Chronic (7) Chest pain ICD Code: R07.9 - Chest pain, unspecified Status: Acute Procedures Heart cath Brief History - From Admission PATIENT IS A 72 YEAR OLD VERY HARD OF HEARING AND VERY POOR HISTORIAN WHO PRESENTED WITH SOB AND CHEST PAIN PATIENT WAS NOTED TO HIS RIGHT SIDE OF HER CHEST ON HER WALKER CAUSING PAIN HAD V/Q SCAN WHICH IS NEGATIVE FOR PE SEEN BY CARDIOLOGY BEING TREATED FOR COPD AND POORLY CONTROLLED HYPERTENSION AND CHEST PAIN CBC/BMP: 09/22/17 0707 09/23/17 0512 Significant Findings Laboratory Tests Test 09/21/17 07:50 09/21/17 15:29 09/22/17 07:07 09/23/17 05:12 White Blood Count 19.5 TH/MM3 (4.0-11.0) 13.8 TH/MM3 (4.0-11.0) Red Blood Count 3.33 MIL/MM3 (4.00-5.30) 3.29 MIL/MM3 (4.00-5.30) Hemoglobin 10.7 GM/DL (11.6-15.3) 10.1 GM/DL (11.6-15.3) Hematocrit 31.1 % (35.0-46.0) 30.4 % (35.0-46.0) Red Cell Distribution Width 21.8 % (11.6-17.2) 20.8 % (11.6-17.2) Neutrophils (%) (Auto) 95.5 % (16.0-70.0) 93.9 % (16.0-70.0) Lymphocytes (%) (Auto) 2.5 % (9.0-44.0) 2.7 % (9.0-44.0) Neutrophils # (Auto) 18.7 TH/MM3 (1.8-7.7) 13.0 TH/MM3 (1.8-7.7) Lymphocytes # (Auto) 0.5 TH/MM3 (1.0-4.8) 0.4 TH/MM3 (1.0-4.8) Blood Urea Nitrogen 85 MG/DL (7-18) 76 MG/DL (7-18) 63 MG/DL (7-18) Creatinine 3.98 MG/DL (0.50-1.00) 3.05 MG/DL (0.50-1.00) 2.34 MG/DL (0.50-1.00) Random Glucose 170 MG/DL (74-106) 191 MG/DL (74-106) 200 MG/DL (74-106) Calcium Level 8.3 MG/DL (8.5-10.1) 8.1 MG/DL (8.5-10.1) 8.1 MG/DL (8.5-10.1) Phosphorus Level 5.9 MG/DL (2.5-4.9) Sodium Level 129 MEQ/L (136-145) Carbon Dioxide Level 14.6 MEQ/L (21.0-32.0) Estimat Glomerular Filtration Rate 13 ML/MIN (>89) 18 ML/MIN (>89) 25 ML/MIN (>89) Urine Turbidity HAZY (CLEAR) Urine Squamous Epithelial Cells > 8 /hpf (0-5) Urine Bacteria MOD /hpf (NONE) Albumin 3.0 GM/DL (3.4-5.0) Magnesium Level 2.7 MG/DL (1.5-2.5) PE at Discharge GENERAL: This is a well-nourished, well-developed patient, in no apparent distress. CARDIOVASCULAR: Regular rate and rhythm without murmurs, gallops, or rubs. RESPIRATORY: Positive bilateral expiratory wheezes, limited breath sounds bilaterally. GASTROINTESTINAL: Abdomen soft, nondistended, positive tenderness to deep palpation. Normal active bowel sounds MUSCULOSKELETAL: Extremities without clubbing, cyanosis, or edema. NEURO: Alert & Oriented x4 to person, place, time, situation. Moves all ext x4 Hospital Course 72 years old AA female admitted for chest pain short of breath, she underwent cardiac cath which was negative, cardiology was following, she has COPD exacerbation treated with oxygen and nebulizer, patient developed IVAN on chronic kidney disease stage III, nephrology consulted improved on IV fluid. Also patient developed lower abdominal pain CT scan showed diverticulosis without diverticulitis, patient was advised about high-fiber diet avoid seeds. [id number] encounter performed with the patient on discharge day, as well as physical exam, summary of hospitalization course and postdischarge plan has been D/W the patient. And her daughter at the bedside on day of discharge diverticulosis D/W nurse D/W renal case manager. Discharge medications reviewed and printed and signed, post discharge follow up visit with PCP and other specialist as well as Brief hospital course and discharge summary has been placed. Pt Condition on Discharge: Fair Discharge Disposition: Discharge Home Discharge Time: > 30 minutes Discharge Instructions DIET: Follow Instructions for: Heart Healthy Diet, Diabetic Diet, High Fiber Diet Additional Diet Instructions: avoid seeds Activities you can perform: Weight Bearing as Silvio Follow up Referrals: Cardiology - 1 Week with Marek Parekh DO Nephrology - 1 Week with Rudy Martin MD New Orders: BASIC METABOLIC PROF - 3-5 Days New Medications: Aspirin (Tgt Aspirin) 81 Mg Chw 81 MG CHEW DAILY for cardiac, #30 EA Isosorbide Mononitrate ER (Isosorbide Mononitrate ER) 30 Mg Ivan 90 MG PO DAILY@0700 for htn, #30 TAB Continued Medications: Amlodipine (Amlodipine) 10 Mg Tab 10 MG PO DAILY for Blood Pressure Management, #30 TAB 0 Refills Atorvastatin (Atorvastatin) 10 Mg Tab 10 MG PO HS for Cholesterol Management, #30 TAB 0 Refills Clopidogrel (Clopidogrel) 75 Mg Tab 75 MG PO DAILY for Blood Clot Prevention, #30 TAB 0 Refills Dicyclomine (Dicyclomine) 20 Mg Tab 20 MG PO TID for Bowel Management, #90 TAB 0 Refills Gabapentin (Gabapentin) 300 Mg Cap 300 MG PO TID, #90 CAP 0 Refills Hydralazine HCl (Hydralazine HCl) 25 Mg Tablet 75 MG PO BID for Blood Pressure Management, #60 TAB 0 Refills Meclizine (Meclizine) 25 Mg Tab 25 MG PO TID PRN for VERTIGO, TAB 0 Refills Metoprolol Succinate ER 24 HR (Toprol XL) 100 Mg Tab 200 MG PO DAILY for Blood Pressure Management, #30 TAB 0 Refills Nitroglycerin SL (Nitroglycerin SL) 0.4 Mg Subl 0.4 MG SL DIRECTED PRN for CHEST PAIN, #100 TAB.SL 0 Refills ONE TABLET UNDER THE TONGUE NEEDED FOR CHEST PAIN, MAY REPEAT EVERY FIVE MINUTES FOR A TOTAL OF 3 DOSES OR CALL 911 IF NO RELIEF Omeprazole (Omeprazole) 20 Mg Tab 20 MG PO DAILY, #30 TAB 0 Refills Tizanidine (Tizanidine) 2 Mg Cap 2 MG PO TID for Muscle Spasm, CAP 0 Refills Tolterodine (Tolterodine) 1 Mg Tab 1 MG PO BID for Urinary Symptom Managemen, #60 TAB 0 Refills Ara Ford MD September 23, 2017 12:29
[2017-09-23] MEDS: GABAPENTIN 300 MG CAP PO SCH (12:53)
--- NOTE | 2017-09-23 13:57 | PD.CARD.PN ---
Subjective Subjective Remarks No events overnight No further chest pain Objective Medications Current Medications Medications (Trade) Dose Ordered Sig/Peg Route Start Time Stop Time Status Last Admin (D50w (Vial) Inj) 50 ml UNSCH PRN IV PUSH 09/18/17 11:45 (Glucagon Inj) 1 mg UNSCH PRN OTHER 09/18/17 11:45 (NovoLOG SUPPLEMENTAL SCALE) 1 ACHS SLIDING SCALE SQ 09/18/17 12:00 09/23/17 12:55 (Norvasc) 10 mg DAILY PO 09/18/17 13:00 09/23/17 08:58 (Lipitor) 10 mg HS PO 09/18/17 21:00 09/22/17 21:14 (Plavix) 75 mg DAILY PO 09/19/17 09:00 09/23/17 09:00 (Bentyl) 20 mg TID PO 09/18/17 13:00 09/23/17 12:52 (Antivert) 25 mg TID PRN PO 09/18/17 11:45 (Zanaflex) 2 mg TID PO 09/18/17 13:00 09/23/17 12:53 (Detrol La) 2 mg DAILY PO 09/18/17 14:00 09/23/17 08:59 (NS Flush) 2 ml BID IV FLUSH 09/18/17 21:00 09/22/17 21:10 (NS Flush) 2 ml UNSCH PRN IV FLUSH 09/18/17 11:45 09/23/17 03:27 (Duoneb Neb) 1 ampule Q2HR NEB PRN NEB 09/18/17 13:15 09/22/17 20:34 (Symbicort 160-4.5 Mcg Inh) 2 puff Q12HR INH 09/18/17 21:00 09/23/17 09:08 Levofloxacin/ Dextrose 150 ml @ 100 mls/hr Q48H IV 09/18/17 14:00 09/22/17 13:24 (Tylenol) 650 mg Q4H PRN PO 09/18/17 11:45 (Zofran Odt) 4 mg Q6H PRN PO 09/18/17 12:45 (Reglan Inj) 5 mg Q6H PRN IV PUSH 09/18/17 11:45 09/22/17 09:06 (Tylenol) 650 mg Q6H PRN PO 09/18/17 11:45 09/23/17 03:30 (Percocet 5-325 Mg) 1 tab Q6H PRN PO 09/18/17 11:45 09/22/17 01:10 (Percocet 10-325 Mg) 1 tab Q6H PRN PO 09/18/17 11:45 09/21/17 01:15 (Morphine Inj) 2 mg Q3H PRN IV PUSH 09/18/17 12:30 (Morphine Inj) 4 mg Q3H PRN IV PUSH 09/18/17 12:45 (Narcan Inj) 0.4 mg UNSCH PRN IV PUSH 09/18/17 11:45 (Lilo-Colace) 1 tab BID PO 09/18/17 21:00 09/23/17 08:59 (Milk Of Magnesia Liq) 30 ml Q12H PRN PO 09/18/17 11:45 09/21/17 15:03 (Senokot) 17.2 mg Q12H PRN PO 09/18/17 11:45 (Dulcolax Supp) 10 mg DAILY PRN RECTAL 09/18/17 11:45 (Lactulose Liq) 30 ml DAILY PRN PO 09/18/17 11:45 (Mucinex Er) 600 mg BID PO 09/18/17 12:00 09/23/17 08:59 (Catapres) 0.1 mg Q4H PRN PO 09/18/17 12:45 09/23/17 03:53 (Apresoline) 75 mg TID PO 09/18/17 13:00 09/23/17 12:52 (Toprol Xl) 200 mg DAILY PO 09/18/17 13:00 09/23/17 08:59 (Aspirin Chew) 81 mg DAILY CHEW 09/20/17 09:00 09/23/17 08:58 (Protonix) 40 mg DAILY PO 09/20/17 09:00 09/23/17 08:59 (Mag-Al Plus Susp Liq) 30 ml Q6H PRN PO 09/19/17 14:00 (Neurontin) 300 mg Q24H PO 09/21/17 12:00 09/23/17 12:53 Sodium Chloride 1,000 ml @ 75 mls/hr [id number] IV 09/22/17 14:00 09/23/17 10:00 (Imdur) 90 mg DAILY@0700 PO 09/24/17 07:00 (SoluMEDROL INJ) 40 mg Q12H IV PUSH 09/23/17 21:00 09/24/17 09:01 (Deltasone) 40 mg DAILY PO 09/25/17 09:00 Vital Signs / I&O Vital Signs Date Time Temp Pulse Resp B/P (MAP) Pulse Ox O2 Delivery O2 Flow Rate FiO2 09/23/17 11:35 97.6 75 18 147/74 (98) 98 09/23/17 10:00 78 09/23/17 09:00 76 09/23/17 08:00 68 09/23/17 07:56 96 21 09/23/17 07:26 Room Air 09/23/17 07:26 98.0 77 18 170/95 (120) 96 09/23/17 07:00 78 09/23/17 06:05 77 09/23/17 05:00 76 09/23/17 04:30 20 09/23/17 04:00 80 09/23/17 03:24 98.0 84 20 170/87 (114) 96 09/23/17 03:00 78 09/23/17 02:00 80 09/23/17 01:00 78 09/23/17 00:15 76 09/22/17 23:26 97.8 78 20 139/66 (90) 95 09/22/17 23:00 67 09/22/17 22:00 76 09/22/17 21:00 76 09/22/17 20:00 72 09/22/17 19:19 98.4 73 21 151/80 (103) 96 09/22/17 19:19 Room Air 09/22/17 19:00 72 09/22/17 18:00 72 09/22/17 17:00 70 09/22/17 16:00 69 09/22/17 15:24 98.6 64 16 122/76 (91) 98 09/22/17 15:00 72 09/22/17 14:00 72 I/O 09/22/17 09/22/17 09/22/17 09/23/17 09/23/17 09/23/17 07:00 15:00 23:00 07:00 15:00 23:00 Intake Total 1140 ml 1300 ml 1360 ml 950 ml Output Total 1000 ml 1000 ml 1600 ml Balance 140 ml 300 ml -240 ml 950 ml Intake Oral 240 ml 1300 ml 360 ml IV Total 900 ml 1000 ml 950 ml Output Urine Total 1000 ml 1000 ml 1600 ml # Bowel Movements 1 Physical Exam GENERAL: NAD, AAOx3 SKIN: Warm and dry. HEAD: Atraumatic. Normocephalic. EYES: Pupils equal and round. No scleral icterus. No injection or drainage. ENT: No nasal bleeding or discharge. Mucous membranes pink and moist. NECK: Trachea midline. No JVD. CARDIOVASCULAR: Regular rate and rhythm. RESPIRATORY: No accessory muscle use. Clear to auscultation. Breath sounds equal bilaterally. GASTROINTESTINAL: Abdomen soft, non-tender, nondistended. Hepatic and splenic margins not palpable. MUSCULOSKELETAL: Extremities without clubbing, cyanosis, or edema. No obvious deformities. NEUROLOGICAL: Awake and alert. No obvious cranial nerve deficits. Motor grossly within normal limits. Five out of 5 muscle strength in the arms and legs. Normal speech. PSYCHIATRIC: Appropriate mood and affect; insight and judgment normal. Laboratory Laboratory Tests Test 09/23/17 05:12 Blood Urea Nitrogen 63 MG/DL Creatinine 2.34 MG/DL Random Glucose 200 MG/DL Calcium Level 8.1 MG/DL Phosphorus Level 3.0 MG/DL Magnesium Level 2.7 MG/DL Sodium Level 137 MEQ/L Potassium Level 4.3 MEQ/L Chloride Level 103 MEQ/L Carbon Dioxide Level 23.4 MEQ/L Anion Gap 11 MEQ/L Estimat Glomerular Filtration Rate 25 ML/MIN Assessment and Plan Problem List: (1) Chest pain ICD Codes: R07.9 - Chest pain, unspecified Status: Acute (2) COPD Status: Chronic (3) Diabetes mellitus type 2 in obese ICD Codes: E11.69 - Diabetes mellitus type 2 in obese; E66.9 - Obesity, unspecified Status: Chronic (4) Physical deconditioning ICD Codes: R53.81 - Other malaise (5) Hypertension ICD Codes: I10 - Hypertension Status: Chronic (6) Hypercholesterolemia ICD Codes: E78.00 - Hypercholesterolemia Status: Chronic (7) CAD (coronary artery disease) ICD Codes: I25.10 - Atherosclerotic heart disease of [place] coronary artery without angina pectoris Status: Chronic Assessment and Plan 1) Cath showing no significant CAD Con't medical management 2) PE ruled out 3) EF 55-60% 4) IVAN on CKD, creatinine back towards baseline Unsure if creatinine was on the rise before cardiac catheterization? JAN usually 48 hours after cath Only received 60cc of contrast during the case Possibility of renal atheroemboli, but no other signs noted, and no eosinophilia Consult nephrology Discussed with nephrology, will see later today IVF Stop nephrotoxins 5) Previous chest pain Reproducible with palpation of anterior chest wall consistent with musculoskeletal pain Problem Qualifiers (1) Chest pain: Qualified Codes: R07.9 - Chest pain, unspecified Marek Parekh DO September 23, 2017 13:57
[2017-09-23] MEDS ORDERED: methylPREDNISolone SOD SUCC 40 MG/1 ML VIAL IV PUSH SCH (21:00)
[2017-09-24] MEDS ORDERED: ISOSORBIDE MONONITRATE 30 MG CR TAB (IMDUR) PO SCH (07:00)
[2017-09-25] MEDS ORDERED: predniSONE 20 MG TAB PO SCH (09:00)
== END 2017-09-23 14:14 | disposition home or self-care (01) | DRG 683 ==
LOC: NEPC 08:30 → NEDA 11:35 → UNDOADMOB 11:36 → NEDA 11:36 → NEPHCDU 14:19 → OBSVTOIN 16:45 → INTOOBSV 16:45 → NEPFCDU 17:03 → NEPHCDU 17:03 → NEPFCDU 09-19 08:21 → HCIS 09-19 08:21 → OBSVTOIN 09-22 16:45 → UNDODISOB 09-23 14:14
PROVIDERS: ADMIT Hospitalist; ATTEND Hospitalist
PROC: 4A023N7 Measurement of Cardiac Sampling and Pressure, Left Heart, Percutaneous Approach (ICD-10-PCS; 2017-09-19)
PROC: B240ZZ3 Ultrasonography of Single Coronary Artery, Intravascular (ICD-10-PCS; 2017-09-19)
PROC: B2111ZZ Fluoroscopy of Multiple Coronary Arteries using Low Osmolar Contrast (ICD-10-PCS; principal; 2017-09-19 11:00)
DX: N17.9 Acute kidney failure, unspecified (principal); J44.1 Chronic obstructive pulmonary disease with (acute) exacerbation; E11.22 Type 2 diabetes mellitus with diabetic chronic kidney disease; R07.89 Other chest pain; I16.0 Hypertensive urgency; I12.9 Hypertensive chronic kidney disease with stage 1 through stage 4 chronic kidney disease, or unspecified chronic kidney disease; N18.4 Chronic kidney disease, stage 4 (severe); H91.10 Presbycusis, unspecified ear; I25.10 Atherosclerotic heart disease of native coronary artery without angina pectoris; E78.00 Pure hypercholesterolemia, unspecified; Z79.02 Long term (current) use of antithrombotics/antiplatelets; M19.90 Unspecified osteoarthritis, unspecified site; M54.9 Dorsalgia, unspecified; E66.9 Obesity, unspecified; Z68.35 Body mass index [BMI] 35.0-35.9, adult; K57.30 Diverticulosis of large intestine without perforation or abscess without bleeding; Z87.891 Personal history of nicotine dependence
CPT/HCPCS: 71045; 71046; 74018; 74176; 76775; 78582; 80048; 80053; 81001; 82550; 82570; 82948; 83036; 83735; 83880; 84100; 84300; 84439; 84443; 84484; 85025; 85610; 85730; 87086; 92978; 93005; 93306; 93458; 94150; 94640; 94664; 96361; 96365; 96366; 96367; 96372; 96375; 96376; 99152; 99153; A9540; A9567; C1753; C1769; C1887; C1893; G0378; G8987-GP; G8988-GP; J1644; J1650; J1815; J1956; J2250; J2270; J2765; J2930; J3010; J7030; J7070; Q9963; Q9967